=== PATIENT | female | born 1950 | race Caucasian/White ===

== ENCOUNTER → 2021-03-14 11:05 | Outpatient (CLI) | payer MEDICARE, OTHER, SELFPAY ==
--- NOTE | 2021-03-14 11:07 | VDUE_ITS ---
Reason For Study: end stage renal disease Right Arm Left Arm Chronic vein wall thickening with normal Left cephalic vein is compressible. venous flow noted in the Cephalic Vein. Cephalic Vein above the antecubital space it Cephalic Vein above the antecubital space it too small to image. too small to image. Left Cephalic Vein below antecub measures .18 Right Cephalic Vein below antecub x .17 cm. measures .21 x .26 cm. Left Cephalic Vein in the forearm Right Cephalic Vein in the forearm measures .18 x .19 cm. measures .19 x .22 cm. Left Cephalic Vein at the wrist measures .2 Right Cephalic Vein at the wrist measures .13 x .18 cm. x .14 cm. Left basilic vein is compressible. Right basilic vein is compressible. Basilic vein at bicep measures .35 x .39 cm. Right Basilic Vein mid bicep measures .27 Basilic vein above antecub measures .32 x .38 x .3 cm. cm. Right Basilic Vein above antecub measures .27 Basilic vein below antecub measures .16 x .18 x .3 cm. cm. Right Basilic Vein below antecub measures .18 Basilic vein in the forearm measures .12 x .2 cm. x .14 cm. Right Basilic Vein in the forearm Basilic vein at the wrist measures .08 x .1 measures .09 x .13 cm. cm. Right Basilic Vein at the wrist measures .17 Brachial art .31 x .34cm. x .17 cm. Brachial art 105.1cm/s Brachial art .39 x .4 cm. Radial art .19 x .2 cm. Brachial art 77.7 cm/s Radial art 77.7 cm/s. Radial art .24 x .26 cm. Radial art 85.5 cm/s. VL/Saphenous Vein Mapping, Bilat Interpretation Summary Bilateral upper extremity patent and compressible cephalic and basilic veins wi th dimensions as noted. Special note is made of chronic right forearm cephalic vein wall thickening. Bilaterally proximal to the antecubital crease the cephalic veins are too small to image Bilateral forearm cephalic veins are small Bilateral upper arm basilic veins appear to be of adequate diameter. Bilateral brachial arteries of normal diameter and flow Left radial artery is small although bilateral radial arteries appear to have p reserved flow Ordering Physician: Mihir Burnett Performed By: Oseas Lee RVT ?
== END ==
PROVIDERS: Referring Provider Internal Medicine Nephrology; Visit Provider Internal Medicine Nephrology
DX: Z01.818 Encounter for other preprocedural examination (principal); N18.6 End stage renal disease; Z99.2 Dependence on renal dialysis
CPT/HCPCS: 93970

== ENCOUNTER 2021-03-24 07:56 | Emergency (ER) | payer MEDICARE, OTHER, SELFPAY ==
[2021-03-24] VITALS (11 sets, daily range): BP systolic 81–152; BP diastolic 46–92; PULSE 80–88; RESP 17–22; TEMP 36.7–36.9; O2SAT 92–100; BMI 25.7
--- NOTE | 2021-03-24 08:14 | EKG12_ITS ---
Test Reason : Blood Pressure : / mmHG Vent. Rate : 082 BPM Atrial Rate : 082 BPM P-R Int : 170 ms QRS Dur : 076 ms QT Int : 404 ms P-R-T Axes : 035 -02 086 degrees QTc Int : 472 ms Normal sinus rhythm Nonspecific T wave abnormality Prolonged QT Abnormal ECG Confirmed by SALLIE ASTORGA, MAGED ([id number]), greeting card editor GENE ESPOSITO ([id number]) on 03/27/2021 9:38:41 AM Referred By: Confirmed By:KEYANA RIZO MD
--- NOTE | 2021-03-24 08:14 | RAD_ITS ---
STUDY: X-RAY CHEST REASON FOR EXAM: Female, 70 years old. Sob . Edema. TECHNIQUE: Single AP portable view of the chest. COMPARISON: None. FINDINGS: A right-sided dialysis catheter is in situ with the tip in the right atrium. EKG electrodes are seen. Moderate size left pleural effusion with left basilar compressive atelectasis and/or infiltrate. There is blunting of the right causing angle with mild increased markings at the right lung base. Mild degree of CHF. There is moderate cardiac enlargement. Normal mediastinum and nitin. Normal visualized pulmonary arteries. Normal visualized aortic arch and descending thoracic aorta. There are diffuse degenerative changes of the visualized thoracic spine. Normal visualized ribs, clavicles, and shoulders. There is no demonstrated abnormality of the visualized soft tissue structures of the upper abdomen. RAD/Chest 1 View (Portable) IMPRESSION: Moderate left pleural effusion with left compressive atelectasis and/or infiltrate. Blunting of the right costophrenic angle with mild increased markings at the right lung base. Mild degree of CHF. Electronically Signed: Vito Ng MD at 9:33 EDT , Service support ,
[2021-03-24 08:32] LABS: Absolute Lymphocyte Count 1.83 X10^3/uL (0.83-4.51); Absolute Neutrophil Count 5.6 X10^3/uL (2.0-7.7); Basophil# 0.07 X10^3/uL; Basophil% 0.8 % (0-1); Eosinophil# 0.34 X10^3/uL; Eosinophils% 3.9 % (0-5); Hematocrit 30.7 % (37-47); Hemoglobin 9.4 g/dL (12.0-15.0); Lymphocyte # 1.83 X10^3/ul (0.83-4.51); Lymphocyte % 21.2 % (19-41); Mean Corp Hgb Conc 30.6 g/dL (32-36); Mean Corpuscular Hgb 28.1 pg (27.0-32.0); Mean Corpuscular Volume 91.9 fL (81-99); Mean Platelet Vol. 10.3 fl (6.2-12.0); Monocyte% 9.3 % (0-10); NRBC Flagged by Analyzer 0 % (0-5); Neutrophil # 5.55 X10^3/uL (2.7-7.7); Neutrophil % 64.5 % (47-70); Platelet Count 335 K/mm3 (150-450); RBC Distribution Width CV 14.6 % (11.6-14.6); RBC Distribution Width SD 49.1 fl (35.1-43.9); Red Blood Count 3.34 M/mm3 (4.2-5.4); White Blood Count 8.6 K/mm3 (4.4-11.0)
[2021-03-24 08:45] LABS: ALB/GLOB Ratio 0.6 RATIO (0.9-2.4); AST(SGOT) 8 U/L (15-37); Alanine Aminotransfer ALT/SGPT 9 U/L (13-56); Albumin, Serum 2.3 g/dL (3.2-5.0); Alkaline Phosphatase 111 U/L (45-117); Anion Gap 3 (5-15); BUN 41 mg/dL (7-18); BUN/Creat Ratio 11.4 RATIO (10-20); Calcium,Total 8.4 mg/dL (8.5-10.1); Chloride 101 mmol/L (98-107); Creatinine, Serum 3.61 mg/dL (0.55-1.02); EST Glomerular Filtration Rate 13 mL/min (>60); Est Glom Filt Rate - Afr Amer 16 mL/min (>60); Estimated Creatinine Clearance 13.23 ml/min; Globulin 3.7 g/dL (2.2-4.2); Glucose 102 mg/dL (74-106); Sodium Level 138 mmol/L (136-145)
[2021-03-24 08:50] LABS: International Normalized Ratio 1.1; Prothrombin Time (Protime)PT. 13.2 SECONDS (11.7-14.9)
[2021-03-24 08:51] LABS: Partial Thromboplast Time 32.7 Seconds (24.1-36.2)
--- NOTE | 2021-03-24 09:22 | ED.DCSUM_ITS ---
- ER Visit Summary Date of Service: 03/24/21 Chief Complaint: GI bleed History of Present Illness: The patient is a 70 F presenting with bright red blood per rectum. This started this morning. Patient was at dialysis and started having bright red blood per rectum. She was able to complete her dialysis course today. She denies abdominal pain. She states she has loose stool. She denies nausea or vomiting. She denies fever. She is on aspirin and Plavix. She also receives heparin on her dialysis days. Denies lightheadedness or syncope. Denies chest pain or shortness of breath. Physical Examination: Vitals are stable. Patient is afebrile. Alert no acute distress. HEENT exam is unremarkable. Neck is supple. Lungs are clear and equal bilaterally. Heart is regular rate and rhythm. Abdomen is soft nontender nondistended. No guarding or rebound Rectal: Bright red blood per rectum Extremities are unremarkable. Skin is warm and dry. Pallor No focal neurologic deficit. Remainder of exam is unremarkable. Emergency Department Course and Treatment: EKG is sinus rhythm rate of 82 with no acute ischemic changes. CBC shows hemoglobin 9.4. Chemistries show BUN 41, creatinine 3.61. INR 1.1. She was typed and screened and given IV fluids. Discussed with Dr. Hull and the hospitalist and patient will be admitted. Patient started having chest pain while in the emergency department. Repeat EKG is unchanged. She states this lasted approximately 30 seconds. It has now resolved. Discussed with hospitalist. Disposition: Admission Impression: GI bleed This note was generated with [employer] dictation software. It may contain incorrect words, spelling, and punctuation that were not noted in review of the chart prior to signing ED Disposition - Plan for ED Patient:
--- NOTE | 2021-03-24 09:51 | PCM.HP.STD ---
History of Present Illness The patient is a 70 year old F [] Past Medical History Allergies iodine Allergy (Verified 03/24/21 08:00) patient states mother had allergy and is afraid she is. levofloxacin [From Levaquin] Allergy (Verified 03/24/21 08:00) patient states mother had allergy and is afraid she is. shellfish derived Allergy (Verified 03/24/21 08:00) patient states mother had allergy and is afraid she is. Home Medications: Ambulatory Orders Medication Instructions Recorded Acetaminophen 650 mg PO Q4H PRN PRN 03/24/21 Acetaminophen [Tylenol] 650 mg RECTAL Q4H PRN PRN 03/24/21 Ascorbic Acid [Vitamin C] 500 mg PO DAILY 03/24/21 Aspirin [Aspirin, Baby] 81 mg PO DAILY@0800 03/24/21 Atorvastatin Calcium [Lipitor] 20 mg PO QHS 03/24/21 Bisacodyl 10 mg RC PRN PRN 03/24/21 Clopidogrel Bisulfate [Plavix] 75 mg PO DAILY 03/24/21 Furosemide [Lasix] 40 mg PO DAILY 03/24/21 Guaifenesin [Robitussin] 10 ml PO Q4H PRN PRN 03/24/21 Insulin Lispro [Insulin Lispro 0 unit SQ TIDCM 03/24/21 Kwikpen U-100] Lactobacillus Rhamnosus GG 1 each PO QHS 03/24/21 [Culturelle] Mag Hydrox/Aluminum Hyd/Simeth 30 ml PO Q4H PRN PRN 03/24/21 [Mag-Alum Hydroxide-Simeth Susp] Polyethylene Glycol 3350 [Miralax] 17 gm PO DAILY 03/24/21 Psyllium [Metamucil] 1 packet PO DAILY 03/24/21 Theragran-M 1 tablet PO DAILY 03/24/21 Smoking Status: Never smoker - Physical Exam Vitals/I&O's: Vital Signs Temp Pulse Resp BP Pulse Ox 98.1 F 88 20 H 152/77 H 100 03/24/21 08:00 03/24/21 09:21 03/24/21 09:21 03/24/21 09:21 03/24/21 09:21 Oxygen Delivery Method Room Air Weight: 154 lb 8.705 oz Body Mass Index (BMI) 25.7 Microbiology Past 72 Hours 03/24/21 08:20 Nasal Secretion SARS-CoV-2 Antigen (Rapid) - Final Laboratory Results 03/24/21 08:18: WBC 8.6, RBC 3.34 L, Hgb 9.4 L, Hct 30.7 L, MCV 91.9, MCH 28.1, MCHC 30.6 L, RDW Std Deviation 49.1 H, RDW Coeff of Maddison 14.6, Plt Count 335, MPV 10.3, Immature Gran % (Auto) 0.300, Neut % (Auto) 64.5, Lymph % (Auto) 21.2, [place] % (Auto) 9.3, Eos % (Auto) 3.9, Baso % (Auto) 0.8, Absolute Neuts (auto) 5.6, Absolute Lymphs (auto) 1.83, Nucleated RBC % 0 03/24/21 08:18: PT 13.2, INR 1.1, APTT 32.7 03/24/21 08:18: Sodium 138, Potassium 4.0, Chloride 101, Carbon Dioxide 34.0 H, Anion Gap 3 L, BUN 41 H, Creatinine 3.61 H, Estim Creat Clear Calc 13.23, Est GFR (MDRD) Af Amer 16 L, Est GFR (MDRD) Non-Af 13 L, BUN/Creatinine Ratio 11.4, Glucose 102, Calcium 8.4 L, Total Bilirubin 0.30, AST 8 L, ALT 9 L, Alkaline Phosphatase 111, Total Protein 6.0 L, Albumin 2.3 L, Globulin 3.7, Albumin/Globulin Ratio 0.6 L 03/24/21 08:18: Blood Type Pending, Antibody Screen Pending
--- NOTE | 2021-03-24 10:00 | EKG12_ITS ---
Test Reason : CP Blood Pressure : / mmHG Vent. Rate : 084 BPM Atrial Rate : 084 BPM P-R Int : 162 ms QRS Dur : 076 ms QT Int : 408 ms P-R-T Axes : 043 -02 069 degrees QTc Int : 482 ms Normal sinus rhythm Normal ECG Confirmed by SALLIE ASTORGA, MAGED ([id number]), newspaper copy editor GENE ESPOSITO ([id number]) on 03/27/2021 9:42:05 AM Referred By: Confirmed By:KEYANA RIZO MD
--- NOTE | 2021-03-24 10:28 | PCM.HOSP.N ---
Hospitalist Note I went to see the patient. Seen and examined In brief, 70-year-old female on hemodialysis, ESRD generalized weakness, chronic bowel incontinence for ER having soft liquid bowel movement for 1 to 2 weeks and then started bleeding continuously since 5:30 AM today. In the ER, she has been passing continuously red blood with clots in her diaper is getting filled up every 30 minutes to 1 hour. Discussed with the nursing staff and she just changed her diaper. It is even leaking out of her diaper. Patient also had left-sided chest pain localized lasted for 30 seconds. 2 serial EKGs did not show any acute ST-T changes suggestive of ischemia. Last heart rate 88. Blood pressure 152/77 Heart: S1-S2 regular. No murmur gallop or rub Lungs: Air entry diminished on both side. Bilateral pleural effusion, right more than left Abdomen is soft. Nontender nondistended. Bowel distention. : Dialysis dependent. Patient is bladder continent Neuro: Nervous and anxious. No focal neurological deficit. Extremities: Had Achilles tendon rupture on left foot in the assisted. Patient also has a right foot ulcer and neuropathic diabetic foot wrapped up under bandage I discussed with [facility] and ER physician. Agreed for transfer out of the hospital. Dr. Hull is busy in the surgery.
--- NOTE | 2021-03-24 11:26 | ED.RN ---
[facility]
--- NOTE | 2021-03-24 11:43 | ED.RN ---
FAXED DEMOGRAPHIC TO [facility]. PAGED DR PRESSLEY HYDRAULIC MECHANIC AT [facility]
--- NOTE | 2021-03-24 12:10 | ED.RN ---
Bp 81/49. md notified and verbal order to open blood wide open given to this nurse.
== END 2021-03-24 12:31 | disposition short-term general hospital (02) ==
PROVIDERS: Emergency Provider Emergency Medicine; PCP Family Medicine; Visit Provider Internal Medicine
DX: K92.2 Gastrointestinal hemorrhage, unspecified (principal); N18.6 End stage renal disease; E11.9 Type 2 diabetes mellitus without complications; Z86.73 Personal history of transient ischemic attack (TIA), and cerebral infarction without residual deficits; Z99.2 Dependence on renal dialysis; Z79.02 Long term (current) use of antithrombotics/antiplatelets; Z79.4 Long term (current) use of insulin; Z79.899 Other long term (current) drug therapy
CPT/HCPCS: 36430; 71045; 80053; 85025; 85610; 85730; 86644; 86850; 86900; 86901; 86920; 87426; 93005; 96360; 99285; J7040; P9016; A4216

== ENCOUNTER 2021-03-31 03:28 | Inpatient (IN) | payer MEDICARE, OTHER, SELFPAY ==
[2021-03-24 08:00] VITALS: BMI 25.7
[2021-03-31] VITALS (9 sets, daily range): BP systolic 126–167; BP diastolic 61–72; PULSE 85–90; RESP 16–18; TEMP 36.7–37.4; O2SAT 94–98; BMI 26.6; BMI 25.2
--- NOTE | 2021-03-31 03:40 | EX.ED.DYSGE1 ---
HPI History of Present Illness Chief Complaint: Cellulitis Informant: patient and spouse/S.O. Onset/Context/Timing Onset: Yesterday Context: Gradual Onset Timing: Continuous Quality: Right forearm swelling after recent IV Current Severity: Mild Maximum Severity: Mild Associated Symptoms Associated Symptoms ED: Negative for abdominal pain or loss of consciousness Narrative Narrative: 70-year-old female history of diabetes and end-stage renal disease for which she is dialysis. Recently she had lower GI bleed was transferred from [facility] to [facility] [place] [facility] via [employer] helicopter. Patient needed a interventional radiology procedure to help control the GI bleeding. She was then discharged from [facility] this past Saturday 2 days ago. She is back at [facility]. They have noticed in the last 24 to 48 hours right forearm swelling, mild discomfort of redness. She states she has been on oral antibiotic Bactrim but this is getting worse. She denies any prior history of any clots. She does not believe that she is ever had a blood clot before. Prior similar symptoms: No Recent Illness/Hospitalization: Yes [facility] Medical History Diabetes GI bleed Kidney dialysis as the cause of abnormal reaction of the patient, or of later complication, without mention of misadventure at the time of the procedure Kidney disease Home Medications acetaminophen 650 mg PO Q4H PRN PRN 03/24/21 [History Last Taken Unknown] acetaminophen 650 mg RECTAL Q4H PRN PRN 03/24/21 [History Last Taken Unknown] alum-mag hydroxide-simeth 30 ml PO Q4H PRN PRN 03/24/21 [History Last Taken Unknown] aspirin 81 mg PO DAILY@0800 03/24/21 [History Last Taken Unknown] atorvastatin 20 mg PO QHS 03/24/21 [History Last Taken Unknown] bisacodyl 10 mg RC PRN PRN 03/24/21 [History Last Taken Unknown] furosemide 40 mg PO DAILY 03/24/21 [History Last Taken Unknown] guaifenesin 10 ml PO Q4H PRN PRN 03/24/21 [History Last Taken Unknown] erythromycin ea TOPICAL 4X/DAY 03/31/21 [History Last Taken Unknown] nystatin 1 applic TOPICAL TID 03/31/21 [History Last Taken Unknown] sulfamethoxazole-trimethoprim [Bactrim DS] 1 tab PO BID 03/31/21 [History Last Taken Unknown] Allergy/AdvReac Type Severity Reaction Status Date / Time doxycycline Allergy Rash Verified 03/31/21 04:08 iodine Allergy patient Verified 03/24/21 08:00 states mother had allergy and is afraid she is. levofloxacin [From Levaquin] Allergy patient Verified 03/24/21 08:00 states mother had allergy and is afraid she is. shellfish derived Allergy patient Verified 03/24/21 08:00 states mother had allergy and is afraid she is. Social History Smoking Status: Never smoker ROS ROS ED ROS Narrative Patient denies any recent illness except for hospitalization for the lower GI bleed for which she was transfused and had an interventional radiology procedure. Currently she denies any vomiting. She denies any fever. No shortness of breath. No abdominal pain. Denies any fever or chills. Constitutional Constitutional ED: Reports systems reviewed and no addt'l complaints, except as documented; Denies fever(s) ENT ENT ED: Denies bleeding gums or dizziness Cardiovascular Cardiovascular: Denies abdominal bloating or abdominal pain Respiratory/Chest Respiratory/Chest: Denies change in mental status Gastrointestinal Gastrointestinal: Denies coffee ground emesis or diarrhea Genitourinary Genitourinary ED: Reports systems reviewed and no addt'l complaints, except as documented Musculoskeletal Musculoskeletal: Reports muscle weakness Integumentary Reports erythema Neurologic Neurologic: Denies abnormal hearing, confusion or seizures Psychiatric Psychiatric: Reports systems reviewed and no addt'l complaints, except as documented; Denies hallucinations or homicidal ideation Endocrine Endocrinology: Denies change in body appearance or excessive sweating Hematologic/Lymphatic Hematologic/Lymphatic: Reports none Allergic/Immunologic Allergic/Immunologic ED: Denies tongue swelling or hives EXAM Physical Exam Narrative Exam Narrative: Older female no acute distress. at bedside. Patient presents due to swelling and redness of her right forearm after an IV V due to recent admission due to GI bleed. She denies any fever or chills. She does not look septic or toxic. She is in no distress. Her vital signs are stable and afebrile. Const Vital Signs: 03/31/21 03:30 Temperature 98.7 F Temperature Source Oral Pulse Rate 90 Respiratory Rate 18 Blood Pressure 167/72 H Blood Pressure Mean 103 Pulse Ox 97 Oxygen Delivery Method Room Air Positive well nourished and well developed; Negative for cachectic General Appearance ED: active, cooperative, comfortable and well developed; Negative for cachectic Orientation / Consciousness: awake, oriented to person, oriented to place and oriented to time Exam Limitations: no limitations Nutritional Appearance: Negative for cachectic HEENT Reports normocephalic and head/scalp atraumatic normocephalic Nose: external nose normal External Ear: external ears normal Mouth ED: Yes lips normal, Yes tongue normal and Yes moist mucous membranes abnormal Mouth: lips normal, tongue normal and moist mucous membranes abnormal Eyes EOMs intact bilaterally Chest Wall inspection of chest normal Chest Narrative: Right chest wall dialysis Vas-Cath. Clean and dry. Resp normal respiratory effort, normal air movement, no retractions, no use of accessory muscles and clear to auscultation bilaterally Cardio regular rate, regular rhythm and no murmurs Jugular Venous Distention: Negative for JVD Rate: regular rate GI normal to inspection, nondistended, normoactive bowel sounds, soft to palpation, non-tender and non-distended Palpation: soft Extremity normal to inspection Extremity Narrative: Patient is moving all 4 extremities. She has weakness in both lower extremities which is chronic. Her right forearm is red tender consistent with either cellulitis or a deep venous thrombosis of the upper extremity. There is no axillary lymphadenopathy. She has swelling basically from the elbow to the wrist. The right hand is neurovascular intact with a strong radial pulse. Psych mental status grossly normal, thought process normal, cooperative, affect normal and speech normal Appearance: grossly normal, appropriate and well kempt Attitude: calm and engaged Activity / Motor Behavior: appropriate eye contact Thought Process: normal thought process Skin Skin Narrative: Right forearm is swollen, tender slightly warm and red again consistent with either cellulitis, deep venous thrombosis or possibly both. MDM MDM MDM Narrative Medical decision making narrative: 70-year-old female past medical history of diabetes and end-stage renal disease dialysis. She is on dialysis for the last 2 to 3 months. She had a recent GI bleed that needed interventional radiology and treatment at [facility] in [place]. She has been since discharge is back to [facility]. She had a IV in her right forearm while in the hospital and now at that site it is red, warm and swollen. The concern is for either an infectious etiology versus a blood clot versus both or neither. She will be started on IV antibiotics. Labs to be obtained. At this time of night we are unable to obtain a ultrasound the upper extremity that will to be done during admission to be evaluated for possible DVT. I have discussed the plan with the patient and her are comfortable with this. Lab Data Labs: Laboratory Results - last 24 hr 03/31/21 03/31/21 04:03 04:03 WBC 13.4 H RBC 2.92 L Hgb 9.0 L Hct 27.9 L MCV 95.5 MCH 30.8 MCHC 32.3 RDW Std Deviation 54.8 H RDW Coeff of Maddison 15.5 H Plt Count 326 MPV 10.0 Immature Gran % (Auto) 0.300 Neut % (Auto) 72.4 H Lymph % (Auto) 12.3 L [place] % (Auto) 9.9 Eos % (Auto) 4.7 Baso % (Auto) 0.4 Absolute Neuts (auto) 9.7 H Absolute Lymphs (auto) 1.65 Nucleated RBC % 0 Sodium 138 Potassium 4.6 Chloride 103 Carbon Dioxide 28.0 Anion Gap 7 BUN 48 H Creatinine 5.40 H Estim Creat Clear Calc 8.85 Est GFR (MDRD) Af Amer 10 L Est GFR (MDRD) Non-Af 8 L BUN/Creatinine Ratio 8.9 L Glucose 107 H Calcium 8.0 L CBC shows a mildly elevated white count of 13 and a hemoglobin of 9 which is around her baseline after her recent GI bleed. Discharge Plan Triage Chief Complaint: Cellulitis ED Provider: Paramjit Rincon Dx/Rx/DC Orders Clinical Impression: Cellulitis, End stage chronic kidney disease, Diabetes Prescriptions: No Action furosemide 40 MG tablet 40 mg PO DAILY RF: 0 acetaminophen 325 MG tablet 650 mg PO Q4H PRN PRN (Reason: Pain 1-10 Or Fever) RF: 0 acetaminophen 650 MG suppository 650 mg RECTAL Q4H PRN PRN (Reason: Constipation) RF: 0 atorvastatin 20 MG tablet 20 mg PO QHS RF: 0 guaifenesin 10 ML liquid 10 ml PO Q4H PRN PRN (Reason: Constipation) RF: 0 bisacodyl 10 MG suppository 10 mg RC PRN PRN (Reason: Constipation) RF: 0 aspirin 81 MG tablet,chewable 81 mg PO DAILY@0800 RF: 0 alum-mag hydroxide-simeth 30 ML suspension 30 ml PO Q4H PRN PRN (Reason: Pain 1-10 Or Fever) RF: 0 erythromycin 2 % Ointment TOPICAL 4X/DAY RF: 0 sulfamethoxazole-trimethoprim [Bactrim DS] 800-160 mg Tablet 1 tab PO BID RF: 0 nystatin 100,000 unit/gram Powder 1 applic TOPICAL TID RF: 0 Primary Care Provider: Jeremiah Holly Referrals: Jeremiah Holly MD [Primary Care Provider] -
[2021-03-31 04:17] LABS: Absolute Lymphocyte Count 1.65 X10^3/uL (0.83-4.51); Absolute Neutrophil Count 9.7 X10^3/uL (2.0-7.7); Basophil# 0.05 X10^3/uL; Basophil% 0.4 % (0-1); Eosinophil# 0.63 X10^3/uL; Eosinophils% 4.7 % (0-5); Hematocrit 27.9 % (37-47); Lymphocyte # 1.65 X10^3/ul (0.83-4.51); Lymphocyte % 12.3 % (19-41); Mean Corp Hgb Conc 32.3 g/dL (32-36); Mean Corpuscular Hgb 30.8 pg (27.0-32.0); Mean Corpuscular Volume 95.5 fL (81-99); Monocyte# 1.33 X10^3/uL; Monocyte% 9.9 % (0-10); NRBC Flagged by Analyzer 0 % (0-5); Neutrophil # 9.68 X10^3/uL (2.7-7.7); Neutrophil % 72.4 % (47-70); Platelet Count 326 K/mm3 (150-450); RBC Distribution Width CV 15.5 % (11.6-14.6); RBC Distribution Width SD 54.8 fl (35.1-43.9); Red Blood Count 2.92 M/mm3 (4.2-5.4); White Blood Count 13.4 K/mm3 (4.4-11.0)
[2021-03-31 04:31] LABS: Anion Gap 7 (5-15); BUN 48 mg/dL (7-18); BUN/Creat Ratio 8.9 RATIO (10-20); Chloride 103 mmol/L (98-107); EST Glomerular Filtration Rate 8 mL/min (>60); Est Glom Filt Rate - Afr Amer 10 mL/min (>60); Estimated Creatinine Clearance 8.85 ml/min; Glucose 107 mg/dL (74-106); Potassium 4.6 mmol/L (3.5-5.1); Sodium Level 138 mmol/L (136-145)
--- NOTE | 2021-03-31 05:03 | VDUE_ITS ---
Reason For Study: Swelling Right Proximal Right jugular vein is spontaneous, widely patent, phasic, with no intraluminal echogenicity noted. Right subclavian vein is spontaneous, widely patent, phasic, with no intraluminal echogenicity noted. Right Lower Arm Right radial vein is compressible. Right ulnar vein is compressible. Right Arm Right axillary vein is spontaneous, patent, phasic, competent, compressible and demonstrates augmentation. Right brachial vein is compressible. Acute superficial vein thrombosis is noted in the right cephalic vein from below antecube to wrist. Right basilic vein is compressible. Patient Safety Prelim to Kathrine. VL/Venous Duplex US, Unilateral Interpretation Summary No evidence for acute deep venous thrombosis right upper extremity Superficial thrombophlebitis right cephalic vein from the wrist to the antecubi ramesh space Ordering Physician: Matt Santos Referring Physician: Jeremiah Holly Performed By: Anel Vences RVT ?
--- NOTE | 2021-03-31 06:01 | PCM.HP.STD ---
HPI - General General Date of Admission: 03/31/21 Chief Complaint: Swelling and pain of right forearm HPI Narrative TRISH PERKINS, is a 70 F with a significant history of diabetes mellitus with retinopathy; and neuropathy; GI bleed and end-stage renal disease on dialysis who presents emergency department with pain and swelling of her right forearm. Her symptoms started about 3 days before presentation. Her symptoms have been progressively worsening. Associated with her symptoms is erythema of the right forearm. Of note patient presented to our ER ([facility]) on 03/24/2021 with GI bleed. She received blood transfusion and was transferred to [facility] [place] where she received multiple packed red blood cells and had a vascular embolization/coiling. She was subsequently discharged to [facility] on Sunday, March 28, 2021. At about the point of discharge intravenous catheter in the right forearm was removed. Reportedly there was excessive bleeding from the removal site requiring pressure from nurse's thumb. The site of IV removal became inflamed and the whole right forearm became tender; swollen and erythematous as described above She was placed on Bactrim without any relief. In regards to her GI bleed she has noticed considerable improvement in her stools although she still have some residual bleeding that is clearing up. [facility] Medical History (Updated 03/31/21 @ 06:[address] Matt Santos MD) Diabetes GI bleed Kidney dialysis as the cause of abnormal reaction of the patient, or of later complication, without mention of misadventure at the time of the procedure Kidney disease Home Medications acetaminophen 650 mg PO Q4H PRN PRN 03/24/21 [History Last Taken Unknown] acetaminophen 650 mg RECTAL Q4H PRN PRN 03/24/21 [History Last Taken Unknown] alum-mag hydroxide-simeth 30 ml PO Q4H PRN PRN 03/24/21 [History Last Taken Unknown] aspirin 81 mg PO DAILY@0800 03/24/21 [History Last Taken Unknown] atorvastatin 20 mg PO QHS 03/24/21 [History Last Taken Unknown] bisacodyl 10 mg RC PRN PRN 03/24/21 [History Last Taken Unknown] furosemide 40 mg PO DAILY 03/24/21 [History Last Taken Unknown] guaifenesin 10 ml PO Q4H PRN PRN 03/24/21 [History Last Taken Unknown] erythromycin ea TOPICAL 4X/DAY 03/31/21 [History Last Taken Unknown] nystatin 1 applic TOPICAL TID 03/31/21 [History Last Taken Unknown] sulfamethoxazole-trimethoprim [Bactrim DS] 1 tab PO BID 03/31/21 [History Last Taken Unknown] Allergy/AdvReac Type Severity Reaction Status Date / Time doxycycline Allergy Rash Verified 03/31/21 04:08 iodine Allergy patient Verified 03/24/21 08:00 states mother had allergy and is afraid she is. levofloxacin [From Levaquin] Allergy patient Verified 03/24/21 08:00 states mother had allergy and is afraid she is. shellfish derived Allergy patient Verified 03/24/21 08:00 states mother had allergy and is afraid she is. Family History (Updated 03/31/21 @ 06:[address] Matt Santos MD) Other CVA (cerebral vascular accident) Diabetes Surgical History (Updated 03/31/21 @ 06:[address] Matt Santos MD) S/P dialysis catheter insertion S/P tonsillectomy Social History Smoking Status: Never smoker ROS Constitutional Constitutional: Denies anorexia or change in weight Eyes Eyes: Reports blurry vision ENT HEENT: Denies abnormal hearing or dysphagia Cardiovascular Cardiovascular: Reports claudication and edema; Denies chest pain Respiratory/Chest Respiratory/Chest: Denies cough or dyspnea Gastrointestinal Gastrointestinal: Denies abdominal pain or coffee ground emesis Genitourinary Genitourinary: Denies burning urination or difficulty urinating Musculoskeletal Musculoskeletal: Denies arthralgias or back pain Neurologic Neurologic: Reports other Details: She reports inability to walk for some time now. Psychiatric Psychiatric: Denies anxiety or depression Endocrine Endocrinology: Denies change in body appearance or cold intolerance Vital Signs Vital Signs Vital Signs: 03/31/21 03:30 03/31/21 05:14 Temperature 98.7 F 98.6 F Temperature Source Oral Temporal Pulse Rate 90 89 Respiratory Rate 18 16 Blood Pressure 167/72 H 150/72 H Blood Pressure Mean 103 98 Pulse Ox 97 96 Oxygen Delivery Method Room Air Room Air Physical Exam Const alert and oriented x3 HEENT normocephalic and head/scalp atraumatic Eyes PERRL and EOMs intact bilaterally Neck no lymphadenopathy and supple Resp normal respiratory effort and no retractions Cardio regular rate and regular rhythm GI normal to inspection, nondistended, normoactive bowel sounds Extremity Extremity Narrative: Bilateral feet and legs edema. Erythema; tenderness and swelling of right forearm. Skin Skin Narrative: scales and induration of left heel Neuro CN's II-XII intact bilaterally Neuro Narrative: Blurry vision Sensorium / Orientation: alert and oriented to person Lab / Micro Data Result Diagrams: 03/31/21 04:03 03/31/21 04:03 Labs: Laboratory Results - last 24 hr 03/31/21 03/31/21 04:03 04:03 WBC 13.4 H RBC 2.92 L Hgb 9.0 L Hct 27.9 L MCV 95.5 MCH 30.8 MCHC 32.3 RDW Std Deviation 54.8 H RDW Coeff of Maddison 15.5 H Plt Count 326 MPV 10.0 Immature Gran % (Auto) 0.300 Neut % (Auto) 72.4 H Lymph % (Auto) 12.3 L Jessamine % (Auto) 9.9 Eos % (Auto) 4.7 Baso % (Auto) 0.4 Absolute Neuts (auto) 9.7 H Absolute Lymphs (auto) 1.65 Nucleated RBC % 0 Sodium 138 Potassium 4.6 Chloride 103 Carbon Dioxide 28.0 Anion Gap 7 BUN 48 H Creatinine 5.40 H Estim Creat Clear Calc 8.85 Est GFR (MDRD) Af Amer 10 L Est GFR (MDRD) Non-Af 8 L BUN/Creatinine Ratio 8.9 L Glucose 107 H Calcium 8.0 L Assessment & Plan Assessment/Plan (1) Thrombophlebitis arm: Status: Acute Code(s): I80.8 - Phlebitis and thrombophlebitis of other sites (2) Diabetes: Status: Acute Code(s): E11.9 - Type 2 diabetes mellitus without complications (3) End stage chronic kidney disease: Status: Chronic Code(s): N18.6 - End stage renal disease Plan: Emergency department labs were reviewed. White count of 13.4. Started on Zosyn in the emergency department and continued. Doppler of right upper extremity ordered. Fluid overload: radiologist impression of chest x-ray: Chest x-ray with left pleural effusion; left compressive atelectasis/infiltrate. Mild increased markings at the right lung base. Mild degree of CHF. Actual chest x-ray image was independently interpreted. I agree with the radiologist interpretation. Heating And Ventilating Tender consult for management of end-stage renal disease. Patient's skilled nursing professional is Dr. Burnett. Renal diabetic diet. Diabetes mellitus with retinopathy and nephropathy: Trend BMP. Renal and diabetic diet as above. DVT prophylaxis: SCD ordered. Of note patient had a recent major GI bleed. On aspirin which will be continued. Inpatient E&M: 75505 Init Hosp L3
--- NOTE | 2021-03-31 08:07 | NURSING ---
wound photo: left heel
[2021-03-31] MEDS: Aspirin 81 MG TAB.CHEW PO (09:40)
[2021-03-31] MEDS: Furosemide 40 MG Tablet PO (09:40)
[2021-03-31] MEDS: Nystatin Powder 15gm Bottle 1 APPLIC TOPICAL ×3 (09:40→21:12)
--- NOTE | 2021-03-31 10:13 | CASEMGMT ---
Addendum entered by Anel Mckeon 03/31/21 17:23: DIGNA faxed clinicals to [facility]. Plan: Return to [facility] skilled when medically cleared. Pt will need COVID test on day of discharge. Original Note: Social Work Note SW reviewed chart. Pt is listed as being from [facility]. DIGNA placed a call to Anel at [facility], pt is skilled at [facility]. Pt is able to return when medically cleared. Pt will need COVID test to return. SW to fax clinicals. SW in to speak with pt. DIGNA introduced self and role at [facility]. Pt is alert and orientated x3. Pt confirms she is from [facility], states she has been there for about 3 months, and will be returning at discharge. Patient was provided a list of SNF providers including quality and resource use data and consistent with the patient?s preferred geographic region, medical needs, and insurance network. Pt's preferred provider is to return to [facility]. Green sheet, transport form, COVID screening tool placed on pt's chart. DIGNA wrote on Green sheet that pt will need COVID test on day of discharge. Plan: Return to [facility] skilled when medically cleared Anel Mckeon [employer] COMPLIANCE ENGINEER, TODDLER NANNY
[2021-03-31 10:50] LABS: Bedside Glucose 169 mg/dL (70-110)
[2021-03-31] MEDS: 0.9% Saline Lock 10 ML Syringe IV ×2 (11:53→21:12)
[2021-03-31 12:43] LABS: Absolute Lymphocyte Count 1.15 X10^3/uL (0.83-4.51); Absolute Neutrophil Count 9.7 X10^3/uL (2.0-7.7); Basophil# 0.05 X10^3/uL; Basophil% 0.4 % (0-1); Eosinophil# 0.43 X10^3/uL; Eosinophils% 3.5 % (0-5); Hematocrit 26.4 % (37-47); Hemoglobin 8.5 g/dL (12.0-15.0); Lymphocyte # 1.15 X10^3/ul (0.83-4.51); Lymphocyte % 9.3 % (19-41); Mean Corp Hgb Conc 32.2 g/dL (32-36); Mean Corpuscular Hgb 30.9 pg (27.0-32.0); Mean Platelet Vol. 10.2 fl (6.2-12.0); Monocyte# 0.99 X10^3/uL; NRBC Flagged by Analyzer 0 % (0-5); Neutrophil # 9.69 X10^3/uL (2.7-7.7); Neutrophil % 78.3 % (47-70); Platelet Count 313 K/mm3 (150-450); RBC Distribution Width CV 15.5 % (11.6-14.6); RBC Distribution Width SD 54.1 fl (35.1-43.9); Red Blood Count 2.75 M/mm3 (4.2-5.4); White Blood Count 12.4 K/mm3 (4.4-11.0)
--- NOTE | 2021-03-31 13:37 | PCM.CONS.R ---
Assessment & Plan Assessment/Plan (1) End stage chronic kidney disease: Status: Chronic Code(s): N18.6 - End stage renal disease Plan: The patient dialyzes at [facility] using NxStage Dialysis machine. She was being dialyzed 4 times a week. There is no need for dialysis today. I will arrange for dialysis tomorrow using her conventional machine. The patient and her was made aware of the nephrology plan. (2) Anemia: Status: Acute Code(s): D64.9 - Anemia, unspecified Plan: Hemoglobin is below 10 g/dL. I will continue NAHUN with dialysis. Continue to monitor hemoglobin. (3) Diabetes: Status: Acute Code(s): E11.9 - Type 2 diabetes mellitus without complications Plan: Glycemic control as per hospital medicine service. (4) Cellulitis: Status: Acute Code(s): L03.90 - Cellulitis, unspecified Plan: The patient has right arm cellulitis due to thrombophlebitis of the old IV site. There was no DVT on ultrasound seen. She is being treated with antibiotics as directed by the hospital medicine service. HPI Consult Data Date of Consult: 03/31/21 HPI Narrative HPI Narrative: Consult for ESRD. The patient is a 70-year-old woman with ESRD secondary to diabetic kidney disease and type 2 diabetes mellitus who presents with a 3-day history of increasing swelling of the right arm with pain at old IV site. The patient was seen at this hospital on 03/24/2021 with GI bleed. The patient was life flighted up to [facility] in [place] were she was treated with embolization coiling of the bleeding artery. The patient was then released to [facility] for rehabilitation. She is receiving 4 days a week dialysis they are using Nxstage machine. The patient denies current chest pain, shortness of breath, nausea, or vomiting. Pain at the IV site the right hand is better. Arm is still swollen. She also has swelling of the lower extremities bilaterally which has not increased in severity. [facility] Medical History (Updated 03/31/21 @ 13:[address] Viki Dia MD) Anemia Congestive heart failure (CHF) Diabetes Dialysis patient GI bleed Kidney dialysis as the cause of abnormal reaction of the patient, or of later complication, without mention of misadventure at the time of the procedure Kidney disease TIA (transient ischemic attack) Vision loss of left eye Vision loss of right eye Home Medications acetaminophen 650 mg PO Q4H PRN PRN 03/24/21 [History Last Taken Unknown] acetaminophen 650 mg RECTAL Q4H PRN PRN 03/24/21 [History Last Taken Unknown] alum-mag hydroxide-simeth 30 ml PO Q4H PRN PRN 03/24/21 [History Last Taken Unknown] aspirin 81 mg PO DAILY@0800 03/24/21 [History Last Taken 03/30/21] bisacodyl 10 mg RC PRN PRN 03/24/21 [History Last Taken Unknown] furosemide 20 mg PO DAILY 03/24/21 [History Last Taken 03/30/21] guaifenesin 10 ml PO Q4H PRN PRN 03/24/21 [History Last Taken Unknown] erythromycin 1 applic OPHTHALMIC (EYE) 4X/DAY 03/31/21 [History Last Taken 03/30/21] nystatin 1 applic TOPICAL TID 03/31/21 [History Last Taken 03/30/21] sulfamethoxazole-trimethoprim [Bactrim DS] 1 tab PO BID 03/31/21 [History Last Taken 03/30/21] Allergy/AdvReac Type Severity Reaction Status Date / Time doxycycline Allergy Rash Verified 03/31/21 04:08 iodine Allergy patient Verified 03/24/21 08:00 states mother had allergy and is afraid she is. levofloxacin [From Levaquin] Allergy patient Verified 03/24/21 08:00 states mother had allergy and is afraid she is. shellfish derived Allergy patient Verified 03/24/21 08:00 states mother had allergy and is afraid she is. Family History (Updated 03/31/21 @ 06:[address] Matt Santos MD) Other CVA (cerebral vascular accident) Diabetes Surgical History S/P dialysis catheter insertion S/P tonsillectomy Social History Smoking Status: Never smoker ROS Constitutional Constitutional: Reports systems reviewed and no addt'l complaints, except as documented Eyes Eyes: Denies diplopia, dry eyes or erythema ENT HEENT: Denies abnormal hearing, change in voice, ear pain, epistaxis or hoarseness Cardiovascular Cardiovascular: Reports leg edema; Denies chest pain, clubbing, cyanosis, dyspnea at rest or dyspnea on exertion Respiratory/Chest Respiratory/Chest: Denies cough, dyspnea, hemoptysis, hoarseness or mouth breathing Gastrointestinal Gastrointestinal: Denies abdominal pain, anorexia, bloating, coffee ground emesis, constipation or dysphagia Genitourinary Genitourinary: Denies abdominal discomfort, difficulty urinating or polyuria Musculoskeletal Musculoskeletal: Reports as per HPI Integumentary Integumentary: Reports as per HPI Neurologic Neurologic: Denies abnormal gait, confusion or dizziness Psychiatric Psychiatric: Reports systems reviewed and no addt'l complaints, except as documented Hematologic/Lymphatic Hematologic/Lymphatic: Denies easy bleeding or easy bruising Allergic/Immunologic Allergic/Immunologic: Reports systems reviewed and no addt'l complaints, except as documented Physical Exam Const Constitutional Narrative: No apparent distress. The patient is alert and oriented x3. HEENT HEENT Narrative: Normocephalic, atraumatic. Mucous membrane moist without erythema. Eyes Eyes Narrative: Pupil is equal round and reactive to light and accommodation. Extraocular motion intact. Neck Neck Narrative: Supple, no JVD. Chest Chest Narrative: Symmetric chest wall rise. Resp Resp Narrative: Clear to auscultation bilaterally. Cardio Cardio Narrative: Normal S1, S2. No gallops or murmurs. GI GI Narrative: Normal active bowel sounds. Abdomen is soft, nontender to palpation. There is no guarding or rebound. Extremity Extremity Narrative: 3+ edema in the lower extremities bilaterally. No clubbing or cyanosis of the lower extremity. Right arm is swollen up to the shoulder. Neuro Neuro Narrative: No focal neurologic deficit. Lab / Micro Data Result Diagrams: 03/31/21 12:30 03/31/21 04:03 Labs: Laboratory Results - last 24 hr 03/31/21 03/31/21 03/31/21 04:03 04:03 10:46 WBC 13.4 H RBC 2.92 L Hgb 9.0 L Hct 27.9 L MCV 95.5 MCH 30.8 MCHC 32.3 RDW Std Deviation 54.8 H RDW Coeff of Maddison 15.5 H Plt Count 326 MPV 10.0 Immature Gran % (Auto) 0.300 Neut % (Auto) 72.4 H Lymph % (Auto) 12.3 L Coles % (Auto) 9.9 Eos % (Auto) 4.7 Baso % (Auto) 0.4 Absolute Neuts (auto) 9.7 H Absolute Lymphs (auto) 1.65 Nucleated RBC % 0 Sodium 138 Potassium 4.6 Chloride 103 Carbon Dioxide 28.0 Anion Gap 7 BUN 48 H Creatinine 5.40 H Estim Creat Clear Calc 8.85 Est GFR (MDRD) Af Amer 10 L Est GFR (MDRD) Non-Af 8 L BUN/Creatinine Ratio 8.9 L Glucose 107 H Calcium 8.0 L POC Glucose 169 H 03/31/21 12:30 WBC 12.4 H RBC 2.75 L Hgb 8.5 L Hct 26.4 L MCV 96.0 MCH 30.9 MCHC 32.2 RDW Std Deviation 54.1 H RDW Coeff of Maddison 15.5 H Plt Count 313 MPV 10.2 Immature Gran % (Auto) 0.500 Neut % (Auto) 78.3 H Lymph % (Auto) 9.3 L Coles % (Auto) 8.0 Eos % (Auto) 3.5 Baso % (Auto) 0.4 Absolute Neuts (auto) 9.7 H Absolute Lymphs (auto) 1.15 Nucleated RBC % 0 Sodium Potassium Chloride Carbon Dioxide Anion Gap BUN Creatinine Estim Creat Clear Calc Est GFR (MDRD) Af Amer Est GFR (MDRD) Non-Af BUN/Creatinine Ratio Glucose Calcium POC Glucose Radiology Impression Venous Doppler Study 03/31/21 05:03 Interpretation Summary No evidence for acute deep venous thrombosis right upper extremity Superficial thrombophlebitis right cephalic vein from the wrist to the antecubital space Ordering Physician: Matt Santos Referring Physician: Jeremiah Holly Performed By: Anel Vences RVT ?
--- NOTE | 2021-03-31 14:29 | PCM.PN.HOSP ---
Subjective Subjective: developed swelling in RUE 24 hours after an IV was removed. Swelling and tenderness. Objective Data Objective Data Vital Signs: Vital Signs Temp Pulse Resp BP Pulse Ox 37.1 C 90 16 126/61 H 94 03/31/21 12:17 03/31/21 12:17 03/31/21 12:17 03/31/21 12:17 03/31/21 12:17 Oxygen Delivery Method Room Air Weight: 68.492 kg Body Mass Index (BMI) 25.2 Intake & Output: Intake and Output for Last 24 Hours 03/29/21 03/30/21 03/31/21 23:59 23:59 23:59 Intake Total 450 / 450 Balance 450 / 450 Lab / Micro Data Result Diagrams: 03/31/21 12:30 03/31/21 04:03 Labs: Laboratory Results - last 24 hr 03/31/21 03/31/21 03/31/21 04:03 04:03 10:46 WBC 13.4 H RBC 2.92 L Hgb 9.0 L Hct 27.9 L MCV 95.5 MCH 30.8 MCHC 32.3 RDW Std Deviation 54.8 H RDW Coeff of Maddison 15.5 H Plt Count 326 MPV 10.0 Immature Gran % (Auto) 0.300 Neut % (Auto) 72.4 H Lymph % (Auto) 12.3 L Wagoner % (Auto) 9.9 Eos % (Auto) 4.7 Baso % (Auto) 0.4 Absolute Neuts (auto) 9.7 H Absolute Lymphs (auto) 1.65 Nucleated RBC % 0 Sodium 138 Potassium 4.6 Chloride 103 Carbon Dioxide 28.0 Anion Gap 7 BUN 48 H Creatinine 5.40 H Estim Creat Clear Calc 8.85 Est GFR (MDRD) Af Amer 10 L Est GFR (MDRD) Non-Af 8 L BUN/Creatinine Ratio 8.9 L Glucose 107 H Calcium 8.0 L POC Glucose 169 H 03/31/21 12:30 WBC 12.4 H RBC 2.75 L Hgb 8.5 L Hct 26.4 L MCV 96.0 MCH 30.9 MCHC 32.2 RDW Std Deviation 54.1 H RDW Coeff of Maddison 15.5 H Plt Count 313 MPV 10.2 Immature Gran % (Auto) 0.500 Neut % (Auto) 78.3 H Lymph % (Auto) 9.3 L [place]er % (Auto) 8.0 Eos % (Auto) 3.5 Baso % (Auto) 0.4 Absolute Neuts (auto) 9.7 H Absolute Lymphs (auto) 1.15 Nucleated RBC % 0 Sodium Potassium Chloride Carbon Dioxide Anion Gap BUN Creatinine Estim Creat Clear Calc Est GFR (MDRD) Af Amer Est GFR (MDRD) Non-Af BUN/Creatinine Ratio Glucose Calcium POC Glucose Radiography Diagnostic Testing: Radiology Impression Venous Doppler Study 03/31/21 05:03 Interpretation Summary No evidence for acute deep venous thrombosis right upper extremity Superficial thrombophlebitis right cephalic vein from the wrist to the antecubital space Ordering Physician: Matt Santos Referring Physician: Jeremiah Holly Performed By: Anel Vences RVT ? Physical Exam Const alert Resp normal respiratory effort and clear to auscultation bilaterally Cardio regular rate, regular rhythm, S1 normal heart sound and S2 normal heart sound GI normal to inspection, nondistended, normoactive bowel sounds Extremity Extremity Narrative: swelling in RUE with TTP on right arm. Assessment & Plan Assessment/Plan (1) Superficial venous thrombosis of right arm: Status: Acute Code(s): I82.611 - Acute embolism and thrombosis of superficial veins of right upper extremity Plan: Confirmed on US 2/2 IV Doubt cellulitis and will DC abx elevate arm and warm compresses (2) Anemia: Status: Acute Code(s): D64.9 - Anemia, unspecified Qualifiers: Anemia type: unspecified type Qualified Code(s): D64.9 - Anemia, unspecified Plan: trending down monitor no transfusions at this time. Recently had Gi bleed requiring coiling (3) End stage chronic kidney disease: Status: Chronic Code(s): N18.6 - End stage renal disease Plan: nephrology on consult for HD (4) Mechanical venous thromboembolism (VTE) prophylaxis in place: Status: Acute Code(s): Z78.9 - Other specified health status Visit Charges Inpatient E&M: 52815 Subs Hosp L2
--- NOTE | 2021-03-31 14:57 | NURSING ---
pt refused scd'd pt stated they hurt her legs and can not tolerate them
[2021-03-31 16:26] LABS: Bedside Glucose 155 mg/dL (70-110)
[2021-03-31 22:20] LABS: Bedside Glucose 135 mg/dL (70-110)
[2021-04-01] VITALS (8 sets, daily range): BP systolic 143–148; BP diastolic 57–70; PULSE 81–92; RESP 16–20; TEMP 36.4–37.5; O2SAT 95–97; BMI 25.1
[2021-04-01] MEDS: Nystatin Powder 15gm Bottle 1 APPLIC TOPICAL ×2 (06:32→21:17)
[2021-04-01 06:35] LABS: Bedside Glucose 96 mg/dL (70-110)
[2021-04-01 07:00] LABS: Absolute Lymphocyte Count 1.35 X10^3/uL (0.83-4.51); Basophil# 0.04 X10^3/uL; Basophil% 0.4 % (0-1); Eosinophils% 4.6 % (0-5); Hematocrit 25.1 % (37-47); Hemoglobin 7.9 g/dL (12.0-15.0); Lymphocyte # 1.35 X10^3/ul (0.83-4.51); Lymphocyte % 12.4 % (19-41); Mean Corp Hgb Conc 31.5 g/dL (32-36); Mean Corpuscular Hgb 30.5 pg (27.0-32.0); Mean Corpuscular Volume 96.9 fL (81-99); Monocyte# 0.98 X10^3/uL; NRBC Flagged by Analyzer 0 % (0-5); Neutrophil # 7.99 X10^3/uL (2.7-7.7); Platelet Count 323 K/mm3 (150-450); RBC Distribution Width CV 15.3 % (11.6-14.6); RBC Distribution Width SD 54.4 fl (35.1-43.9); Red Blood Count 2.59 M/mm3 (4.2-5.4); White Blood Count 10.9 K/mm3 (4.4-11.0)
[2021-04-01 07:27] LABS: Anion Gap 7 (5-15); BUN 55 mg/dL (7-18); Chloride 105 mmol/L (98-107); Creatinine, Serum 6.08 mg/dL (0.55-1.02); EST Glomerular Filtration Rate 7 mL/min (>60); Est Glom Filt Rate - Afr Amer 9 mL/min (>60); Estimated Creatinine Clearance 7.86 ml/min; Glucose 95 mg/dL (74-106); Sodium Level 136 mmol/L (136-145)
--- NOTE | 2021-04-01 09:16 | PCM.PN.HOSP ---
Subjective Subjective: Still with maroon stools. Had embolization at [facility] for massive GI hemorrhage last week. Has had maroon stools since then. Right arm is feeling better. Objective Data Objective Data Vital Signs: Vital Signs Temp Pulse Resp BP Pulse Ox 36.7 C 81 16 144/57 H 97 04/01/21 03:45 04/01/21 03:45 04/01/21 03:45 04/01/21 03:45 04/01/21 03:45 Oxygen Delivery Method Room Air Weight: 151 lb Body Mass Index (BMI) 25.2 Intake & Output: Intake and Output for Last 24 Hours 03/30/21 03/31/21 04/01/21 23:59 23:59 23:59 Intake Total 1150 / 1300 250 / 250 Balance 1150 / 1300 250 / 250 Lab / Micro Data Result Diagrams: 04/01/21 06:49 04/01/21 06:49 Labs: Laboratory Results - last 24 hr 03/31/21 03/31/21 03/31/21 10:46 12:30 16:19 WBC 12.4 H RBC 2.75 L Hgb 8.5 L Hct 26.4 L MCV 96.0 MCH 30.9 MCHC 32.2 RDW Std Deviation 54.1 H RDW Coeff of Maddison 15.5 H Plt Count 313 MPV 10.2 Immature Gran % (Auto) 0.500 Neut % (Auto) 78.3 H Lymph % (Auto) 9.3 L [place] % (Auto) 8.0 Eos % (Auto) 3.5 Baso % (Auto) 0.4 Absolute Neuts (auto) 9.7 H Absolute Lymphs (auto) 1.15 Nucleated RBC % 0 Sodium Potassium Chloride Carbon Dioxide Anion Gap BUN Creatinine Estim Creat Clear Calc Est GFR (MDRD) Af Amer Est GFR (MDRD) Non-Af BUN/Creatinine Ratio Glucose Calcium POC Glucose 169 H 155 H 03/31/21 04/01/21 04/01/21 22:14 06:32 06:49 WBC 10.9 RBC 2.59 L Hgb 7.9 L Hct 25.1 L MCV 96.9 MCH 30.5 MCHC 31.5 L RDW Std Deviation 54.4 H RDW Coeff of Maddison 15.3 H Plt Count 323 MPV 10.0 Immature Gran % (Auto) 0.600 Neut % (Auto) 73.0 H Lymph % (Auto) 12.4 L [place] % (Auto) 9.0 Eos % (Auto) 4.6 Baso % (Auto) 0.4 Absolute Neuts (auto) 8.0 H Absolute Lymphs (auto) 1.35 Nucleated RBC % 0 Sodium Potassium Chloride Carbon Dioxide Anion Gap BUN Creatinine Estim Creat Clear Calc Est GFR (MDRD) Af Amer Est GFR (MDRD) Non-Af BUN/Creatinine Ratio Glucose Calcium POC Glucose 135 H 96 04/01/21 06:49 WBC RBC Hgb Hct MCV MCH MCHC RDW Std Deviation RDW Coeff of Maddison Plt Count MPV Immature Gran % (Auto) Neut % (Auto) Lymph % (Auto) [place] % (Auto) Eos % (Auto) Baso % (Auto) Absolute Neuts (auto) Absolute Lymphs (auto) Nucleated RBC % Sodium 136 Potassium 5.0 Chloride 105 Carbon Dioxide 24.0 Anion Gap 7 BUN 55 H Creatinine 6.08 H Estim Creat Clear Calc 7.86 Est GFR (MDRD) Af Amer 9 L Est GFR (MDRD) Non-Af 7 L BUN/Creatinine Ratio 9.0 L Glucose 95 Calcium 8.0 L POC Glucose Radiography Diagnostic Testing: Radiology Impression Venous Doppler Study 03/31/21 05:03 Interpretation Summary No evidence for acute deep venous thrombosis right upper extremity Superficial thrombophlebitis right cephalic vein from the wrist to the antecubital space Ordering Physician: Matt Santos Referring Physician: Jeremiah Holly Performed By: Anel Vences RVT ? Physical Exam Const alert Exam Limitations: no limitations Resp normal respiratory effort and clear to auscultation bilaterally Cardio regular rate, regular rhythm, S1 normal heart sound and S2 normal heart sound GI normal to inspection, nondistended, normoactive bowel sounds, soft to palpation, non-tender and non-distended Extremity Extremity Narrative: decreased edema of RUE with palpable veing in forearm and antecubital fossa. Assessment & Plan Assessment/Plan (1) Superficial venous thrombosis of right arm: Status: Acute Code(s): I82.611 - Acute embolism and thrombosis of superficial veins of right upper extremity Plan: Improving Confirmed on US 2/2 peripheral IV Doubt cellulitis and will DC abx elevate arm and warm compresses (2) Anemia: Status: Acute Code(s): D64.9 - Anemia, unspecified Qualifiers: Anemia type: unspecified type Qualified Code(s): D64.9 - Anemia, unspecified Plan: trending down monitor no transfusions at this time. Recently had Gi bleed requiring coiling (3) GI bleed: Status: Acute Code(s): K92.2 - Gastrointestinal hemorrhage, unspecified Qualifiers: GI bleed type/associated pathology: unspecified gastrointestinal hemorrhage type Qualified Code(s): K92.2 - Gastrointestinal hemorrhage, unspecified Plan: had coiling at on the 23 unclear if marroon stool is residual or active SOHAN Hull. Plan for colonoscopy today. SOHAN pt about the risks. She knows an individual who apparently had a perforation from a c-scope. I informed her that the likelihood of that is extremely low. She has never had a colonoscopy before. If worse, may need bleeding scan. Greater than 35 minutes of which greater than 50% of the time was coordinating care for the GI bleed and discussing the GI bleed, procedures. (4) End stage chronic kidney disease: Status: Chronic Code(s): N18.6 - End stage renal disease Plan: nephrology on consult for HD (5) Mechanical venous thromboembolism (VTE) prophylaxis in place: Status: Acute Code(s): Z78.9 - Other specified health status Visit Charges Inpatient E&M: 74517 Subs Hosp L3
[2021-04-01] MEDS: Electrolyte Solution/Peg's 4000 ML 2000 ML PO (09:46)
--- NOTE | 2021-04-01 10:43 | EKG12_ITS ---
Test Reason : PRE OP Blood Pressure : / mmHG Vent. Rate : 085 BPM Atrial Rate : 085 BPM P-R Int : 196 ms QRS Dur : 086 ms QT Int : 390 ms P-R-T Axes : 041 -05 091 degrees QTc Int : 464 ms Normal sinus rhythm Nonspecific T wave abnormality Abnormal ECG Confirmed by JAYESH ASTORGA, TRINY ([id number]), film editor supervisor GENE ESPOSITO ([id number]) on 04/04/2021 11:26:10 AM Referred By: RODRIGO Confirmed By:TRINY MCCONNELL MD
[2021-04-01 11:55] LABS: Absolute Lymphocyte Count 1.69 X10^3/uL (0.83-4.51); Basophil# 0.05 X10^3/uL; Basophil% 0.4 % (0-1); Eosinophil# 0.57 X10^3/uL; Hematocrit 25.7 % (37-47); Hemoglobin 8.1 g/dL (12.0-15.0); Lymphocyte # 1.69 X10^3/ul (0.83-4.51); Lymphocyte % 14.9 % (19-41); Mean Corp Hgb Conc 31.5 g/dL (32-36); Mean Corpuscular Hgb 29.9 pg (27.0-32.0); Mean Corpuscular Volume 94.8 fL (81-99); Mean Platelet Vol. 9.6 fl (6.2-12.0); Monocyte# 1.01 X10^3/uL; Monocyte% 8.9 % (0-10); NRBC Flagged by Analyzer 0 % (0-5); Neutrophil # 8.02 X10^3/uL (2.7-7.7); Neutrophil % 70.4 % (47-70); Platelet Count 349 K/mm3 (150-450); RBC Distribution Width CV 15.5 % (11.6-14.6); RBC Distribution Width SD 53.5 fl (35.1-43.9); Red Blood Count 2.71 M/mm3 (4.2-5.4); White Blood Count 11.4 K/mm3 (4.4-11.0)
[2021-04-01 12:00] LABS: Hemoglobin A1c 4.7 % (3.8-5.6)
[2021-04-01] MEDS: Electrolyte Solution/Peg's 4000 ML 1000 ML PO (12:32)
[2021-04-01 12:56] LABS: Bedside Glucose 90 mg/dL (70-110)
[2021-04-01] MEDS: Menthol/Lanolin/Calamine/Znox 113 GM Tube 1 APPLIC TOPICAL ×2 (13:37→21:17)
--- NOTE | 2021-04-01 14:00 | COLBX_PTH ---
PATIENT: TRISH PERKINS LOC: MS3 U#:[id number] AGE/SX: 70/F ROOM: [facility] RE03/31/[address]: Dr. Jakob Chisholm DO : 1950 BED: 1 DIS: 04/02/2021 SPEC #: [id number] RECD: 04/01/21 15:28 STATUS: MAGGY RECabrera #: [id number] JARED: 04/01/21 14:[address]: Nichole Hull DEPT: SURGICAL PATHOLOGY RECD BY: Adrienne Ulloa ENTERED: 04/03/21 07:53 SP TYPE: COLON BX OTHR DR: DO Dr. Matt David MD Dr. Linda Wang, MD Dr. Natthavat Tanphaichitr, MD Dr. Paul Nielsen, MD Tissues: Transverse colon Procedures: Surgery Specimen Level IV Comments: @ Ordering doctor for SUIV edited from to @ jose PAINTING at 04/03/21927 @ Submitting doctor edited from to DR.LWANG Greenberg by GARIMA at 04/03/21927 HEADER OPERATION: Colonoscopy, EGD ([facility]) PRE-OP DIAGNOSIS: GI bleed, anemia TISSUE SUBMITTED: Transverse polyp MICROSCOPIC DIAGNOSIS Transverse colon polyp, biopsy: Consistent with inflammatory polyp. Fragments of fecal material. See comment. SRINATH:milad 04/04/2021 COMMENT Correlation with clinical, endoscopic findings and appropriate follow up are necessary. MICROSCOPIC DESCRIPTION Slides are reviewed. GROSS DESCRIPTION Received in fixative is one container labeled with the patient's name and designated transverse polyp. The specimen consists of multiple irregular fragments of light heath soft tissue that in aggregate measure 1.5 x 1 x 0.2 cm. The specimen is totally submitted in one cassette. / AM:milad 04/03/21 TC:5 CPT: 39798
--- NOTE | 2021-04-01 14:32 | OP.EGD_ITS ---
Patient Name: Staci Motta Procedure Date: 04/01/2021 1:33 PM Date of : 1950 Age: 70 Procedure: Upper GI endoscopy Indications: Iron deficiency anemia Providers: Nichole Hull MD Medicines: See the Anesthesia note for documentation of the administered medications Patient Profile: Refer to note in patient chart for documentation of history and physical. Complications: No immediate complications. Procedure: Pre-Anesthesia Assessment: - see anesthesia note After obtaining informed consent, the endoscope was passed under direct vision. Throughout the procedure, the patient's blood pressure, pulse, and oxygen saturations were monitored continuously. The gastroscope was introduced through the mouth, and advanced to the second part of duodenum. The upper GI endoscopy was accomplished without difficulty. The patient tolerated the procedure well. Scope In: 1:59:58 PM Scope Out: 2:02:53 PM Total Procedure Duration Time 0 hours 2 minutes 55 seconds Findings: The first portion of the duodenum and second portion of the duodenum were normal. Estimated blood loss: none. The entire examined stomach was normal. A small hiatal hernia was present. Impression: - Normal first portion of the duodenum and second portion of the duodenum. - Normal stomach. - Small hiatal hernia. - No specimens collected. Recommendation: - Return patient to [facility] for [facility] care. - Continue present medications. Procedure Code(s): --- Professional --- 05398, Esophagogastroduodenoscopy, flexible, transoral; diagnostic, including collection of specimen(s) by brushing or washing, when performed (separate procedure) Diagnosis Code(s): --- Professional --- K44.9, Diaphragmatic hernia without obstruction or gangrene D50.9, Iron deficiency anemia, unspecified CPT copyright 2017 [employer]. All rights reserved. The codes documented in this report are preliminary and upon cork insulator review may be revised to meet current compliance requirements. MD Nichole Becker MD 04/01/2021 2:32:07 PM This report has been signed electronically. Number of Addenda: 0 Note Initiated On: 04/01/2021 1:33 PM
--- NOTE | 2021-04-01 14:33 | OP.CCLET_ITS ---
04/01/2021 Jeremiah Holly MD [address] [id number] Re : Upper GI endoscopy procedure for [facility] Dear Dr. Holly This procedure was performed on Thursday, April 01, 2021. My impressions and recommendations are as follows: Impressions : - Normal first portion of the duodenum and second portion of the duodenum. - Normal stomach. - Small hiatal hernia. - No specimens collected. Recommendations : - Return patient to [facility] for [facility] care. - Continue present medications. My findings are described in the full procedure note, which is enclosed. If I can be of further assistance, please feel free to contact me at Doctor phone number(s): , Work: . Sincerely, MD Nichole Becker MD 04/01/2021 2:32:07 PM This report has been signed electronically.
--- NOTE | 2021-04-01 14:36 | OP.COLON_ITS ---
Patient Name: Staci Motta Procedure Date: 04/01/2021 2:04 PM Date of : 1950 Age: 70 Procedure: Colonoscopy Indications: Rectal bleeding, Iron deficiency anemia Providers: Nichole Hull MD Medicines: See the Anesthesia note for documentation of the administered medications Patient Profile: Refer to note in patient chart for documentation of history and physical. Last Colonoscopy: none. The patient's first colonoscopy is today. Complications: No immediate complications. Procedure: Pre-Anesthesia Assessment: - see anesthesia note - see anesthesia note After I obtained informed consent, the scope was passed under direct vision. Throughout the procedure, the patient's blood pressure, pulse, and oxygen saturations were monitored continuously. The colonoscope was introduced through the anus and advanced to the cecum, identified by the appendiceal orifice, IC valve and transillumination. The colonoscopy was performed without difficulty. The patient tolerated the procedure well. The quality of the bowel preparation was adequate. Scope In: 2:06:51 PM Scope Withdrawal Time 0 hours 6 minutes 46 seconds Scope Out: 2:21:56 PM Total Procedure Duration Time 0 hours 15 minutes 5 seconds Findings: The perianal and digital rectal examinations were normal. A 7 to 13 mm polyp was found in the transverse colon. The polyp was pedunculated. The polyp was removed with a hot snare. Resection and retrieval were complete. Verification of patient identification for the specimen was done by the nurse. Estimated blood loss was minimal. Multiple diverticula were found in the entire colon - one or two in right and transverse colon, mostly in the sigmoid colon. Anal dermatitis from constant fecal incontinence noted with contact skin bleeding. external and internal hemorrhoids were found - not actively bleeding. Impression: - One 7 to 13 mm polyp in the transverse colon, removed with a hot snare. Resected and retrieved. - Diverticulosis in the entire examined colon. - contact bleeding of perianal skin, external and internal hemorrhoids. Recommendation: - Patient has a contact number available for emergencies. The signs and symptoms of potential delayed complications were discussed with the patient. Return to normal activities tomorrow. Written discharge instructions were provided to the patient. - Repeat colonoscopy is recommended. The colonoscopy date will be determined after pathology results from today's exam become available for review. - Continue present medications. Procedure Code(s): --- Professional --- 65491, Colonoscopy, flexible; with removal of tumor(s), polyp(s), or other lesion(s) by snare technique Diagnosis Code(s): --- Professional --- D12.3, Benign neoplasm of transverse colon (hepatic flexure or splenic flexure) K64.8, Other hemorrhoids K62.5, Hemorrhage of anus and rectum D50.9, Iron deficiency anemia, unspecified K57.30, Diverticulosis of large intestine without perforation or abscess without bleeding CPT copyright 2017 [employer]. All rights reserved. The codes documented in this report are preliminary and upon wood club neck whipper review may be revised to meet current compliance requirements. MD Nichole Becker MD 04/01/2021 2:36:03 PM This report has been signed electronically. Number of Addenda: 0 Note Initiated On: 04/01/2021 2:04 PM
--- NOTE | 2021-04-01 14:36 | OP.CCLET_ITS ---
04/01/2021 Jeremiah Holly MD [address] [phone] Re : Colonoscopy procedure for [facility] Dear Dr. Holly This procedure was performed on Thursday, April 01, 2021. My impressions and recommendations are as follows: Impressions : - One 7 to 13 mm polyp in the transverse colon, removed with a hot snare. Resected and retrieved. - Diverticulosis in the entire examined colon. - contact bleeding of perianal skin, external and internal hemorrhoids. Recommendations : - Patient has a contact number available for emergencies. The signs and symptoms of potential delayed complications were discussed with the patient. Return to normal activities tomorrow. Written discharge instructions were provided to the patient. - Repeat colonoscopy is recommended. The colonoscopy date will be determined after pathology results from today's exam become available for review. - Continue present medications. My findings are described in the full procedure note, which is enclosed. If I can be of further assistance, please feel free to contact me at Doctor phone number(s): , Work: . Sincerely, MD Nichole Becker MD 04/01/2021 2:36:03 PM This report has been signed electronically.
[2021-04-01 17:35] LABS: Bedside Glucose 73 mg/dL (70-110)
[2021-04-01 18:15] LABS: Bedside Glucose 102 mg/dL (70-110)
--- NOTE | 2021-04-01 19:45 | PCM.PN.REN ---
Subjective Subjective: Following for ESRD. The patient was seen during hemodialysis. The patient denies cramping, chest pain or shortness of breath during dialysis. Objective Data Objective Data Vital Signs: Vital Signs Temp Pulse Resp BP Pulse Ox 99.5 F H 88 16 145/65 H 96 04/01/21 14:38 04/01/21 14:38 04/01/21 14:38 04/01/21 14:38 04/01/21 14:38 Oxygen Delivery Method Room Air Weight: 151 lb Body Mass Index (BMI) 25.1 Intake & Output: Intake and Output for Last 24 Hours 03/30/21 03/31/21 04/01/21 23:59 23:59 23:59 Intake Total 1150 / 1300 250 / 250 Output Total 1000 / 1000 Balance 1150 / 1300 -750 / -750 Lab / Micro Data Result Diagrams: 04/01/21 11:50 04/01/21 06:49 Labs: Laboratory Results - last 24 hr 03/31/21 04/01/21 04/01/21 22:14 06:32 06:49 WBC 10.9 RBC 2.59 L Hgb 7.9 L Hct 25.1 L MCV 96.9 MCH 30.5 MCHC 31.5 L RDW Std Deviation 54.4 H RDW Coeff of Maddison 15.3 H Plt Count 323 MPV 10.0 Immature Gran % (Auto) 0.600 Neut % (Auto) 73.0 H Lymph % (Auto) 12.4 L [place] % (Auto) 9.0 Eos % (Auto) 4.6 Baso % (Auto) 0.4 Absolute Neuts (auto) 8.0 H Absolute Lymphs (auto) 1.35 Nucleated RBC % 0 Sodium Potassium Chloride Carbon Dioxide Anion Gap BUN Creatinine Estim Creat Clear Calc Est GFR (MDRD) Af Amer Est GFR (MDRD) Non-Af BUN/Creatinine Ratio Glucose Hemoglobin A1c Calcium POC Glucose 135 H 96 04/01/21 04/01/21 04/01/21 06:49 06:49 11:50 WBC 11.4 H RBC 2.71 L Hgb 8.1 L Hct 25.7 L MCV 94.8 MCH 29.9 MCHC 31.5 L RDW Std Deviation 53.5 H RDW Coeff of Maddison 15.5 H Plt Count 349 MPV 9.6 Immature Gran % (Auto) 0.400 Neut % (Auto) 70.4 H Lymph % (Auto) 14.9 L [place] % (Auto) 8.9 Eos % (Auto) 5.0 Baso % (Auto) 0.4 Absolute Neuts (auto) 8.0 H Absolute Lymphs (auto) 1.69 Nucleated RBC % 0 Sodium 136 Potassium 5.0 Chloride 105 Carbon Dioxide 24.0 Anion Gap 7 BUN 55 H Creatinine 6.08 H Estim Creat Clear Calc 7.86 Est GFR (MDRD) Af Amer 9 L Est GFR (MDRD) Non-Af 7 L BUN/Creatinine Ratio 9.0 L Glucose 95 Hemoglobin A1c 4.7 Calcium 8.0 L POC Glucose 04/01/21 04/01/21 04/01/21 12:41 17:26 18:10 WBC RBC Hgb Hct MCV MCH MCHC RDW Std Deviation RDW Coeff of Maddison Plt Count MPV Immature Gran % (Auto) Neut % (Auto) Lymph % (Auto) [place] % (Auto) Eos % (Auto) Baso % (Auto) Absolute Neuts (auto) Absolute Lymphs (auto) Nucleated RBC % Sodium Potassium Chloride Carbon Dioxide Anion Gap BUN Creatinine Estim Creat Clear Calc Est GFR (MDRD) Af Amer Est GFR (MDRD) Non-Af BUN/Creatinine Ratio Glucose Hemoglobin A1c Calcium POC Glucose 90 73 102 Micro: Microbiology 04/01/21 11:30 Mucosa - Nasopharyngeal SARS-CoV-2 Antigen (Rapid) - Final Physical Exam Const Constitutional Narrative: No apparent distress. The patient is alert and oriented x3. Eyes Eyes Narrative: Pupil is equal round and reactive to light and accommodation. Extraocular motion intact. Neck Neck Narrative: Supple, no JVD. Chest Chest Narrative: Symmetric chest wall rise. Resp Resp Narrative: Clear to auscultation bilaterally. Cardio Cardio Narrative: Normal S1, S2. No gallops or murmurs. GI GI Narrative: Normal active bowel sounds. Abdomen is soft, nontender to palpation. There is no guarding or rebound. Extremity Extremity Narrative: 3+ edema in the lower extremities bilaterally. No clubbing or cyanosis of the lower extremity. Right arm is swollen up to the shoulder. Neuro Neuro Narrative: No focal neurologic deficit. Assessment & Plan Assessment/Plan (1) End stage chronic kidney disease: Status: Chronic Code(s): N18.6 - End stage renal disease Plan: The patient dialyzes at [facility] using [facility] Dialysis machine. She was being dialyzed 4 times a week. There is no need for dialysis today. I supervised the dialysis treatment today. We use a conventional dialysis machine. She was dialyzed for 3 hours with 400 mL/min blood flow. (2) Anemia: Status: Acute Code(s): D64.9 - Anemia, unspecified Qualifiers: Anemia type: unspecified type Qualified Code(s): D64.9 - Anemia, unspecified Plan: The patient was scoped earlier today and there is no active bleeding. Continue to monitor hemoglobin. (3) Diabetes: Status: Acute Code(s): E11.9 - Type 2 diabetes mellitus without complications Plan: Glycemic control as per hospital medicine service. (4) Cellulitis: Status: Acute Code(s): L03.90 - Cellulitis, unspecified Plan: The patient has right arm cellulitis due to thrombophlebitis of the old IV site. There was no DVT on ultrasound seen. She is being treated with antibiotics as directed by the hospital medicine service.
[2021-04-01 21:30] LABS: Bedside Glucose 103 mg/dL (70-110)
[2021-04-02 03:32] VITALS: BP 138/58; PULSE 82; RESP 16; TEMP 37.1; O2SAT 94
[2021-04-02 05:39] LABS: Absolute Lymphocyte Count 1.23 X10^3/uL (0.83-4.51); Absolute Neutrophil Count 7.2 X10^3/uL (2.0-7.7); Basophil# 0.05 X10^3/uL; Basophil% 0.5 % (0-1); Eosinophil# 0.43 X10^3/uL; Eosinophils% 4.3 % (0-5); Hematocrit 25.4 % (37-47); Lymphocyte # 1.23 X10^3/ul (0.83-4.51); Lymphocyte % 12.4 % (19-41); Mean Corp Hgb Conc 31.5 g/dL (32-36); Mean Corpuscular Hgb 30.1 pg (27.0-32.0); Mean Corpuscular Volume 95.5 fL (81-99); Mean Platelet Vol. 10.1 fl (6.2-12.0); Monocyte# 0.97 X10^3/uL; Monocyte% 9.8 % (0-10); NRBC Flagged by Analyzer 0 % (0-5); Neutrophil # 7.19 X10^3/uL (2.7-7.7); Neutrophil % 72.5 % (47-70); Platelet Count 360 K/mm3 (150-450); RBC Distribution Width CV 15.1 % (11.6-14.6); RBC Distribution Width SD 52.7 fl (35.1-43.9); Red Blood Count 2.66 M/mm3 (4.2-5.4); White Blood Count 9.9 K/mm3 (4.4-11.0)
[2021-04-02 06:07] LABS: Anion Gap 6 (5-15); BUN 19 mg/dL (7-18); BUN/Creat Ratio 6.3 RATIO (10-20); Calcium,Total 7.3 mg/dL (8.5-10.1); Chloride 99 mmol/L (98-107); Creatinine, Serum 3.03 mg/dL (0.55-1.02); EST Glomerular Filtration Rate 16 mL/min (>60); Est Glom Filt Rate - Afr Amer 20 mL/min (>60); Estimated Creatinine Clearance 15.77 ml/min; Glucose 83 mg/dL (74-106); Potassium 3.7 mmol/L (3.5-5.1); Sodium Level 134 mmol/L (136-145)
[2021-04-02 06:25] LABS: Bedside Glucose 82 mg/dL (70-110)
[2021-04-02] MEDS: Nystatin Powder 15gm Bottle 1 APPLIC TOPICAL (06:33)
--- NOTE | 2021-04-02 08:12 | PCM.DC ---
Discharge Instructions Outpatient Procedure Reason For Visit: R VYAS CELLULITIS, R/O DVT, ESRD, RECENT GI Diet Discharge Diet: No restrictions Activity Discharge Activity: Return to Normal Activity Dressing / Incision Call your doctor if you observe: - (blood in stool) Follow Up Care Test Results: Test results from this visit will be discussed in further detail at your follow-up appointment, if applicable. Discharge Plan Admission Admit Date/Time: 03/31/21 04:45 Primary Reason for Your Visit: superficial venous thrombosis right arm Attending Provider: Jakob Chisholm Primary Care Provider: Jeremiah Holly Consulting Providers: Viki Dia ; Nichole Hull Discharge Orders/Prescriptions Prescriptions: New ferrous sulfate 325 mg (65 mg iron) tablet 325 mg PO QODAY Qty: 30 RF: 0 Continued acetaminophen 325 MG tablet 650 mg PO Q4H PRN PRN (Reason: Pain 1-10 Or Fever) RF: 0 bisacodyl 10 MG suppository 10 mg RC PRN PRN (Reason: Constipation) RF: 0 alum-mag hydroxide-simeth 30 ML suspension 30 ml PO Q4H PRN PRN (Reason: Pain 1-10 Or Fever) RF: 0 nystatin 100,000 unit/gram Powder 1 applic TOPICAL TID RF: 0 erythromycin 5 mg/gram (0.5 %) Ointment 1 applic OPHTHALMIC (EYE) 4X/DAY RF: 0 Held aspirin 81 MG tablet,chewable 81 mg PO DAILY@0800 RF: 0 Hold Instructions: Resume on 04/09/21. Discontinued furosemide 40 MG tablet 20 mg PO DAILY RF: 0 acetaminophen 650 MG suppository 650 mg RECTAL Q4H PRN PRN (Reason: Constipation) RF: 0 guaifenesin 10 ML liquid 10 ml PO Q4H PRN PRN (Reason: Constipation) RF: 0 sulfamethoxazole-trimethoprim [Bactrim DS] 800-160 mg Tablet 1 tab PO BID RF: 0 Referrals: Nichole Hull MD [STAFF PHYSICIAN] - Within 1 Month Jeremiah Holly MD [Primary Care Provider] - Within 1 Week Disposition Patient Disposition: Home, self care
--- NOTE | 2021-04-02 08:24 | DS.PCM_ITS ---
Providers Date of Admission: 03/31/21 Primary Care Physician: Dr. Jeremiah Holly MD Consultations 03/31/21 06:24 Consult: Nephrology Routine Consulting Provider: Viki Dia Reason for Consult: ESRD ON DIALYSIS EMERGENT Consult: No Notified: Yes Date Notified:: 03/31/21 Time Notified: 08:15 Method of Notification: Answering Service 04/01/21 08:28 Consult: General Surgery Routine Consulting Provider: Nichole Hull Reason for Consult: GI bleed EMERGENT Consult: No Notified: Yes Date Notified:: 04/01/21 Time Notified: 08:30 Method of Notification: Verbal Reason For Visit: R VYAS CELLULITIS, R/O DVT, ESRD, RECENT GI Diagnosis Discharge Diagnosis (1) End stage chronic kidney disease: Status: Chronic Code(s): N18.6 - End stage renal disease (2) Anemia: Status: Acute Code(s): D64.9 - Anemia, unspecified Qualifiers: Anemia type: unspecified type Qualified Code(s): D64.9 - Anemia, unspecified (3) Diabetes: Status: Acute Code(s): E11.9 - Type 2 diabetes mellitus without complications (4) Cellulitis: Status: Ruled-out Code(s): L03.90 - Cellulitis, unspecified (5) Superficial venous thrombosis of right arm: Status: Acute Code(s): I82.611 - Acute embolism and thrombosis of superficial veins of right upper extremity Medications at Discharge Home Medications acetaminophen 650 mg PO Q4H PRN PRN 03/24/21 alum-mag hydroxide-simeth 30 ml PO Q4H PRN PRN 03/24/21 aspirin 81 mg PO DAILY@0800 03/24/21 bisacodyl 10 mg RC PRN PRN 03/24/21 erythromycin 1 applic OPHTHALMIC (EYE) 4X/DAY 03/31/21 nystatin 1 applic TOPICAL TID 03/31/21 ferrous sulfate 325 mg PO QODAY #30 tab 04/02/21 Hospital Course Procedures Colonoscopy, Dialysis and EGD Summary of Care Provided Minutes Spent on Discharge: 32 Hospital Course: 70-year-old female presents with pain and swelling her right upper extremity. Patient was recently discharged from [facility] with GI bleed due to an arterial bleed. Did require coiling. Patient did have peripheral IV in her right upper extremity. Duplex showed superficial thrombophlebitis of the right cephalic vein from the wrist to the antecubital space. Antibiotics were discontinued and patient was monitored and overall arm is improved but still swollen and tender but no additional antibiotics are necessary. Patient recommended to continue to elevate her right upper extremity is also use warm compresses. No indication for anticoagulation but also no anticoagulation. Given her traumatic GI bleed. Patient did have some blood in her stool and her hemoglobin did drift down slightly. Patient was seen by Dr. Hull from surgery performed an EGD that was unremarkable and colonoscopy that showed some diverticulosis, one 7 to 13 mm polyp in the transverse colon and contact bleeding of the perianal skin external and internal hemorrhoids. Afterwards, patient is on any further blood. It is presumed that this blood was likely residual from the traumatic GI bleed the patient had previously. Patient's hemoglobin is stable. Patient will receive ferrous sulfate to help supplement her hemoglobin production. Patient has end-stage renal disease and did receive hemodialysis during this hospitalization. I sternal encourage this patient to get the COVID-19 vaccination. She said that she will speak with her in regards to getting that. Given the patient's comorbidities she is high risk for protracted severe case of COVID-19. Physical Exam Const alert and oriented x3 General Appearance: cooperative HEENT normocephalic Skin Skin Narrative: Swelling of the right upper extremity with palpable cord in the medial arm as well as antecubital fossa. No induration of the skin. ABG / Lab / Microbiology Data Result Diagrams: 04/02/21 05:10 04/02/21 05:10 Laboratory: Laboratory Results - last 24 hr 04/01/21 04/01/21 04/01/21 06:49 11:50 12:41 WBC 11.4 H RBC 2.71 L Hgb 8.1 L Hct 25.7 L MCV 94.8 MCH 29.9 MCHC 31.5 L RDW Std Deviation 53.5 H RDW Coeff of Maddison 15.5 H Plt Count 349 MPV 9.6 Immature Gran % (Auto) 0.400 Neut % (Auto) 70.4 H Lymph % (Auto) 14.9 L [place] % (Auto) 8.9 Eos % (Auto) 5.0 Baso % (Auto) 0.4 Absolute Neuts (auto) 8.0 H Absolute Lymphs (auto) 1.69 Nucleated RBC % 0 Sodium Potassium Chloride Carbon Dioxide Anion Gap BUN Creatinine Estim Creat Clear Calc Est GFR (MDRD) Af Amer Est GFR (MDRD) Non-Af BUN/Creatinine Ratio Glucose Hemoglobin A1c 4.7 Calcium POC Glucose 90 04/01/21 04/01/21 04/01/21 17:26 18:10 21:22 WBC RBC Hgb Hct MCV MCH MCHC RDW Std Deviation RDW Coeff of Maddison Plt Count MPV Immature Gran % (Auto) Neut % (Auto) Lymph % (Auto) [place] % (Auto) Eos % (Auto) Baso % (Auto) Absolute Neuts (auto) Absolute Lymphs (auto) Nucleated RBC % Sodium Potassium Chloride Carbon Dioxide Anion Gap BUN Creatinine Estim Creat Clear Calc Est GFR (MDRD) Af Amer Est GFR (MDRD) Non-Af BUN/Creatinine Ratio Glucose Hemoglobin A1c Calcium POC Glucose 73 102 103 04/02/21 04/02/21 04/02/21 05:10 05:10 06:22 WBC 9.9 RBC 2.66 L Hgb 8.0 L Hct 25.4 L MCV 95.5 MCH 30.1 MCHC 31.5 L RDW Std Deviation 52.7 H RDW Coeff of Maddison 15.1 H Plt Count 360 MPV 10.1 Immature Gran % (Auto) 0.500 Neut % (Auto) 72.5 H Lymph % (Auto) 12.4 L [place] % (Auto) 9.8 Eos % (Auto) 4.3 Baso % (Auto) 0.5 Absolute Neuts (auto) 7.2 Absolute Lymphs (auto) 1.23 Nucleated RBC % 0 Sodium 134 L Potassium 3.7 Chloride 99 Carbon Dioxide 29.0 Anion Gap 6 BUN 19 H Creatinine 3.03 H Estim Creat Clear Calc 15.77 Est GFR (MDRD) Af Amer 20 L Est GFR (MDRD) Non-Af 16 L BUN/Creatinine Ratio 6.3 L Glucose 83 Hemoglobin A1c Calcium 7.3 L POC Glucose 82 Microbiology: Microbiology 04/01/21 11:30 SARS-CoV-2 Antigen (Rapid) - Final Mucosa - Nasopharyngeal Microbiology 04/01/21 11:30 Mucosa - Nasopharyngeal SARS-CoV-2 Antigen (Rapid) - Final D/C Instructions Discharge Diet: No restrictions Discharge Activity: Return to Normal Activity Call your doctor if you observe: - (blood in stool) Meaningful Use Info Meaningful Use Diagnoses (Choose all that apply): None applicable Discharge Plan Admission Admit Date/Time: 03/31/21 04:45 Primary Reason for Your Visit: superficial venous thrombosis right arm Attending Provider: Jakob Chisholm Primary Care Provider: Jeremiah Holly Consulting Providers: Viki Dia ; Nichole Hull Discharge Orders/Prescriptions Prescriptions: New ferrous sulfate 325 mg (65 mg iron) tablet 325 mg PO QODAY Qty: 30 RF: 0 Continued acetaminophen 325 MG tablet 650 mg PO Q4H PRN PRN (Reason: Pain 1-10 Or Fever) RF: 0 bisacodyl 10 MG suppository 10 mg RC PRN PRN (Reason: Constipation) RF: 0 alum-mag hydroxide-simeth 30 ML suspension 30 ml PO Q4H PRN PRN (Reason: Pain 1-10 Or Fever) RF: 0 nystatin 100,000 unit/gram Powder 1 applic TOPICAL TID RF: 0 erythromycin 5 mg/gram (0.5 %) Ointment 1 applic OPHTHALMIC (EYE) 4X/DAY RF: 0 Held aspirin 81 MG tablet,chewable 81 mg PO DAILY@0800 RF: 0 Hold Instructions: Resume on 04/09/21. Discontinued furosemide 40 MG tablet 20 mg PO DAILY RF: 0 acetaminophen 650 MG suppository 650 mg RECTAL Q4H PRN PRN (Reason: Constipation) RF: 0 guaifenesin 10 ML liquid 10 ml PO Q4H PRN PRN (Reason: Constipation) RF: 0 sulfamethoxazole-trimethoprim [Bactrim DS] 800-160 mg Tablet 1 tab PO BID RF: 0 Referrals: Nichole Hull MD [STAFF PHYSICIAN] - Within 1 Month Jeremiah Holly MD [Primary Care Provider] - Within 1 Week Disposition Patient Disposition: Home, self care Visit Charges Inpatient E&M: 13932 Disch Hosp
--- NOTE | 2021-04-02 08:39 | TREXTCAR_ITS ---
Diet 04/01/21 15:00 Diet: Renal - ConsCHO - Dhaval Cont Dietary Modifications:: Consistent Carbohydrate Type of Dietary Supplement:: Nepro Is pt able to select menu?: No Diet Comments: 120 ml chocolate nepro cho steady w/ meals How many daily calories?: 1800 calorie Routine Orders/Code Status Routine Lab Work: CBC (Saturday) and BMP (Saturday) Code Status: DNRCC-A (no intubation) Wound(s) R ARM: Wound Type: Puncture LEFT HEEL: Wound Type: Pressure Injury Dressing Change: Mepilex 3RD TOE RIGHT FOOT: Wound Type: NAIL PULLED OFF 3RD TOE LEFT FOOT: Wound Type: TOE NAIL PULLED OFF Therapies Weight Bearing: Full weight bearing Physical Therapy: Eval and Treat Occupational Therapy: Eval and Treat Problem/Diagnosis (1) Superficial venous thrombosis of right arm: Status: Acute (2) Anemia: Status: Acute (3) End stage chronic kidney disease: Status: Chronic (4) Diabetes: Status: Acute Allergies/Procedures Done in Hospital Allergies doxycycline Allergy (Verified 03/31/21 04:08) Rash iodine Allergy (Verified 03/24/21 08:00) patient states mother had allergy and is afraid she is. levofloxacin [From Levaquin] Allergy (Verified 03/24/21 08:00) patient states mother had allergy and is afraid she is. shellfish derived Allergy (Verified 03/24/21 08:00) patient states mother had allergy and is afraid she is. Procedures: Colonoscopy, Dialysis and EGD Type of Care/Length of Stay Estimated LOS: Convalescent Care Less Than 30 days Type of Care Needed: Skilled Rehab Potential: Good Prognosis: Good Additional Orders/Day of Discharge Day of Discharge: 04/02/21 Dietary and Speech Recommendations Dietitian Recommendations/Changes: Will change to Consistent CHO / Renal general diet Provide 120 ml chocolate nepro cho steady w/ meals Follow Up Care Please follow up with your Primary Care Physician in: 2 weeks Please Follow Up With: nakia almendarez When: 2 weeks Discharge Plan Admission Admit Date/Time: 03/31/21 04:45 Primary Reason for Your Visit: superficial venous thrombosis right arm Attending Provider: Jakob Chisholm Primary Care Provider: Jeremiah Holly Consulting Providers: Viki Dia ; Nakia Almendarez Discharge Orders/Prescriptions Prescriptions: New ferrous sulfate 325 mg (65 mg iron) tablet 325 mg PO QODAY Qty: 30 RF: 0 Continued acetaminophen 325 MG tablet 650 mg PO Q4H PRN PRN (Reason: Pain 1-10 Or Fever) RF: 0 bisacodyl 10 MG suppository 10 mg RC PRN PRN (Reason: Constipation) RF: 0 alum-mag hydroxide-simeth 30 ML suspension 30 ml PO Q4H PRN PRN (Reason: Pain 1-10 Or Fever) RF: 0 nystatin 100,000 unit/gram Powder 1 applic TOPICAL TID RF: 0 erythromycin 5 mg/gram (0.5 %) Ointment 1 applic OPHTHALMIC (EYE) 4X/DAY RF: 0 Held aspirin 81 MG tablet,chewable 81 mg PO DAILY@0800 RF: 0 Hold Instructions: Resume on 04/09/21. Discontinued furosemide 40 MG tablet 20 mg PO DAILY RF: 0 acetaminophen 650 MG suppository 650 mg RECTAL Q4H PRN PRN (Reason: Constipation) RF: 0 guaifenesin 10 ML liquid 10 ml PO Q4H PRN PRN (Reason: Constipation) RF: 0 sulfamethoxazole-trimethoprim [Bactrim DS] 800-160 mg Tablet 1 tab PO BID RF: 0 Referrals: Nakia Almendarez MD [STAFF PHYSICIAN] - Within 1 Month Jeremiah Holly MD [Primary Care Provider] - Within 1 Week Disposition Patient Disposition: [facility] Facility
[2021-04-02 08:43] VITALS: BP 163/77; PULSE 86; RESP 18; TEMP 37.2; O2SAT 94
[2021-04-02] MEDS: Menthol/Lanolin/Calamine/Znox 113 GM Tube 1 APPLIC TOPICAL (10:56)
--- NOTE | 2021-04-03 10:22 | PCM.CONS.B ---
Consult Date of Consult: 04/01/21 Asked by hospitalist service to evaluate patient for complaint of rectal bleeding See operative noted 04/01/2021
== END 2021-04-02 11:48 | disposition home or self-care (01) | DRG 377 ==
LOC: ED 03:58 → MS3 06:35
PROVIDERS: Anesthesiology; Surgery; Admitting Provider Hospitalist; Emergency Provider Emergency Medicine; PCP Family Medicine
PROC: 0DJD8ZZ Inspection of Lower Intestinal Tract, Via Natural or Artificial Opening Endoscopic (ICD-10-PCS; CPT 45378; principal; 2021-04-01 13:55)
DX: K92.1 Melena (principal); N18.6 End stage renal disease; T82.868A Thrombosis due to vascular prosthetic devices, implants and grafts, initial encounter; D50.9 Iron deficiency anemia, unspecified; E11.22 Type 2 diabetes mellitus with diabetic chronic kidney disease; Z99.2 Dependence on renal dialysis; D63.1 Anemia in chronic kidney disease; E11.319 Type 2 diabetes mellitus with unspecified diabetic retinopathy without macular edema; K44.9 Diaphragmatic hernia without obstruction or gangrene; K57.30 Diverticulosis of large intestine without perforation or abscess without bleeding; K64.4 Residual hemorrhoidal skin tags; K64.8 Other hemorrhoids
CPT/HCPCS: 36415; 80048; 82962; 83036; 85025; 87426; 88305; 90937; 93005; 93971; 97162; 97167; 99285; J7030; A4216; G0257

== ENCOUNTER → 2021-05-30 05:00 | Outpatient (REF) | payer MEDICARE, OTHER, SELFPAY ==
[2021-04-01 12:42] VITALS: BMI 25.1
[2021-05-30 07:12] LABS: Hematocrit 32.1 % (37-47); Hemoglobin 10.3 g/dL (12.0-15.0); Mean Corp Hgb Conc 32.1 g/dL (32-36); Mean Corpuscular Hgb 28.9 pg (27.0-32.0); Mean Corpuscular Volume 89.9 fL (81-99); Mean Platelet Vol. 11.1 fl (6.2-12.0); Platelet Count 239 K/mm3 (150-450); RBC Distribution Width SD 43.2 fl (35.1-43.9); Red Blood Count 3.57 M/mm3 (4.2-5.4); White Blood Count 7.5 K/mm3 (4.4-11.0)
[2021-05-30 07:30] LABS: Anion Gap 6 (5-15); BUN 30 mg/dL (7-18); BUN/Creat Ratio 8.6 RATIO (10-20); Calcium,Total 7.9 mg/dL (8.5-10.1); Chloride 98 mmol/L (98-107); EST Glomerular Filtration Rate 14 mL/min (>60); Est Glom Filt Rate - Afr Amer 17 mL/min (>60); Glucose 98 mg/dL (74-106); Magnesium 1.9 mg/dL (1.6-2.6); Potassium 4.3 mmol/L (3.5-5.1); Sodium Level 135 mmol/L (136-145)
== END ==
LOC: OLS.SW300 05:00
PROVIDERS: PCP Family Medicine; Referring Provider Family Medicine; Visit Provider Family Medicine
DX: D64.9 Anemia, unspecified (principal)
CPT/HCPCS: 36415; 80048; 83735; 85027

== ENCOUNTER → 2021-06-02 05:00 | Outpatient (REF) | payer MEDICARE, OTHER, SELFPAY ==
[2021-04-01 12:42] VITALS: BMI 25.1
[2021-06-02 08:32] LABS: Hematocrit 31.9 % (37-47); Mean Corp Hgb Conc 31.3 g/dL (32-36); Mean Corpuscular Hgb 28.1 pg (27.0-32.0); Mean Corpuscular Volume 89.6 fL (81-99); Mean Platelet Vol. 10.9 fl (6.2-12.0); Platelet Count 265 K/mm3 (150-450); RBC Distribution Width CV 13.1 % (11.6-14.6); RBC Distribution Width SD 43.2 fl (35.1-43.9); Red Blood Count 3.56 M/mm3 (4.2-5.4); White Blood Count 6.5 K/mm3 (4.4-11.0)
[2021-06-02 08:41] LABS: International Normalized Ratio 1.1; Prothrombin Time (Protime)PT. 13.1 SECONDS (11.7-14.9)
[2021-06-02 08:54] LABS: Anion Gap 5 (5-15); BUN 39 mg/dL (7-18); BUN/Creat Ratio 9.2 RATIO (10-20); Chloride 101 mmol/L (98-107); Creatinine, Serum 4.23 mg/dL (0.55-1.02); EST Glomerular Filtration Rate 11 mL/min (>60); Est Glom Filt Rate - Afr Amer 13 mL/min (>60); Glucose 86 mg/dL (74-106); Potassium 4.1 mmol/L (3.5-5.1); Sodium Level 136 mmol/L (136-145)
== END ==
LOC: OLS.SW300 05:00
PROVIDERS: PCP Family Medicine
DX: Z01.818 Encounter for other preprocedural examination (principal); E11.9 Type 2 diabetes mellitus without complications; N18.4 Chronic kidney disease, stage 4 (severe); K92.2 Gastrointestinal hemorrhage, unspecified
CPT/HCPCS: 36415; 80048; 85027; 85610

== ENCOUNTER → 2021-06-27 05:00 | Outpatient (REF) | payer MEDICARE, OTHER, SELFPAY ==
[2021-04-01 12:42] VITALS: BMI 25.1
[2021-06-27 07:18] LABS: Hematocrit 35.1 % (37-47); Hemoglobin 11.1 g/dL (12.0-15.0); Mean Corp Hgb Conc 31.6 g/dL (32-36); Mean Corpuscular Hgb 28.5 pg (27.0-32.0); Mean Corpuscular Volume 90.2 fL (81-99); Platelet Count 212 K/mm3 (150-450); RBC Distribution Width CV 13.6 % (11.6-14.6); Red Blood Count 3.89 M/mm3 (4.2-5.4); White Blood Count 6.6 K/mm3 (4.4-11.0)
[2021-06-27 07:29] LABS: Anion Gap 5 (5-15); BUN 38 mg/dL (7-18); BUN/Creat Ratio 9.7 RATIO (10-20); Calcium,Total 8.2 mg/dL (8.5-10.1); Chloride 100 mmol/L (98-107); Creatinine, Serum 3.91 mg/dL (0.55-1.02); EST Glomerular Filtration Rate 12 mL/min (>60); Est Glom Filt Rate - Afr Amer 15 mL/min (>60); Glucose 103 mg/dL (74-106); Potassium 3.9 mmol/L (3.5-5.1); Sodium Level 135 mmol/L (136-145)
== END ==
LOC: OLS.SW300 05:00
PROVIDERS: PCP Family Medicine; Referring Provider Family Medicine; Visit Provider Family Medicine
DX: E87.2 Acidosis (principal); N18.9 Chronic kidney disease, unspecified; I50.9 Heart failure, unspecified
CPT/HCPCS: 36415; 80048; 83735; 85027

== ENCOUNTER → 2021-07-25 05:00 | Outpatient (REF) | payer MEDICARE, OTHER, SELFPAY ==
[2021-07-25 07:44] LABS: Hematocrit 35.3 % (37-47); Hemoglobin 11.6 g/dL (12.0-15.0); Mean Corp Hgb Conc 32.9 g/dL (32-36); Mean Corpuscular Hgb 29.7 pg (27.0-32.0); Mean Corpuscular Volume 90.3 fL (81-99); Mean Platelet Vol. 11.5 fl (6.2-12.0); Platelet Count 227 K/mm3 (150-450); RBC Distribution Width CV 13.2 % (11.6-14.6); RBC Distribution Width SD 43.6 fl (35.1-43.9); Red Blood Count 3.91 M/mm3 (4.2-5.4); White Blood Count 7.3 K/mm3 (4.4-11.0)
[2021-07-25 08:05] LABS: Anion Gap 5 (5-15); BUN 34 mg/dL (7-18); BUN/Creat Ratio 8.6 RATIO (10-20); Calcium,Total 8.2 mg/dL (8.5-10.1); Chloride 99 mmol/L (98-107); Creatinine, Serum 3.96 mg/dL (0.55-1.02); EST Glomerular Filtration Rate 12 mL/min (>60); Est Glom Filt Rate - Afr Amer 14 mL/min (>60); Glucose 83 mg/dL (74-106); Magnesium 1.9 mg/dL (1.6-2.6); Potassium 3.9 mmol/L (3.5-5.1); Sodium Level 133 mmol/L (136-145)
== END ==
LOC: OLS.SW300 05:00
PROVIDERS: PCP Family Medicine; Visit Provider Family Medicine
DX: N18.9 Chronic kidney disease, unspecified (principal)
CPT/HCPCS: 36415; 80048; 83735; 85027

== ENCOUNTER → 2021-08-22 07:50 | Outpatient (REF) | payer MEDICARE, OTHER, SELFPAY ==
[2021-08-22 09:07] LABS: Hematocrit 35.1 % (37-47); Hemoglobin 11.4 g/dL (12.0-15.0); Mean Corp Hgb Conc 32.5 g/dL (32-36); Mean Corpuscular Hgb 29.6 pg (27.0-32.0); Mean Corpuscular Volume 91.2 fL (81-99); Platelet Count 279 K/mm3 (150-450); RBC Distribution Width CV 13.4 % (11.6-14.6); RBC Distribution Width SD 45.1 fl (35.1-43.9); Red Blood Count 3.85 M/mm3 (4.2-5.4); White Blood Count 7.8 K/mm3 (4.4-11.0)
[2021-08-22 09:35] LABS: Anion Gap 6 (5-15); BUN 44 mg/dL (7-18); BUN/Creat Ratio 10.7 RATIO (10-20); Calcium,Total 8.7 mg/dL (8.5-10.1); Chloride 98 mmol/L (98-107); Creatinine, Serum 4.12 mg/dL (0.55-1.02); EST Glomerular Filtration Rate 11 mL/min (>60); Est Glom Filt Rate - Afr Amer 14 mL/min (>60); Glucose 100 mg/dL (74-106); Magnesium 2.1 mg/dL (1.6-2.6); Potassium 4.2 mmol/L (3.5-5.1); Sodium Level 134 mmol/L (136-145)
== END ==
LOC: OLS.SW300 07:50
PROVIDERS: PCP Family Medicine; Visit Provider Family Medicine
DX: D64.9 Anemia, unspecified (principal)
CPT/HCPCS: 36415; 80048; 83735; 85027

== ENCOUNTER → 2021-09-14 05:00 | Outpatient (REF) | payer MEDICARE, OTHER, SELFPAY ==
[2021-09-14 07:49] LABS: Hematocrit 33.2 % (37-47); Mean Corp Hgb Conc 33.1 g/dL (32-36); Mean Corpuscular Hgb 30.1 pg (27.0-32.0); Mean Corpuscular Volume 90.7 fL (81-99); Mean Platelet Vol. 10.8 fl (6.2-12.0); Platelet Count 242 K/mm3 (150-450); RBC Distribution Width CV 13.6 % (11.6-14.6); RBC Distribution Width SD 45.2 fl (35.1-43.9); Red Blood Count 3.66 M/mm3 (4.2-5.4); White Blood Count 7.4 K/mm3 (4.4-11.0)
[2021-09-14 07:55] LABS: Anion Gap 9 (5-15); BUN 35 mg/dL (7-18); BUN/Creat Ratio 9.3 RATIO (10-20); Calcium,Total 8.4 mg/dL (8.5-10.1); Chloride 97 mmol/L (98-107); Creatinine, Serum 3.76 mg/dL (0.55-1.02); EST Glomerular Filtration Rate 13 mL/min (>60); Est Glom Filt Rate - Afr Amer 15 mL/min (>60); Glucose 90 mg/dL (74-106); Potassium 3.9 mmol/L (3.5-5.1); Sodium Level 135 mmol/L (136-145)
[2021-09-14 08:12] LABS: Prothrombin Time (Protime)PT. 12.7 SECONDS (11.7-14.9)
== END ==
LOC: OLS.SW300 05:00
PROVIDERS: PCP Family Medicine; Visit Provider Family Medicine
DX: Z01.812 Encounter for preprocedural laboratory examination (principal); I50.9 Heart failure, unspecified; E78.5 Hyperlipidemia, unspecified; E11.22 Type 2 diabetes mellitus with diabetic chronic kidney disease; N18.4 Chronic kidney disease, stage 4 (severe)
CPT/HCPCS: 36415; 80048; 85027; 85610

== ENCOUNTER → 2021-09-19 05:00 | Outpatient (REF) | payer MEDICARE, OTHER, SELFPAY ==
[2021-09-19 08:41] LABS: Hematocrit 32.5 % (37-47); Hemoglobin 10.6 g/dL (12.0-15.0); Mean Corp Hgb Conc 32.6 g/dL (32-36); Mean Corpuscular Hgb 29.9 pg (27.0-32.0); Mean Corpuscular Volume 91.5 fL (81-99); Mean Platelet Vol. 10.8 fl (6.2-12.0); Platelet Count 254 K/mm3 (150-450); RBC Distribution Width CV 13.5 % (11.6-14.6); RBC Distribution Width SD 46.1 fl (35.1-43.9); Red Blood Count 3.55 M/mm3 (4.2-5.4); White Blood Count 7.4 K/mm3 (4.4-11.0)
[2021-09-19 09:14] LABS: Anion Gap 9 (5-15); BUN 47 mg/dL (7-18); BUN/Creat Ratio 10.2 RATIO (10-20); Calcium,Total 8.4 mg/dL (8.5-10.1); Chloride 95 mmol/L (98-107); Creatinine, Serum 4.61 mg/dL (0.55-1.02); EST Glomerular Filtration Rate 10 mL/min (>60); Est Glom Filt Rate - Afr Amer 12 mL/min (>60); Glucose 93 mg/dL (74-106); Magnesium 2.1 mg/dL (1.6-2.6); Potassium 4.2 mmol/L (3.5-5.1); Sodium Level 134 mmol/L (136-145)
== END ==
LOC: OLS.SW300 05:00
PROVIDERS: PCP Family Medicine; Visit Provider Family Medicine
DX: E11.9 Type 2 diabetes mellitus without complications (principal); E78.5 Hyperlipidemia, unspecified
CPT/HCPCS: 36415; 80048; 83735; 85027

== ENCOUNTER → 2021-09-27 05:00 | Outpatient (REF) | payer MEDICARE, OTHER, SELFPAY ==
[2021-09-27 08:42] LABS: Hemoglobin A1c 5.2 % (3.8-5.6)
[2021-09-27 08:51] LABS: ALB/GLOB Ratio 0.8 RATIO (0.9-2.4); AST(SGOT) 10 U/L (15-37); Alanine Aminotransfer ALT/SGPT < 6 U/L (13-56); Albumin, Serum 2.5 g/dL (3.2-5.0); Alkaline Phosphatase 73 U/L (45-117); Anion Gap 13 (5-15); BUN 92 mg/dL (7-18); BUN/Creat Ratio 12.5 RATIO (10-20); Calcium,Total 8.2 mg/dL (8.5-10.1); Chloride 98 mmol/L (98-107); Cholesterol 147 mg/dL (200); Creatinine, Serum 7.37 mg/dL (0.55-1.02); EST Glomerular Filtration Rate 6 mL/min (>60); Est Glom Filt Rate - Afr Amer 7 mL/min (>60); Globulin 3.3 g/dL (2.2-4.2); Glucose 88 mg/dL (74-106); High Density Lipoprotein 57 mg/dL; Potassium 4.9 mmol/L (3.5-5.1); Protein, Total 5.8 g/dL (6.4-8.2); Sodium Level 135 mmol/L (136-145); Triglycerides 96 mg/dL; Very Low Density Lipoprotein 19 mg/dL (5-40)
== END ==
LOC: OLS.SW300 05:00
PROVIDERS: PCP Family Medicine; Visit Provider Family Medicine
DX: E11.9 Type 2 diabetes mellitus without complications (principal)
CPT/HCPCS: 36415; 80053; 80061; 83036

== ENCOUNTER → 2021-10-06 05:00 | Outpatient (REF) | payer MEDICARE, OTHER, SELFPAY ==
[2021-10-06 07:49] LABS: Cholesterol 127 mg/dL (200); High Density Lipoprotein 48 mg/dL; Triglycerides 89 mg/dL; Very Low Density Lipoprotein 18 mg/dL (5-40)
== END ==
LOC: OLS.SW300 05:00
PROVIDERS: PCP Family Medicine; Visit Provider Family Medicine
DX: E78.5 Hyperlipidemia, unspecified (principal)
CPT/HCPCS: 36415; 80061

== ENCOUNTER → 2021-10-17 05:00 | Outpatient (REF) | payer MEDICARE, OTHER, SELFPAY ==
[2021-10-17 07:49] LABS: Hematocrit 36.1 % (37-47); Hemoglobin 11.6 g/dL (12.0-15.0); Mean Corp Hgb Conc 32.1 g/dL (32-36); Mean Corpuscular Hgb 30.2 pg (27.0-32.0); Mean Platelet Vol. 10.8 fl (6.2-12.0); Platelet Count 203 K/mm3 (150-450); RBC Distribution Width CV 13.4 % (11.6-14.6); RBC Distribution Width SD 45.6 fl (35.1-43.9); Red Blood Count 3.84 M/mm3 (4.2-5.4); White Blood Count 7.1 K/mm3 (4.4-11.0)
[2021-10-17 08:11] LABS: Anion Gap 8 (5-15); BUN 37 mg/dL (7-18); BUN/Creat Ratio 9.2 RATIO (10-20); Calcium,Total 8.5 mg/dL (8.5-10.1); Chloride 96 mmol/L (98-107); Creatinine, Serum 4.04 mg/dL (0.55-1.02); EST Glomerular Filtration Rate 12 mL/min (>60); Est Glom Filt Rate - Afr Amer 14 mL/min (>60); Glucose 85 mg/dL (74-106); Potassium 3.9 mmol/L (3.5-5.1); Sodium Level 133 mmol/L (136-145)
== END ==
LOC: OLS.SW300 05:00
PROVIDERS: PCP Family Medicine; Visit Provider Family Medicine
DX: D64.9 Anemia, unspecified (principal)
CPT/HCPCS: 36415; 80048; 83735; 85027

== ENCOUNTER → 2021-11-14 04:00 | Outpatient (REF) | payer MEDICARE, OTHER, SELFPAY ==
[2021-11-14 07:31] LABS: Hematocrit 34.1 % (37-47); Hemoglobin 11.2 g/dL (12.0-15.0); Mean Corp Hgb Conc 32.8 g/dL (32-36); Mean Corpuscular Hgb 29.8 pg (27.0-32.0); Mean Corpuscular Volume 90.7 fL (81-99); Mean Platelet Vol. 10.8 fl (6.2-12.0); Platelet Count 233 K/mm3 (150-450); RBC Distribution Width CV 12.6 % (11.6-14.6); RBC Distribution Width SD 41.4 fl (35.1-43.9); Red Blood Count 3.76 M/mm3 (4.2-5.4); White Blood Count 6.8 K/mm3 (4.4-11.0)
[2021-11-14 08:03] LABS: Anion Gap 10 (5-15); BUN 53 mg/dL (7-18); BUN/Creat Ratio 11.9 RATIO (10-20); Calcium,Total 8.4 mg/dL (8.5-10.1); Chloride 98 mmol/L (98-107); Creatinine, Serum 4.44 mg/dL (0.55-1.02); EST Glomerular Filtration Rate 10 mL/min (>60); Est Glom Filt Rate - Afr Amer 13 mL/min (>60); Glucose 85 mg/dL (74-106); Magnesium 2.1 mg/dL (1.6-2.6); Sodium Level 135 mmol/L (136-145)
== END ==
LOC: OLS.SW300 04:00
PROVIDERS: PCP Family Medicine; Visit Provider Family Medicine
DX: N19 Unspecified kidney failure (principal); Z99.2 Dependence on renal dialysis
CPT/HCPCS: 36415; 80048; 83735; 85027

== ENCOUNTER 2023-06-14 10:50 | Inpatient (IN) | payer MEDICARE, OTHER, SELFPAY ==
[2023-06-14 10:51] VITALS: BP 142/78; PULSE 64; RESP 14; TEMP 36.6; O2SAT 98
--- NOTE | 2023-06-14 11:13 | EKG12_ITS ---
Test Reason : DYSRHYTHMIA Blood Pressure : / mmHG Vent. Rate : 108 BPM Atrial Rate : 108 BPM P-R Int : 166 ms QRS Dur : 076 ms QT Int : 328 ms P-R-T Axes : 061 -46 092 degrees QTc Int : 439 ms Sinus tachycardia with occasional Premature ventricular complexes Possible Left atrial enlargement Left anterior fascicular block Minimal voltage criteria for LVH, may be normal variant ( Canelo product ) ST elevation consider lateral injury or acute infarct Confirmed by KASSI ASTORGA, YULIET ([id number]), production editor GENE ESPOSITO ([id number]) on 06/24/2023 12:15:24 PM Referred By: TA Confirmed By:YULIET SOLITARIO MD
--- NOTE | 2023-06-14 11:15 | EX.ED.DYSGE1 ---
HPI <ELTON Gracia - Last Filed: 06/14/23 15:15> History of Present Illness Chief Complaint: Nausea/Vomiting/Diarrhea Narrative Narrative: 72-year-old female with PMH of DM2, GIB, ESRD on HD presents with nausea and vomiting that occurred this morning preventing her from receiving dialysis. She is on MWF schedule and has done all other sessions this week. She states she has had nausea and vomiting almost daily for months but has not been evaluated for it. She tells me she is on dialysis due to diabetes but then states she takes no medications. She is not very forthcoming with history. She was administered an antiemetic by EMS but still feels nauseated. Denies chest pain, shortness of breath, or abdominal pain. Reports normal bowel movements. PFSH <ELTON Gracia - Last Filed: 06/14/23 15:15> [facility] Medical History (Updated 06/14/23 @ 15:43 by Rachael Londono) Anemia Congestive heart failure (CHF) Diabetes Dialysis patient GI bleed Kidney dialysis as the cause of abnormal reaction of the patient, or of later complication, without mention of misadventure at the time of the procedure Kidney disease TIA (transient ischemic attack) Vision loss of left eye Vision loss of right eye Home Medications ascorbic acid (vitamin C) 500 mg tablet (C-500) 500 mg PO DAILY 06/14/23 [History Last Taken 06/13/23] calcium carbonate 200 mg calcium (500 mg) chewable tablet (Antacid (calcium carbonate)) 200 - 400 mg PO DAILY ANTACID 06/14/23 [History Last Taken 06/13/23] cholecalciferol (vitamin D3) 25 mcg (1,000 unit) tablet (Vitamin D3) 25 mcg PO DAILY 06/14/23 [History Last Taken 06/13/23] lidocaine-prilocaine 2.5 %-2.5 % topical cream 1 applic topical .MonWedFri for dialysis when use AVF 06/14/23 [History Last Taken 06/14/23] Allergy/AdvReac Type Severity Reaction Status Date / Time doxycycline Allergy Rash Verified 06/14/23 10:53 iodine Allergy patient Verified 06/14/23 10:53 states mother had allergy and is afraid she is. levofloxacin [From Levaquin] Allergy patient Verified 06/14/23 10:53 states mother had allergy and is afraid she is. shellfish derived Allergy patient Verified 06/14/23 10:53 states mother had allergy and is afraid she is. Family History Other CVA (cerebral vascular accident) Diabetes Surgical History S/P dialysis catheter insertion S/P tonsillectomy Social History Smoking Status: Never smoker ROS <ELTON Gracia - Last Filed: 06/14/23 15:15> ROS ED ROS Narrative Constitutional: Negative for fever, chills, malaise. CVS: Negative for palpitations, chest pain, syncope. Respiratory: Negative for shortness of breath, cough. GI: Positive for nausea, vomiting. Negative for abdominal pain, diarrhea, constipation, melena, hematochezia. : Negative for dysuria. Neuro: Negative for headache EXAM <ELTON Gracia - Last Filed: 06/14/23 15:15> Physical Exam Narrative Exam Narrative: CONST: Patient sitting in no acute distress. EYES: Normal inspection. ENT: Normal inspection, moist mucous membranes. NECK: Normal inspection. RESP: No respiratory distress, CTAB. CVS: Regular rate and rhythm, no murmur, no gallop. ABD: Soft with generalized tenderness, no guarding or rebound, nondistended. SKIN: 3 x 3 cm ulcer on left heel with foul smell and slight surrounding erythema. No drainage or fluctuance. EXTREMITIES: Normal appearance, no pedal edema. NEURO: Oriented x4. PSYCH: Normal affect. Const Vital Signs: 06/14/23 10:51 06/14/23 14:11 Temperature 97.8 F 99.2 F H Temperature Source Temporal Oral Pulse Rate 64 99 Respiratory Rate 14 18 Blood Pressure 142/78 H 174/71 H Blood Pressure Mean 99 105 Pulse Ox 98 97 Oxygen Delivery Method Room Air Room Air <Dr. Omari Pham DO - Last Filed: 06/14/23 17:04> Physical Exam Const Vital Signs: 06/14/23 10:51 06/14/23 14:11 Temperature 97.8 F 99.2 F H Temperature Source Temporal Oral Pulse Rate 64 99 Respiratory Rate 14 18 Blood Pressure 142/78 H 174/71 H Blood Pressure Mean 99 105 Pulse Ox 98 97 Oxygen Delivery Method Room Air Room Air [facility] <ELTON Gracia - Last Filed: 06/14/23 15:15> [facility] Narrative Medical decision making narrative: History gathered from: Patient and manager corporate strategy Patient presents with chronic nausea and vomiting. She appears well and nontoxic. Vital signs are within normal limits. She has moist mucous membranes. Heart is regular with no murmurs. Lungs clear. Abdomen soft with generalized tenderness and no peritoneal signs. Labs show white count of 17.3, stable hemoglobin 11.8. She did not get dialysis today and potassium is 5.0 and creatinine 4.77 at baseline so she does not require emergent dialysis. Glucose is 157. LFTs and lipase are unremarkable. CT shows bilateral pleural effusions but no acute abdominal process. She is not short of breath or hypoxic. Her vomiting resolved after Reglan. arrived and provided more history that this vomiting issue is chronic but he is most concerned about her left heel ulcer. She sees Dr. Ivan Hidalgo, a utilization review rn in [place] but is not currently on antibiotics. It had a bad smell lately and she supposed to go to a new wound center. Inflammatory markers were added and ESR 65, CRP 75. Left foot x-ray shows findings suggestive of osteomyelitis in the distal second through fifth metatarsals and phalanges. This is not over the area of her heel wound however I am concerned as it is having an increasing smell and she has a leukocytosis. I ordered IV vancomycin and Zosyn and discussed the case with the hospitalist. He advised I talked to podiatry and Dr. Maloney states he will see the patient and recommended an MRI. Patient was agreeable with this plan and admitted in stable condition. Differential for chronic vomiting: Esophageal issue, obstruction, gastroparesis, ulcer among others Consults: Hospitalist and podiatry Lab Data Attestation: I reviewed the patient's lab results. Labs: Laboratory Results - last 24 hr 06/14/23 06/14/23 11:25 13:15 WBC 17.3 H RBC 3.80 L Hgb 11.8 L Hct 37.8 MCV 99.5 H MCH 31.1 MCHC 31.2 L RDW Std Deviation 46.5 H RDW Coeff of Maddison 12.6 Plt Count 264 MPV 10.6 Immature Gran % (Auto) 0.500 Neut % (Auto) 91.7 H Lymph % (Auto) 2.1 L [place] % (Auto) 4.9 Eos % (Auto) 0.5 Baso % (Auto) 0.3 Absolute Neuts (auto) 15.8 H Absolute Lymphs (auto) 0.36 L Nucleated RBC % 0 Differential Comment COMMENT ESR 65 H Sodium 135 L Potassium 5.0 Chloride 97 L Carbon Dioxide 33.0 H Anion Gap 5 BUN 43 H Creatinine 4.77 H Est GFR (MDRD) Af Amer 12 L Est GFR (MDRD) Non-Af 10 L BUN/Creatinine Ratio 9.0 L Glucose 157 H Lactic Acid 1.7 Calcium 9.1 Total Bilirubin 0.70 Direct Bilirubin 0.33 H AST 12 L ALT 11 L Alkaline Phosphatase 162 H C-React Prot Ext Range 75.40 H Total Protein 7.1 Albumin 2.9 L Globulin 4.2 Lipase 20 Radiography Diagnostic Testing: Clinical Impression(s) from Imaging Studies Abdomen/Pelvis CT 06/14/23 11:36 IMPRESSION: Bilateral pleural effusions with bibasilar infiltration and/or atelectasis worse on the left side. Multiple calcified hepatic and splenic granulomas. Extensive atherosclerotic calcification of the aorta and major visceral branches. Electronically Signed: Vito Ng MD at 13:13 EDT , Foot X-Ray 06/14/23 12:29 IMPRESSION: Findings suggestive of a osteomyelitis involving the distal portions of the metatarsals and proximal phalanges of the second third fourth and fifth toes. Diffuse osteopenia. Soft tissue ulceration along the inferior posterior aspect of the calcaneus. Diffuse soft tissue swelling. Electronically Signed: Vito Ng MD at 13:17 EDT , ED attending interpretation of the left foot x-ray shows no acute fracture. Cortical changes over the metatarsals possibly osteomyelitis EKG Initial EKG: Attestation: I personally reviewed and interpreted this EKG as follows: Interpretation: Sinus Rhythm and No Acute Injury Pattern Comments: Sinus tachycardia with occasional PVCs at 108 bpm No STEMI, poor EKG quality in the lateral leads KS interval 166 ms, QRS duration 76 ms, QTc 439 ms <Dr. Omari Pham, DO - Last Filed: 06/14/23 17:04> [facility] Lab Data Labs: Laboratory Results - last 24 hr 06/14/23 06/14/23 11:25 13:15 WBC 17.3 H RBC 3.80 L Hgb 11.8 L Hct 37.8 MCV 99.5 H MCH 31.1 MCHC 31.2 L RDW Std Deviation 46.5 H RDW Coeff of Maddison 12.6 Plt Count 264 MPV 10.6 Immature Gran % (Auto) 0.500 Neut % (Auto) 91.7 H Lymph % (Auto) 2.1 L [place] % (Auto) 4.9 Eos % (Auto) 0.5 Baso % (Auto) 0.3 Absolute Neuts (auto) 15.8 H Absolute Lymphs (auto) 0.36 L Nucleated RBC % 0 Differential Comment COMMENT ESR 65 H Sodium 135 L Potassium 5.0 Chloride 97 L Carbon Dioxide 33.0 H Anion Gap 5 BUN 43 H Creatinine 4.77 H Est GFR (MDRD) Af Amer 12 L Est GFR (MDRD) Non-Af 10 L BUN/Creatinine Ratio 9.0 L Glucose 157 H Lactic Acid 1.7 Calcium 9.1 Total Bilirubin 0.70 Direct Bilirubin 0.33 H AST 12 L ALT 11 L Alkaline Phosphatase 162 H C-React Prot Ext Range 75.40 H Total Protein 7.1 Albumin 2.9 L Globulin 4.2 Lipase 20 Radiography Diagnostic Testing: Clinical Impression(s) from Imaging Studies Abdomen/Pelvis CT 06/14/23 11:36 IMPRESSION: Bilateral pleural effusions with bibasilar infiltration and/or atelectasis worse on the left side. Multiple calcified hepatic and splenic granulomas. Extensive atherosclerotic calcification of the aorta and major visceral branches. Electronically Signed: Vito Ng MD at 13:13 EDT , Foot X-Ray 06/14/23 12:29 IMPRESSION: Findings suggestive of a osteomyelitis involving the distal portions of the metatarsals and proximal phalanges of the second third fourth and fifth toes. Diffuse osteopenia. Soft tissue ulceration along the inferior posterior aspect of the calcaneus. Diffuse soft tissue swelling. Electronically Signed: Vito Ng MD at 13:17 EDT , Treatment and Re-Evaluation :: ED attending note: I evaluated the patient in conjunction with the ELICEO. I agree with his/her statements and above findings. I have personally performed a face to face assessment of the patient and have reviewed the ELICEO Note. I performed a substantive portion of the visit including all aspects of the following. I personally saw the patient performed chart review, physical exam, reviewed labs, imaging (if obtained), and formulated a treatment and management plan. Brief history: Patient presents with being sick to stomach, fevers and chills chronic abdominal pain. She also endorses pain in her left heel. Exam: Nursing triage notes reviewed, Vital signs reviewed Constitutional: please see mdm HENT: MMM Eyes: Pupils equal round and reactive to light, Extraocular muscles intact Neck: No stridor, no JVD, full neck ROM Lungs: Clear to auscultation, No wheezing or rales. No increased work of breathing, no conversational dyspnea, no accessory muscle use, no nasal flaring. No respiratory distress noted Heart: Regular rate and rhythm, No murmurs, No rubs and No gallops, 2+ distal pulses (radial, femoral, posterior tibial) in all extremities Abdomen: Soft, left lower quadrant TTP Extremities: 1+ edema bilateral in the lower extremity Neuro: Intact sensation L1-S1 dermatomal distributions. Intact 5/5 strength in hip flexion (T12-L3). Knee extension (L2-L4). Ankle dorsiflexion (L4-L5). Ankle plantar flexion (S1). Great toe extension (L5). 2+ patellar and Achilles DTRs. Skin: There is an ulcer noted in the left heel, there is redness surrounding the ulcer it is tender to palpation is warm and there is purulent drainage noted MDM/plan: Chief Complaint: Nausea vomiting diarrhea, left heel pain Concern for infected diabetic foot ulcer as well as acute intra-abdominal pathology such as diverticulitis, pyelonephritis, kidney stone. We obtained a broad lab and imaging work-up to further elucidate the etiology of the patient's complaints. We will dispo based on results of labs, images, reassessment, shared decision making. CBC with marked leukocytosis consistent with systemic inflammation. Given this and signs of infection on exam we will likely give antibiotics given immunocompromise state and admit the patient. Discharge Plan Dx/Rx/DC Orders Clinical Impression: Chronic ulcer of left foot, Nausea and vomiting, Foot osteomyelitis, left Disposition Disposition: Acute Care [facility]
--- NOTE | 2023-06-14 11:36 | CT_ITS ---
STUDY: CT ABDOMEN AND PELVIS WITHOUT CONTRAST REASON FOR EXAM: Female, 72 years old. Abdominal pain RADIATION DOSAGE (If Supplied By Facility): CTDIvol = ( 6.83 ) mGy, DLP = ( 327.43 ) mGycm TECHNIQUE: Transaxial images were obtained from the dome of the diaphragm to the symphysis pubis without oral contrast, and without intravenous contrast. Sagittal and coronal images were reconstructed. Individualized dose optimization techniques were used for this CT. COMPARISON: None. FINDINGS: Patchy infiltrate in the left lower lobe. Small bilateral pleural effusions with bibasilar atelectasis worse on the left side. Coronary artery calcification. Multiple calcified hepatic granulomas. Contracted gallbladder with small gallstones. There are multiple benign calcified granulomata of the spleen. Normal pancreas. Normal bilateral adrenal glands. Normal right kidney. Normal left kidney. Normal visualized stomach. Normal small intestine. Moderate amount of fecal material is seen in the colon. The appendix is visualized and appears normal. There is diffuse atherosclerotic calcification of the abdominal aorta and its major visceral branches, without a demonstrated aneurysm. Normal inferior vena cava. Normal retroperitoneum. Normal urinary bladder. Calcified fibroid uterus. Normal abdominal wall. There are diffuse degenerative changes of the visualized lumbar spine. CT/Abdomen/Pelvis without Cont IMPRESSION: Bilateral pleural effusions with bibasilar infiltration and/or atelectasis worse on the left side. Multiple calcified hepatic and splenic granulomas. Extensive atherosclerotic calcification of the aorta and major visceral branches. Electronically Signed: Vito Ng MD at 13:13 EDT ,
[2023-06-14 11:37] LABS: Absolute Lymphocyte Count 0.36 X10^3/uL (0.83-4.51); Absolute Neutrophil Count 15.8 X10^3/uL (2.0-7.7); Basophil# 0.06 X10^3/uL; Basophil% 0.3 % (0-1); Eosinophil# 0.08 X10^3/uL; Eosinophils% 0.5 % (0-5); Hematocrit 37.8 % (37-47); Hemoglobin 11.8 g/dL (12.0-15.0); Lymphocyte # 0.36 X10^3/ul (0.83-4.51); Lymphocyte % 2.1 % (19-41); Mean Corp Hgb Conc 31.2 g/dL (32-36); Mean Corpuscular Hgb 31.1 pg (27.0-32.0); Mean Corpuscular Volume 99.5 fL (81-99); Mean Platelet Vol. 10.6 fl (6.2-12.0); Monocyte# 0.84 X10^3/uL; Monocyte% 4.9 % (0-10); NRBC Flagged by Analyzer 0 % (0-5); Neutrophil # 15.84 X10^3/uL (2.7-7.7); Neutrophil % 91.7 % (47-70); POSITIVE DIFFERENTIAL YES; Platelet Count 264 K/mm3 (150-450); RBC Distribution Width CV 12.6 % (11.6-14.6); RBC Distribution Width SD 46.5 fl (35.1-43.9); White Blood Count 17.3 K/mm3 (4.4-11.0)
[2023-06-14 11:38] LABS: Differential Indicated SCAN CRITERIA MET
[2023-06-14 11:46] LABS: Anion Gap 5 (5-15); BUN 43 mg/dL (7-18); Calcium,Total 9.1 mg/dL (8.5-10.1); Chloride 97 mmol/L (98-107); Creatinine, Serum 4.77 mg/dL (0.55-1.02); EST Glomerular Filtration Rate 10 mL/min (>60); Est Glom Filt Rate - Afr Amer 12 mL/min (>60); Glucose 157 mg/dL (74-106); Sodium Level 135 mmol/L (136-145)
[2023-06-14] MEDS: Metoclopramide 10 MG/2 ML Vial 5 MG IV (12:15)
--- NOTE | 2023-06-14 12:29 | RAD_ITS ---
STUDY: X-RAY - LEFT FOOT CLINICAL: Female, 72 years old. Foot pain. Soft tissue ulceration. TECHNIQUE: 2 view(s) of the foot. COMPARISON: None. FINDINGS: There is an enthesophyte involving the posterior superior calcaneus at the site of insertion of the Achilles tendon. Plantar spur. Degenerative changes of the tarsal bones. There is demineralization of the metatarsi. There is degenerative arthrosis of the metatarsophalangeal joint of the hallux . Normal tibial and fibular sesamoid bones. Normal interphalangeal joint of the great toe. Normal phalanges of the great toe. Decreased bone densities of the second third fourth and fifth metacarpophalangeal joints with findings suggestive of erosive changes of the metatarsal heads and bases of the proximal phalanges of the second third fourth and fifth toes. Osteomyelitis should be ruled out. Normal interphalangeal joints and phalanges of the lesser toes. Diffuse soft tissue swelling. RAD/Foot 2 Views IMPRESSION: Findings suggestive of a osteomyelitis involving the distal portions of the metatarsals and proximal phalanges of the second third fourth and fifth toes. Diffuse osteopenia. Soft tissue ulceration along the inferior posterior aspect of the calcaneus. Diffuse soft tissue swelling. Electronically Signed: Vito Ng MD at 13:17 EDT ,
[2023-06-14 13:09] LABS: AST(SGOT) 12 U/L (15-37); Alanine Aminotransfer ALT/SGPT 11 U/L (13-56); Albumin, Serum 2.9 g/dL (3.2-5.0); Alkaline Phosphatase 162 U/L (45-117); Bilirubin, Direct 0.33 mg/dL (0.00-0.30); Globulin 4.2 g/dL (2.2-4.2); Lipase 20 U/L (13-75); Protein, Total 7.1 g/dL (6.4-8.2)
[2023-06-14 13:27] LABS: Erythrocyte Sedimentation Rate 65 mm/hr (0-30)
[2023-06-14 14:03] LABS: Lactic Acid 1.7 mmol/L (0.4-1.9)
[2023-06-14 14:11] VITALS: BP 174/71; PULSE 99; RESP 18; TEMP 37.3; O2SAT 97
--- NOTE | 2023-06-14 14:13 | NURSING ---
MED SURG RODRIGO LEFT FOOT R/O OSTEOMYELITIS
--- NOTE | 2023-06-14 15:01 | ART_ITS ---
Reason For Study: Osteomyelitis Procedure A bilateral lower extremity continuous wave Doppler with analog waveform analysis and ankle brachial indexes. Left Segmental Pressures Left posterior tibial artery = 75mmHg. Left dorsalis pedis artery = 71mmHg. Left digit = 22 mmHg. The left dorsalis pedis waveforms are monophasic. The left posterior tibial artery waveforms are monophasic. Right Segmental Pressures Right brachial= 146mmHg. Right posterior tibial artery = 80mmHg. Right dorsalis pedis artery = 74mmHg. Right digit = 45 mmHg. The right dorsalis pedis waveforms are biphasic. The right posterior tibial artery waveforms are biphasic. Indices The right ankle brachial index by the dorsalis pedis is 0.51. The right ankle brachial index by the posterior tibial artery is 0.55. The right digital-brachial index is 0.31. The left ankle brachial index by the dorsalis pedis is 0.49. The left ankle brachial index by the posterior tibial artery is 0.51. The left digital-brachial index is 0.15. 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 with the ank le-brachial index of the dorsalis pedis and of the posterior tibialis 0.51 and 0.55 respectively wit h biphasic Doppler waveforms The right digital brachial index is abnormal at 0.31 Moderately severe left lower extremity arterial occlusive disease based upon le ft dorsalis pedis and posterior tibialis ankle-brachial indices of 0.49 and 0.51 respectively althoug h the Doppler waveforms are monophasic at each site suggesting a more severe level of disease The left digital brachial index is significantly abnormal at 0.15 Ordering Physician: Jakob Chisholm Performed By: Anel Vences RVT
--- NOTE | 2023-06-14 15:09 | PCM.HP.STD ---
HPI - General General Date of Admission: 06/14/23 Date of Service: 06/14/23 Chief Complaint: N/V HPI Narrative TRISH PERKINS, is a 72 F who presents with nausea and vomiting. Patient was at the dialysis center and was about to be started on dialysis but patient was having nausea and vomiting and rigors. Patient was sent to the emergency room and she had an abdominal x-ray that showed no acute process but she does have a wound that she has had for some time on her left heel. Patient did have an x-ray that showed findings suggestive of osteomyelitis involving the distal portions of the metatarsals and proximal flanges in the second, third, fourth and fifth toes. Patient received Zosyn and vancomycin in the emergency room. Dr. Maloney of podiatry was contacted and is agreeable to seeing the patient but recommend an MRI. 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 [facility] Medical History Anemia Congestive heart failure (CHF) Diabetes Dialysis patient GI bleed Kidney dialysis as the cause of abnormal reaction of the patient, or of later complication, without mention of misadventure at the time of the procedure Kidney disease TIA (transient ischemic attack) Vision loss of left eye Vision loss of right eye Home Medications ascorbic acid (vitamin C) 500 mg tablet (C-500) 500 mg PO DAILY 06/14/23 [History Last Taken 06/13/23] calcium carbonate 200 mg calcium (500 mg) chewable tablet (Antacid (calcium carbonate)) 200 - 400 mg PO DAILY ANTACID 06/14/23 [History Last Taken 06/13/23] cholecalciferol (vitamin D3) 25 mcg (1,000 unit) tablet (Vitamin D3) 25 mcg PO DAILY 06/14/23 [History Last Taken 06/13/23] Allergy/AdvReac Type Severity Reaction Status Date / Time doxycycline Allergy Rash Verified 06/14/23 10:53 iodine Allergy patient Verified 06/14/23 10:53 states mother had allergy and is afraid she is. levofloxacin [From Levaquin] Allergy patient Verified 06/14/23 10:53 states mother had allergy and is afraid she is. shellfish derived Allergy patient Verified 06/14/23 10:53 states mother had allergy and is afraid she is. Family History Other CVA (cerebral vascular accident) Diabetes Surgical History S/P dialysis catheter insertion S/P tonsillectomy Social History Smoking Status: Never smoker ROS ROS Narrative No shortness of breath. No chest pain. Does have a graft in her left upper extremity without any issues. All review of systems were negative except as mentioned above in the history of present illness and the other review of systems. Vital Signs Vital Signs Vital Signs: 06/14/23 10:51 06/14/23 14:11 Temperature 36.6 C 37.3 C H Temperature Source Temporal Oral Pulse Rate 64 99 Respiratory Rate 14 18 Blood Pressure 142/78 H 174/71 H Blood Pressure Mean 99 105 Pulse Ox 98 97 Oxygen Delivery Method Room Air Room Air Weight Weight: 54.431 kg Body Mass Index (BMI) 20.0 Physical Exam Const alert and no apparent distress HEENT normocephalic and head/scalp atraumatic Eyes Eyes Narrative: No icterus. Glasses. Neck no lymphadenopathy Neck Narrative: No thyromegaly Resp normal respiratory effort, no retractions, no use of accessory muscles and clear to auscultation bilaterally Cardio regular rate, regular rhythm, S1 normal heart sound and S2 normal heart sound GI normal to inspection, nondistended, normoactive bowel sounds, soft to palpation, non-tender and non-distended Extremity Extremity Narrative: Palpable graft in left upper extremity without erythema. Patient does have a large ulcer on the plantar aspect but also medially over her left heel. Nonpitting swelling throughout her lower extremities. Skin Skin Narrative: Ulcer over left heel as above. Neuro moves all extremities Sensorium / Orientation: awake and alert Psych affect normal Results Lab / Micro Data Attestation: I reviewed the patient's lab results. 06/14/23 11:25 06/14/23 11:25 Labs: Laboratory Results - last 24 hr 06/14/23 11:25: WBC 17.3 H, RBC 3.80 L, Hgb 11.8 L, Hct 37.8, MCV 99.5 H, MCH 31.1, MCHC 31.2 L, RDW Std Deviation 46.5 H, RDW Coeff of Maddison 12.6, Plt Count 264, MPV 10.6, Immature Gran % (Auto) 0.500, Neut % (Auto) 91.7 H, Lymph % (Auto) 2.1 L, [place] % (Auto) 4.9, Eos % (Auto) 0.5, Baso % (Auto) 0.3, Absolute Neuts (auto) 15.8 H, Absolute Lymphs (auto) 0.36 L, Nucleated RBC % 0, Differential Comment COMMENT, ESR 65 H, Sodium 135 L, Potassium 5.0, Chloride 97 L, Carbon Dioxide 33.0 H, Anion Gap 5, BUN 43 H, Creatinine 4.77 H, Est GFR (MDRD) Af Amer 12 L, Est GFR (MDRD) Non-Af 10 L, BUN/Creatinine Ratio 9.0 L, Glucose 157 H, Calcium 9.1, Total Bilirubin 0.70, Direct Bilirubin 0.33 H, AST 12 L, ALT 11 L, Alkaline Phosphatase 162 H, C-React Prot Ext Range 75.40 H, Total Protein 7.1, Albumin 2.9 L, Globulin 4.2, Lipase 20 06/14/23 13:15: Lactic Acid 1.7 Radiology Impression Abdomen/Pelvis CT 06/14/23 11:36 IMPRESSION: Bilateral pleural effusions with bibasilar infiltration and/or atelectasis worse on the left side. Multiple calcified hepatic and splenic granulomas. Extensive atherosclerotic calcification of the aorta and major visceral branches. Electronically Signed: Vito Ng MD at 13:13 EDT , Foot X-Ray 06/14/23 12:29 IMPRESSION: Findings suggestive of a osteomyelitis involving the distal portions of the metatarsals and proximal phalanges of the second third fourth and fifth toes. Diffuse osteopenia. Soft tissue ulceration along the inferior posterior aspect of the calcaneus. Diffuse soft tissue swelling. Electronically Signed: Vito Ng MD at 13:17 EDT , Assessment & Plan Assessment/Plan (1) Foot osteomyelitis, left: QUALIFIERS: Osteomyelitis type: other chronic Qualified Code(s): M86.672 - Other chronic osteomyelitis, left ankle and foot PLAN: Ulcer has been present for some time. But seems to be having osteomyelitis in the metatarsals and phalanges. MRI ordered. Patient also with weak pulses so we will check ABIs. Continue with antibiotics with Pipracil/tazobactam and vancomycin. Check wound culture Podiatry consult Depending on further studies and intervention, likely will need infectious disease consultation. (2) End stage renal disease: PLAN: On dialysis. Missed dialysis given her symptoms of nausea vomiting and rigors. Discussed with [facility] and they will look to try to get the patient dialysis either today or tomorrow. Not urgent as patient's potassium is only 5 at this time. PLAN: Plan Chronic conditions Neuropathy: Complicates care and recovery. Diabetes mellitus type 2: Patient states that she has not been checking her blood sugar lately. When asked her what lately means, she says she has not checked it in several weeks and then said several months. We will check an A1c and start her on sliding scale insulin. VTE prophylaxis with enoxaparin. CODE STATUS: Just with the patient. Patient wishes to be DNR Comfort Care arrest. I told her that if she does require surgery that she would be intubated temporarily. She said that she would not want. Though she has been intubated when she had an aortic issue in the past. Unclear if that was a dissection or not but she was intubated at some point for that for the surgery what ever that was. Reassurance provided to the patient that if she does require surgery and being on a ventilator with anesthesia, that would be short-term. I did tell the patient that we are here to make recommendations for her health and benefit. And she has the right to determine what she would and would not do. Case was discussed with her who is at bedside. When I did discuss some these concerns with nephrology when he spoke with them, informed me that patient determines that she does not want any significant fluid off when she gets dialysis. Charges/Coding Visit Charges Inpatient E&M: 55434 Init Hosp L3
[2023-06-14 15:19] LABS: Bedside Glucose 156 mg/dL (74-106)
[2023-06-14 15:26] VITALS: BMI 20.7
[2023-06-14 15:29] VITALS: BP 158/64; PULSE 100; RESP 18; TEMP 36.9; O2SAT 92
--- NOTE | 2023-06-14 16:06 | PCM.RX.CS ---
Consult Antibiotic Management Pharmacy has been consulted to manage selected antiobiotic: Vancomycin Suspected Infection Suspected Infection: Osteomyelitis Labs Labs: Sodium 135 mmol/L (136-145) L 06/14/23 11:25 Potassium 5.0 mmol/L (3.5-5.1) 06/14/23 11:25 Chloride 97 mmol/L (98-107) L 06/14/23 11:25 Carbon Dioxide 33.0 mmol/L (21.0-32.0) H 06/14/23 11:25 Anion Gap 5 (5-15) 06/14/23 11:25 BUN 43 mg/dL (7-18) H 06/14/23 11:25 Creatinine 4.77 mg/dL (0.55-1.02) H 06/14/23 11:25 Est GFR (MDRD) Af Amer 12 mL/min (>60) L 06/14/23 11:25 Est GFR (MDRD) Non-Af 10 mL/min (>60) L 06/14/23 11:25 BUN/Creatinine Ratio 9.0 RATIO (10-20) L 06/14/23 11:25 Glucose 157 mg/dL (74-106) H 06/14/23 11:25 Dosing Weight Weight used for dosin.5 kg Estimated Creatinine Clearance Estimated Creatinine Clearance: 9.6 Pharmacy Plan for Drug Dosing Pharmacy Plan for Drug Dosing: Will give loading dose of 25mg/kg (1500mg) iv x 1. Random level ordered for Sun. 7.16.23. Pharmacy Service will continue to monitor and adjust dosing as required.
--- NOTE | 2023-06-14 17:05 | CT_ITS ---
CT LEFT LOWER EXTREMITY WITH 3-D IMAGING CLINICAL INDICATION: osteomyelitis TECHNIQUE: Axial CT images of the LEFT lower extremity was performed IV contrast material. Coronal and sagittal reformats were provided. RADIATION DOSAGE (If Supplied By Facility): CTDIvol = ( 15.35 ) mGy, DLP = ( 476.57 ) mGycm COMPARISON: X-ray 06/14/2023 FINDINGS: Bones: Mottled radiolucency of the bones of the foot consistent with osteopenia. Soft Tissues: Thickening of the distal Achilles tendon with a calcification consistent with insertional Achilles tendinitis and possible tear. Diffuse skin thickening and edema in the subcutaneous fat suggestive of a cellulitis. 1 cm gas-filled ulcer of the heel extending to the posterior plantar aspect of the calcaneus with bony destruction consistent with osteomyelitis. No loculated fluid collection to suggest abscess. CT/Extremity Lower without Contra IMPRESSION: Cellulitis with a heel ulcer and osteomyelitis of the posterior calcaneus. Electronically Signed: Travis Kemp MD at 22:55 EDT ,
--- NOTE | 2023-06-14 17:19 | PCM.HOSP.N ---
Hospitalist Note Pt was waiting down in MRI (did not have an MRI). Was checked on and was unresponsive and pulse ox was in the 60s. She was placed on oxygen and she became more alert. She has known h/o SHREYA (though, she has never been evaluated for it). I went and saw the patient and she was alert and in no distress. DW floor nursing and pt did not receive any pain medications before being sent to MRI. She will have CT (see earlier note).
[2023-06-14 17:28] LABS: Bedside Glucose 181 mg/dL (74-106)
--- NOTE | 2023-06-14 17:30 | ED.RN ---
AT APPROX 1710, MRI HIT A STAFF ASSIST FOR A PATIENT THAT WAS UNRESPONSIVE DROOLING, UPON THIS RN ARRIVAL TO BEDSIDE PT IS DROOLING AND AROUSABLE TO VOICE. PULSE OX READING 64% ON ROOM AIR. PT PLACED ON SPOUTING INSTALLER AND VS OBTAINED. PT BP 138/52 HR 93 RR 16 AND PT NOW 100% ON 6L NC. BG 181. PT NOW ALERT AND ORIENTED. HUMAN RESOURCES OPERATIONS DIRECTOR, MEDSUR NURSES AND DR. WALLACE AT BEDSIDE.
--- NOTE | 2023-06-14 17:33 | CON.PCM_ITS ---
Assessment & Plan Assessment/Plan (1) Foot osteomyelitis, left: QUALIFIERS: Osteomyelitis type: other chronic Qualified Code(s): M86.672 - Other chronic osteomyelitis, left ankle and foot (2) Non-pressure chronic ulcer of other part of left foot with necrosis of bone: (3) Diabetes mellitus with diabetic polyneuropathy: (4) Type 2 diabetes mellitus with foot ulcer: (5) Other specified peripheral vascular diseases: PLAN: Plan Evaluation performed. Reviewed diagnostic data. There is necrotic ulceration to the left heel, there is oder. Reviewed left foot xrays and CT scan - appears to have osteomyelitis - final radiology read on CT scan pending. Reviewed noninvasive LE arterial studies and noted significant LE vascular disease. This is chronic. If patient wants to optimize healing potential I recommend vascular surgeon consultation. There is no evidence of acute ischemia at this time. A culture was obtained of the left heel ulceration and sent to microbiology for further evaluation. Patient has been started on IV antibiotics - Vanc and Zosyn. I discussed with patient and also her who was at bedside for this visit - due to necrotic, malodorous ulceration with signs/symptoms of infection I rec ommended OR debridement to remove the necrotic, nonviable and infected tissue for infection control. Discussed with them in detail, reviewed rationale of this, also reviewed possible benefits vs risks. At this time both patient and her were against debridement of the ulcer, and patient elected to proceed with local wound care and antibiotic therapy at this time. She understands the risks of worsening which can increase chance of loss of limb and life. She also understands she is at risk of limb loss. Wound Care: Dakin's wet to dry gauze dressing, change daily. Keep offloaded at all times. Podiatry will continue to follow. Thank you for consultation. I discussed findings and plan with Dr. Chisholm. HPI Consult Data Date of Consult: 06/14/23 HPI Narrative Reason for Consultation: Left foot ulcer with infection HPI Narrative: TRISH PERKINS, is a 72 F who presents with necrotic malodorous left heel ulceration. She relates she has had a wound there for 3 years. She has seen Dr. Hidalgo in the past. She relates she has a wound center appt coming up next week in [place]. She has developed fevers and also has had chills today. Her WBC is elevated. ESR and CRP is elevated, she is also on dialysis. She has neuropathy in feet. She had xrays and CT scan. There is concern for bone infection to the left heel. She has many medical problems, diabetes, blindness, and also dialysis as well. Her is present at bedside. She has been admitted for further management. She has been started on antibiotics. [facility] Medical History (Updated 06/14/23 @ 18:[address] Carlos Manuel Maloney, BETHANIE) Anemia Congestive heart failure (CHF) Diabetes Dialysis patient GI bleed Kidney dialysis as the cause of abnormal reaction of the patient, or of later complication, without mention of misadventure at the time of the procedure Kidney disease TIA (transient ischemic attack) Vision loss of left eye Vision loss of right eye Home Medications ascorbic acid (vitamin C) 500 mg tablet (C-500) 500 mg PO DAILY 06/14/23 [History Last Taken 06/13/23] calcium carbonate 200 mg calcium (500 mg) chewable tablet (Antacid (calcium ca rbonate)) 200 - 400 mg PO DAILY ANTACID 06/14/23 [History Last Taken 06/13/23] cholecalciferol (vitamin D3) 25 mcg (1,000 unit) tablet (Vitamin D3) 25 mcg PO DAILY 06/14/23 [History Last Taken 06/13/23] lidocaine-prilocaine 2.5 %-2.5 % topical cream 1 applic topical .MonWedFri for dialysis when use AVF 06/14/23 [History Last Taken 06/14/23] Allergy/AdvReac Type Severity Reaction Status Date / Time doxycycline Allergy Rash Verified 06/14/23 10:53 iodine Allergy patient Verified 06/14/23 10:53 states mother had allergy and is afraid she is. levofloxacin [From Levaquin] Allergy patient Verified 06/14/23 10:53 states mother had allergy and is afraid she is. shellfish derived Allergy patient Verified 06/14/23 10:53 states mother had allergy and is afraid she is. Family History Other CVA (cerebral vascular accident) Diabetes Surgical History S/P dialysis catheter insertion S/P tonsillectomy Social History Smoking Status: Never smoker Physical Exam Narrative Left heel with dry necrotic ulceration eschar to the posterior medial aspect of the heel, there is maloder present from the site, there is some localized cellulitis, no crepitus, no fluctuance, no blistering, no visible abscess is present, there are no other ulcerations bilateral foot or ankle. Skin is thin and atrophic bilateral. There is no evidence of acute ischemia to the foot or ankle bilateral. DP and PT nonpalpable bilateral. Chronic decreased sensation to the foot bilateral. There is no POP or pain on ROM to the foot or ankle bilateral. Const alert, oriented x3 and no apparent distress Lab / Micro Data 06/14/23 11:25 06/14/23 11:25 Labs: Laboratory Results - last 24 hr 06/14/23 11:25: WBC 17.3 H, RBC 3.80 L, Hgb 11.8 L, Hct 37.8, MCV 99.5 H, MCH 31.1, MCHC 31.2 L, RDW Std Deviation 46.5 H, RDW Coeff of Maddison 12.6, Plt Count 264, MPV 10.6, Immature Gran % (Auto) 0.500, Neut % (Auto) 91.7 H, Lymph % (Auto) 2.1 L, [place] % (Auto) 4.9, Eos % (Auto) 0.5, Baso % (Auto) 0.3, Absolute Neuts (auto) 15.8 H, Absolute Lymphs (auto) 0.36 L, Nucleated RBC % 0, Differential Comment COMMENT, ESR 65 H, Sodium 135 L, Potassium 5.0, Chloride 97 L, Carbon Dioxide 33.0 H, Anion Gap 5, BUN 43 H, Creatinine 4.77 H, Est GFR (MDR D) Af Amer 12 L, Est GFR (MDRD) Non-Af 10 L, BUN/Creatinine Ratio 9.0 L, Glucose 157 H, Calcium 9.1, Total Bilirubin 0.70, Direct Bilirubin 0.33 H, AST 12 L, ALT 11 L, Alkaline Phosphatase 162 H, C-React Prot Ext Range 75.40 H, Total Protein 7.1, Albumin 2.9 L, Globulin 4.2, Lipase 20 06/14/23 13:15: Lactic Acid 1.7 06/14/23 15:01: POC Glucose 156 H 06/14/23 17:08: POC Glucose 181 H Radiology Impression Abdomen/Pelvis CT 06/14/23 11:36 IMPRESSION: Bilateral pleural effusions with bibasilar infiltration and/or atelectasis worse on the left side. Multiple calcified hepatic and splenic granulomas. Extensive atherosclerotic calcification of the aorta and major visceral branches. Electronically Signed: Vito Ng MD at 13:13 EDT , Foot X-Ray 06/14/23 12:29 IMPRESSION: Findings suggestive of a osteomyelitis involving the distal portions of the metatarsals and proximal phalanges of the second third fourth and fifth toes. Diffuse osteopenia. Soft tissue ulceration along the inferior posterior aspect of the calcaneus. Diffuse soft tissue swelling. Electronically Signed: Vito Ng MD at 13:17 EDT , Ankle Brachial Index 06/14/23 15:01 Interpretation Summary Moderately severe right lower extremity arterial occlusive disease with the ankle-brachial index of the dorsalis pedis and of the posterior tibialis 0.51 and 0.55 respectively with biphasic Doppler waveforms The right digital brachial index is abnormal at 0.31 Moderately severe left lower extremity arterial occlusive disease based upon left dorsalis pedis and posterior tibialis ankle-brachial indices of 0.49 and 0.51 respectively although the Doppler waveforms are monophasic at each site suggesting a more severe level of disease The left digital brachial index is significantly abnormal at 0.15 Ordering Physician: Jakob Chisholm Performed By: Anel Vences RVLandry
[2023-06-14] MEDS: Juven (unflavored) Packet 1 PACKET PO (17:43)
[2023-06-14] MEDS: Glucerna Shake 120 ML LIQUID PO (17:46)
[2023-06-14] MEDS: Insulin Lispro 100 UNIT/ML INSULN.PEN SC (17:54)
[2023-06-14] MEDS: DAKIN'S SOL HALF STRENGTH (=0.25%) 1 APPLIC TOPICAL (18:41)
[2023-06-14 18:45] VITALS: O2SAT 100
[2023-06-14 20:26] LABS: M R Staph aureus DNA By PCR Negative (Negative); Probe Check PASS; Specimen Processing Control PASS; Staph aureus DNA By PCR POSITIVE (Negative)
[2023-06-14 21:27] VITALS: BP 156/68; PULSE 95; RESP 18; TEMP 36.5; O2SAT 99
[2023-06-14] MEDS: Nystatin Powder 15gm Bottle 1 APPLIC TOPICAL (21:39)
[2023-06-14] MEDS: Menthol/Lanolin/Calamine/Znox 113 GM Tube 1 APPLIC TOPICAL (21:39)
[2023-06-14 22:03] LABS: Bedside Glucose 179 mg/dL (74-106)
[2023-06-15] VITALS (13 sets, daily range): BP systolic 123–279; BP diastolic 57–93; PULSE 88–106; RESP 12–20; TEMP 36.7–37.5; O2SAT 93–98; BMI 21.0; BMI 35.9; BMI 20.9
[2023-06-15 06:59] LABS: Absolute Lymphocyte Count 0.26 X10^3/uL (0.83-4.51); Absolute Neutrophil Count 6.8 X10^3/uL (2.0-7.7); Basophil# 0.02 X10^3/uL; Basophil% 0.3 % (0-1); Eosinophil# 0.07 X10^3/uL; Eosinophils% 0.9 % (0-5); Hematocrit 52.8 % (37-47); Hemoglobin 16.8 g/dL (12.0-15.0); Lymphocyte # 0.26 X10^3/ul (0.83-4.51); Lymphocyte % 3.5 % (19-41); Mean Corp Hgb Conc 31.8 g/dL (32-36); Mean Corpuscular Hgb 31.2 pg (27.0-32.0); Mean Corpuscular Volume 98.1 fL (81-99); Mean Platelet Vol. 11.7 fl (6.2-12.0); Monocyte# 0.34 X10^3/uL; Monocyte% 4.6 % (0-10); NRBC Flagged by Analyzer 0 % (0-5); Neutrophil # 6.75 X10^3/uL (2.7-7.7); Neutrophil % 90.4 % (47-70); POSITIVE COUNT YES; POSITIVE DIFFERENTIAL YES; Platelet Count 109 K/mm3 (150-450); RBC Distribution Width CV 12.7 % (11.6-14.6); RBC Distribution Width SD 46.1 fl (35.1-43.9); Red Blood Count 5.38 M/mm3 (4.2-5.4); White Blood Count 7.5 K/mm3 (4.4-11.0)
[2023-06-15 07:09] LABS: Differential Indicated SCAN CRITERIA MET
[2023-06-15 07:13] LABS: Anion Gap 7 (5-15); BUN 64 mg/dL (7-18); BUN/Creat Ratio 11.8 RATIO (10-20); Calcium,Total 8.5 mg/dL (8.5-10.1); Chloride 99 mmol/L (98-107); Creatinine, Serum 5.42 mg/dL (0.55-1.02); EST Glomerular Filtration Rate 8 mL/min (>60); Est Glom Filt Rate - Afr Amer 10 mL/min (>60); Estimated Creatinine Clearance 8.49 ml/min; Glucose 85 mg/dL (74-106); Potassium 5.8 mmol/L (3.5-5.1); Sodium Level 136 mmol/L (136-145); Thyroid Stim Hormone (TSH) 1.45 uIU/mL (0.358-3.74)
[2023-06-15 07:18] LABS: Bedside Glucose 89 mg/dL (74-106)
--- NOTE | 2023-06-15 07:37 | PN.HOSP_ITS ---
Reason for Visit Reason for Visit: Diagnoses Type 2 diabetes mellitus with diabetic polyneuropathy (06/14/23) Type 2 diabetes mellitus with foot ulcer (06/14/23) Other specified peripheral vascular diseases (06/14/23) Non-pressure chronic ulcer of other part of unspecified foot with unspecified severity (06/14/23) Non-pressure chronic ulcer of other part of left foot with necrosis of bone (06/14/23) Other chronic osteomyelitis, left ankle and foot (06/14/23) End stage renal disease (06/14/23) Subjective Subjective No issues overnight. Objective Data Objective Data Vital Signs: Vital Signs Temp Pulse Resp BP Pulse Ox O2 Del Method O2 Flow Rate 36.9 C 88 18 166/68 H 96 Nasal Cannula 2 06/15/23 03:10 06/15/23 03:10 06/15/23 03:10 06/15/23 03:10 06/15/23 03:10 06/15/23 03:23 06/15/23 03:23 Oxygen Flow Rate (L/min) 2 Oxygen Delivery Method Nasal Cannula Weight: 56.472 kg Body Mass Index (BMI) 20.7 Intake & Output: Intake and Output for Last 24 Hours 06/13/23 06/14/23 06/15/23 23:59 23:59 23:59 Intake Total 820 / 820 250 / 250 Output Total 0 / 0 Balance 820 / 820 250 / 250 Lab / Micro Data 06/15/23 05:30 06/15/23 05:30 Labs: Laboratory Results - last 24 hr 06/14/23 11:25: WBC 17.3 H, RBC 3.80 L, Hgb 11.8 L, Hct 37.8, MCV 99.5 H, MCH 31.1, MCHC 31.2 L, RDW Std Deviation 46.5 H, RDW Coeff of Maddison 12.6, Plt Count 264, MPV 10.6, Immature Gran % (Auto) 0.500, Neut % (Auto) 91.7 H, Lymph % (Auto) 2.1 L, [place] % (Auto) 4.9, Eos % (Auto) 0.5, Baso % (Auto) 0.3, Absolute Neuts (auto) 15.8 H, Absolute Lymphs (auto) 0.36 L, Nucleated RBC % 0, Differential Comment COMMENT, ESR 65 H, Sodium 135 L, Potassium 5.0, Chloride 97 L, Carbon Dioxide 33.0 H, Anion Gap 5, BUN 43 H, Creatinine 4.77 H, Est GFR (MDRD) Af Amer 12 L, Est GFR (MDRD) Non-Af 10 L, BUN/Creatinine Ratio 9.0 L, Gl ucose 157 H, Calcium 9.1, Total Bilirubin 0.70, Direct Bilirubin 0.33 H, AST 12 L, ALT 11 L, Alkaline Phosphatase 162 H, C-React Prot Ext Range 75.40 H, Total Protein 7.1, Albumin 2.9 L, Globulin 4.2, Lipase 20 06/14/23 13:15: Lactic Acid 1.7 06/14/23 15:01: POC Glucose 156 H 06/14/23 17:08: POC Glucose 181 H 06/14/23 18:48: S.aureus Protein A PCR POSITIVE H, MRSA (PCR) Negative 06/14/23 21:38: POC Glucose 179 H 06/15/23 05:30: WBC 7.5, RBC 5.38, Hgb 16.8 H, Hct 52.8 H, MCV 98.1, MCH 31.2, MCHC 31.8 L, RDW Std Deviation 46.1 H, RDW Coeff of Maddison 12.7, Plt Count 109 L, MPV 11.7, Immature Gran % (Auto) 0.300, Neut % (Auto) 90.4 H, Lymph % (Auto) 3.5 L, [place] % (Auto) 4.6, Eos % (Auto) 0.9, Baso % (Auto) 0.3, Absolute Neuts (auto) 6.8, Absolute Lymphs (auto) 0.26 L, Nucleated RBC % 0, Sodium 136, Potassium 5.8 H, Chloride 99, Carbon Dioxide 30.0, Anion Gap 7, BUN 64 H, Creatinine 5.42 H, Estim Creat Clear Calc 8.49, Est GFR (MDRD) Af Amer 10 L, Est GFR (MDRD) Non-Af 8 L, BUN/Creatinine Ratio 11.8, Glucose 85, Calcium 8.5, TSH 1.45 06/15/23 06:56: POC Glucose 89 Radiography Diagnostic Testing: Radiology Impression Abdomen/Pelvis CT 06/14/23 11:36 IMPRESSION: Bilateral pleural effusions with bibasilar infiltration and/or atelectasis worse on the left side. Multiple calcified hepatic and splenic granulomas. Extensive atherosclerotic calcification of the aorta and major visceral branches. Electronically Signed: Vito Ng MD at 13:13 EDT , Foot X-Ray 06/14/23 12:29 IMPRESSION: Findings suggestive of a osteomyelitis involving the distal portions of the metatarsals and proximal phalanges of the second third fourth and fifth toes. Diffuse osteopenia. Soft tissue ulceration along the inferior posterior aspect of the calcaneus. Diffuse soft tissue swelling. Electronically Signed: Vito Ng MD at 13:17 EDT , Ankle Brachial Index 06/14/23 15:01 Interpretation Summary Moderately severe right lower extremity arterial occlusive disease with the ankle-brachial index of the dorsalis pedis and of the posterior tibialis 0.51 and 0.55 respectively with biphasic Doppler waveforms The right digital brachial index is abnormal at 0.31 Moderately severe left lower extremity arterial occlusive disease based upon left dorsalis pedis and posterior tibialis ankle-brachial indices of 0.49 and 0.51 respectively although the Doppler waveforms are monophasic at each site suggesting a more severe level of disease The left digital brachial index is significantly abnormal at 0.15 Ordering Physician: Jakob Chisholm Performed By: Anel Vences RVT Lower Extremity CT 06/14/23 17:05 IMPRESSION: Cellulitis with a heel ulcer and osteomyelitis of the posterior calcaneus. Electronically Signed: Travis Kemp MD at 22:55 EDT , Physical Exam Const alert and no apparent distress HEENT head/scalp atraumatic and moist oral mucous membranes Resp normal respiratory effort, no retractions, no use of accessory muscles and clear to auscultation bilaterally Cardio regular rate, regular rhythm, S1 normal heart sound and S2 normal heart sound GI normal to inspection, nondistended, normoactive bowel sounds, soft to palpation, non-tender and non-distended Extremity Extremity Narrative: left foot and ankle wrapped, did not remove. Assessment & Plan Assessment/Plan (1) Foot osteomyelitis, left: QUALIFIERS: Osteomyelitis type: other chronic Qualified Code(s): M86.672 - Other chronic osteomyelitis, left ankle and foot PLAN: Continue with antibiotics with Pipracil/tazobactam and vancomycin. Data: * MRI could not be done at this time as pt has a coil, that could not be determined to be MRI-compatible. * CT showed cellulitis w heel ulcer and OM of the posterior calcaneus. * FRANCHESCA 0.5 on left, TBI 0.15 on left. * Would culture pending Seen by Dr. Maloney of podiatry who recommended debridement. Tentative for debridement 06/16. (2) End stage renal disease: PLAN: On dialysis. Missed dialysis given her symptoms of nausea vomiting and rigors. Discussed with [facility] and they will look to try to get the patient dialysis either today or tomorrow. Not urgent as patient's potassium is only 5 at this time. (3) Other specified peripheral vascular diseases: PLAN: Noted on ABIs Would benefit from vascular surgery input if pt amenable. PLAN: Plan Chronic conditions * Neuropathy: Complicates care and recovery. * Diabetes mellitus type 2: Patient states that she has not been checking her blood sugar lately. When asked her what lately means, she says she has not checked it in several weeks and then said several months. We will check an A1c and start her on sliding scale insulin. VTE prophylaxis with enoxaparin. CODE STATUS: Just with the patient. Patient wishes to be DNR Comfort Care arrest. I told her that if she does require surgery that she would be intubated temporarily. She said that she would not want. Though she has been intubated when she had an aortic issue in the past. Unclear if that was a dissection or not but she was intubated at some point for that for the surgery what ever that was. Reassurance provided to the patient that if she does require surgery and being on a ventilator with anesthesia, that would be short-term. 06/14: I did tell the patient that we are here to make recommendations for her health and benefit. And she has the right to determine what she would and would not do. Case was discussed with her who is at bedside. When I did d iscuss some these concerns with nephrology when he spoke with them, informed me that patient determines that she does not want any significant fluid off when she gets dialysis. Charges/Coding Visit Charges Inpatient E&M: 06889 Subs Hosp L2
[2023-06-15 08:30] LABS: Hemoglobin A1c 5.4 % (3.8-5.6)
[2023-06-15] MEDS: PureFlow B 2K Dialysis Soln 1 BAG 6 BAG PF (08:32)
[2023-06-15] MEDS: 0.9% Normal Saline 1,000 ML IV.SOLN. 1000 ML OPERA.SITE (08:33)
[2023-06-15] MEDS: Juven (unflavored) Packet 1 PACKET PO ×2 (09:31→15:53)
[2023-06-15] MEDS: Menthol/Lanolin/Calamine/Znox 113 GM Tube 1 APPLIC TOPICAL ×2 (09:31→22:38)
[2023-06-15] MEDS: Glucerna Shake 120 ML LIQUID PO (09:32)
[2023-06-15] MEDS: Nystatin Powder 15gm Bottle 1 APPLIC TOPICAL ×2 (09:32→22:37)
[2023-06-15] MEDS: Enoxaparin 30 MG/0.3 ML Syringe SC (09:34)
[2023-06-15] MEDS: Ascorbic Acid 500 MG Tablet PO (09:34)
[2023-06-15] MEDS: Cholecalciferol (VIT D3) 25 MCG TABLET (1,000 UNITS) PO (09:34)
--- NOTE | 2023-06-15 10:02 | PCM.PROGNOTE ---
Subjective Subjective Patient was seen this morning for follow up on left heel ulceration. Patient is sitting up in bed getting dialysis. Patient afebrile. Objective Data Objective Data Vital Signs: Vital Signs Temp Pulse Resp BP Pulse Ox O2 Del Method O2 Flow Rate 98.3 F 96 20 H 182/84 H 95 Nasal Cannula 2 06/15/23 09:46 06/15/23 09:46 06/15/23 09:46 06/15/23 09:46 06/15/23 09:46 06/15/23 09:46 06/15/23 09:46 Oxygen Flow Rate (L/min) 2 Oxygen Delivery Method Nasal Cannula Weight: 57.3 kg Body Mass Index (BMI) 21.0 Intake & Output: Intake and Output for Last 24 Hours 06/13/23 06/14/23 06/15/23 23:59 23:59 23:59 Intake Total 820 / 820 283.54 / 283.54 Output Total 0 / 0 Balance 820 / 820 283.54 / 283.54 Lab / Micro Data 06/15/23 05:30 06/15/23 05:30 Labs: Laboratory Results - last 24 hr 06/14/23 11:25: WBC 17.3 H, RBC 3.80 L, Hgb 11.8 L, Hct 37.8, MCV 99.5 H, MCH 31.1, MCHC 31.2 L, RDW Std Deviation 46.5 H, RDW Coeff of Maddison 12.6, Plt Count 264, MPV 10.6, Immature Gran % (Auto) 0.500, Neut % (Auto) 91.7 H, Lymph % (Auto) 2.1 L, [place] % (Auto) 4.9, Eos % (Auto) 0.5, Baso % (Auto) 0.3, Absolute Neuts (auto) 15.8 H, Absolute Lymphs (auto) 0.36 L, Nucleated RBC % 0, Differential Comment COMMENT, ESR 65 H, Sodium 135 L, Potassium 5.0, Chloride 97 L, Carbon Dioxide 33.0 H, Anion Gap 5, BUN 43 H, Creatinine 4.77 H, Est GFR (MDRD) Af Amer 12 L, Est GFR (MDRD) Non-Af 10 L, BUN/Creatinine Ratio 9.0 L, Glucose 157 H, Calcium 9.1, Total Bilirubin 0.70, Direct Bilirubin 0.33 H, AST 12 L, ALT 11 L, Alkaline Phosphatase 162 H, C-React Prot Ext Range 75.40 H, Total Protein 7.1, Albumin 2.9 L, Globulin 4.2, Lipase 20 06/14/23 13:15: Lactic Acid 1.7 06/14/23 15:01: POC Glucose 156 H 06/14/23 17:08: POC Glucose 181 H 06/14/23 18:48: S.aureus Protein A PCR POSITIVE H, MRSA (PCR) Negative 06/14/23 21:38: POC Glucose 179 H 06/15/23 05:30: WBC 7.5, RBC 5.38, Hgb 16.8 H, Hct 52.8 H, MCV 98.1, MCH 31.2, MCHC 31.8 L, RDW Std Deviation 46.1 H, RDW Coeff of Maddison 12.7, Plt Count 109 L, MPV 11.7, Immature Gran % (Auto) 0.300, Neut % (Auto) 90.4 H, Lymph % (Auto) 3.5 L, [place] % (Auto) 4.6, Eos % (Auto) 0.9, Baso % (Auto) 0.3, Absolute Neuts (auto) 6.8, Absolute Lymphs (auto) 0.26 L, Nucleated RBC % 0, Sodium 136, Potassium 5.8 H, Chloride 99, Carbon Dioxide 30.0, Anion Gap 7, BUN 64 H, Creatinine 5.42 H, Estim Creat Clear Calc 8.49, Est GFR (MDRD) Af Amer 10 L, Est GFR (MDRD) Non-Af 8 L, BUN/Creatinine Ratio 11.8, Glucose 85, Hemoglobin A1c 5.4, Calcium 8.5, TSH 1.45 06/15/23 06:56: POC Glucose 89 Radiography Diagnostic Testing: Radiology Impression Abdomen/Pelvis CT 06/14/23 11:36 IMPRESSION: Bilateral pleural effusions with bibasilar infiltration and/or atelectasis worse on the left side. Multiple calcified hepatic and splenic granulomas. Extensive atherosclerotic calcification of the aorta and major visceral branches. Electronically Signed: Vito Ng MD at 13:13 EDT , Foot X-Ray 06/14/23 12:29 IMPRESSION: Findings suggestive of a osteomyelitis involving the distal portions of the metatarsals and proximal phalanges of the second third fourth and fifth toes. Diffuse osteopenia. Soft tissue ulceration along the inferior posterior aspect of the calcaneus. Diffuse soft tissue swelling. Electronically Signed: Vito Ng MD at 13:17 EDT , Ankle Brachial Index 06/14/23 15:01 Interpretation Summary Moderately severe right lower extremity arterial occlusive disease with the ankle-brachial index of the dorsalis pedis and of the posterior tibialis 0.51 and 0.55 respectively with biphasic Doppler waveforms The right digital brachial index is abnormal at 0.31 Moderately severe left lower extremity arterial occlusive disease based upon left dorsalis pedis and posterior tibialis ankle-brachial indices of 0.49 and 0.51 respectively although the Doppler waveforms are monophasic at each site suggesting a more severe level of disease The left digital brachial index is significantly abnormal at 0.15 Ordering Physician: Jakob Chisholm Performed By: Anel Vences Landry Lower Extremity CT 06/14/23 17:05 IMPRESSION: Cellulitis with a heel ulcer and osteomyelitis of the posterior calcaneus. Electronically Signed: Travis Kemp MD at 22:55 EDT , Physical Exam Narrative Left heel with dry necrotic ulceration eschar to the posterior medial aspect of the heel, there is maloder present from the site, there is some localized cellulitis, no crepitus, no fluctuance, no blistering, no visible abscess is present, there are no other ulcerations bilateral foot or ankle. Skin is thin and atrophic bilateral. There is no evidence of acute ischemia to the foot or ankle bilateral. DP and PT nonpalpable bilateral. Chronic decreased sensation to the foot bilateral. There is no POP or pain on ROM to the foot or ankle bilateral. Const alert, oriented x3 and no apparent distress Assessment & Plan Assessment/Plan (1) Foot osteomyelitis, left: QUALIFIERS: Osteomyelitis type: other chronic Qualified Code(s): M86.672 - Other chronic osteomyelitis, left ankle and foot (2) Non-pressure chronic ulcer of other part of left foot with necrosis of bone: (3) Diabetes mellitus with diabetic polyneuropathy: (4) Type 2 diabetes mellitus with foot ulcer: (5) Other specified peripheral vascular diseases: PLAN: Plan Re-evaluation performed. Reviewed diagnostic data. There is necrotic ulceration to the left heel, there is maloder. Reviewed left foot xrays and CT scan - there is calcaneal osteomyelitis, there is also gas noted in the posterior heel. Reviewed noninvasive LE arterial studies and noted significant LE vascular disease. This is chronic. If patient wants to optimize healing potential I recommend vascular surgeon consultation. There is no evidence of acute ischemia at this time. A culture was obtained of the left heel ulceration and sent to microbiology for further evaluation. Patient on IV antibiotics - Vanc and Zosyn. I again discussed with patient and also her who was at bedside for this visit - due to necrotic, malodorous ulceration with signs/symptoms of infection and gas I again recommended OR debridement to remove the necrotic, nonviable and infected tissue for infection control. Discussed with them in detail, reviewed rationale of this, also reviewed possible benefits vs risks. At this time the patient appeared to be on board with the debridement but her was against debridement of the ulcer and recommended trying vancomycin. The patient requested time today to think about it further. She understands the risks of worsening gas infection which can increase chance of loss of limb and life. She also understands she is at risk of limb loss either way. Wound Care: Dakin's wet to dry gauze dressing, change daily. Keep offloaded at all times. Podiatry will continue to follow. Discussed with Dr. Chisholm.
[2023-06-15] MEDS: DAKIN'S SOL HALF STRENGTH (=0.25%) 1 APPLIC TOPICAL (10:10)
[2023-06-15 10:36] LABS: Ovalocyte RARE; Platelet Estimate SLT DEC (ADEQ); Poikilocytosis 1+
[2023-06-15 11:39] LABS: Bedside Glucose 131 mg/dL (74-106)
--- NOTE | 2023-06-15 12:45 | CASEMGMT ---
RN CM Face to Face with patient for initial transition planning/care coordination assessment. RN CM introduced self and role at [facility]. Patient lying in bed, alert and oriented, at bedside. willing to participate in assessment and is able to answer all questions appropriately, patient is drifting to sleep. Care providers, pharmacy, and demographics verified. anticipates SNF at discharge. states he has no further needs or concerns at this time. SW notified of possible SNF referral. CM to follow for discharge planning needs that may arise. PCP: Yvette Specialists: Rocky product development scientist Preferred Pharmacy: [facility] Insurance: [facility], [facility] Prescription Benefit: yes Living Will/HPOA: yes, Yamil Kalia LNOK: Living Arrangements: Patient lives with in a first floor apartment with ramp to enter. assists with ADLs. Transportation: [place], DME/HHC: Patient has BSC, hospital bed, walker, wheelchair, pulse ox at home. Patient has HD at [facility] MWF 1020. Patient has been to [facility] previously. Disposition Plan: SNF pending acceptance. SW to follow-up Anel MCKEON, RN, CM
--- NOTE | 2023-06-15 15:35 | NURSING ---
This Nurse wanted to reposition pt onto her side and pt refused as she was still eating her lunch. Pt is a slow eater.
[2023-06-15] MEDS: Insulin Lispro 100 UNIT/ML INSULN.PEN SC (15:55)
[2023-06-15 16:23] LABS: Bedside Glucose 192 mg/dL (74-106)
--- NOTE | 2023-06-15 18:29 | PCM.CONS.R ---
Assessment & Plan Assessment/Plan (1) End stage renal disease: (2) Foot osteomyelitis, left: QUALIFIERS: Osteomyelitis type: other chronic Qualified Code(s): M86.672 - Other chronic osteomyelitis, left ankle and foot PLAN: Plan Impression/plan: The patient is a 72-year-old woman with past history of ESRD, type 2 diabetes mellitus, and prior TIA. The patient is admitted to the hospital on 06/14/2023 with left foot osteomyelitis. Nephrology is following for ESRD and dialysis management. ESRD. The patient normally dialyzes on MWF schedule. She missed dialysis on 06/14/2023. Therefore, we dialyze her today and we will get her back on usual MWF schedule on 06/16/2023. I supervised the dialysis treatment earlier today. Left foot osteomyelitis. The patient is tentatively scheduled for debridement of left foot wound on 06/16/2023. She is being covered with Zosyn and vancomycin. HPI Consult Data Date of Consult: 06/15/23 HPI Narrative Reason for Consultation: ESRD HPI Narrative: The patient is a 72-year-old woman with past history of ESRD, type 2 diabetes mellitus, TIA. The patient presents to the hospital on 06/14/2023 with nausea/vomiting and rigors. The patient also has chronic foot wound and has been diagnosed with left foot osteomyelitis. She has been evaluated by podiatry and is scheduled for debridement of the wound on 06/16/2023. Nephrology is asked to see the patient because of ESRD and need for dialysis. The patient usually dialyzes on MWF schedule, but she missed her dialysis treatment yesterday because of presentation to the hospital. The patient denies current nausea and was able to have dinner without vomiting. She denies chest pain or edema to lower extremities. She has baseline dyspnea which is not any worse than usual. She was able to tolerate dialysis today without cramping. [facility] Medical History (Updated 06/15/23 @ 07:[address] Jakob Chisholm DO) Anemia Congestive heart failure (CHF) Diabetes Dialysis patient GI bleed Kidney dialysis as the cause of abnormal reaction of the patient, or of later complication, without mention of misadventure at the time of the procedure Kidney disease Peripheral arterial disease TIA (transient ischemic attack) Vision loss of left eye Vision loss of right eye Home Medications ascorbic acid (vitamin C) 500 mg tablet (C-500) 500 mg PO DAILY 06/14/23 [History Last Taken 06/13/23] calcium carbonate 200 mg calcium (500 mg) chewable tablet (Antacid (calcium carbonate)) 200 - 400 mg PO DAILY ANTACID 06/14/23 [History Last Taken 06/13/23] cholecalciferol (vitamin D3) 25 mcg (1,000 unit) tablet (Vitamin D3) 25 mcg PO DAILY 06/14/23 [History Last Taken 06/13/23] lidocaine-prilocaine 2.5 %-2.5 % topical cream 1 applic topical .MonWedFri for dialysis when use AVF 06/14/23 [History Last Taken 06/14/23] Allergy/AdvReac Type Severity Reaction Status Date / Time doxycycline Allergy Rash Verified 06/14/23 10:53 iodine Allergy patient Verified 06/14/23 10:53 states mother had allergy and is afraid she is. levofloxacin [From Levaquin] Allergy patient Verified 06/14/23 10:53 states mother had allergy and is afraid she is. shellfish derived Allergy patient Verified 06/14/23 10:53 states mother had allergy and is afraid she is. Family History Other CVA (cerebral vascular accident) Diabetes Surgical History S/P dialysis catheter insertion S/P tonsillectomy Social History Smoking Status: Never smoker ROS ROS Narrative 09/10 ROS was done and are otherwise noncontributory to what is already documented in HPI. Physical Exam Narrative General: Alert and oriented x3, NAD. HEENT: Normocephalic, atraumatic. Mucous membrane moist without erythema. PERRLA, EOMI. Hearing is intact. Neck: Supple, no JVD. Trachea is midline. No thyromegaly or lymphadenopathy. Cardiovascular: Normal S1, S2. No rubs, murmurs, or gallops. Respiratory: Lungs are clear to auscultation bilaterally. No wheezing, rhonchi, or rales. Abdomen: Normal bowel sounds, soft, nontender, no guarding or rebound, no organomegaly. Extremities: No clubbing, cyanosis, or edema. Musculoskeletal: Full passive range of motion, no joint swelling. Psychiatric: Normal mood and affect. Skin: Warm and dry, no rash. Neurologic: Cranial nerve II to XII are grossly intact. No focal neurologic deficits. Lab / Micro Data 06/15/23 05:30 06/15/23 05:30 Labs: Laboratory Results - last 24 hr 06/14/23 18:48: S.aureus Protein A PCR POSITIVE H, MRSA (PCR) Negative 06/14/23 21:38: POC Glucose 179 H 06/15/23 05:30: WBC 7.5, RBC 5.38, Hgb 16.8 H, Hct 52.8 H, MCV 98.1, MCH 31.2, MCHC 31.8 L, RDW Std Deviation 46.1 H, RDW Coeff of Maddison 12.7, Plt Count 109 L, MPV 11.7, Immature Gran % (Auto) 0.300, Neut % (Auto) 90.4 H, Lymph % (Auto) 3.5 L, [place] % (Auto) 4.6, Eos % (Auto) 0.9, Baso % (Auto) 0.3, Absolute Neuts (auto) 6.8, Absolute Lymphs (auto) 0.26 L, Nucleated RBC % 0, Platelet Estimate SLT DEC, Poikilocytosis 1+, Ovalocytes RARE, Sodium 136, Potassium 5.8 H, Chloride 99, Carbon Dioxide 30.0, Anion Gap 7, BUN 64 H, Creatinine 5.42 H, Estim Creat Clear Calc 8.49, Est GFR (MDRD) Af Amer 10 L, Est GFR (MDRD) Non-Af 8 L, BUN/Creatinine Ratio 11.8, Glucose 85, Hemoglobin A1c 5.4, Calcium 8.5, TSH 1.45 06/15/23 06:56: POC Glucose 89 06/15/23 11:20: POC Glucose 131 H 06/15/23 15:54: POC Glucose 192 H Radiology Impression Lower Extremity CT 06/14/23 17:05 IMPRESSION: Cellulitis with a heel ulcer and osteomyelitis of the posterior calcaneus. Electronically Signed: Travis Kemp MD at 22:55 EDT ,
--- NOTE | 2023-06-15 19:33 | NURSING ---
Pt did not want to sign consent as she is anxious and still does not know if she wants to go through with the debridement with Dr. Maloney. This RN called dR. Maloney and left message on machine to inform as pt scheduled for surgery at 0730 tomorrow 06/16. YVON Damon shiftman aware.
--- NOTE | 2023-06-15 21:52 | CASEMGMT ---
Social Work A list SNF of providers including quality and resource use data and consistent with patient?s preferred geographic region, medical needs, and insurance network were provided from the [employer] Guide. Pt would like to review with spouse. Plan: Follow for pt needs and SNF selection if needed. Rose Saha FREELANCE COPYWRITER, COMPRESSOR ASSEMBLER
[2023-06-16] VITALS (7 sets, daily range): BP systolic 141–172; BP diastolic 55–72; PULSE 84–98; RESP 16–20; TEMP 36.6–37.1; O2SAT 92–100
[2023-06-16 00:36] LABS: Bedside Glucose 76 mg/dL (74-106)
[2023-06-16 06:40] LABS: Vancomycin, Random Level 16.3 ug/mL (0.0-15.0)
[2023-06-16 06:42] LABS: Bedside Glucose 77 mg/dL (74-106)
[2023-06-16 06:46] LABS: Anion Gap 8 (5-15); BUN 58 mg/dL (7-18); BUN/Creat Ratio 12.6 RATIO (10-20); Calcium,Total 8.2 mg/dL (8.5-10.1); Chloride 104 mmol/L (98-107); EST Glomerular Filtration Rate 10 mL/min (>60); Est Glom Filt Rate - Afr Amer 12 mL/min (>60); Estimated Creatinine Clearance 10.09 ml/min; Glucose 90 mg/dL (74-106); Potassium 4.5 mmol/L (3.5-5.1); Sodium Level 135 mmol/L (136-145)
--- NOTE | 2023-06-16 07:37 | PN.HOSP_ITS ---
Reason for Visit Reason for Visit: Diagnoses Type 2 diabetes mellitus with diabetic polyneuropathy (06/14/23) Type 2 diabetes mellitus with foot ulcer (06/14/23) Other specified peripheral vascular diseases (06/14/23) Non-pressure chronic ulcer of other part of unspecified foot with unspecified severity (06/14/23) Non-pressure chronic ulcer of other part of left foot with necrosis of bone (06/14/23) Other chronic osteomyelitis, left ankle and foot (06/14/23) End stage renal disease (06/14/23) Subjective Subjective No events overnight. Declined debridement today. Objective Data Objective Data Vital Signs: Vital Signs Temp Pulse Resp BP Pulse Ox O2 Del Method O2 Flow Rate 37.1 C 85 20 H 141/55 H 100 Nasal Cannula 2 06/16/23 04:44 06/16/23 05:51 06/16/23 04:44 06/16/23 05:51 06/16/23 04:44 06/16/23 04:44 06/16/23 04:44 Oxygen Flow Rate (L/min) 2 Oxygen Delivery Method Nasal Cannula Weight: 57.1 kg Body Mass Index (BMI) 20.9 Intake & Output: Intake and Output for Last 24 Hours 06/14/23 06/15/23 06/16/23 23:59 23:59 23:59 Intake Total 820 / 820 1113.54 / 1313.54 250 / 250 Output Total 1800 / 1800 Balance 820 / 820 -686.46 / -486.46 250 / 250 Lab / Micro Data 06/15/23 05:30 06/16/23 06:01 Labs: Laboratory Results - last 24 hr 06/15/23 05:30: Platelet Estimate SLT DEC, Poikilocytosis 1+, Ovalocytes RARE, Hemoglobin A1c 5.4 06/15/23 11:20: POC Glucose 131 H 06/15/23 15:54: POC Glucose 192 H 06/16/23 00:17: POC Glucose 76 06/16/23 06:01: Sodium 135 L, Potassium 4.5, Chloride 104, Carbon Dioxide 23.0, Anion Gap 8, BUN 58 H, Creatinine 4.60 H, Estim Creat Clear Calc 10.09, Est GFR (MDRD) Af Amer 12 L, Est GFR (MDRD) Non-Af 10 L, BUN/Creatinine Ratio 12.6, Glucose 90, Calcium 8.2 L, Random Vancomycin 16.3 H 06/16/23 06:24: POC Glucose 77 Physical Exam Const alert and no apparent distress HEENT head/scalp atraumatic and moist oral mucous membranes Extremity Extremity Narrative: left foot and ankle wrapped--did not remove. Neuro moves all extremities Sensorium / Orientation: awake and alert Psych affect normal Assessment & Plan Assessment/Plan (1) Foot osteomyelitis, left: QUALIFIERS: Osteomyelitis type: other chronic Qualified Code(s): M86.672 - Other chronic osteomyelitis, left ankle and foot PLAN: Continue with antibiotics with Pipracil/tazobactam and vancomycin. Data: * MRI could not be done at this time as pt has a coil, that could not be determined to be MRI-compatible. * CT showed cellulitis w heel ulcer and OM of the posterior calcaneus. * FRANCHESCA 0.5 on left, TBI 0.15 on left. * Would culture pending Seen by Dr. Maloney of podiatry who recommended debridement. Tentative for debridement 06/16. Consult ID for long-term recommendations. Pt aware that she would require long-term IV antibiotics. (2) End stage renal disease: PLAN: On dialysis. Missed dialysis given her symptoms of nausea vomiting and rigors. Nephrology following. (3) Other specified peripheral vascular diseases: PLAN: Noted on ABIs Consult vascular surgery for recommendations. Unclear if pt would be amenable, however. PLAN: Plan Chronic conditions * Neuropathy: Complicates care and recovery. * Diabetes mellitus type 2: a1c 5.4. Blood sugars fairly well controlled. On SSI. Continue in anticipation of surgery as it is expected her glucose will go up then. VTE prophylaxis with enoxaparin. CODE STATUS: Just with the patient. Patient wishes to be DNR Comfort Care arrest. I told her that if she does require surgery that she would be intubated temporarily. She said that she would not want. Though she has been intubated when she had an aortic issue in the past. Unclear if that was a dissection or not but she was intubated at some point for that for the surgery what ever that was. Reassurance provided to the patient that if she does require surgery and being on a ventilator with anesthesia, that would be short-term. 06/14: I did tell the patient that we are here to make recommendations for her health and benefit. And she has the right to determine what she would and would not do. Case was discussed with her who is at bedside. When I did discuss some these concerns with nephrology when he spoke with them, informed me that patient determines that she does not want any significant fluid off when she gets dialysis. 06/16: I had a long discussion with the patient and her . Advised them of the recommendations of surgery and antibiotics. Emphasized that without it, the infection could spread with abx and could lead to an amputation. references himself, where he has what sounds like venous-stasis ulcer. I also spoke with them about her concerns for anesthesia. I told them that I feel she is low risk for complications with anesthesia, and also she has undergone anesthesia for her LUE graft and tolerated that. I told them that those are different than what the patient is experiencing. They will discuss my and Dr. Maloney's recommendations amongst themselves Greater than 50 minutes of which greater than 50% of the time was discussing surgery v no surgery and risks as above. Charges/Coding Visit Charges Inpatient E&M: 13522 Subs Hosp L3
[2023-06-16] MEDS: Juven (unflavored) Packet 1 PACKET PO ×2 (08:15→16:38)
[2023-06-16] MEDS: Glucerna Shake 120 ML LIQUID PO (08:15)
[2023-06-16] MEDS: Menthol/Lanolin/Calamine/Znox 113 GM Tube 1 APPLIC TOPICAL ×2 (08:15→22:27)
[2023-06-16] MEDS: Ascorbic Acid 500 MG Tablet PO (08:16)
[2023-06-16] MEDS: Cholecalciferol (VIT D3) 25 MCG TABLET (1,000 UNITS) PO (08:16)
[2023-06-16] MEDS: Enoxaparin 30 MG/0.3 ML Syringe SC (08:16)
[2023-06-16] MEDS: Nystatin Powder 15gm Bottle 1 APPLIC TOPICAL ×2 (08:16→22:26)
--- NOTE | 2023-06-16 08:22 | PCM.RX.CS ---
Consult Antibiotic Management Pharmacy has been consulted to manage selected antiobiotic: Vancomycin Type of Intervention Type of Consult: Follow-up Suspected Infection Suspected Infection: Osteomyelitis Prior Doses of Antibiotics Prior Doses of Antibiotics Received/Current Regimen: Received vanc 1500mg IV x1 on 06/14/23 at 18:41 Labs Labs: Sodium 135 mmol/L (136-145) L 06/16/23 06:01 Potassium 4.5 mmol/L (3.5-5.1) 06/16/23 06:01 Chloride 104 mmol/L (98-107) 06/16/23 06:01 Carbon Dioxide 23.0 mmol/L (21.0-32.0) 06/16/23 06:01 Anion Gap 8 (5-15) 06/16/23 06:01 BUN 58 mg/dL (7-18) H 06/16/23 06:01 Creatinine 4.60 mg/dL (0.55-1.02) H 06/16/23 06:01 Est GFR (MDRD) Af Amer 12 mL/min (>60) L 06/16/23 06:01 Est GFR (MDRD) Non-Af 10 mL/min (>60) L 06/16/23 06:01 BUN/Creatinine Ratio 12.6 RATIO (10-20) 06/16/23 06:01 Glucose 90 mg/dL (74-106) 06/16/23 06:01 Random Vancomycin 16.3 ug/mL (0.0-15.0) H 06/16/23 06:01 Dosing Weight Weight used for dosin.1 kg Estimated Creatinine Clearance Estimated Creatinine Clearance: on HD Goal Trough Goal Trough: 15-20 mcg/mL Pharmacy Plan for Drug Dosing Pharmacy Plan for Drug Dosing: The vanc random level drawn at 06:01 today (approx 35.5 hrs after the 1500mg dose) was 16.3. Since the level is <20, will give a small 500mg IV x1 dose today. The patient did not get HD on Saturday, 06/14, on the usual Mo// schedule so ended up getting dialyzed yesterday on Sat 06/15. The plan is to get her back on the usual Mo/We/Fr HD schedule tomorrow. Will schedule a vanc random level tomorrow morning to determine if a dose will need to be given after HD tomorrow. Pharmacy Service will continue to monitor and adjust dosing as required. Follow-Up Labs Follow-Up Labs: Trough: Vancomycin (random) Date/Time Labs Ordered Labs to be done on [date and time ordered]: 06/17/23 06:00
[2023-06-16] MEDS: Insulin Lispro 100 UNIT/ML INSULN.PEN SC ×2 (11:29→16:38)
[2023-06-16] MEDS: DAKIN'S SOL HALF STRENGTH (=0.25%) 1 APPLIC TOPICAL (11:30)
[2023-06-16] MEDS: Vancomycin IV 500 MG/100 ML BAG 100 MG IV (11:34)
--- NOTE | 2023-06-16 11:37 | PCM.PROGNOTE ---
Subjective Subjective Patient was seen this morning for follow up on left heel infection. She continues to decline having the debridement procedure. She is resting in bed. No new complaints. No fevers at this time. Objective Data Objective Data Vital Signs: Vital Signs Temp Pulse Resp BP Pulse Ox O2 Del Method O2 Flow Rate 98.4 F 84 18 153/68 H 92 Nasal Cannula 2 06/16/23 08:11 06/16/23 08:11 06/16/23 08:11 06/16/23 08:11 06/16/23 08:11 06/16/23 08:15 06/16/23 10:13 Oxygen Flow Rate (L/min) 2 Oxygen Delivery Method Nasal Cannula Weight: 57.1 kg Body Mass Index (BMI) 20.9 Intake & Output: Intake and Output for Last 24 Hours 06/14/23 06/15/23 06/16/23 23:59 23:59 23:59 Intake Total 820 / 820 1113.54 / 1313.54 300 / 300 Output Total 1800 / 1800 Balance 820 / 820 -686.46 / -486.46 300 / 300 Lab / Micro Data 06/15/23 05:30 06/16/23 06:01 Labs: Laboratory Results - last 24 hr 06/15/23 11:20: POC Glucose 131 H 06/15/23 15:54: POC Glucose 192 H 06/16/23 00:17: POC Glucose 76 06/16/23 06:01: Sodium 135 L, Potassium 4.5, Chloride 104, Carbon Dioxide 23.0, Anion Gap 8, BUN 58 H, Creatinine 4.60 H, Estim Creat Clear Calc 10.09, Est GFR (MDRD) Af Amer 12 L, Est GFR (MDRD) Non-Af 10 L, BUN/Creatinine Ratio 12.6, Glucose 90, Calcium 8.2 L, Random Vancomycin 16.3 H 06/16/23 06:24: POC Glucose 77 Micro: Microbiology 06/14/23 18:48 Wound - Heel, Left Wound Culture - Preliminary Gram positive mauricio Physical Exam Narrative Left heel with necrotic ulceration to the posterior medial aspect of the heel, there is good amount of maloder present from the site, there is some localized cellulitis and edema, there is some bogginess present, there are no other ulcerations bilateral foot or ankle. Skin is thin and atrophic bilateral. There is no evidence of acute ischemia to the foot or ankle bilateral. DP and PT nonpalpable bilateral. Chronic decreased sensation to the foot bilateral. She does relate to some pain to the left heel, otherwise there is no other POP or pain on ROM to the foot or ankle bilateral. Const alert, oriented x3 and no apparent distress Assessment & Plan Assessment/Plan (1) Foot osteomyelitis, left: QUALIFIERS: Osteomyelitis type: other chronic Qualified Code(s): M86.672 - Other chronic osteomyelitis, left ankle and foot (2) Non-pressure chronic ulcer of other part of left foot with necrosis of bone: (3) Diabetes mellitus with diabetic polyneuropathy: (4) Type 2 diabetes mellitus with foot ulcer: (5) Other specified peripheral vascular diseases: PLAN: Plan Re-evaluation performed. Reviewed diagnostic data. There is necrotic ulceration to the left heel, there is maloder. Reviewed left foot xrays and CT scan - there is calcaneal osteomyelitis, there is also gas noted in the posterior heel. Reviewed noninvasive LE arterial studies and noted significant LE vascular disease. This is chronic. If patient wants to optimize healing potential I recommend vascular surgeon consultation. There is no evidence of acute ischemia at this time. A culture has obtained of the left heel ulceration and sent to microbiology for further evaluation. Of note this is a superficial ulcer. Patient on IV antibiotics - Vanc and Zosyn. I again discussed with patient and also her who was at bedside for this visit - due to necrotic, malodorous ulceration with signs/symptoms of infection and gas present to the site I again recommended OR debridement to remove the necrotic, nonviable and infected tissue for infection control. I have been recommending this be done as soon as possible because of this. Discussed with them in detail, reviewed rationale of this, also reviewed possible benefits vs risks. The patient is not consenting to the procedure and declines having it done at this time. She understands the risks of worsening gas infection which can increase chance of loss of limb and life. She understands either way she is at risk of limb loss. Wound Care: Dakin's wet to dry gauze dressing, change daily. Keep offloaded at all times. Podiatry will continue to follow.
[2023-06-16 11:54] LABS: Bedside Glucose 193 mg/dL (74-106)
[2023-06-16 17:08] LABS: Bedside Glucose 190 mg/dL (74-106)
--- NOTE | 2023-06-16 18:58 | PCM.PN.REN ---
Subjective Subjective Following for ESRD. The patient denies chest pain, shortness of breath, or nausea. Objective Data Objective Data Vital Signs: Vital Signs Temp Pulse Resp BP Pulse Ox O2 Del Method O2 Flow Rate 97.9 F 84 16 172/68 H 100 Nasal Cannula 2 06/16/23 14:07 06/16/23 14:07 06/16/23 14:07 06/16/23 14:07 06/16/23 14:09 06/16/23 14:09 06/16/23 14:09 Oxygen Flow Rate (L/min) 2 Oxygen Delivery Method Nasal Cannula Weight: 57.1 kg Body Mass Index (BMI) 20.9 Intake & Output: Intake and Output for Last 24 Hours 06/14/23 06/15/23 06/16/23 23:59 23:59 23:59 Intake Total 820 / 820 1113.54 / 1313.54 1120.5 / 1120.5 Output Total 1800 / 1800 Balance 820 / 820 -686.46 / -486.46 1120.5 / 1120.5 Lab / Micro Data 06/15/23 05:30 06/16/23 06:01 Labs: Laboratory Results - last 24 hr 06/16/23 00:17: POC Glucose 76 06/16/23 06:01: Sodium 135 L, Potassium 4.5, Chloride 104, Carbon Dioxide 23.0, Anion Gap 8, BUN 58 H, Creatinine 4.60 H, Estim Creat Clear Calc 10.09, Est GFR (MDRD) Af Amer 12 L, Est GFR (MDRD) Non-Af 10 L, BUN/Creatinine Ratio 12.6, Glucose 90, Calcium 8.2 L, Random Vancomycin 16.3 H 06/16/23 06:24: POC Glucose 77 06/16/23 11:23: POC Glucose 193 H 06/16/23 16:36: POC Glucose 190 H Micro: Microbiology 06/14/23 18:48 Wound - Heel, Left Gram Stain - Final 06/14/23 18:48 Wound - Heel, Left Wound Culture - Preliminary Gram positive mauricio Physical Exam Narrative General: Alert and oriented x3, NAD. HEENT: Normocephalic, atraumatic. Mucous membrane moist without erythema. PERRLA, EOMI. Hearing is intact. Neck: Supple, no JVD. Cardiovascular: Normal S1, S2. No rubs, murmurs, or gallops. Respiratory: Lungs are clear to auscultation bilaterally. No wheezing, rhonchi, or rales. Abdomen: Normal bowel sounds, soft, nontender, no guarding or rebound, no organomegaly. Extremities: No clubbing, cyanosis, or edema. Assessment & Plan Assessment/Plan (1) End stage renal disease: (2) Hyperkalemia: (3) Foot osteomyelitis, left: QUALIFIERS: Osteomyelitis type: other chronic Qualified Code(s): M86.672 - Other chronic osteomyelitis, left ankle and foot PLAN: Plan Impression/plan: The patient is a 72-year-old woman with past history of ESRD, type 2 diabetes mellitus, and prior TIA. The patient is admitted to the hospital on 06/14/2023 with left foot osteomyelitis. Nephrology is following for ESRD and dialysis management. ESRD. The patient normally dialyzes on MWF schedule. She missed dialysis on 06/14/2023. The patient was dialyzed yesterday and tolerated well. There is no need for dialysis today. I will dialyze the patient again tomorrow and get her back on MWF schedule. Hyperkalemia. Potassium level was 5.8 mmol/L on 06/15/2023. Potassium level is better today after dialysis on 06/15/2023. Potassium level is down to 4.5 mmol/L today. Recheck potassium tomorrow to determine potassium concentration for dialysate. Left foot osteomyelitis. Podiatry recommended admission of left foot wound. However, the patient has not yet consented to the procedure. She wants to discuss with infectious disease and vascular surgery first. She is being covered with Zosyn and vancomycin.
[2023-06-16 22:51] LABS: Bedside Glucose 185 mg/dL (74-106)
[2023-06-17] VITALS (14 sets, daily range): BP systolic 100–259; BP diastolic 64–87; PULSE 75–94; RESP 12–16; TEMP 36.3–36.9; O2SAT 92–98; BMI 21.0; BMI 20.3
[2023-06-17 06:19] LABS: Absolute Lymphocyte Count 0.67 X10^3/uL (0.83-4.51); Absolute Neutrophil Count 8.3 X10^3/uL (2.0-7.7); Basophil# 0.06 X10^3/uL; Basophil% 0.6 % (0-1); Eosinophil# 0.36 X10^3/uL; Eosinophils% 3.4 % (0-5); Hematocrit 30.2 % (37-47); Hemoglobin 9.5 g/dL (12.0-15.0); Lymphocyte # 0.67 X10^3/ul (0.83-4.51); Lymphocyte % 6.4 % (19-41); Mean Corp Hgb Conc 31.5 g/dL (32-36); Mean Corpuscular Hgb 31.1 pg (27.0-32.0); Mean Platelet Vol. 10.6 fl (6.2-12.0); Monocyte# 1.01 X10^3/uL; Monocyte% 9.6 % (0-10); NRBC Flagged by Analyzer 0 % (0-5); Neutrophil # 8.34 X10^3/uL (2.7-7.7); Neutrophil % 79.6 % (47-70); Platelet Count 210 K/mm3 (150-450); RBC Distribution Width CV 12.5 % (11.6-14.6); RBC Distribution Width SD 45.2 fl (35.1-43.9); Red Blood Count 3.05 M/mm3 (4.2-5.4); White Blood Count 10.5 K/mm3 (4.4-11.0)
[2023-06-17 06:48] LABS: Anion Gap 8 (5-15); BUN 78 mg/dL (7-18); BUN/Creat Ratio 13.7 RATIO (10-20); Calcium,Total 8.5 mg/dL (8.5-10.1); Chloride 102 mmol/L (98-107); Creatinine, Serum 5.68 mg/dL (0.55-1.02); EST Glomerular Filtration Rate 8 mL/min (>60); Est Glom Filt Rate - Afr Amer 10 mL/min (>60); Estimated Creatinine Clearance 8.17 ml/min; Glucose 90 mg/dL (74-106); Potassium 4.7 mmol/L (3.5-5.1); Sodium Level 137 mmol/L (136-145); Vancomycin, Random Level 22.4 ug/mL (0.0-15.0)
--- NOTE | 2023-06-17 07:10 | PCM.RX.CS ---
Consult Antibiotic Management Pharmacy has been consulted to manage selected antiobiotic: Vancomycin Type of Intervention Type of Consult: Follow-up Prior Doses of Antibiotics Prior Doses of Antibiotics Received/Current Regimen: 1500MG X1 500MG X1 Labs Labs: Sodium 137 mmol/L (136-145) 06/17/23 06:00 Potassium 4.7 mmol/L (3.5-5.1) 06/17/23 06:00 Chloride 102 mmol/L (98-107) 06/17/23 06:00 Carbon Dioxide 27.0 mmol/L (21.0-32.0) 06/17/23 06:00 Anion Gap 8 (5-15) 06/17/23 06:00 BUN 78 mg/dL (7-18) H 06/17/23 06:00 Creatinine 5.68 mg/dL (0.55-1.02) H 06/17/23 06:00 Est GFR (MDRD) Af Amer 10 mL/min (>60) L 06/17/23 06:00 Est GFR (MDRD) Non-Af 8 mL/min (>60) L 06/17/23 06:00 BUN/Creatinine Ratio 13.7 RATIO (10-20) 06/17/23 06:00 Glucose 90 mg/dL (74-106) 06/17/23 06:00 Random Vancomycin 22.4 ug/mL (0.0-15.0) H 06/17/23 06:00 Microbiology Microbiology: Microbiology 06/14/23 18:48 Wound - Heel, Left Gram Stain - Final 06/14/23 18:48 Wound - Heel, Left Wound Culture - Preliminary Gram positive mauricio Pharmacy Plan for Drug Dosing Pharmacy Plan for Drug Dosing: Pre-dialysis level above goal range. No dose today, re-check random level before next session. Pharmacy Service will continue to monitor and adjust dosing as required. Follow-Up Labs Follow-Up Labs: Trough: Vancomycin (Random 06/19 @ 0600)
--- NOTE | 2023-06-17 07:17 | PN.HOSP_ITS ---
Reason for Visit Reason for Visit: Diagnoses Type 2 diabetes mellitus with diabetic polyneuropathy (06/14/23) Type 2 diabetes mellitus with foot ulcer (06/14/23) Hyperkalemia (06/14/23) Other specified peripheral vascular diseases (06/14/23) Non-pressure chronic ulcer of other part of unspecified foot with unspecified severity (06/14/23) Non-pressure chronic ulcer of other part of left foot with necrosis of bone (06/14/23) Other chronic osteomyelitis, left ankle and foot (06/14/23) End stage renal disease (06/14/23) Subjective Subjective No new events. Objective Data Objective Data Vital Signs: Vital Signs Temp Pulse Resp BP Pulse Ox O2 Del Method O2 Flow Rate 36.6 C 77 16 152/66 H 92 Nasal Cannula 2 06/17/23 02:00 06/17/23 02:00 06/17/23 02:00 06/17/23 02:00 06/17/23 07:04 06/17/23 07:04 06/17/23 07:04 Oxygen Flow Rate (L/min) 2 Oxygen Delivery Method Nasal Cannula Weight: 57.4 kg Body Mass Index (BMI) 21.0 Intake & Output: Intake and Output for Last 24 Hours 06/15/23 06/16/23 06/17/23 23:59 23:59 23:59 Intake Total 1113.54 / 1313.54 1120.5 / 1240.5 370 / 370 Output Total 1800 / 1800 Balance -686.46 / -486.46 1120.5 / 1240.5 370 / 370 Lab / Micro Data 06/17/23 06:00 06/17/23 06:00 Labs: Laboratory Results - last 24 hr 06/16/23 11:23: POC Glucose 193 H 06/16/23 16:36: POC Glucose 190 H 06/16/23 22:23: POC Glucose 185 H 06/17/23 06:00: WBC 10.5, RBC 3.05 L, Hgb 9.5 L, Hct 30.2 L, MCV 99.0, MCH 31.1, MCHC 31.5 L, RDW Std Deviation 45.2 H, RDW Coeff of Maddison 12.5, Plt Count 210, MPV 10.6, Immature Gran % (Auto) 0.400, Neut % (Auto) 79.6 H, Lymph % (Auto) 6.4 L, [place] % (Auto) 9.6, Eos % (Auto) 3.4, Baso % (Auto) 0.6, Absolute Neuts (auto) 8.3 H, Absolute Lymphs (auto) 0.67 L, Nucleated RBC % 0, Sodium 137, Potassium 4.7, Chloride 102, Carbon Dioxide 27.0, Anion Gap 8, BUN 78 H, Creatinine 5.68 H , Estim Creat Clear Calc 8.17, Est GFR (MDRD) Af Amer 10 L, Est GFR (MDRD) Non- Af 8 L, BUN/Creatinine Ratio 13.7, Glucose 90, Calcium 8.5, Random Vancomycin 22.4 H Micro: Microbiology 06/14/23 18:48 Wound - Heel, Left Gram Stain - Final 06/14/23 18:48 Wound - Heel, Left Wound Culture - Preliminary Gram positive mauricio Physical Exam Const alert and no apparent distress HEENT head/scalp atraumatic and moist oral mucous membranes Eyes PERRL Resp normal respiratory effort, no retractions, no use of accessory muscles and clear to auscultation bilaterally Cardio regular rate, regular rhythm, S1 normal heart sound and S2 normal heart sound GI normal to inspection, nondistended, normoactive bowel sounds, soft to palpation, non-tender and non-distended Extremity normal to inspection and full ROM Assessment & Plan Assessment/Plan (1) Foot osteomyelitis, left: QUALIFIERS: Osteomyelitis type: other chronic Qualified Code(s): M86.672 - Other chronic osteomyelitis, left ankle and foot PLAN: Continue with antibiotics with Pipracil/tazobactam and vancomycin. Data: * MRI could not be done at this time as pt has a coil, that could not be determined to be MRI-compatible. * CT showed cellulitis w heel ulcer and OM of the posterior calcaneus. * FRANCHESCA 0.5 on left, TBI 0.15 on left. * Would culture pending Seen by Dr. Maloney of podiatry who recommended debridement. Pt and have declined debridement. Awaiting on further specialist input. Consult ID for long-term recommendations. Pt aware that she would require long-term IV antibiotics. (2) End stage renal disease: PLAN: On dialysis. Missed dialysis given her symptoms of nausea vomiting and rigors. Nephrology following. (3) Other specified peripheral vascular diseases: PLAN: Noted on ABIs Consult vascular surgery for recommendations. Unclear if pt would be amenable, however. PLAN: Plan Chronic conditions * Neuropathy: Complicates care and recovery. * Diabetes mellitus type 2: a1c 5.4. Blood sugars fairly well controlled. On SSI. Continue in anticipation of surgery as it is expected her glucose will go up then. VTE prophylaxis with enoxaparin. CODE STATUS: Just with the patient. Patient wishes to be DNR Comfort Care arrest. I told her that if she does require surgery that she would be intubated temporarily. She said that she would not want. Though she has been intubated when she had an aortic issue in the past. Unclear if that was a dissection or not but she was intubated at some point for that for the surgery what ever that was. Reassurance provided to the patient that if she does require surgery and being on a ventilator with anesthesia, that would be short-term. 06/14: I did tell the patient that we are here to make recommendations for her health and benefit. And she has the right to determine what she would and would not do. Case was discussed with her who is at bedside. When I did discuss some these concerns with nephrology when he spoke with them, informed me that patient determines that she does not want any significant fluid off when she gets dialysis. 06/16: I had a long discussion with the patient and her . Advised them of the recommendations of surgery and antibiotics. Emphasized that without it, the infection could spread with abx and could lead to an amputation. references himself, where he has what sounds like venous-stasis ulcer. I also spoke with them about her concerns for anesthesia. I told them that I feel she is low risk for complications with anesthesia, and also she has undergone anesthesia for her LUE graft and tolerated that. I told them that those are different than what the patient is experiencing. They will discuss my and Dr. Maloney's recommendations amongst themselves 06/17: Still deciding. Awaiting on specialist input. Charges/Coding Visit Charges Inpatient E&M: 13191 Subs Hosp L2
[2023-06-17] MEDS: DAKIN'S SOL HALF STRENGTH (=0.25%) 1 APPLIC TOPICAL (07:43)
[2023-06-17] MEDS: PureFlow B 2K Dialysis Soln 1 BAG 6 BAG PF (08:24)
[2023-06-17] MEDS: 0.9% Normal Saline 1,000 ML IV.SOLN. 1000 ML OPERA.SITE (08:24)
--- NOTE | 2023-06-17 08:42 | WOUNDNOTE ---
wound photo: left heel
--- NOTE | 2023-06-17 11:16 | CASEMGMT ---
Addendum entered by Maira Burns 06/17/23 15:17: Social Work Pt and spouse are hopeful pt can return home with IV ATB to be given at dialysis center. Spouse concerned about cost of this. SW updated that once IV ATBs are determined, RNCM will notify pt and spouse of cost. Spouse agreeable. Spouse reports he has been providing for all care needs of pt at home and believes he can continue with this. RNCM updated. Plan: Home with home health and IV ATB. ROCK Johnson Addendum entered by Maira Burns 06/17/23 13:15: SW spoke with [facility] and they do not have beds available. SW updated pt and spouse and they have not yet made a decision on additional SNF choices. SW to check back after pt has seen physicians per her request. Frances WILKERSON Original Note: Social Work SW met with pt and her spouse and introduced self and role of SW. Pt and spouse are uncertain about discharge plan at this time. DIGNA discussed SNF and explained Medicare coverage. A list of SNF providers including quality and resource use data and consistent with the patient?s preferred geographic region, medical needs, and insurance network were provided from the [employer] on Saturday. Pt and spouse have reviewed list. DIGNA also spoke with pt regarding home health and explained medicare coverage of home yg and the amount of care pt's would be responsible for. First choice for SNF is [facility]. Spouse is hopeful he can take pt home. DIGNA encouraged pt and spouse to review list and make other SNF choices if [facility] cannot accept and if pt cannot return home. GUERDA left with Hodan at [facility] to check on bed availability. SW will await return call. Plan: Home Yg Vs SNF ROCK Johnson
--- NOTE | 2023-06-17 11:22 | PN.RENAL_ITS ---
Subjective Subjective Patient resting quietly in bed. No overnight events. at bedside. Seen and examined while on hemodialysis, tolerating treatment well. Objective Data Objective Data Vital Signs: Vital Signs Temp Pulse Resp BP Pulse Ox O2 Del Method O2 Flow Rate 98.3 F 75 12 182/87 H 93 Nasal Cannula 1.5 06/17/23 08:05 06/17/23 10:32 06/17/23 10:32 06/17/23 10:32 06/17/23 08:05 06/17/23 10:32 06/17/23 10:32 Oxygen Flow Rate (L/min) 1.5 Oxygen Delivery Method Nasal Cannula Weight: 57.4 kg Body Mass Index (BMI) 21.0 Intake & Output: Intake and Output for Last 24 Hours 06/15/23 06/16/23 06/17/23 23:59 23:59 23:59 Intake Total 1113.54 / 1313.54 1120.5 / 1240.5 370 / 370 Output Total 1800 / 1800 Balance -686.46 / -486.46 1120.5 / 1240.5 370 / 370 Lab / Micro Data 06/17/23 06:00 06/17/23 06:00 Labs: Laboratory Results - last 24 hr 06/16/23 11:23: POC Glucose 193 H 06/16/23 16:36: POC Glucose 190 H 06/16/23 22:23: POC Glucose 185 H 06/17/23 06:00: WBC 10.5, RBC 3.05 L, Hgb 9.5 L, Hct 30.2 L, MCV 99.0, MCH 31.1, MCHC 31.5 L, RDW Std Deviation 45.2 H, RDW Coeff of Maddison 12.5, Plt Count 210, MPV 10.6, Immature Gran % (Auto) 0.400, Neut % (Auto) 79.6 H, Lymph % (Auto) 6.4 L, [place] % (Auto) 9.6, Eos % (Auto) 3.4, Baso % (Auto) 0.6, Absolute Neuts (auto) 8.3 H, Absolute Lymphs (auto) 0.67 L, Nucleated RBC % 0, Sodium 137, Potassium 4.7, Chloride 102, Carbon Dioxide 27.0, Anion Gap 8, BUN 78 H, Creatinine 5.68 H , Estim Creat Clear Calc 8.17, Est GFR (MDRD) Af Amer 10 L, Est GFR (MDRD) Non- Af 8 L, BUN/Creatinine Ratio 13.7, Glucose 90, Calcium 8.5, Random Vancomycin 22.4 H Micro: Microbiology 06/14/23 18:48 Wound - Heel, Left Gram Stain - Final 06/14/23 18:48 Wound - Heel, Left Wound Culture - Final Propionibacterium species Corynebacterium striatum Physical Exam Narrative General: Alert and oriented x3, NAD. Neck: Supple, no JVD. Cardiovascular: Normal S1, S2. No rubs, murmurs, or gallops. Respiratory: Lungs are clear to auscultation bilaterally. Abdomen: Normal bowel sounds, soft, nontender Extremities: Trace edema bilateral legs. Matthew wrap intact to left lower leg and foot Left arm AV fistula accessed for hemodialysis Assessment & Plan Assessment/Plan (1) End stage renal disease: (2) Hyperkalemia: (3) Foot osteomyelitis, left: QUALIFIERS: Osteomyelitis type: other chronic Qualified Code(s): M86.672 - Other chronic osteomyelitis, left ankle and foot PLAN: Plan Impression/plan: The patient is a 72-year-old woman with past history of ESRD, type 2 diabetes mellitus, and prior TIA. The patient is admitted to the hospital on 06/14/2023 with left foot osteomyelitis. - The patient normally dialyzes on MWF schedule. Outpatient EDW was 55.2 kg. Patient is dialyzing today on 2kbath over 3.5 hours and attempting around 2 L fluid removal as patient/blood pressure tolerates. Likely EDW will be lowered by time of hospital discharge. -Anemia of chronic disease; will we will monitor hemoglobin trends. Last hemog lobin 9.5 -Hypertension; blood pressures have been high and usually improve with volume removed during HD. Patient had been ordered amlodipine in the past. Will order while in hospital. Patient does have history of noncompliance with medications and therefore has elected in past to not take amlodipine. -Left foot osteomyelitis. Vascular surgery has been consulted. Patient initially declined debridement. Podiatry and ID following. She is being covered with Zosyn and vancomycin.
[2023-06-17 12:01] LABS: Bedside Glucose 138 mg/dL (74-106)
--- NOTE | 2023-06-17 12:35 | PN_ITS ---
Subjective Subjective no changes overnight Objective Data Objective Data Vital Signs: Vital Signs Temp Pulse Resp BP Pulse Ox O2 Del Method O2 Flow Rate 98.4 F 76 12 142/64 H 96 Nasal Cannula 1.5 06/17/23 11:31 06/17/23 11:31 06/17/23 11:31 06/17/23 11:31 06/17/23 11:31 06/17/23 11:31 06/17/23 11:31 Oxygen Flow Rate (L/min) 1.5 Oxygen Delivery Method Nasal Cannula Weight: 55.4 kg Body Mass Index (BMI) 20.3 Intake & Output: Intake and Output for Last 24 Hours 06/15/23 06/16/23 06/17/23 23:59 23:59 23:59 Intake Total 1113.54 / 1313.54 1120.5 / 1240.5 370 / 370 Output Total 1800 / 1800 1999 / 1999 Balance -686.46 / -486.46 1120.5 / 1240.5 -1630 / -1630 Lab / Micro Data 06/17/23 06:00 06/17/23 06:00 Labs: Laboratory Results - last 24 hr 06/16/23 16:36: POC Glucose 190 H 06/16/23 22:23: POC Glucose 185 H 06/17/23 06:00: WBC 10.5, RBC 3.05 L, Hgb 9.5 L, Hct 30.2 L, MCV 99.0, MCH 31.1, MCHC 31.5 L, RDW Std Deviation 45.2 H, RDW Coeff of Maddison 12.5, Plt Count 210, MPV 10.6, Immature Gran % (Auto) 0.400, Neut % (Auto) 79.6 H, Lymph % (Auto) 6.4 L, [place] % (Auto) 9.6, Eos % (Auto) 3.4, Baso % (Auto) 0.6, Absolute Neuts (auto) 8.3 H, Absolute Lymphs (auto) 0.67 L, Nucleated RBC % 0, Sodium 137, Potassium 4.7, Chloride 102, Carbon Dioxide 27.0, Anion Gap 8, BUN 78 H, Creatinine 5.68 H , Estim Creat Clear Calc 8.17, Est GFR (MDRD) Af Amer 10 L, Est GFR (MDRD) Non- Af 8 L, BUN/Creatinine Ratio 13.7, Glucose 90, Calcium 8.5, Random Vancomycin 22.4 H 06/17/23 11:42: POC Glucose 138 H Micro: Microbiology 06/14/23 18:48 Wound - Heel, Left Gram Stain - Final 06/14/23 18:48 Wound - Heel, Left Wound Culture - Final Propionibacterium species Corynebacterium striatum Physical Exam Narrative Left heel with necrotic ulceration to the posterior medial aspect of the heel, there is good amount of maloder present from the site, there is some localized cellulitis and edema, there is some bogginess present, there are no other ulcerations bilateral foot or ankle. Skin is thin and atrophic bilateral. There is no evidence of acute ischemia to the foot or ankle bilateral. DP and PT nonpalpable bilateral. Chronic decreased sensation to the foot bilateral. She does relate to some pain to the left heel, otherwise there is no other POP or pain on ROM to the foot or ankle bilateral. Const alert, oriented x3 and no apparent distress Assessment & Plan Assessment/Plan (1) Foot osteomyelitis, left: QUALIFIERS: Osteomyelitis type: other chronic Qualified Code(s): M86.672 - Other chronic osteomyelitis, left ankle and foot (2) Non-pressure chronic ulcer of other part of left foot with necrosis of bone: (3) Diabetes mellitus with diabetic polyneuropathy: (4) Type 2 diabetes mellitus with foot ulcer: (5) Other specified peripheral vascular diseases: PLAN: Plan Re-evaluation performed. Reviewed diagnostic data. There is necrotic ulceration to the left heel, there is malodor. Reviewed left foot xrays and CT scan - there is calcaneal osteomyelitis, there is also gas noted in the posterior heel. Reviewed noninvasive LE arterial studies and noted significant LE vascular disease. This is chronic. If patient wants to optimize healing potential I recommend vascular surgeon consultation. There is no evidence of acute ischemia at this time. A culture has obtained of the left heel ulceration and sent to microbiology for further evaluation. Of note this is a superficial ulcer. Patient on IV antibiotics - Vanc and Zosyn. I discussed performing urgent debridement of the heel wound on the left side with bone biopsy and resection. Patient and wish to speak with vascular surgery infectious disease prior to making a decision. At this point we will plan for Saturday for debridement. If not patient will likely need a PICC line discharge to long term facility. Wound Care: Dakin's wet to dry gauze dressing, change daily. Keep offloaded at all times. Podiatry will continue to follow. Patient medically stable. Vital signs stable. No leukocytosis.
--- NOTE | 2023-06-17 13:06 | CASEMGMT ---
Social Work PT's spouse confirms pt has a living will and health care POA naming spouse Philip Motta. Per spouse, documents on file at [facility]. Phone call to Tyler Joshi and requested documents [facility]. ROCK Johnson
--- NOTE | 2023-06-17 13:51 | CT_ITS ---
STUDY: CTA OF THE ABDOMINAL AORTA AND BILATERAL LOWER EXTREMITIES REASON FOR EXAM: Female, 72 years old. atherosclerosis gangrene TECHNIQUE: Axial CT angiography multi-detector data acquisition was obtained following intravenous administration of 100 ml of Isovue 370 contrast. Axial images and MIP images were reconstructed from the axial data set. Post-processing of the angiographic images was performed, with multiplanar reformation and 3D reconstruction. MIPS images were obtained. Individualized dose optimization techniques were used for this CT. COMPARISON: 06.14.23. FINDINGS: There is bilateral infiltrate/ atelectasis. There are bilateral pleural effusions. There is decreased attenuation of the liver consistent with steatosis. Normal gallbladder and extrahepatic biliary system. There are multiple benign calcified granulomata of the spleen. Normal pancreas. Normal bilateral adrenal glands. There is moderate cortical atrophy of the right kidney, consistent with chronic medical renal disease. There is moderate cortical atrophy of the left kidney, consistent with chronic medical renal disease. Normal visualized stomach. Normal small intestine. Normal colon. There is non-visualization of the appendix. Normal inferior vena cava. Normal retroperitoneum. Normal urinary bladder. Partially calcified fibroid uterus. Normal abdominal wall. There are diffuse degenerative changes of the visualized lumbar spine. There is an unremarkable-appearing IVC. Degenerative findings of the hips and both knees. Abdominal aorta: There are calcifications of the abdominal aorta. This is consistent for atherosclerotic disease. There is no abdominal aortic aneurysm. Celiac and superior mesenteric arteries: There is mild diffuse narrowing. Inferior mesenteric artery: There is mild diffuse narrowing. Right renal artery(arteries): There is mild diffuse narrowing. Left renal artery(arteries): There is mild diffuse narrowing. Right common iliac artery: There is mild diffuse narrowing. Right external iliac artery: There is mild diffuse narrowing. Right internal iliac artery: There is mild diffuse narrowing. Left common iliac artery: There is mild diffuse narrowing. Left external iliac artery: There is mild diffuse narrowing. Left internal iliac artery: There is mild diffuse narrowing. RIGHT LOWER EXTREMITY Right common femoral artery: No demonstrated narrowing. Right profundus femoris: No demonstrated narrowing. Right superficial femoral: There is severe diffuse narrowing. Right popliteal artery: Critical stenosis. Right tibioperoneal trunk: No demonstrated narrowing. Right anterior tibial artery: No demonstrated narrowing. Right posterior tibial artery: No demonstrated narrowing. Right peroneal artery: No demonstrated narrowing. LEFT LOWER EXTREMITY Left calcaneal soft tissue swelling and mild erosions. Osteomyelitis is of concern. Left common femoral artery: There is mild diffuse narrowing. Left profundus femoris: No demonstrated narrowing. Left superficial femoral: There is severe diffuse narrowing. Left popliteal artery: There is severe diffuse narrowing. Left tibioperoneal trunk: No demonstrated narrowing. Left anterior tibial artery: No demonstrated narrowing. Left posterior tibial artery: No demonstrated narrowing. Left peroneal artery: No demonstrated narrowing. CT/CTA Abd w/Runoff W/WO Contrast IMPRESSION: Fatty liver. There are bilateral pleural effusions. There is bilateral pneumonia. This is worse. Left calcaneal soft tissue swelling and mild erosions. Osteomyelitis is of concern. Right superficial femoral: There is severe diffuse narrowing. Right popliteal artery: Critical stenosis. Left superficial femoral: There is severe diffuse narrowing. Left popliteal artery: There is severe diffuse narrowing. Electronically Signed: Charan Phan MD at 15:41 EDT ,
--- NOTE | 2023-06-17 13:51 | VDLE_ITS ---
Reason For Study: Pre-Op RIGHT LEFT GSV prox thigh, 0.25 x 0.30 cm. GSV prox thigh, 0.38 x 0.36 cm. GSV mid thigh, 0.29 x 0.28 cm. GSV mid thigh, 0.38 x 0.37 cm. GSV distal thigh, 0.28 x 0.30 cm. GSV distal thigh, 0.32 x 0.33 cm. GSV knee, 0.22 x 0.24 cm. GSV knee, 0.36 x 0.38 cm. GSV prox calf, 0.11 x 0.11 cm. GSV prox calf, 0.29 x 0.26 cm. GSV mid calf, 0.14 x 0.15 cm. GSV mid calf, 0.26 x 0.27 cm. GSV distal calf, unable to visualize. GSV distal calf, unable to visualize SSV prox, chronic SVT noted SSV prox, 0.24 x 0.26 cm. SSV mid, 0.39 x 0.39 cm. SSV mid, 0.21 x 0.24 cm. SSV distal, 0.26 x 0.24 cm. SSV distal, 0.19 x 0.22 cm. Multiple branches noted throughout GSV below Multiple branches noted throughout GSV below the knee the knee Chronic SVT noted throughout SSV Chronic SVT and vein wall thickening noted throughout SSV GSV and SSV are compressible. Procedure GSV is compressible This is a venous duplex using B-mode, color SSV is partially compressible. flow and spectral Doppler. Exam performed portable in patient room. The exam was diagnostic. VL/Saphenous Vein Mapping, Bilat Interpretation Summary Right great saphenous vein patent with measurements above. Right small saphenous vein patent with measurements above. Chronic thrombus/wal l thickening visualized Left great saphenous vein patent with measurements above. Left small saphenous vein patent with measurements above. Chronic thrombus/wall thickening visualized Ordering Physician: Jakob Theodore Referring Physician: N/A Performed By: Jakub Watson RVT
--- NOTE | 2023-06-17 14:19 | CON.PCM.ID_ITS ---
Assessment & Plan Assessment/Plan (1) Diabetes mellitus with diabetic polyneuropathy: (2) Foot osteomyelitis, left: QUALIFIERS: Osteomyelitis type: other chronic Qualified Code(s): M86.672 - Other chronic osteomyelitis, left ankle and foot PLAN: Wound cx pending, so far with propionibacterium and diphtheroids. Vascular and podiatry following. On vanc/zosyn. Will need debridement. Tentative plan for discharge would be 6 weeks of iv abx dosed with HD (MWF via LUE graft). Will follow, thank you (3) End stage renal disease: HPI Consult Data Date of Consult: 06/17/23 HPI Narrative Reason for Consultation: osteo HPI Narrative: TRISH PERKINS, is a 72 F with DM neuropathy, chronic L foot ulcer. Presented with 1-2 weeks worsened L heel pain, redness, drainage. Had some associated chills and nausea. Came to ED, admitted on vanc/zosyn. Feeling a little better today. CT done, seen by podiatry and vascular. Full ROS performed and neg except as noted above. [facility] Medical History Anemia Congestive heart failure (CHF) Diabetes Dialysis patient GI bleed Kidney dialysis as the cause of abnormal reaction of the patient, or of later complication, without mention of misadventure at the time of the procedure Kidney disease Peripheral arterial disease TIA (transient ischemic attack) Vision loss of left eye Vision loss of right eye Home Medications ascorbic acid (vitamin C) 500 mg tablet (C-500) 500 mg PO DAILY 06/14/23 [History Last Taken 06/13/23] calcium carbonate 200 mg calcium (500 mg) chewable tablet (Antacid (calcium carbonate)) 200 - 400 mg PO DAILY ANTACID 06/14/23 [History Last Taken 06/13/23] cholecalciferol (vitamin D3) 25 mcg (1,000 unit) tablet (Vitamin D3) 25 mcg PO DAILY 06/14/23 [History Last Taken 06/13/23] lidocaine-prilocaine 2.5 %-2.5 % topical cream 1 applic topical .MonWedFri for dialysis when use AVF 06/14/23 [History Last Taken 06/14/23] Allergy/AdvReac Type Severity Reaction Status Date / Time doxycycline Allergy Rash Verified 06/14/23 10:53 iodine Allergy patient Verified 06/14/23 10:53 states mother had allergy and is afraid she is. levofloxacin [From Levaquin] Allergy patient Verified 06/14/23 10:53 states mother had allergy and is afraid she is. shellfish derived Allergy patient Verified 06/14/23 10:53 states mother had allergy and is afraid she is. Family History Other CVA (cerebral vascular accident) Diabetes Surgical History S/P dialysis catheter insertion S/P tonsillectomy Social History Smoking Status: Never smoker Physical Exam Const alert, oriented x3 and no apparent distress General Appearance: cooperative HEENT normocephalic and head/scalp atraumatic Eyes PERRL and EOMs intact bilaterally Neck supple and No nodes Resp normal air movement and clear to auscultation bilaterally Cardio regular rate and regular rhythm GI soft to palpation, non-tender and non-distended Extremity General Extremity: Negative for edema Skin Skin Narrative: reviewed wound photo Lab / Micro Data Attestation: I reviewed the patient's lab results. 06/17/23 06:00 06/17/23 06:00 Labs: Laboratory Results - last 24 hr 06/16/23 16:36: POC Glucose 190 H 06/16/23 22:23: POC Glucose 185 H 06/17/23 06:00: WBC 10.5, RBC 3.05 L, Hgb 9.5 L, Hct 30.2 L, MCV 99.0, MCH 31.1, MCHC 31.5 L, RDW Std Deviation 45.2 H, RDW Coeff of Maddison 12.5, Plt Count 210, MPV 10.6, Immature Gran % (Auto) 0.400, Neut % (Auto) 79.6 H, Lymph % (Auto) 6.4 L, [place] % (Auto) 9.6, Eos % (Auto) 3.4, Baso % (Auto) 0.6, Absolute Neuts (auto) 8.3 H, Absolute Lymphs (auto) 0.67 L, Nucleated RBC % 0, Sodium 137, Potassium 4.7, Chloride 102, Carbon Dioxide 27.0, Anion Gap 8, BUN 78 H, Creatinine 5.68 H , Estim Creat Clear Calc 8.17, Est GFR (MDRD) Af Amer 10 L, Est GFR (MDRD) Non- Af 8 L, BUN/Creatinine Ratio 13.7, Glucose 90, Calcium 8.5, Random Vancomycin 22.4 H 06/17/23 11:42: POC Glucose 138 H Micro: Microbiology 06/14/23 18:48 Wound - Heel, Left Gram Stain - Final 06/14/23 18:48 Wound - Heel, Left Wound Culture - Final Propionibacterium species Corynebacterium striatum
--- NOTE | 2023-06-17 14:41 | EX.PCM.CON.S ---
Assessment & Plan Assessment/Plan (1) Type 2 diabetes mellitus with foot ulcer: PLAN: -diabetic but well controlled -unable to palpate femoral pulse; may be due to calcification or body habitus -will obtain CTA runoff to determine pattern of occlusive disease; likely angio pending results HPI Consult Data Date of Consult: 06/17/23 HPI Narrative HPI Narrative: TRISH PERKINS, is a 72 F who presents with fevers/chills, ill feeling. Has had wound of some form for years and evaluation revealed left heel ulceration with signs of infection deep to level of bone. Has history of DM (diet controlled), ESRD on HD. No prior similar wounds. Currently is feeling much better. No further F/C/N/V. [facility] Medical History Anemia Congestive heart failure (CHF) Diabetes Dialysis patient GI bleed Kidney dialysis as the cause of abnormal reaction of the patient, or of later complication, without mention of misadventure at the time of the procedure Kidney disease Peripheral arterial disease TIA (transient ischemic attack) Vision loss of left eye Vision loss of right eye Home Medications ascorbic acid (vitamin C) 500 mg tablet (C-500) 500 mg PO DAILY 06/14/23 [History Last Taken 06/13/23] calcium carbonate 200 mg calcium (500 mg) chewable tablet (Antacid (calcium carbonate)) 200 - 400 mg PO DAILY ANTACID 06/14/23 [History Last Taken 06/13/23] cholecalciferol (vitamin D3) 25 mcg (1,000 unit) tablet (Vitamin D3) 25 mcg PO DAILY 06/14/23 [History Last Taken 06/13/23] lidocaine-prilocaine 2.5 %-2.5 % topical cream 1 applic topical .MonWedFri for dialysis when use AVF 06/14/23 [History Last Taken 06/14/23] Allergy/AdvReac Type Severity Reaction Status Date / Time doxycycline Allergy Rash Verified 06/14/23 10:53 iodine Allergy patient Verified 06/14/23 10:53 states mother had allergy and is afraid she is. levofloxacin [From Levaquin] Allergy patient Verified 06/14/23 10:53 states mother had allergy and is afraid she is. shellfish derived Allergy patient Verified 06/14/23 10:53 states mother had allergy and is afraid she is. Family History Other CVA (cerebral vascular accident) Diabetes Surgical History S/P dialysis catheter insertion S/P tonsillectomy Social History Smoking Status: Never smoker ROS Constitutional Constitutional: Denies chills, fever(s), frequent falls, lethargy or weakness Eyes Eyes: Denies blind spots, change in vision or loss of vision ENT HEENT: Denies bleeding gums, hoarseness or sore throat Cardiovascular Cardiovascular: Denies abdominal pain, bluish discoloration of hand/feet, chest pain with activity, claudication, cold extremities, cyanosis, dyspnea on exertion, erythema on extremities, irregular heart rhythm, leg edema, leg ulcers, numbness in extremities or weakness in extremities Respiratory/Chest Respiratory/Chest: Denies cough, excessive phlegm production, shortness of breath at rest, shortness of breath with exertion or wheezing Gastrointestinal Gastrointestinal: Denies anorexia, change in stool character, constipation, diarrhea, melena or rectal bleeding Genitourinary Genitourinary: Denies dysuria or hematuria Musculoskeletal Musculoskeletal: Denies abnormal gait Integumentary Integumentary: Reports other Details: ; Denies erythema, non-healing lesions or wounds Neurologic Neurologic: Denies abnormal speech, focal weakness, headache(s), loss of vision, numbness, paresthesias or sensory deficit Hematologic/Lymphatic Hematologic/Lymphatic: Denies easy bleeding, easy bruising or lymphadenopathy Physical Exam Const alert, oriented x3, no apparent distress and healthy appearing General Appearance: cooperative; Negative for combative or lethargic Orientation / Consciousness: awake Exam Limitations: no limitations HEENT Head and Scalp: normocephalic and atraumatic Eyes EOMs intact bilaterally General Eye: normal appearance of both eyes Neck full ROM, no lymphadenopathy and thyroid normal General: trachea midline; Negative for lymphadenopathy or tenderness Thyroid: thyroid normal Resp normal respiratory effort and no use of accessory muscles Effort and Inspection: Negative for labored, stridor or audible wheezes Cardio regular rate and regular rhythm Peripheral Pulses: brachial pulses present and radial pulses present; Negative for femoral pulses present, popliteal pulses present, posterior tibial pulses present or dorsalis pedis pulses present Back/Spine Cervical Spine: cervical ROM normal Extremity full ROM, normal capillary refill and no clubbing, cyanosis or edema Skin no rashes or lesions noted Neuro oriented x3, CN's II-XII intact bilaterally, no focal motor deficits and no sensory deficits noted Psych thought process normal, cooperative, affect normal, speech normal and activity/motor behavior normal Lab / Micro Data 06/17/23 06:00 06/17/23 06:00 Labs: Laboratory Results - last 24 hr 06/16/23 16:36: POC Glucose 190 H 06/16/23 22:23: POC Glucose 185 H 06/17/23 06:00: WBC 10.5, RBC 3.05 L, Hgb 9.5 L, Hct 30.2 L, MCV 99.0, MCH 31.1, MCHC 31.5 L, RDW Std Deviation 45.2 H, RDW Coeff of Maddison 12.5, Plt Count 210, MPV 10.6, Immature Gran % (Auto) 0.400, Neut % (Auto) 79.6 H, Lymph % (Auto) 6.4 L, [place] % (Auto) 9.6, Eos % (Auto) 3.4, Baso % (Auto) 0.6, Absolute Neuts (auto) 8.3 H, Absolute Lymphs (auto) 0.67 L, Nucleated RBC % 0, Sodium 137, Potassium 4.7, Chloride 102, Carbon Dioxide 27.0, Anion Gap 8, BUN 78 H, Creatinine 5.68 H, Estim Creat Clear Calc 8.17, Est GFR (MDRD) Af Amer 10 L, Est GFR (MDRD) Non-Af 8 L, BUN/Creatinine Ratio 13.7, Glucose 90, Calcium 8.5, Random Vancomycin 22.4 H 06/17/23 11:42: POC Glucose 138 H Micro: Microbiology 06/14/23 18:48 Wound - Heel, Left Gram Stain - Final 06/14/23 18:48 Wound - Heel, Left Wound Culture - Final Propionibacterium species Corynebacterium striatum Charges/Coding Visit Charges Inpatient E&M: 00165 Init Hosp L3
[2023-06-17] MEDS: Menthol/Lanolin/Calamine/Znox 113 GM Tube 1 APPLIC TOPICAL ×2 (15:12→21:49)
[2023-06-17] MEDS: Nystatin Powder 15gm Bottle 1 APPLIC TOPICAL ×2 (15:13→21:49)
[2023-06-17] MEDS: Cholecalciferol (VIT D3) 25 MCG TABLET (1,000 UNITS) PO (15:14)
[2023-06-17] MEDS: Ascorbic Acid 500 MG Tablet PO (15:14)
[2023-06-17] MEDS: Enoxaparin 30 MG/0.3 ML Syringe SC (15:14)
[2023-06-17] MEDS: Glucerna Shake 120 ML LIQUID PO (15:23)
--- NOTE | 2023-06-17 16:37 | CHAPLAIN ---
Type of Pastoral Visit _x__ Initial Visit ___ Follow-up Visit ___ On-call Visit ___ General Patient Visit ___ Spiritual Assessment ___ Family Conference ___ Bereavement ___ Rapid Response ___ Code Blue ___ Other (describe below) Pastoral Care Referral From _x__ Patient ___ Family ___ Nurse ___ Physician ___ Mill Order Scheduler ___ National Business Director ___ Other (describe below) Sacrament/Intervention _x__ Active listening ___ Anointing ___ Lutheran ___ Bereavement ___ Communion _x__ Lelo exploration ___ ___ Life review _x__ Prayer ___ Reconciliation ___ Sacrament of Sick _x__ Supportive presence ___ Wedding ___ Other (describe below) Pastoral Comments patient and spouse are together in the room; both are expressive and descriptive of situation and hopes; pt would like a miracle and I keep asking for one; both admit need for clear answers so they can make a decision about potential surgery; pt and spouse feel some urgency; time to listen, reflect with them, and affirm their hopes; both welcome prayer for intervention
[2023-06-17] MEDS: Juven (unflavored) Packet 1 PACKET PO (16:50)
[2023-06-17] MEDS: Insulin Lispro 100 UNIT/ML INSULN.PEN SC (16:50)
[2023-06-17 17:12] LABS: Bedside Glucose 243 mg/dL (74-106)
[2023-06-17 22:18] LABS: Bedside Glucose 202 mg/dL (74-106)
[2023-06-18 03:04] VITALS: BMI 20.2
[2023-06-18 06:40] LABS: Prothrombin Time (Protime)PT. 13.3 SECONDS (11.7-14.9)
[2023-06-18 06:41] LABS: Partial Thromboplast Time 39.6 Seconds (24.1-36.2)
[2023-06-18 07:01] LABS: Bedside Glucose 117 mg/dL (74-106)
--- NOTE | 2023-06-18 07:06 | PCM.PN.HOSP ---
Reason for Visit Reason for Visit: Diagnoses Type 2 diabetes mellitus with diabetic polyneuropathy (06/14/23) Type 2 diabetes mellitus with foot ulcer (06/14/23) Hyperkalemia (06/14/23) Other specified peripheral vascular diseases (06/14/23) Non-pressure chronic ulcer of other part of unspecified foot with unspecified severity (06/14/23) Non-pressure chronic ulcer of other part of left foot with necrosis of bone (06/14/23) Other chronic osteomyelitis, left ankle and foot (06/14/23) End stage renal disease (06/14/23) Subjective Subjective Now agreeable to surgery. Objective Data Objective Data Vital Signs: Vital Signs Temp Pulse Resp BP Pulse Ox O2 Del Method O2 Flow Rate 36.3 C L 90 16 167/79 H 98 Nasal Cannula 2 06/17/23 23:55 06/17/23 23:55 06/17/23 23:55 06/17/23 23:55 06/17/23 23:55 06/17/23 23:55 06/17/23 23:55 Oxygen Flow Rate (L/min) 2 Oxygen Delivery Method Nasal Cannula Weight: 55.2 kg Body Mass Index (BMI) 20.2 Intake & Output: Intake and Output for Last 24 Hours 06/16/23 06/17/23 06/18/23 23:59 23:59 23:59 Intake Total 1120.5 / 1240.5 470 / 710 290 / 290 Output Total 1999 Balance 1120.5 / 1240.5 -1530 / -1290 290 / 290 Lab / Micro Data 06/17/23 06:00 06/17/23 06:00 Labs: Laboratory Results - last 24 hr 06/17/23 11:42: POC Glucose 138 H 06/17/23 16:46: POC Glucose 243 H 06/17/23 21:48: POC Glucose 202 H 06/18/23 05:45: PT 13.3, INR 1.0, APTT 39.6 H 06/18/23 06:25: POC Glucose 117 H Micro: Microbiology 06/14/23 18:48 Wound - Heel, Left Gram Stain - Final 06/14/23 18:48 Wound - Heel, Left Wound Culture - Final Propionibacterium species Corynebacterium striatum Radiography Diagnostic Testing: Radiology Impression Abdomen/Pelvis CTA 06/17/23 13:51 IMPRESSION: Fatty liver. There are bilateral pleural effusions. There is bilateral pneumonia. This is worse. Left calcaneal soft tissue swelling and mild erosions. Osteomyelitis is of concern. Right superficial femoral: There is severe diffuse narrowing. Right popliteal artery: Critical stenosis. Left superficial femoral: There is severe diffuse narrowing. Left popliteal artery: There is severe diffuse narrowing. Electronically Signed: Charan Phan MD at 15:41 EDT , Physical Exam Const alert and no apparent distress HEENT head/scalp atraumatic and moist oral mucous membranes Resp normal respiratory effort, no retractions, no use of accessory muscles and clear to auscultation bilaterally Cardio regular rate, regular rhythm, S1 normal heart sound and S2 normal heart sound GI normal to inspection, nondistended, normoactive bowel sounds, soft to palpation, non-tender and non-distended Extremity Extremity Narrative: left foot and leg wrapped--did not remove. Assessment & Plan Assessment/Plan (1) Foot osteomyelitis, left: QUALIFIERS: Osteomyelitis type: other chronic Qualified Code(s): M86.672 - Other chronic osteomyelitis, left ankle and foot PLAN: Continue with antibiotics with Pipracil/tazobactam and vancomycin. Data: MRI could not be done at this time as pt has a coil, that could not be determined to be MRI-compatible. CT showed cellulitis w heel ulcer and OM of the posterior calcaneus. FRANCHESCA 0.5 on left, TBI 0.15 on left. Would culture culture showing propionibacterium and corynebacterium Seen by Dr. Maloney of podiatry who recommended debridement. Pt and have declined debridement. Awaiting on further specialist input. Consult ID for long-term recommendations. Pt aware that she would require long-term IV antibiotics. (2) End stage renal disease: PLAN: On dialysis. Missed dialysis given her symptoms of nausea vomiting and rigors. Nephrology following. (3) Other specified peripheral vascular diseases: PLAN: Noted on ABIs Consult vascular surgery for recommendations. Unclear if pt would be amenable, however. CTA showed sever narrowing R superficial femoral, critical stenosis R popliteal, severe diffuse narrowing left superficial femoral and left popliteal. Dr. Thoedore to take for angiogram on 06/19. PLAN: Plan Chronic conditions Neuropathy: Complicates care and recovery. Diabetes mellitus type 2: a1c 5.4. Blood sugars fairly well controlled. On SSI. Continue in anticipation of surgery as it is expected her glucose will go up then. VTE prophylaxis with enoxaparin. CODE STATUS: Just with the patient. Patient wishes to be DNR Comfort Care arrest. I told her that if she does require surgery that she would be intubated temporarily. She said that she would not want. Though she has been intubated when she had an aortic issue in the past. Unclear if that was a dissection or not but she was intubated at some point for that for the surgery what ever that was. Reassurance provided to the patient that if she does require surgery and being on a ventilator with anesthesia, that would be short-term. 06/14: I did tell the patient that we are here to make recommendations for her health and benefit. And she has the right to determine what she would and would not do. Case was discussed with her who is at bedside. When I did discuss some these concerns with nephrology when he spoke with them, informed me that patient determines that she does not want any significant fluid off when she gets dialysis. 06/16: I had a long discussion with the patient and her . Advised them of the recommendations of surgery and antibiotics. Emphasized that without it, the infection could spread with abx and could lead to an amputation. references himself, where he has what sounds like venous-stasis ulcer. I also spoke with them about her concerns for anesthesia. I told them that I feel she is low risk for complications with anesthesia, and also she has undergone anesthesia for her LUE graft and tolerated that. I told them that those are different than what the patient is experiencing. They will discuss my and Dr. Maloney's recommendations amongst themselves 06/17: Still deciding. Awaiting on specialist input. 06/18: Pt now decided to proceed with intervention. Her was asking how soon she would be discharge, anticipating that it would be tomorrow. I informed them both that I would not anticipate that she would be ready for discharge for several days. Additionally, she would likely benefit more from SNF upon discharge. Charges/Coding Visit Charges Inpatient E&M: 30874 Subs Hosp L2
[2023-06-18 08:51] VITALS: BP 162/67; PULSE 83; RESP 16; TEMP 36.7; O2SAT 96
[2023-06-18] MEDS: Nystatin Powder 15gm Bottle 1 APPLIC TOPICAL ×2 (09:03→21:17)
[2023-06-18] MEDS: Menthol/Lanolin/Calamine/Znox 113 GM Tube 1 APPLIC TOPICAL ×2 (09:03→21:16)
[2023-06-18] MEDS: amLODIPine 5 MG Tablet PO (09:03)
[2023-06-18] MEDS: Juven (unflavored) Packet 1 PACKET PO (09:09)
[2023-06-18] MEDS: Ascorbic Acid 500 MG Tablet PO (09:09)
[2023-06-18] MEDS: Cholecalciferol (VIT D3) 25 MCG TABLET (1,000 UNITS) PO (09:09)
[2023-06-18] MEDS: Enoxaparin 30 MG/0.3 ML Syringe SC (09:09)
[2023-06-18] MEDS: DAKIN'S SOL HALF STRENGTH (=0.25%) 1 APPLIC TOPICAL (10:21)
--- NOTE | 2023-06-18 10:34 | PCM.PN.REN ---
Subjective Subjective Sitting on side of bed eating breakfast. No overnight events. Reports feeling better. Objective Data Objective Data Vital Signs: Vital Signs Temp Pulse Resp BP Pulse Ox O2 Del Method O2 Flow Rate 98.0 F 83 16 162/67 H 96 Nasal Cannula 1 06/18/23 08:51 06/18/23 08:51 06/18/23 08:51 06/18/23 08:51 06/18/23 08:51 06/18/23 08:51 06/18/23 08:51 Oxygen Flow Rate (L/min) 1 Oxygen Delivery Method Nasal Cannula Weight: 55.2 kg Body Mass Index (BMI) 20.2 Intake & Output: Intake and Output for Last 24 Hours 06/16/23 06/17/23 06/18/23 23:59 23:59 23:59 Intake Total 1120.5 / 1240.5 470 / 710 290 / 290 Output Total 1999 Balance 1120.5 / 1240.5 -1530 / -1290 290 / 290 Lab / Micro Data 06/17/23 06:00 06/17/23 06:00 Labs: Laboratory Results - last 24 hr 06/17/23 11:42: POC Glucose 138 H 06/17/23 16:46: POC Glucose 243 H 06/17/23 21:48: POC Glucose 202 H 06/18/23 05:45: PT 13.3, INR 1.0, APTT 39.6 H 06/18/23 06:25: POC Glucose 117 H Micro: Microbiology 06/14/23 18:48 Wound - Heel, Left Gram Stain - Final 06/14/23 18:48 Wound - Heel, Left Wound Culture - Final Propionibacterium species Corynebacterium striatum Radiography Diagnostic Testing: Radiology Impression Abdomen/Pelvis CTA 06/17/23 13:51 IMPRESSION: Fatty liver. There are bilateral pleural effusions. There is bilateral pneumonia. This is worse. Left calcaneal soft tissue swelling and mild erosions. Osteomyelitis is of concern. Right superficial femoral: There is severe diffuse narrowing. Right popliteal artery: Critical stenosis. Left superficial femoral: There is severe diffuse narrowing. Left popliteal artery: There is severe diffuse narrowing. Electronically Signed: Charan Phan MD at 15:41 EDT , Physical Exam Narrative General: Alert and oriented x3, NAD. Neck: Supple, no JVD. Cardiovascular: Normal S1, S2. No rubs, murmurs, or gallops. Respiratory: Lungs are clear to auscultation bilaterally. Abdomen: Normal bowel sounds, soft, nontender Extremities: Trace edema bilateral legs, improved. Matthew wrap intact to left lower leg and foot Left arm AV fistula accessed for hemodialysis Assessment & Plan Assessment/Plan (1) End stage renal disease: (2) Hyperkalemia: (3) Foot osteomyelitis, left: QUALIFIERS: Osteomyelitis type: other chronic Qualified Code(s): M86.672 - Other chronic osteomyelitis, left ankle and foot PLAN: Plan Impression/plan: The patient is a 72-year-old woman with past history of ESRD, type 2 diabetes mellitus, and prior TIA. The patient is admitted to the hospital on 06/14/2023 with left foot osteomyelitis. - The patient dialyzes on MWF schedule at [facility]. Outpatient EDW was 55.2 kg. 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 EDW will be lowered by time of hospital discharge. -Anemia of chronic disease; will we will monitor hemoglobin trends. Last hemoglobin 9.5 -Hypertension; blood pressures have been high and usually improve with volume removed during HD. Amlodipine started yesterday and blood pressures have improved. We will monitor blood pressure trends and can adjust amlodipine as needed. -Left foot osteomyelitis. Vascular surgery planning angio tomorrow, will plan dialysis afterwards. Podiatry and ID following. On Zosyn and vancomycin.
[2023-06-18 11:50] LABS: Bedside Glucose 161 mg/dL (74-106)
[2023-06-18] MEDS: Insulin Lispro 100 UNIT/ML INSULN.PEN SC (11:58)
[2023-06-18 12:31] LABS: Pathologist Review Reviewed
[2023-06-18 14:12] VITALS: BP 167/85; PULSE 83; RESP 16; TEMP 36.6; O2SAT 92
--- NOTE | 2023-06-18 14:31 | CASEMGMT ---
Addendum entered by Ramya Webster 06/18/23 14:42: RN CM into pt room to make aware of findings and that RN CM would attempt to obtain more information tomorrow. Pt and deny further questions. Original Note: Spoke with ALIX who states pt will likely be rx vancomycin IV to be given at dialysis. RN CM into pt room, pt present at bedside. Discussed dc options. Pt and are currently unsure of the dc plan as far as a SNF or home. Pt and would like to collect more information before making a decision. Pt asks how much it will cost if pt receives medication at dialysis from home. They are aware this RN CM will check this cost and get back to them. Also discussed HHC should the patient go home. Provided was provided a list of HHC providers including quality and resource use data and consistent with the patient?s preferred geographic region, medical needs, and insurance network were provided from the [employer] Guide. TC to [facility], spoke with Heather the nurse who states that if the med is on the formulary they can dispense there. Vancomycin is on formulary. She states there would be a cost as this is not for a fistula infection, etc. She states RN CM would need to speak to SW to find out cost. The SW is gone for the day, Diana. RN CM to follow up tomorrow.
[2023-06-18 16:16] LABS: Bedside Glucose 137 mg/dL (74-106)
--- NOTE | 2023-06-18 17:03 | PN_ITS ---
Subjective Subjective No changes overnight. Patient denies constitutional's. Patient denies pain. Objective Data Objective Data Vital Signs: Vital Signs Temp Pulse Resp BP Pulse Ox O2 Del Method O2 Flow Rate 97.8 F 83 16 167/85 H 92 Room Air 1 06/18/23 14:12 06/18/23 14:12 06/18/23 14:12 06/18/23 14:12 06/18/23 14:12 06/18/23 14:12 06/18/23 08:51 Oxygen Flow Rate (L/min) 1 Oxygen Delivery Method Room Air Weight: 55.2 kg Body Mass Index (BMI) 20.2 Intake & Output: Intake and Output for Last 24 Hours 06/16/23 06/17/23 06/18/23 23:59 23:59 23:59 Intake Total 1120.5 / 1240.5 470 / 710 340 / 340 Output Total 1999 Balance 1120.5 / 1240.5 -1530 / -1290 340 / 340 Lab / Micro Data 06/17/23 06:00 06/17/23 06:00 Labs: Laboratory Results - last 24 hr 06/15/23 05:30: Diff Path Review Reviewed 06/17/23 16:46: POC Glucose 243 H 06/17/23 21:48: POC Glucose 202 H 06/18/23 05:45: PT 13.3, INR 1.0, APTT 39.6 H 06/18/23 06:25: POC Glucose 117 H 06/18/23 11:32: POC Glucose 161 H 06/18/23 15:56: POC Glucose 137 H Micro: Microbiology 06/14/23 18:48 Wound - Heel, Left Gram Stain - Final 06/14/23 18:48 Wound - Heel, Left Wound Culture - Final Propionibacterium species Corynebacterium striatum Radiography Diagnostic Testing: Radiology Impression Saphenous Venous Mapping 06/17/23 13:51 Interpretation Summary Right great saphenous vein patent with measurements above. Right small saphenous vein patent with measurements above. Chronic thrombus/wall thickening visualized Left great saphenous vein patent with measurements above. Left small saphenous vein patent with measurements above. Chronic thrombus/wall thickening visualized Ordering Physician: Jakob Theodore Referring Physician: N/A Performed By: Jakub Watson, T Physical Exam Narrative Left heel with necrotic ulceration to the posterior medial aspect of the heel, there is good amount of maloder present from the site, there is some localized cellulitis and edema, there is some bogginess present, there are no other ulcerations bilateral foot or ankle. Skin is thin and atrophic bilateral. There is no evidence of acute ischemia to the foot or ankle bilateral. DP and PT nonpalpable bilateral. Chronic decreased sensation to the foot bilateral. She does relate to some pain to the left heel, otherwise there is no other POP or pain on ROM to the foot or ankle bilateral. Const alert, oriented x3 and no apparent distress Assessment & Plan Assessment/Plan (1) Foot osteomyelitis, left: QUALIFIERS: Osteomyelitis type: other chronic Qualified Code(s): M86.672 - Other chronic osteomyelitis, left ankle and foot (2) Non-pressure chronic ulcer of other part of left foot with necrosis of bone: (3) Diabetes mellitus with diabetic polyneuropathy: (4) Type 2 diabetes mellitus with foot ulcer: (5) Other specified peripheral vascular diseases: PLAN: Plan Re-evaluation performed. Reviewed diagnostic data. There is necrotic ulceration to the left heel, there is malodor. Reviewed left foot xrays and CT scan - there is calcaneal osteomyelitis, there is also gas noted in the posterior heel. Reviewed noninvasive LE arterial studies and noted significant LE vascular disease. This is chronic. If patient wants to optimize healing potential I recommend vascular surgeon consultation. There is no evidence of acute ischemia at this time. A culture has obtained of the left heel ulceration and sent to microbiology for further evaluation. Of note this is a superficial ulcer. Patient on IV antibiotics - Vanc and Zosyn. Planning for surgical debridement after vascular intervention on at 12: 30 PM Wound Care: Dakin's wet to dry gauze dressing, change daily. Keep offloaded at all times. Podiatry will continue to follow. Patient medically stable. Vital signs stable. No leukocytosis.
[2023-06-18 21:15] VITALS: BP 160/68; PULSE 92; RESP 16; TEMP 36.6; O2SAT 93
[2023-06-18 21:47] LABS: Bedside Glucose 195 mg/dL (74-106)
[2023-06-19] VITALS (14 sets, daily range): BP systolic 111–257; BP diastolic 55–97; PULSE 65–90; RESP 16–18; TEMP 36.4–36.6; O2SAT 91–99; BMI 20.2; BMI 21.9
[2023-06-19 06:39] LABS: Bedside Glucose 190 mg/dL (74-106)
--- NOTE | 2023-06-19 06:48 | NURSING ---
Patient pulled out her iv, went in to start a new one and she was shaking a great deal, when asked about it she c/o pain in her abd where she had a lovenox shot yesterday, on palpation it was discovered a large hard mass like area spanning from right side along pelvis across the midline, could Findings were sent via text to Dr. Monae. He will stop by to see the patient.
[2023-06-19 07:09] LABS: Absolute Lymphocyte Count 0.68 X10^3/uL (0.83-4.51); Absolute Neutrophil Count 11.2 X10^3/uL (2.0-7.7); Basophil# 0.06 X10^3/uL; Basophil% 0.5 % (0-1); Eosinophil# 0.14 X10^3/uL; Eosinophils% 1.1 % (0-5); Hematocrit 27.9 % (37-47); Hemoglobin 8.4 g/dL (12.0-15.0); Lymphocyte # 0.68 X10^3/ul (0.83-4.51); Lymphocyte % 5.2 % (19-41); Mean Corp Hgb Conc 30.1 g/dL (32-36); Mean Platelet Vol. 11.1 fl (6.2-12.0); Monocyte# 1.09 X10^3/uL; Monocyte% 8.3 % (0-10); NRBC Flagged by Analyzer 0 % (0-5); Neutrophil # 11.15 X10^3/uL (2.7-7.7); Neutrophil % 84.3 % (47-70); Platelet Count 290 K/mm3 (150-450); RBC Distribution Width CV 12.9 % (11.6-14.6); RBC Distribution Width SD 47.7 fl (35.1-43.9); Red Blood Count 2.71 M/mm3 (4.2-5.4); White Blood Count 13.2 K/mm3 (4.4-11.0)
[2023-06-19 07:12] LABS: Albumin, Serum 2.1 g/dL (3.2-5.0); BUN 87 mg/dL (7-18); BUN/Creat Ratio 14.8 RATIO (10-20); Calcium,Total 8.3 mg/dL (8.5-10.1); Chloride 101 mmol/L (98-107); Creatinine, Serum 5.88 mg/dL (0.55-1.02); EST Glomerular Filtration Rate 8 mL/min (>60); Est Glom Filt Rate - Afr Amer 9 mL/min (>60); Estimated Creatinine Clearance 7.62 ml/min; Glucose 203 mg/dL (74-106); Potassium 5.5 mmol/L (3.5-5.1); Sodium Level 134 mmol/L (136-145)
--- NOTE | 2023-06-19 07:18 | PCM.PN.BLA ---
Progress Note Patient with abdominal hematoma. Notified that abdominal hematoma developed after Lovenox shot has been given. Notified that patient was shivering. Patient seen at bedside. Per nurse patient was not answering questions appropriately. Patient report that it was because she was asleep at that time. Physical examination patient with tender and indurated abdomen. Patient on Zosyn for leg infection.. Ordered to stop Lovenox. SCD ordered. Notified general surgery to see in consult. Discussed with incoming attending MD.
--- NOTE | 2023-06-19 07:51 | CT_ITS ---
STUDY: CT PELVIS WITH CONTRAST REASON FOR EXAM: Female, 72 years old. Right lower quadrant hematoma -- Hematoma following Lovenox injection RADIATION DOSAGE (If Supplied By Facility): CTDIvol = ( 27.91 ) mGy, DLP = ( 1050.74 ) mGycm TECHNIQUE: Transaxial imaging of the pelvis was performed without oral contrast. IV 100mL Isovue-300 was administered intravenously. Individualized dose optimization techniques were used for this CT. COMPARISON: None. FINDINGS: Normal urinary bladder. Normal visualized small intestine. Normal visualized colon. There is no pelvic fluid. There is no pelvic lymphadenopathy or mass lesion. 2 cm calcified degenerated fibroid in the fundus the uterus. Normal visualized pelvic arteries. 4.5 x 8.0 cm oval mass of soft tissue attenuation within the subcutaneous fat of the anterior abdominal wall in the right lower quadrant consistent with an acute hematoma. Normal osseous structures. CT/Pelvis WITH IV Contrast IMPRESSION: Large hematoma of the anterior abdominal wall the right lower quadrant. Electronically Signed: Travis Kemp MD at 9:39 EDT ,
[2023-06-19 08:13] LABS: Lactic Acid 1.5 mmol/L (0.4-1.9)
--- NOTE | 2023-06-19 08:21 | CON.PCM.SX_ITS ---
Assessment & Plan Assessment/Plan (1) Hematoma: PLAN: I have been consulted in conjunction with Dr. Warren. Plan for a STAT CT scan of the pelvis to further assess the right lower quadrant hematoma involvement. Patient is scheduled for dialysis today as well at some time. Recommend CT scan be completed prior to dialysis. Patient has had the opportunity to ask and have questions answered. Patient verbally understands agrees with the plan. HPI Consult Data Date of Consult: 06/19/23 HPI Narrative Reason for Consultation: Right lower quadrant hematoma HPI Narrative: TRISH PERKINS, is a 72 F who I am consulted on in conjunction with Dr. Warren. Patient is currently hospitalized for chronic worsening left heel ulceration, nausea, vomiting. Patient is dependent on dialysis via left upper extremity fistula M,W, and F. Patient has been receiving Lovenox injections during her hospitalizations. Patient states she was given a Lovenox injection in the right lower quadrant yesterday evening. Over night she developed significant pain at the injection site. Nursing had noted an increase in swelling extending past the midline and towards the hip region. Patient has never had any history of hematomas or concerns of a mass in the right lower quadrant previously. Patient notes the Lovenox injections she has been receiving have been in the abdomen in different locations. She notes she has not had any reactions previously with the Lovenox injections. Patient is not on a blood thinner as an outpatient. Lovenox has since been discontinued. [facility] Medical History Anemia Congestive heart failure (CHF) Diabetes Dialysis patient GI bleed Kidney dialysis as the cause of abnormal reaction of the patient, or of later complication, without mention of misadventure at the time of the procedure Kidney disease Peripheral arterial disease TIA (transient ischemic attack) Vision loss of left eye Vision loss of right eye Home Medications ascorbic acid (vitamin C) 500 mg tablet (C-500) 500 mg PO DAILY 06/14/23 [History Last Taken 06/13/23] calcium carbonate 200 mg calcium (500 mg) chewable tablet (Antacid (calcium carbonate)) 200 - 400 mg PO DAILY ANTACID 06/14/23 [History Last Taken 06/13/23] cholecalciferol (vitamin D3) 25 mcg (1,000 unit) tablet (Vitamin D3) 25 mcg PO DAILY 06/14/23 [History Last Taken 06/13/23] lidocaine-prilocaine 2.5 %-2.5 % topical cream 1 applic topical .MonWedFri for dialysis when use AVF 06/14/23 [History Last Taken 06/14/23] Allergy/AdvReac Type Severity Reaction Status Date / Time doxycycline Allergy Rash Verified 06/14/23 10:53 levofloxacin [From Levaquin] Allergy patient Verified 06/14/23 10:53 states mother had allergy and is afraid she is. Family History Other CVA (cerebral vascular accident) Diabetes Surgical History S/P dialysis catheter insertion S/P tonsillectomy Social History Smoking Status: Never smoker ROS Constitutional Constitutional: Reports as per HPI Eyes Eyes: Reports as per HPI ENT HEENT: Reports as per HPI Cardiovascular Cardiovascular: Reports as per HPI Respiratory/Chest Respiratory/Chest: Reports as per HPI Gastrointestinal Gastrointestinal: Reports as per HPI Genitourinary Genitourinary: Reports as per HPI Musculoskeletal Musculoskeletal: Reports as per HPI Integumentary Integumentary: Reports as per HPI Neurologic Neurologic: Reports as per HPI Psychiatric Psychiatric: Reports as per HPI Endocrine Endocrinology: Reports as per HPI Hematologic/Lymphatic Hematologic/Lymphatic: Reports as per HPI Allergic/Immunologic Allergic/Immunologic: Reports as per HPI Physical Exam Const alert, oriented x3 and no apparent distress Constitutional Narrative: Patient is [place] HEENT normocephalic and head/scalp atraumatic Eyes PERRL Neck full ROM Lymph Lymphatic: no lymphadenopathy noted Resp normal respiratory effort and clear to auscultation bilaterally Cardio regular rate and regular rhythm GI GI Narrative: Abdomen- soft. Right lower quadrant with notable small ecchymosis noted consistent with injection site. There is an approximately 25 cm oblong area of firm swelling consistent with a hematoma. Patient is extremely tender to light palpation in this region. POsitive bowel sounds no CVA tenderness Back/Spine no CVA tenderness Extremity Extremity Narrative: Left heel ulceration Skin Skin Narrative: Left heel ulceration Neuro no focal motor deficits and no sensory deficits noted Psych thought process normal Appearance: grossly normal Lab / Micro Data 06/19/23 06:05 06/19/23 06:05 Labs: Laboratory Results - last 24 hr 06/15/23 05:30: Diff Path Review Reviewed 06/18/23 11:32: POC Glucose 161 H 06/18/23 15:56: POC Glucose 137 H 06/18/23 21:23: POC Glucose 195 H 06/19/23 06:05: WBC 13.2 H, RBC 2.71 L, Hgb 8.4 L, Hct 27.9 L, MCV 103.0 H, MCH 31.0, MCHC 30.1 L, RDW Std Deviation 47.7 H, RDW Coeff of Maddison 12.9, Plt Count 290, MPV 11.1, Immature Gran % (Auto) 0.600, Neut % (Auto) 84.3 H, Lymph % (Auto) 5.2 L, [place] % (Auto) 8.3, Eos % (Auto) 1.1, Baso % (Auto) 0.5, Absolute Neuts (auto) 11.2 H, Absolute Lymphs (auto) 0.68 L, Nucleated RBC % 0, Sodium 134 L, Potassium 5.5 H, Chloride 101, Carbon Dioxide 23.0, BUN 87 H, Creatinine 5.88 H, Estim Creat Clear Calc 7.62, Est GFR (MDRD) Af Amer 9 L, Est GFR (MDRD) Non-Af 8 L, BUN/Creatinine Ratio 14.8, Glucose 203 H, Calcium 8.3 L, Phosphorus 5.0 H, Albumin 2.1 L, Random Vancomycin 17.0 H 06/19/23 06:13: POC Glucose 190 H 06/19/23 07:45: Lactic Acid 1.5 Radiology Impression Saphenous Venous Mapping 06/17/23 13:51 Interpretation Summary Right great saphenous vein patent with measurements above. Right small saphenous vein patent with measurements above. Chronic thrombus/wall thickening visualized Left great saphenous vein patent with measurements above. Left small saphenous vein patent with measurements above. Chronic thrombus/wall thickening visualized Ordering Physician: Jakob Theodore Referring Physician: N/A Performed By: Jakub Watson, RVT Charges/Coding Visit Charges Office Visits / Consults: 08691 IP Consult L2
--- NOTE | 2023-06-19 08:22 | WOUNDNOTE ---
skin photo: abdomen
--- NOTE | 2023-06-19 08:44 | PN.RENAL_ITS ---
Subjective Subjective Resting in bed. Alert and oriented. Denies any complaints. Objective Data Objective Data Vital Signs: Vital Signs Temp Pulse Resp BP Pulse Ox O2 Del Method O2 Flow Rate 97.9 F 83 16 136/57 H 91 Nasal Cannula 2 06/19/23 06:00 06/19/23 06:00 06/19/23 06:00 06/19/23 06:00 06/19/23 07:45 06/19/23 07:45 06/19/23 07:45 Oxygen Flow Rate (L/min) 2 Oxygen Delivery Method Nasal Cannula Weight: 55 kg Body Mass Index (BMI) 20.2 Intake & Output: Intake and Output for Last 24 Hours 06/17/23 06/18/23 06/19/23 23:59 23:59 23:59 Intake Total 719.5 / 959.5 390 / 390 50 / 50 Output Total 1999 0 / 0 Balance -1280.5 / -1040.5 390 / 390 50 / 50 Lab / Micro Data 06/19/23 06:05 06/19/23 06:05 Labs: Laboratory Results - last 24 hr 06/15/23 05:30: Diff Path Review Reviewed 06/18/23 11:32: POC Glucose 161 H 06/18/23 15:56: POC Glucose 137 H 06/18/23 21:23: POC Glucose 195 H 06/19/23 06:05: WBC 13.2 H, RBC 2.71 L, Hgb 8.4 L, Hct 27.9 L, MCV 103.0 H, MCH 31.0, MCHC 30.1 L, RDW Std Deviation 47.7 H, RDW Coeff of [place]ison 12.9, Plt Count 290, MPV 11.1, Immature Gran % (Auto) 0.600, Neut % (Auto) 84.3 H, Lymph % (Auto) 5.2 L, [place] % (Auto) 8.3, Eos % (Auto) 1.1, Baso % (Auto) 0.5, Absolute Neuts (auto) 11.2 H, Absolute Lymphs (auto) 0.68 L, Nucleated RBC % 0, Sodium 134 L, Potassium 5.5 H, Chloride 101, Carbon Dioxide 23.0, BUN 87 H, Creatinine 5.88 H, Estim Creat Clear Calc 7.62, Est GFR (MDRD) Af Amer 9 L, Est GFR (MDRD) Non-Af 8 L, BUN/Creatinine Ratio 14.8, Glucose 203 H, Calcium 8.3 L, Phosphorus 5.0 H, Albumin 2.1 L, Random Vancomycin 17.0 H 06/19/23 06:13: POC Glucose 190 H 06/19/23 07:45: Lactic Acid 1.5 Micro: Microbiology 06/14/23 18:48 Wound - Heel, Left Gram Stain - Final 06/14/23 18:48 Wound - Heel, Left Wound Culture - Final Propionibacterium species Corynebacterium striatum Radiography Diagnostic Testing: Radiology Impression Saphenous Venous Mapping 06/17/23 13:51 Interpretation Summary Right great saphenous vein patent with measurements above. Right small saphenous vein patent with measurements above. Chronic thrombus/wall thickening visualized Left great saphenous vein patent with measurements above. Left small saphenous vein patent with measurements above. Chronic thrombus/wall thickening visualized Ordering Physician: Jakob Theodore Referring Physician: N/A Performed By: Jakub Watson T Physical Exam Narrative General: Alert and oriented x3, NAD. Neck: Supple, no JVD. Cardiovascular: Normal S1, S2. No rubs, murmurs, or gallops. Respiratory: Lungs are clear to auscultation bilaterally. Abdomen: Normal bowel sounds, soft, tender to palpation right lower quadrant. Hematoma noted right lower quadrant. Extremities: Trace edema bilateral legs, improved. Matthew wrap intact to left lower leg and foot Left arm AV fistula accessed for hemodialysis Assessment & Plan Assessment/Plan (1) End stage renal disease: (2) Hyperkalemia: (3) Foot osteomyelitis, left: QUALIFIERS: Osteomyelitis type: other chronic Qualified Code(s): M86.672 - Other chronic osteomyelitis, left ankle and foot PLAN: Plan Impression/plan: The patient is a 72-year-old woman with past history of ESRD, type 2 diabetes mellitus, and prior TIA. The patient is admitted to the hospital on 06/14/2023 with left foot osteomyelitis. - The patient dialyzes on MWF schedule at [facility]. Outpatient EDW was 55.2 kg. To undergo dialysis today after CT scan on 2kbath and attempt around 2 L fluid removal as patient/blood pressure tolerates. EDW will be lowered by time of hospital discharge. -Anemia of chronic disease; will we will monitor hemoglobin trends. -Hypertension; blood pressures have been high and usually improve with volume removed during HD. Amlodipine started and blood pressures have improved. We will monitor blood pressure trends and can adjust amlodipine as needed. -Left foot osteomyelitis. Vascular surgery following and planning angiogram. Podiatry planning for surgical debridement. ID following for antibiotics, on Zosyn and vancomycin.
--- NOTE | 2023-06-19 08:58 | PCM.RX.CS ---
Consult Antibiotic Management Pharmacy has been consulted to manage selected antiobiotic: Vancomycin Type of Intervention Type of Consult: Follow-up Prior Doses of Antibiotics Prior Doses of Antibiotics Received/Current Regimen: Last dose was 500mg iv x 1 on 06.16.23. Labs Labs: Sodium 134 mmol/L (136-145) L 06/19/23 06:05 Potassium 5.5 mmol/L (3.5-5.1) H 06/19/23 06:05 Chloride 101 mmol/L (98-107) 06/19/23 06:05 Carbon Dioxide 23.0 mmol/L (21.0-32.0) 06/19/23 06:05 Anion Gap 8 (5-15) 06/17/23 06:00 BUN 87 mg/dL (7-18) H 06/19/23 06:05 Creatinine 5.88 mg/dL (0.55-1.02) H 06/19/23 06:05 Est GFR (MDRD) Af Amer 9 mL/min (>60) L 06/19/23 06:05 Est GFR (MDRD) Non-Af 8 mL/min (>60) L 06/19/23 06:05 BUN/Creatinine Ratio 14.8 RATIO (10-20) 06/19/23 06:05 Glucose 203 mg/dL (74-106) H 06/19/23 06:05 Random Vancomycin 17.0 ug/mL (0.0-15.0) H 06/19/23 06:05 Microbiology Microbiology: Microbiology 06/14/23 18:48 Wound - Heel, Left Gram Stain - Final 06/14/23 18:48 Wound - Heel, Left Wound Culture - Final Propionibacterium species Corynebacterium striatum Dosing Weight Weight used for dosin.5 kg Goal Trough Goal Trough: 15-20 mcg/mL Pharmacy Plan for Drug Dosing Pharmacy Plan for Drug Dosing: Today's random level was 17.0. Have ordered 500mg iv x 1 post dialysis per protocol. New random level ordered for Fri. AM pre-dialysis. Pharmacy Service will continue to monitor and adjust dosing as required.
[2023-06-19 09:41] LABS: Bedside Glucose 134 mg/dL (74-106)
--- NOTE | 2023-06-19 11:00 | NURSING ---
Abdominal binder placed at this time.
[2023-06-19] MEDS: DAKIN'S SOL HALF STRENGTH (=0.25%) 1 APPLIC TOPICAL (11:15)
[2023-06-19] MEDS: Nystatin Powder 15gm Bottle 1 APPLIC TOPICAL ×2 (11:22→22:47)
[2023-06-19] MEDS: amLODIPine 5 MG Tablet PO (11:22)
[2023-06-19] MEDS: Menthol/Lanolin/Calamine/Znox 113 GM Tube 1 APPLIC TOPICAL ×2 (11:22→22:48)
[2023-06-19] MEDS: Ascorbic Acid 500 MG Tablet PO (11:22)
[2023-06-19] MEDS: Cholecalciferol (VIT D3) 25 MCG TABLET (1,000 UNITS) PO (11:22)
[2023-06-19 11:56] LABS: Bedside Glucose 106 mg/dL (74-106)
[2023-06-19 12:17] LABS: Hematocrit 25.9 % (37-47); Hemoglobin 8.2 g/dL (12.0-15.0)
--- NOTE | 2023-06-19 12:50 | PCM.PN.ID ---
Physical Exam Narrative New pain/swelling in abd, hematoma found on CT. No fever, no n/v/d. Const alert and no apparent distress Resp normal air movement and clear to auscultation bilaterally Cardio regular rate and regular rhythm GI soft to palpation, non-tender and non-distended Skin Skin Narrative: foot wrapped ID ID: Route of nutrition/ use of supplements: [] Nutritional Intake: [] IV Site: [] Romero Catheter: [] Assessment & Plan Assessment/Plan (1) Diabetes mellitus with diabetic polyneuropathy: (2) Foot osteomyelitis, left: QUALIFIERS: Osteomyelitis type: other chronic Qualified Code(s): M86.672 - Other chronic osteomyelitis, left ankle and foot PLAN: Wound cx so far with propionibacterium and diphtheroids. Vascular and podiatry following. On vanc/zosyn. Will need debridement. Tentative plan for discharge would be 6 weeks of iv abx dosed with HD (MWF via LUE graft). Will follow (3) End stage renal disease:
[2023-06-19] MEDS: Epoetin Alfa epbx 10,000 UNITS/ML 20000 UNIT IV (14:20)
--- NOTE | 2023-06-19 14:20 | CASEMGMT ---
Social Work SW spoke with physician. Pt will likely be discharged tomorrow with followup next week for surgery. SW met with pt and her spouse to discuss discharge plans. SW represented options of SNF vs home which have been discussed previously. Pt spouse vocal throughout conversation and making recommendations to what pt should do. Spouse back and forth between taking pt home and pt going to [facility]. Pt stating she has been to [facility] previously and did not have a good experience. SW reviewed list of SNF providers with pt and pt inquiring about [facility]. Pt spouse continuing to push for [facility]. Spouse then stating he can take pt home. SW discussed NWB status and inquiring if pt can maintain with assistance of spouse. Pt stating she does not think she can maintain NWB and would prefer to go to SNF. Spouse continues to interrupt pt and voice his opinion. With pt permission, referrals to be made to [facility] and [facility]. SW will ask RNCM to find jeffries of [facility] if pt is to return home as spouse is concerned about cost. SW updated pt and spouse that they will need to make a collective decision on discharge plan and SW will update when SNF's make decision on acceptance. ROCK Johnson
[2023-06-19] MEDS: Vancomycin IV 500 MG/100 ML BAG 100 MG IV (15:07)
--- NOTE | 2023-06-19 15:08 | PCM.PROGNOTE ---
Subjective Subjective Resting in bed. Alert and oriented. Denies any complaints. Constitutional's. Receiving dialysis. Objective Data Objective Data Vital Signs: Vital Signs Temp Pulse Resp BP Pulse Ox O2 Del Method O2 Flow Rate 98 F 87 18 140/70 H 96 Room Air 2 06/19/23 10:13 06/19/23 14:50 06/19/23 14:50 06/19/23 14:50 06/19/23 10:13 06/19/23 13:49 06/19/23 09:00 Oxygen Flow Rate (L/min) 2 Oxygen Delivery Method Room Air Weight: 55 kg Body Mass Index (BMI) 20.2 Intake & Output: Intake and Output for Last 24 Hours 06/17/23 06/18/23 06/19/23 23:59 23:59 23:59 Intake Total 719.5 / 959.5 390 / 390 400.00 / 400.00 Output Total 1999 0 / 0 Balance -1280.5 / -1040.5 390 / 390 400.00 / 400.00 Lab / Micro Data 06/19/23 11:57 06/19/23 06:05 Labs: Laboratory Results - last 24 hr 06/18/23 15:56: POC Glucose 137 H 06/18/23 21:23: POC Glucose 195 H 06/19/23 06:05: WBC 13.2 H, RBC 2.71 L, Hgb 8.4 L, Hct 27.9 L, MCV 103.0 H, MCH 31.0, MCHC 30.1 L, RDW Std Deviation 47.7 H, RDW Coeff of Maddison 12.9, Plt Count 290, MPV 11.1, Immature Gran % (Auto) 0.600, Neut % (Auto) 84.3 H, Lymph % (Auto) 5.2 L, [place] % (Auto) 8.3, Eos % (Auto) 1.1, Baso % (Auto) 0.5, Absolute Neuts (auto) 11.2 H, Absolute Lymphs (auto) 0.68 L, Nucleated RBC % 0, Sodium 134 L, Potassium 5.5 H, Chloride 101, Carbon Dioxide 23.0, BUN 87 H, Creatinine 5.88 H, Estim Creat Clear Calc 7.62, Est GFR (MDRD) Af Amer 9 L, Est GFR (MDRD) Non-Af 8 L, BUN/Creatinine Ratio 14.8, Glucose 203 H, Calcium 8.3 L, Phosphorus 5.0 H, Albumin 2.1 L, Random Vancomycin 17.0 H 06/19/23 06:13: POC Glucose 190 H 06/19/23 07:45: Lactic Acid 1.5 06/19/23 09:21: POC Glucose 134 H 06/19/23 11:38: POC Glucose 106 06/19/23 11:57: Hgb 8.2 L, Hct 25.9 L Micro: Microbiology 06/14/23 18:48 Wound - Heel, Left Gram Stain - Final 06/14/23 18:48 Wound - Heel, Left Wound Culture - Final Propionibacterium species Corynebacterium striatum Radiography Diagnostic Testing: Radiology Impression Pelvis CT 06/19/23 07:51 IMPRESSION: Large hematoma of the anterior abdominal wall the right lower quadrant. Electronically Signed: Travis Kemp MD at 9:39 EDT Reading Location ID and State: [facility], [facility] / [place] Tel , Service support , Physical Exam Narrative Left heel with necrotic ulceration to the posterior medial aspect of the heel, there is good amount of maloder present from the site, there is some localized cellulitis and edema, there is some bogginess present, there are no other ulcerations bilateral foot or ankle. Skin is thin and atrophic bilateral. There is no evidence of acute ischemia to the foot or ankle bilateral. DP and PT nonpalpable bilateral. Chronic decreased sensation to the foot bilateral. She does relate to some pain to the left heel, otherwise there is no other POP or pain on ROM to the foot or ankle bilateral. Const alert and oriented x3 Assessment & Plan Assessment/Plan (1) Type 2 diabetes mellitus with foot ulcer: (2) Foot osteomyelitis, left: QUALIFIERS: Osteomyelitis type: other chronic Qualified Code(s): M86.672 - Other chronic osteomyelitis, left ankle and foot (3) Non-pressure chronic ulcer of other part of left foot with necrosis of bone: PLAN: Plan Exam performed. Today decision was made to perform bedside I&D with oral consent of the and the . Site was prepped with Betadine paint. No anesthesia due to neuropathy. Hemostasis with light compression Stable eschar was removed down to over the level of calcaneal bone using combination of pickups and a #15 blade. Site was flushed with normal sterile saline. Tissue was sent to the lab for culture. Predebridement wound was 3.0 x 3.0 cm in a stable eschar. Postdebridement wound was 3.2 x 3.2 probes down to level of bone at approximately 2 cm.. Wound base demonstrates calcaneal bone mild mixed granular and necrotic base. No residual purulence. This debridement was excisional. All nonviable tissue was removed. This left heel wound was then dressed with Dakin's wet-to-dry dressing. Vascular surgery has been delayed till next week. Patient may require repeat debridement upon readmission at that time. Patient likely DC to SNF tomorrow. Recommend nonweightbearing to left lower extremity. Recommend daily Dakin's wet-to-dry dressing changes to left heel wound. Recommend antibiotics per infectious disease and culture and sensitivity. Continue to follow closely while in house.
[2023-06-19] MEDS: PureFlow B 2K Dialysis Soln 1 BAG 6 BAG PF (15:10)
[2023-06-19] MEDS: 0.9% Normal Saline 1,000 ML IV.SOLN. 1000 ML OPERA.SITE (15:10)
--- NOTE | 2023-06-19 16:05 | CASEMGMT ---
Social Work [facility] can accept and provide dialysis on site. [facility] can accept and provide transportation to dialysis center. Per physician, IV ATB not determined at this time so cost of home ATB cannot be determined yet. Pt and spouse updated on options. Pt stating she does not know which option to choose. SW informed pt that SW will be back first thing in the morning for decision and pt and spouse are agreeable. ROCK Johnson
[2023-06-19] MEDS: Juven (unflavored) Packet 1 PACKET PO (16:24)
[2023-06-19 16:53] LABS: Bedside Glucose 146 mg/dL (74-106)
--- NOTE | 2023-06-19 17:55 | PCM.PN.HOSP ---
Reason for Visit Reason for Visit: Diagnoses Type 2 diabetes mellitus with diabetic polyneuropathy (06/14/23) Type 2 diabetes mellitus with foot ulcer (06/14/23) Hyperkalemia (06/14/23) Other specified peripheral vascular diseases (06/14/23) Non-pressure chronic ulcer of other part of unspecified foot with unspecified severity (06/14/23) Non-pressure chronic ulcer of other part of left foot with necrosis of bone (06/14/23) Other chronic osteomyelitis, left ankle and foot (06/14/23) End stage renal disease (06/14/23) Other injury of unspecified body region, initial encounter (06/14/23) Subjective Subjective Patient was seen and examined today, I talked extensively with general surgery, podiatry, infectious diseases, vascular surgery, and nephrology about her care. Patient appeared to have an acute abdominal wall hematoma formed this morning with pain, and looking over the patient's labs however, patient had a drop in her hemoglobin 2 days ago, her hemoglobin this morning was 8.4 and I repeated the hemoglobin at around noon today and it was 8.2. It does not appear that the patient has an active blood loss at this time, initially I try to get the patient transferred to a tertiary hospital for interventional radiological evaluation and treatment, however, the 3 hospitals that I called-[facility], [facility], and [facility] in [facility] did not have beds. I elected to place the patient on a transfer list for [facility], at this time however it appears that the patient is not exhibiting active bleeding and I talked with the and the patient about her medical course and the would like her to remain here if possible, I also talked with vascular surgery today and they stated that they would follow the patient closely while she was in the hospital. Patient's pelvic CT showed a large hematoma the anterior abdominal wall over the right lower quadrant. Vascular procedures were postponed at this time, I was told that the earliest this could be undertaken would be next Saturday, patient will need at this time to go to an extended care facility for inpatient rehab services and brought back in the hospital for further treatment. Podiatry debrided her left heel area today and Dr. Mendoza feels comfortable with the patient going to the assisted on IV antibiotics, it is planned according to infectious diseases that the patient have IV antibiotics administered during dialysis times. Objective Data Objective Data Vital Signs: Vital Signs Temp Pulse Resp BP Pulse Ox O2 Del Method O2 Flow Rate 97.6 F L 90 16 161/87 H 96 Nasal Cannula 1 06/19/23 16:00 06/19/23 16:14 06/19/23 16:14 06/19/23 16:14 06/19/23 16:00 06/19/23 16:14 06/19/23 16:14 Oxygen Flow Rate (L/min) 1 Oxygen Delivery Method Nasal Cannula Weight: 59.557 kg Body Mass Index (BMI) 21.9 Intake & Output: Intake and Output for Last 24 Hours 06/17/23 06/18/23 06/19/23 23:59 23:59 23:59 Intake Total 719.5 / 959.5 390 / 390 994.00 / 994.00 Output Total 1999 1023 / 1023 Balance -1280.5 / -1040.5 390 / 390 -29.00 / -29.00 Lab / Micro Data 06/19/23 11:57 06/19/23 06:05 Labs: Laboratory Results - last 24 hr 06/18/23 21:23: POC Glucose 195 H 06/19/23 06:05: WBC 13.2 H, RBC 2.71 L, Hgb 8.4 L, Hct 27.9 L, MCV 103.0 H, MCH 31.0, MCHC 30.1 L, RDW Std Deviation 47.7 H, RDW Coeff of Maddison 12.9, Plt Count 290, MPV 11.1, Immature Gran % (Auto) 0.600, Neut % (Auto) 84.3 H, Lymph % (Auto) 5.2 L, [place] % (Auto) 8.3, Eos % (Auto) 1.1, Baso % (Auto) 0.5, Absolute Neuts (auto) 11.2 H, Absolute Lymphs (auto) 0.68 L, Nucleated RBC % 0, Sodium 134 L, Potassium 5.5 H, Chloride 101, Carbon Dioxide 23.0, BUN 87 H, Creatinine 5.88 H, Estim Creat Clear Calc 7.62, Est GFR (MDRD) Af Amer 9 L, Est GFR (MDRD) Non-Af 8 L, BUN/Creatinine Ratio 14.8, Glucose 203 H, Calcium 8.3 L, Phosphorus 5.0 H, Albumin 2.1 L, Random Vancomycin 17.0 H 06/19/23 06:13: POC Glucose 190 H 06/19/23 07:45: Lactic Acid 1.5 06/19/23 09:21: POC Glucose 134 H 06/19/23 11:38: POC Glucose 106 06/19/23 11:57: Hgb 8.2 L, Hct 25.9 L 06/19/23 16:34: POC Glucose 146 H Micro: Microbiology 06/14/23 18:48 Wound - Heel, Left Gram Stain - Final 06/14/23 18:48 Wound - Heel, Left Wound Culture - Final Propionibacterium species Corynebacterium striatum Radiography Diagnostic Testing: Radiology Impression Pelvis CT 06/19/23 07:51 IMPRESSION: Large hematoma of the anterior abdominal wall the right lower quadrant. Electronically Signed: Travis Kemp MD at 9:39 EDT Reading Location ID and State: [facility] / [place] Tel , Service support , Physical Exam Const alert, oriented x3 and no apparent distress Constitutional Narrative: Patient appears much older than her stated age General Appearance: cooperative, well kempt and well developed Orientation / Consciousness: awake, oriented to person, oriented to place and oriented to time HEENT normocephalic, head/scalp atraumatic and moist oral mucous membranes Eyes PERRL, EOMs intact bilaterally and conjunctivae normal Neck supple, no JVD, thyroid normal and no carotid bruits General: trachea midline Resp normal respiratory effort, no retractions, no use of accessory muscles and clear to auscultation bilaterally Auscultation: Negative for rales, rhonchi or wheezes Cardio regular rate, regular rhythm, S1 normal heart sound, S2 normal heart sound, no murmurs, no rub and no gallops GI GI Narrative: Patient has distention of the abdominal wall in the right mid abdominal area along with tenderness during palpation Extremity Extremity Narrative: Patient's left foot was wrapped with surgical dressing, this was not removed for examination of the Skin no rashes or lesions noted General Skin Exam: no breakdown Neuro oriented x3, CN's II-XII intact bilaterally, no focal motor deficits and no sensory deficits noted Sensorium / Orientation: awake and alert Speech: speech normal Psych affect normal Assessment & Plan Assessment/Plan (1) Foot osteomyelitis, left: QUALIFIERS: Osteomyelitis type: other chronic Qualified Code(s): M86.672 - Other chronic osteomyelitis, left ankle and foot PLAN: Plan 1. Left foot osteomyelitis-patient will remain on her current antibiotic coverage per infectious diseases #2 end-stage renal disease requiring dialysis-patient underwent dialysis today #3 large hematoma of the anterior abdominal wall of the right lower quadrant-this will be treated symptomatically at this time, there are no plans for any surgical intervention or interventional radiology treatment at this time-patient's hemoglobins will be monitored #4 peripheral vascular disease-again vascular surgery states that they will be unable to perform any vascular procedures until next week #5 type 2 diabetes-blood sugars will be monitored, sliding scale insulin will use as needed #6 General debility-PT and OT are seeing patient, she will need short-term placement to half-way facility #7 acute blood loss anemia-from abdominal wall hematoma, patient's hemoglobin will be monitored, she does not require blood transfusion at this time #8 mild hypoxia-etiology unclear, possibly secondary to atelectasis, continue to try to wean oxygen off if possible #9 hyperkalemia-patient underwent dialysis today, labs will be monitored Total clinical time spent by myself addressing patient's medical issues, reviewing all of her data, and collaborating with patient's care team: 50 minutes Charges/Coding Visit Charges Inpatient E&M: 35674 [facility] Hosp L3
[2023-06-19] MEDS: Acetaminophen 325 MG Tablet 650 MG PO (19:40)
[2023-06-19 23:09] LABS: Bedside Glucose 151 mg/dL (74-106)
[2023-06-20 04:00] VITALS: BMI 21.8
[2023-06-20 06:19] LABS: Absolute Lymphocyte Count 1.01 X10^3/uL (0.83-4.51); Absolute Neutrophil Count 10.5 X10^3/uL (2.0-7.7); Basophil# 0.07 X10^3/uL; Basophil% 0.5 % (0-1); Eosinophil# 0.33 X10^3/uL; Eosinophils% 2.4 % (0-5); Hematocrit 26.1 % (37-47); Lymphocyte # 1.01 X10^3/ul (0.83-4.51); Lymphocyte % 7.3 % (19-41); Mean Corp Hgb Conc 30.7 g/dL (32-36); Mean Corpuscular Hgb 30.8 pg (27.0-32.0); Mean Corpuscular Volume 100.4 fL (81-99); Mean Platelet Vol. 10.9 fl (6.2-12.0); Monocyte# 1.52 X10^3/uL; NRBC Flagged by Analyzer 0 % (0-5); Neutrophil # 10.47 X10^3/uL (2.7-7.7); Neutrophil % 75.4 % (47-70); POSITIVE DIFFERENTIAL YES; Platelet Count 275 K/mm3 (150-450); RBC Distribution Width CV 13.1 % (11.6-14.6); RBC Distribution Width SD 47.5 fl (35.1-43.9); White Blood Count 13.9 K/mm3 (4.4-11.0)
[2023-06-20 06:24] VITALS: BP 173/68; PULSE 86; RESP 18; TEMP 36.7; O2SAT 99
[2023-06-20 06:31] LABS: Differential Indicated SCAN CRITERIA MET
[2023-06-20] MEDS: Acetaminophen 325 MG Tablet 650 MG PO (06:32)
[2023-06-20 06:44] LABS: Anisocytosis 2+; Differential Comment SCANNED; Macrocytosis 2+
[2023-06-20 06:55] VITALS: O2SAT 98
[2023-06-20 06:56] LABS: Bedside Glucose 99 mg/dL (74-106)
--- NOTE | 2023-06-20 07:47 | PCM.PN.SRG ---
Subjective Subjective GlobinPatient is cloth finishing range back tender in the right lower quadrant has remained fairly stable currently 8. Objective Data Objective Data Vital Signs: Vital Signs Temp Pulse Resp BP Pulse Ox O2 Del Method O2 Flow Rate 98.1 F 86 18 173/68 H 99 Nasal Cannula 2 06/20/23 06:24 06/20/23 06:24 06/20/23 06:24 06/20/23 06:24 06/20/23 06:24 06/20/23 06:24 06/20/23 06:24 Oxygen Flow Rate (L/min) 2 Oxygen Delivery Method Nasal Cannula Weight: 131 lb Body Mass Index (BMI) 21.8 Intake & Output: Intake and Output for Last 24 Hours 06/18/23 06/19/23 06/20/23 23:59 23:59 23:59 Intake Total 390 / 390 1044.00 / 1044.00 450 / 450 Output Total 1023 / 1023 0 / 0 Balance 390 / 390 21.00 / 21.00 450 / 450 Lab / Micro Data 06/20/23 05:45 06/19/23 06:05 Labs: Laboratory Results - last 24 hr 06/19/23 07:45: Lactic Acid 1.5 06/19/23 09:21: POC Glucose 134 H 06/19/23 11:38: POC Glucose 106 06/19/23 11:57: Hgb 8.2 L, Hct 25.9 L 06/19/23 16:34: POC Glucose 146 H 06/19/23 22:51: POC Glucose 151 H 06/20/23 05:45: WBC 13.9 H, RBC 2.60 L, Hgb 8.0 L, Hct 26.1 L, MCV 100.4 H, MCH 30.8, MCHC 30.7 L, RDW Std Deviation 47.5 H, RDW Coeff of Maddison 13.1, Plt Count 275, MPV 10.9, Immature Gran % (Auto) 3.400 H, Neut % (Auto) 75.4 H, Lymph % (Auto) 7.3 L, Clare % (Auto) 11.0 H, Eos % (Auto) 2.4, Baso % (Auto) 0.5, Absolute Neuts (auto) 10.5 H, Absolute Lymphs (auto) 1.01, Nucleated RBC % 0, Differential Comment SCANNED, Diff Path Review May foll, Anisocytosis 2+, Macrocytosis 2+ 06/20/23 06:30: POC Glucose 99 Micro: Microbiology 06/14/23 18:48 Wound - Heel, Left Gram Stain - Final 06/14/23 18:48 Wound - Heel, Left Wound Culture - Final Propionibacterium species Corynebacterium striatum Radiography Diagnostic Testing: Radiology Impression Pelvis CT 06/19/23 07:51 IMPRESSION: Large hematoma of the anterior abdominal wall the right lower quadrant. Electronically Signed: Travis Kemp MD at 9:39 EDT Reading Location ID and State: [facility] / [place] Tel , Service support , Physical Exam Const oriented x3 Resp normal respiratory effort Cardio regular rate GI GI Narrative: Tender right lower quadrant previous hematoma still appears to be within previous richards areas may be a little softer superiorly as well. Assessment & Plan Assessment/Plan (1) Hematoma: PLAN: We will continue conservative management. Patient does have abdominal binder on difficult spot to apply pressure well. Continue to monitor hemoglobin. Maye Warren M.D. Pager: [phone] [facility] [address] [place] [address], Outpatient Pavilion, [address] [place] [address] Office: [phone] Charges/Coding Visit Charges Inpatient E&M: 03410 [facility] Hosp L2
[2023-06-20] MEDS: Juven (unflavored) Packet 1 PACKET PO ×2 (08:29→16:57)
--- NOTE | 2023-06-20 09:33 | CASEMGMT ---
Social Work SW met with pt and spouse and discussed discharge plan. Pt is choosing [facility]. SW will follow for placement when medically ready. Plan: [facility], when medically ready [facility] Johnson
--- NOTE | 2023-06-20 09:34 | CASEMGMT ---
Discharge Planning FOC is [facility]. Updated both SW and [facility] via [employer]. Eliza Lozano, Discharge Planning Asst.
[2023-06-20] MEDS: Menthol/Lanolin/Calamine/Znox 113 GM Tube 1 APPLIC TOPICAL (09:51)
[2023-06-20] MEDS: DAKIN'S SOL HALF STRENGTH (=0.25%) 1 APPLIC TOPICAL (09:51)
[2023-06-20] MEDS: Nystatin Powder 15gm Bottle 1 APPLIC TOPICAL (09:51)
[2023-06-20] MEDS: Cholecalciferol (VIT D3) 25 MCG TABLET (1,000 UNITS) PO (09:51)
[2023-06-20] MEDS: Ascorbic Acid 500 MG Tablet PO (09:51)
--- NOTE | 2023-06-20 09:58 | PN.ID_ITS ---
Physical Exam Narrative Feeling ok, abd sore, foot is more painful, no fever Const alert and no apparent distress HEENT normocephalic Resp normal air movement and clear to auscultation bilaterally Cardio regular rate and regular rhythm GI soft to palpation, non-tender and non-distended Skin Skin Narrative: foot wrapped ID ID: Route of nutrition/ use of supplements: [] Nutritional Intake: [] IV Site: [] Romero Catheter: [] Assessment & Plan Assessment/Plan (1) Diabetes mellitus with diabetic polyneuropathy: (2) Foot osteomyelitis, left: QUALIFIERS: Osteomyelitis type: other chronic Qualified Code(s): M86.672 - Other chronic osteomyelitis, left ankle and foot PLAN: Wound cx so far with propionibacterium and diphtheroids. Vascular and podiatry following. On vanc/zosyn. Bedside debridement 06/19. Plan for disch arge would be 6 weeks of iv vanc dosed with HD (MWF via LUE graft) and po augmentin, stop date 07/31/23. ID followup in 2 weeks. Will follow (3) End stage renal disease:
[2023-06-20 10:14] VITALS: O2SAT 87; O2SAT 99
--- NOTE | 2023-06-20 10:15 | CT_ITS ---
INDICATION: lower abdominal wall hematoma, assess stability EXAMINATION: CT PELVIS BONE - CT Pelvis W/O Contrast Injection TECHNIQUE: Routine noncontrast bone CT protocol was performed of the pelvis. 2-D reformats were performed by the technologist. A radiation dose optimization technique was used for this scan. IV Contrast dosage and agent: None. RADIATION DOSAGE (If Supplied By Facility): CTDIvol = ( 27.34 ) mGy, DLP = ( 896.20 ) mGycm COMPARISON: June 19, 2023 FINDINGS: SOFT TISSUES: Again noted is a soft tissue collection in the right anterior subcutaneous soft tissues slightly more prominent in size measuring 5.2 x 8.4 cm in AP and transverse dimension and 9.6 cm in craniocaudal dimension. On coronal views the collection demonstrates a thinner component that extends towards the midline. Measurement on the coronal view (right to left) is also slightly increased measuring 16.3 cm. There is diffuse infiltrative change noted in the adjacent anterior abdominal and flank soft tissues. Calcified lesion is noted in the uterus possibly representing a fibroid. Contrast is identified in the urinary bladder. Visualized bowel appears unremarkable. There is no evidence for abnormal lymphadenopathy. There are no intrapelvic masses or fluid collections identified otherwise. BONES/JOINTS: No acute fracture or subluxation. CT/Pelvis without IV Contrast IMPRESSION: Mild increase in size in the right anterior subcutaneous collection. Electronically Signed: Waqas Segal, at 10:45 EDT ,
[2023-06-20 11:00] VITALS: BP 115/54; PULSE 84; RESP 18; TEMP 36.7; O2SAT 99
[2023-06-20 12:23] LABS: Bedside Glucose 142 mg/dL (74-106)
--- NOTE | 2023-06-20 12:49 | CHAPLAIN ---
Type of Pastoral Visit ___ Initial Visit _x__ Follow-up Visit ___ On-call Visit ___ General Patient Visit ___ Spiritual Assessment ___ Family Conference ___ Bereavement ___ Rapid Response ___ Code Blue ___ Other (describe below) Pastoral Care Referral From _x__ Patient _x__ Family ___ Nurse ___ Physician ___ Bulk Sealer Operator ___ Margarine Churn Operator ___ Other (describe below) Sacrament/Intervention _x__ Active listening ___ Anointing ___ Moravian ___ Bereavement ___ Communion ___ Lelo exploration ___ ___ Life review _x__ Prayer ___ Reconciliation ___ Sacrament of Sick _x__ Supportive presence ___ Wedding ___ Other (describe below) Pastoral Comments patient and spouse requested follow up visit for prayer and conversation; pt is expected to transfer out
--- NOTE | 2023-06-20 13:20 | PCM.PN.REN ---
Subjective Subjective Sitting up in bed eating lunch. at bedside. No complaints today. Objective Data Objective Data Vital Signs: Vital Signs Temp Pulse Resp BP Pulse Ox O2 Del Method O2 Flow Rate 98.1 F 86 18 173/68 H 99 Nasal Cannula 2 06/20/23 06:24 06/20/23 06:24 06/20/23 06:24 06/20/23 06:24 06/20/23 11:00 06/20/23 11:00 06/20/23 11:00 Oxygen Flow Rate (L/min) [At 2 REST with Oxygen] Oxygen Flow Rate (L/min) 2 Oxygen Delivery Method Nasal Cannula Weight: 59.421 kg Body Mass Index (BMI) 21.8 Intake & Output: Intake and Output for Last 24 Hours 06/18/23 06/19/23 06/20/23 23:59 23:59 23:59 Intake Total 390 / 390 1044.00 / 1044.00 450 / 450 Output Total 1023 / 1023 0 / 0 Balance 390 / 390 21.00 / 21.00 450 / 450 Lab / Micro Data 06/20/23 05:45 06/19/23 06:05 Labs: Laboratory Results - last 24 hr 06/19/23 16:34: POC Glucose 146 H 06/19/23 22:51: POC Glucose 151 H 06/20/23 05:45: WBC 13.9 H, RBC 2.60 L, Hgb 8.0 L, Hct 26.1 L, MCV 100.4 H, MCH 30.8, MCHC 30.7 L, RDW Std Deviation 47.5 H, RDW Coeff of Maddison 13.1, Plt Count 275, MPV 10.9, Immature Gran % (Auto) 3.400 H, Neut % (Auto) 75.4 H, Lymph % (Auto) 7.3 L, [place] % (Auto) 11.0 H, Eos % (Auto) 2.4, Baso % (Auto) 0.5, Absolute Neuts (auto) 10.5 H, Absolute Lymphs (auto) 1.01, Nucleated RBC % 0, Differential Comment SCANNED, Diff Path Review May foll, Anisocytosis 2+, Macrocytosis 2+ 06/20/23 06:30: POC Glucose 99 06/20/23 12:02: POC Glucose 142 H Micro: Microbiology 06/19/23 15:00 Tissue - Left Foot Gram Stain - Final 06/19/23 15:00 Tissue - Left Foot Tissue Culture - Preliminary Gram positive organism 06/14/23 18:48 Wound - Heel, Left Gram Stain - Final 06/14/23 18:48 Wound - Heel, Left Wound Culture - Final Propionibacterium species Corynebacterium striatum Radiography Diagnostic Testing: Radiology Impression Pelvis CT 06/20/23 10:15 IMPRESSION: Mild increase in size in the right anterior subcutaneous collection. Electronically Signed: Waqas Segal, at 10:45 EDT , Physical Exam Narrative General: Alert and oriented x3, NAD. Neck: Supple, no JVD. Cardiovascular: Normal S1, S2. No rubs, murmurs, or gallops. Respiratory: Lungs are clear to auscultation bilaterally. Abdomen: Normal bowel sounds, soft, tender to palpation right lower quadrant. Hematoma noted right lower quadrant. Extremities: Trace edema bilateral legs, improved. Matthew wrap intact to left lower leg and foot Left arm AV fistula positive thrill and bruit Assessment & Plan Assessment/Plan (1) End stage renal disease: (2) Hyperkalemia: (3) Foot osteomyelitis, left: QUALIFIERS: Osteomyelitis type: other chronic Qualified Code(s): M86.672 - Other chronic osteomyelitis, left ankle and foot PLAN: Plan Impression/plan: The patient is a 72-year-old woman with past history of ESRD, type 2 diabetes mellitus, and prior TIA. The patient is admitted to the hospital on 06/14/2023 with left foot osteomyelitis. - The patient dialyzes on MWF schedule at [facility]. Outpatient EDW was 55.2 kg. Had dialysis yesterday and tolerated around 1.5 L fluid removal. UF goal back down as patient became slightly hypotensive towards end of treatment. No acute indication for [employer] today, next dialysis tomorrow. EDW will be lowered by time of hospital discharge. -Anemia of chronic disease; will we will monitor hemoglobin trends. Received NAHUN with HD yesterday. -Hypertension; blood pressures have been high and usually improves with volume removed during HD. Amlodipine started and blood pressures have improved. We will monitor blood pressure trends and can adjust amlodipine as needed. -Left foot osteomyelitis. Vascular surgery following and planning angiogram next week. ID following for antibiotics, on Zosyn and vancomycin. At time of discharge to be discharged on vancomycin and Augmentin. Will arrange for vancomycin 500 mg post HD x 6 weels. -Right lower abdominal quadrant hematoma, conservative treatment at this time. Seen by surgery team. -Discussed nephrology plan and discharge plan with Dr. Gonzalez and discharge team
--- NOTE | 2023-06-20 14:07 | PCM.PROGNOTE ---
Subjective Subjective 72-year-old female seen bedside 1 day status post bedside incision and drainage of abscess to left heel wound. Patient notes some pain overnight. Patient denies constitutional's. Patient has no other complaints Objective Data Objective Data Vital Signs: Vital Signs Temp Pulse Resp BP Pulse Ox O2 Del Method O2 Flow Rate 98.1 F 86 18 173/68 H 99 Nasal Cannula 2 06/20/23 06:24 06/20/23 06:24 06/20/23 06:24 06/20/23 06:24 06/20/23 11:00 06/20/23 11:00 06/20/23 11:00 Oxygen Flow Rate (L/min) [At 2 REST with Oxygen] Oxygen Flow Rate (L/min) 2 Oxygen Delivery Method Nasal Cannula Weight: 59.421 kg Body Mass Index (BMI) 21.8 Intake & Output: Intake and Output for Last 24 Hours 06/18/23 06/19/23 06/20/23 23:59 23:59 23:59 Intake Total 390 / 390 1044.00 / 1044.00 630 / 630 Output Total 1023 / 1023 0 / 0 Balance 390 / 390 21.00 / 21.00 630 / 630 Lab / Micro Data 06/20/23 05:45 06/19/23 06:05 Labs: Laboratory Results - last 24 hr 06/19/23 16:34: POC Glucose 146 H 06/19/23 22:51: POC Glucose 151 H 06/20/23 05:45: WBC 13.9 H, RBC 2.60 L, Hgb 8.0 L, Hct 26.1 L, MCV 100.4 H, MCH 30.8, MCHC 30.7 L, RDW Std Deviation 47.5 H, RDW Coeff of Maddison 13.1, Plt Count 275, MPV 10.9, Immature Gran % (Auto) 3.400 H, Neut % (Auto) 75.4 H, Lymph % (Auto) 7.3 L, [place] % (Auto) 11.0 H, Eos % (Auto) 2.4, Baso % (Auto) 0.5, Absolute Neuts (auto) 10.5 H, Absolute Lymphs (auto) 1.01, Nucleated RBC % 0, Differential Comment SCANNED, Diff Path Review May foll, Anisocytosis 2+, Macrocytosis 2+ 06/20/23 06:30: POC Glucose 99 07/20/23 12:02: POC Glucose 142 H Micro: Microbiology 06/19/23 15:00 Tissue - Left Foot Gram Stain - Final 06/19/23 15:00 Tissue - Left Foot Tissue Culture - Preliminary Gram positive organism 06/14/23 18:48 Wound - Heel, Left Gram Stain - Final 06/14/23 18:48 Wound - Heel, Left Wound Culture - Final Propionibacterium species Corynebacterium striatum Radiography Diagnostic Testing: Radiology Impression Pelvis CT 06/20/23 10:15 IMPRESSION: Mild increase in size in the right anterior subcutaneous collection. Electronically Signed: Waqas Philipp, at 10:45 EDT Reading Location ID and State: [facility] / [place] Tel , Service support , Physical Exam Narrative Left heel wound debrided down to the level of the calcaneus yesterday. Today the wound base demonstrates a fibronecrotic base with slight malodor. Probes down to level of calcaneus with exposed calcaneal tuberosity. Resolved periwound erythema edema and warmth. Assessment & Plan Assessment/Plan (1) Non-pressure chronic ulcer of other part of left foot with necrosis of bone: PLAN: Exam performed. Wound examined and redressed with Dakin's wet-to-dry Continue nonweightbearing left lower extremity Patient to have vascular surgery next Saturday Consider further operative debridement at that time Follow-up in 1 week (2) Foot osteomyelitis, left: QUALIFIERS: Osteomyelitis type: other chronic Qualified Code(s): M86.672 - Other chronic osteomyelitis, left ankle and foot
--- NOTE | 2023-06-20 16:31 | CASEMGMT ---
Social Work SW spoke with [facility] and they are able to accept pt at any time. Physician updated. Green sheet placed on pt chart to be followed in the event pt discharges tonight. Plan: [facility], when medically ready [facility] Johnson
--- NOTE | 2023-06-20 16:43 | PCM.TXEXTCAR ---
Diet Diet Order/Speech Therapy: 06/19/23 11:20 Diet: Consistent Carb - Calorie Controlled Dietary Modifications:: Consistent Carbohydrate Is pt able to select menu?: Yes How many daily calories?: 1999 calorie Routine Orders/Code Status Routine Lab Work: CBC (on 06/24/23) and - (Fingerstick blood sugars AC nightly, Humalog subcu per sliding scale: 200-250: 5 units, 251-300: 8 units, 301-350: 12 units) Code Status: DNRCC-A (with intubation) Wound(s) Lt heel: Wound Type: Neuropathic/Diabetic Foot Ulcer Dressing Change: Dakins moistened gauze Therapies Weight Bearing: Non weight bearing (left foot) Physical Therapy: Eval and Treat Occupational Therapy: Eval and Treat Problem/Diagnosis (1) Non-pressure chronic ulcer of other part of left foot with necrosis of bone: Status: Chronic Code(s): L97.524 - Non-pressure chronic ulcer of other part of left foot with necrosis of bone (2) Foot osteomyelitis, left: Status: Acute Code(s): M86.9 - Osteomyelitis, unspecified Plan 1. Left foot osteomyelitis-patient will remain on her current antibiotic coverage per infectious diseases-when she goes to the extended care facility she will be on Augmentin and vancomycin 500 mg after each dialysis session-these antibiotics are to run through July 31, 2023 #2 end-stage renal disease requiring dialysis-patient underwent dialysis today #3 large hematoma of the anterior abdominal wall of the right lower quadrant-this will be treated symptomatically at this time, there are no plans for any surgical intervention or interventional radiology treatment at this time-patient's hemoglobins will be monitored #4 peripheral vascular disease-again vascular surgery states that they will be unable to perform any vascular procedures until next week #5 type 2 diabetes-blood sugars will be monitored, sliding scale insulin will use as needed #6 General debility-PT and OT are seeing patient, she will need short-term placement to halfway facility #7 acute blood loss anemia-from abdominal wall hematoma, patient's hemoglobin will be monitored, she does not require blood transfusion at this time #8 mild hypoxia-etiology unclear, possibly secondary to atelectasis, continue to try to wean oxygen off if possible #9 hyperkalemia-patient underwent dialysis today, labs will be monitored Total clinical time spent by myself addressing patient's medical issues, reviewing all of her data, and collaborating with patient's care team: 50 minutes Allergies/Procedures Done in Hospital Allergies doxycycline Allergy (Verified 06/14/23 10:53) Rash levofloxacin [From Levaquin] Allergy (Verified 06/14/23 10:53) patient states mother had allergy and is afraid she is. Procedures: Dialysis Type of Care/Length of Stay Estimated LOS: Convalescent Care Less Than 30 days Type of Care Needed: Skilled Rehab Potential: Good Prognosis: Good Additional Orders/Day of Discharge H&P will serve as current which was dated: 06/14/23 Day of Discharge: 06/20/23 Dietary and Speech Recommendations Dietitian Recommendations/Changes: Will continue Consistent CHO/ Renal general - no protein restriction diet Will continue Roberto bid to help w/ wound healing. Will d/c glucerna shake w/ medpass d/t pt too full to drink after eating meals and taking roberto. Provide diet education prior to d/c if warranted by pt. Discharge Plan Admission Admit Date/Time: 06/14/23 14:38 Primary Reason for Your Visit: Osteomyelitis of the left foot, right-sided abdominal wall hematoma, anemia Attending Provider: Wiley Gonzalez Primary Care Provider: Care Physician,No Primary Consulting Providers: Faith Michelle; Carlos Manuel Maloney; Jakob Theodore; Avery Olsen; Jakob Chisholm; Maye Warren Instructions Additional Instructions / Restrictions: Stop date for antibiotics: July 31, 2023 Discharge Orders/Prescriptions Prescriptions: New amoxicillin-pot clavulanate [Augmentin] 250-62.5 mg/5 mL suspension for reconstitution 10 ml PO TID 40 Days Qty: 1200 0RF amlodipine 5 mg Tablet 5 mg PO DAILY Qty: 0 0RF nystatin [Nyamyc] 100,000 unit/gram Powder 1 applic topical BID Qty: 0 0RF Protocol: *Topical Application Instructions APPLICATION INSTRUCTIONS: darien groin HySept 0.25 % Solution 1 applic topical DAILY Qty: 0 0RF Protocol: *Topical Application Instructions APPLICATION INSTRUCTIONS: Use for wet to dry gauze dressing changes topically to left heel ulcer. menthol-zinc oxide [Calmoseptine] 0.44-20.6 % Ointment 1 applic topical BID Qty: 0 0RF Protocol: *Topical Application Instructions APPLICATION INSTRUCTIONS: to coccyx Roberto (with collagen) 7-7-1.5 gram Powder In Packet 1 packet PO BIDCM Qty: 0 0RF vancomycin in 0.9 % sodium chl 500 mg/100 mL piggyback 200 mg IV UD Rx Instructions: After each dialysis, stop date July 31, 2023 Continued ascorbic acid (vitamin C) [C-500] 500 mg tablet 500 mg PO DAILY cholecalciferol (vitamin D3) [Vitamin D3] 25 mcg (1,000 unit) tablet 25 mcg PO DAILY Patient Comments: PT STATES THAT THEY TAKE AN OTC VITAMIN D THREE DAYS A WEEK. PT STATES THAT THEY DO NOT TAKE THIS ON ANY SPECIFIC DAY. lidocaine-prilocaine 2.5-2.5 % cream 1 applic topical .Richard Patient Comments: APPLY SMALL AMOUNT TO ACCESS SITE (AVF) 1 HOUR BEFORE DIALYSIS. COVER WITH OCCLUSIVE DRESSING (SARAN WRAP) Discontinued calcium carbonate [Antacid (calcium carbonate)] 200 mg calcium (500 mg) tablet,chewable 200 - 400 mg PO DAILY Referrals / Follow Up: Waqas Mendoza DPM [Med Staff - Active Staff] - See Referral Note (Patient will need follow-up with Dr. Mendoza the week of 06/24/2023, call the office to make an appointment, make appointment after 06/25/2023 that week.) Jakob Theodore MD [Med Staff - Active Staff] - See Referral Note (Patient will be having an angiogram on 06/25/2023, call his office to confirm the time, angiogram will be performed at [facility]) Care Physician,No Primary [Primary Care Provider] - Disposition Disposition (needs filled in before D/C Order can be placed): Long Term Facility (2) Foot osteomyelitis, left Qualifiers: Osteomyelitis type: other chronic Qualified Code(s): M86.672 - Other chronic osteomyelitis, left ankle and foot
[2023-06-20 16:54] LABS: Bedside Glucose 136 mg/dL (74-106)
[2023-06-20 17:01] VITALS: BP 139/52; PULSE 91; RESP 16; TEMP 36.9; O2SAT 91
--- NOTE | 2023-06-20 17:02 | PCM.DC.SUM ---
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 EMERGENT Consult: No MD Notified: Yes Date Notified: 06/14/23 Time Notified: 14:56 Method of Notification: ED Physician Initiated 06/16/23 07:39 Consult: Infectious Disease Routine Consulting Provider: Avery Olsen Reason for Consult: left foot osteomyelitis EMERGENT Consult: No MD Notified: Yes Date Notified: 06/16/23 Time Notified: 07:39 Method of Notification: Answering Service Consult: Vascular Surgery Routine Consulting Provider: Jakob Theodore Reason for Consult: peripheral arterial disease EMERGENT Consult: No MD Notified: Yes Date Notified: 06/17/23 Time Notified: 08:25 Method of Notification: Text 06/19/23 07:08 Consult: General Surgery Routine Consulting Provider: Maye Warren Reason for Consult: hematoma on abdomen from lovenox shot EMERGENT Consult: No MD Notified: Yes Date Notified: 06/19/23 Time Notified: 07:08 Method of Notification: Verbal Reason For Visit: LEFT FOOT RULE OUT OSTEOMYELITIS; PROCEDURE Diagnosis Discharge Diagnosis (1) Non-pressure chronic ulcer of other part of left foot with necrosis of bone: Status: Chronic Code(s): L97.524 - Non-pressure chronic ulcer of other part of left foot with necrosis of bone (2) Foot osteomyelitis, left: Status: Acute Code(s): M86.9 - Osteomyelitis, unspecified Qualifiers: Osteomyelitis type: other chronic Qualified Code(s): M86.672 - Other chronic osteomyelitis, left ankle and foot Plan 1. Left foot osteomyelitis-with Propionibacterium and Corynebacterium -patient will remain on her current antibiotic coverage per infectious diseases-when she goes to the [facility] facility she will be on Augmentin and vancomycin 500 mg after each dialysis session-these antibiotics are to run through July 31, 2023 #2 end-stage renal disease requiring dialysis-patient underwent dialysis today #3 large hematoma of the anterior abdominal wall of the right lower quadrant-this will be treated symptomatically at this time, there are no plans for any surgical intervention or interventional radiology treatment at this time-patient's hemoglobins will be monitored #4 peripheral vascular disease-again vascular surgery states that they will be unable to perform any vascular procedures until next week #5 type 2 diabetes-blood sugars will be monitored, sliding scale insulin will use as needed #6 General debility-PT and OT are seeing patient, she will need short-term placement to detention facility #7 acute blood loss anemia-from abdominal wall hematoma, patient's hemoglobin will be monitored, she does not require blood transfusion at this time #8 mild hypoxia-etiology unclear, possibly secondary to atelectasis, continue to try to wean oxygen off if possible #9 hyperkalemia-patient underwent dialysis today, labs will be monitored Total clinical time spent by myself addressing patient's medical issues, reviewing all of her data, and collaborating with patient's care team: 50 minutes Medications at Discharge Home Medications ascorbic acid (vitamin C) 500 mg tablet (C-500) 500 mg PO DAILY 06/14/23 cholecalciferol (vitamin D3) 25 mcg (1,000 unit) tablet (Vitamin D3) 25 mcg PO DAILY 06/14/23 lidocaine-prilocaine 2.5 %-2.5 % topical cream 1 applic topical .MonWedFri for dialysis when use AVF 06/14/23 amlodipine 5 mg tablet 5 mg PO DAILY #0 tabs 06/20/23 amoxicillin 250 mg-potassium clavulanate 62.5 mg/5 mL oral suspension (Augmentin) 10 ml PO TID 40 days #1,200 mL 06/20/23 arginine 7 gram-glutam 7 gram-CaHMB 1.5 ahel-jodjg-vh-min oral pwd pkt (Roberto (with collagen)) 1 packet PO BIDCM #0 ea 06/20/23 menthol 0.44 %-zinc oxide 20.6 % topical ointment (Calmoseptine) 1 applic topical BID #0 grams 06/20/23 nystatin 100,000 unit/gram topical powder (Nyamyc) 1 applic topical BID #0 grams 06/20/23 sodium hypochlorite 0.25 % solution (HySept) 1 applic topical DAILY #0 mL 06/20/23 levetiracetam 500 mg tablet (Keppra) 500 mg PO BID #1 TAB 06/23/23 vancomycin 500 mg/100 mL in 0.9% sodium chloride intravenous piggyback 500 mg (100 mL) IV UD #0 mL 06/23/23 Hospital Course Operations None Procedures Dialysis Summary of Care Provided Minutes Spent on Discharge: 33 Hospital Course: 72-year-old white female was seen in the emergency room at [facility] with complaints of nausea and vomiting that occurred the day she was seen preventing her dialysis. Patient's told the emergency room physician that she had drainage from her left heel and ulceration present, she had been seeing outpatient podiatry for this foot ulcer but was not currently on antibiotics. Inflammatory markers were drawn, her ESR was 65 and her C-reactive protein was 75, left foot x-ray showed findings suggestive of osteomyelitis in the distal second through fifth metatarsal and phalanges. Patient's white blood cell count was elevated at 17.3, BUN was elevated at 43 and creatinine was 4.77. Patient received Zosyn and vancomycin in the emergency room, podiatry was contacted and would see the patient in consultation. The patient was admitted to [place] [address], IV antibiotics were ordered, consultations were put in for nephrology and infectious diseases as well as podiatry to see the patient. While patient was in the waiting area of the MRI, she was noted to be unresponsive and her pulse ox was in the 60s, she was placed on oxygen and became more alert, she then underwent a CT of the left foot which showed cellulitis with a heel ulcer and osteomyelitis of the posterior calcaneus. Due to concern of vascular disease, patient underwent vascular studies and was seen in consultation by vascular surgery, arrangements were made for the patient to undergo an angiogram due to concerns of poor blood flow to the extremities. Patient was noted to have a drop in her hemoglobin however, and then the next day had complaints of right-sided abdominal discomfort, it was noted that she had a hematoma of the right mid abdominal wall and her angiogram had to be canceled. General surgery was consulted and there were concerns of active bleeding however the patient's hemoglobin remained stable. Initially it was decided to transfer the patient to a tertiary facility but after calling 3 different facilities and finding that there were no beds available, I talked with the patient and her and they elected to stay at the hospital here and have her hemoglobin closely monitored. Patient's wound culture grew out Propionibacterium and corynebacterium patient was closely monitored and there was no further drop in her hemoglobin, podiatry performed a debridement of her left foot at the bedside and it was felt that she was stable for discharge, it was recommended that she go to an extended care facility for inpatient rehab services and the patient and patient's consented. On 06/20/2023, patient was seen and examined: alert, oriented x3 and no apparent distress Constitutional Narrative: Patient appears much older than her stated age General Appearance: cooperative, well kempt and well developed Orientation / Consciousness: awake, oriented to person, oriented to place and oriented to time HEENT normocephalic, head/scalp atraumatic and moist oral mucous membranes Eyes PERRL, EOMs intact bilaterally and conjunctivae normal Neck supple, no JVD, thyroid normal and no carotid bruits General: trachea midline Resp normal respiratory effort, no retractions, no use of accessory muscles and clear to auscultation bilaterally Auscultation: Negative for rales, rhonchi or wheezes Cardio regular rate, regular rhythm, S1 normal heart sound, S2 normal heart sound, no murmurs, no rub and no gallops GI GI Narrative: Patient has distention of the abdominal wall in the right mid abdominal area along with tenderness during palpation Extremity Extremity Narrative: Patient's left foot was wrapped with surgical dressing, this was not removed for examination of the Skin no rashes or lesions noted General Skin Exam: no breakdown Neuro oriented x3, CN's II-XII intact bilaterally, no focal motor deficits and no sensory deficits noted Sensorium / Orientation: awake and alert Speech: speech normal Psych affect normal On 06/20/2023, patient was seen and examined and felt to be stable for discharge to an extended care facility for further care. Weight / BMI Weight Weight: 59.421 kg Body Mass Index (BMI) 21.8 ABG / Lab / Microbiology Data 06/20/23 05:45 06/19/23 06:05 Laboratory: Laboratory Results - last 24 hr 06/19/23 22:51: POC Glucose 151 H 06/20/23 05:45: WBC 13.9 H, RBC 2.60 L, Hgb 8.0 L, Hct 26.1 L, MCV 100.4 H, MCH 30.8, MCHC 30.7 L, RDW Std Deviation 47.5 H, RDW Coeff of Maddison 13.1, Plt Count 275, MPV 10.9, Immature Gran % (Auto) 3.400 H, Neut % (Auto) 75.4 H, Lymph % (Auto) 7.3 L, Crawford % (Auto) 11.0 H, Eos % (Auto) 2.4, Baso % (Auto) 0.5, Absolute Neuts (auto) 10.5 H, Absolute Lymphs (auto) 1.01, Nucleated RBC % 0, Differential Comment SCANNED, Diff Path Review May foll, Anisocytosis 2+, Macrocytosis 2+ 06/20/23 06:30: POC Glucose 99 06/20/23 12:02: POC Glucose 142 H 06/20/23 16:35: POC Glucose 136 H Microbiology: Microbiology 06/19/23 15:00 Tissue - Left Foot Gram Stain - Final 06/19/23 15:00 Tissue - Left Foot Tissue Culture - Preliminary Gram positive organism 06/14/23 18:48 Wound - Heel, Left Gram Stain - Final 06/14/23 18:48 Wound - Heel, Left Wound Culture - Final Propionibacterium species Corynebacterium striatum Radiography Diagnostic Testing: Radiology Impression Pelvis CT 06/20/23 10:15 IMPRESSION: Mild increase in size in the right anterior subcutaneous collection. Electronically Signed: Waqas Segal, at 10:45 EDT Reading Location ID and State: [address] [place] [address] Tel , Service support , Meaningful Use Info Meaningful Use Diagnoses (Choose all that apply): None applicable Discharge Plan Admission Admit Date/Time: 06/14/23 14:38 Primary Reason for Your Visit: Osteomyelitis of the left foot, right-sided abdominal wall hematoma, anemia Attending Provider: Wiley Gonzalez Primary Care Provider: Care Physician,No Primary Consulting Providers: Faith Michelle; Carlos Manuel Maloney; Jakob Theodore; Avery Olsen; Jakob Chisholm; Maye Warren Instructions Additional Instructions / Restrictions: Stop date for antibiotics: July 31, 2023 Discharge Orders/Prescriptions Prescriptions: New amoxicillin-pot clavulanate [Augmentin] 250-62.5 mg/5 mL suspension for reconstitution 10 ml PO TID 40 Days Qty: 1200 0RF amlodipine 5 mg Tablet 5 mg PO DAILY Qty: 0 0RF Hold Instructions: Order Completed nystatin [Nyamyc] 100,000 unit/gram Powder 1 applic topical BID Qty: 0 0RF Protocol: *Topical Application Instructions APPLICATION INSTRUCTIONS: darien groin HySept 0.25 % Solution 1 applic topical DAILY Qty: 0 0RF Protocol: *Topical Application Instructions APPLICATION INSTRUCTIONS: Use for wet to dry gauze dressing changes topically to left heel ulcer. menthol-zinc oxide [Calmoseptine] 0.44-20.6 % Ointment 1 applic topical BID Qty: 0 0RF Protocol: *Topical Application Instructions APPLICATION INSTRUCTIONS: to coccyx Roberto (with collagen) 7-7-1.5 gram Powder In Packet 1 packet PO BIDCM Qty: 0 0RF Continued ascorbic acid (vitamin C) [C-500] 500 mg tablet 500 mg PO DAILY cholecalciferol (vitamin D3) [Vitamin D3] 25 mcg (1,000 unit) tablet 25 mcg PO DAILY Patient Comments: PT STATES THAT THEY TAKE AN OTC VITAMIN D THREE DAYS A WEEK. PT STATES THAT THEY DO NOT TAKE THIS ON ANY SPECIFIC DAY. lidocaine-prilocaine 2.5-2.5 % cream 1 applic topical .MonWedFri Patient Comments: APPLY SMALL AMOUNT TO ACCESS SITE (AVF) 1 HOUR BEFORE DIALYSIS. COVER WITH OCCLUSIVE DRESSING (SARAN WRAP) Discontinued calcium carbonate [Antacid (calcium carbonate)] 200 mg calcium (500 mg) tablet,chewable 200 - 400 mg PO DAILY No Action levetiracetam [Keppra] 500 mg tablet 500 mg PO BID Qty: 1 0RF Rx Instructions: Give extra 500 mg p.o. after each dialysis vancomycin in 0.9 % sodium chl 500 mg/100 mL piggyback 500 mg IV UD Rx Instructions: After each dialysis, stop date July 31, 2023 Referrals / Follow Up: Waqas Mendoza DPM [Med Staff - Active Staff] - See Referral Note (Patient will need follow-up with Dr. Mendoza the week of 06/24/2023, call the office to make an appointment, make appointment after 06/25/2023 that week.) Jakob Theodore MD [Med Staff - Active Staff] - See Referral Note (Patient will be having an angiogram on 06/25/2023, call his office to confirm the time, angiogram will be performed at [facility]) Care Physician,No Primary [Primary Care Provider] - Disposition Disposition (needs filled in before D/C Order can be placed): [facility] Charges/Coding Visit Charges Inpatient E&M: 63391 Disch Hosp >30min
--- NOTE | 2023-06-20 18:02 | NURSING ---
report called to [facility] with no questions voiced. and pt aware of transfer pick pulling machine tender time.
[2023-06-20 19:58] VITALS: BP 194/71; PULSE 93; RESP 18; TEMP 36.8; O2SAT 100
[2023-06-21 15:02] LABS: Pathologist Review Reviewed
--- NOTE | 2023-06-25 12:27 | OP.PCM_ITS ---
Report of Operation Date of Procedure: 06/25/23 Pre-Operative Diagnosis: atherosclerosis with ulceration LLE Post-Operative Diagnosis: Same Surgery/Procedure Performed:: Aortogram, left lower extremity runoff IVUS left peroneal artery, TP trunk, SFA/popliteal Atherectomy/DCB/Stent left fem-pop artery Surgeon: Jakob Theodore Type of Anesthesia: Local and Sedation,Conscious Estimated Blood Loss (mL): 20 Description of Procedure: HPI: Patient is a 72 her female with atherosclerosis and a ulceration of the left heel with infection potentially down to and involving the calcaneus. This is been debrided at the bedside minimally and she is taken now for revascularization before any major debridement. Description of procedure: Upon but informed consent and verification correct patient procedure site patient taken to the Dialysis Social Worker where she was positioned prepped and draped in usual fashion. Time was then performed conscious sedation ministered with Versed and fentanyl. Skin overlying the right common femoral artery was anesthetized 1% lidocaine the vessel accessed in retrograde fashion with a micropuncture needle this was exchanged out for micropuncture sheath routine injection femoral angiogram confirmed satisfactory placement no extravasation or dissection. Through the micropuncture sheath Bentson was advanced into the abdominal aorta and the puncture sheath exchanged for short 6 [place] sheath. Through 6 [place] sheath a Omni Flush catheter advanced abdominal aorta and aortogram pelvic lateral iliac system advance her catheter and external leg artery. From this position sequential subtraction angiography left treatment performed which proximal popliteal artery occlusion with reconstitution of the mid to distal popliteal artery and relatively preserved tibial runoff. So this was amenable to endovascular intervention so the patient was heparinized allowed circulatory minutes. Bentson wire then readvanced the Omni Flush catheter advanced into the superficial femoral artery. The Omni Flush catheter and short 6 [place] sheath and exchanged out for a long 6 [place] sheath which was advanced over the aortic bifurcation and positioned in the distal SFA. This position using initially the Bentson wire and a quick cross catheter we engaged the top of the occlusion however traversed approximately 50% of the occluded length. We then exchanged the Bentson wire for a command 18 wire which was able to successfully cross remainder the lesion remaining with a true lumen. We advance her catheter beyond the area of occlusion and that wire was withdrawn with backbleeding through the catheter. Then performed subtraction angiography to confirm position within the true lumen of the vessel beyond the occlusion. An 014 [place] wire was then advanced and positioned in the peroneal artery. The quick cross catheter was then withdrawn and intravascular sound probe advanced over the wire and recorded pullback of the peroneal TP trunk, popliteal arteries were performed. This confirmed both that we are within true lumen across the occlusion but also showed more significant disease of the distal popliteal artery readily apparent on the angiography. Also gave reference vessel size angioplasty. The [place] rotational atherectomy device and brought to field prep for marketing and public relations manager instructions. Advanced over the wire and positioned above occlusion. This was then engaged for 2 passes across the occlusion withdrawn. Angio sculpt scoring balloon 4 x 100 was then brought to field prep for marketing and public relations manager instructions. This advanced over the wire and positioned at the distal extent of the popliteal artery. It was inflated to nominal for 2 minutes and then deflated and repositioned for secondary inflation of the distal popliteal artery. The balloon was then withdrawn and a 5 x 200 angioscope balloon was then advanced into the more proximal popliteal artery. Is inflated nominal for 2 minutes, position then inflated for second time proximal portion of the lesion. Next a 4 x 60 drug- coated angioplasty balloon advanced position of the distal popliteal artery. A second drug-coated angioplasty balloon 100 then advanced in position with satisfactory overlap to cover the remainder of the lesion. This inflated nominal for 1 and 1 minute then deflated withdrawn. Repeat angiography revealed a flow-limiting dissection of the proximal extent of the lesion but otherwise satisfactory luminal gain with no extravasation and brisk contrast transit as well as no residual stenosis. A 6 x 40 self-expanding bare-metal stent was then advanced into position to cover the dissection and then deployed. Completion angiography revealed resolution of the dissection with a very small nonlimiting dissection more distally in the popliteal artery which we felt could be left alone. The 014 wire was exchanged for a Bentson wire and the long 6 [place] sheath exchanged for short 6 [place] sheath. A minx closure device was then deployed followed by 2 minutes of manual pressure with satisfactory stasis noted. At the inclusion the case patient was taken to the PCU for bedrest and recovery. Radiographic interpretation: Abdominal aorta patent with no significant atherosclerosis or stenosis and normal in caliber. Right common iliac artery patent with mild diffuse atherosclerosis but no stenosis. Right internal iliac artery patent with mild atherosclerosis but no stenosis. Right external artery widely patent no significant atherosclerosis or stenosis. Right common femoral artery widely patent no atherosclerosis or stenosis. Next line left common iliac artery widely patent description of stenosis. Left internal artery patent with focal proximal atherosclerosis but no stenosis. Generalized artery widely patent no atherosclerosis or stenosis left common femoral artery widely patent no atherosclerosis or stenosis. Left superficial femoral artery patent with mild diffuse atherosclerosis but no stenosis. Occlusion at the adductor hiatus moderately diseased proximal popliteal artery and reconstitution of mildly diseased mid to distal popliteal artery. Patent at trifurcation with posterior tibial artery dominant runoff to the foot. Anterior tibial and peroneal arteries are both patent to the ankle and then provide minimal filling of the the vessels of the foot. Popliteal lesion resolved postintervention with no residual stenosis normal focal nonflow limiting dissection.
== END 2023-06-20 21:17 | disposition skilled nursing facility (03) | DRG 982 ==
LOC: ED 14:16 → MS3 15:23
PROVIDERS: Anesthesiology; Hospitalist; Internal Medicine Infectious Disease; Nurse Practitioner Adult Health; Physician Assistant; Podiatrist; Emergency Provider Emergency Medicine; Visit Provider Internal Medicine
DX: E11.69 Type 2 diabetes mellitus with other specified complication (principal); I13.2 Hypertensive heart and chronic kidney disease with heart failure and with stage 5 chronic kidney disease, or end stage renal disease; D62 Acute posthemorrhagic anemia; L03.116 Cellulitis of left lower limb; L97.424 Non-pressure chronic ulcer of left heel and midfoot with necrosis of bone; M86.672 Other chronic osteomyelitis, left ankle and foot; D63.8 Anemia in other chronic diseases classified elsewhere; E11.621 Type 2 diabetes mellitus with foot ulcer; N18.6 End stage renal disease; E11.22 Type 2 diabetes mellitus with diabetic chronic kidney disease; E11.51 Type 2 diabetes mellitus with diabetic peripheral angiopathy without gangrene; E11.42 Type 2 diabetes mellitus with diabetic polyneuropathy; Z99.2 Dependence on renal dialysis; I50.9 Heart failure, unspecified; Z79.4 Long term (current) use of insulin; E87.5 Hyperkalemia; R11.2 Nausea with vomiting, unspecified; M79.81 Nontraumatic hematoma of soft tissue; H54.7 Unspecified visual loss; R09.02 Hypoxemia; Z79.899 Other long term (current) drug therapy; Z66 Do not resuscitate
CPT/HCPCS: 36415; 72192; 72193; 73620; 73700; 74176; 75635; 80048; 80069; 80076; 80202; 82962; 83036; 83605; 83690; 84443; 85014; 85018; 85025; 85610; 85652; 85730; 86140; 87070; 87075; 87077; 87176; 87205; 87640; 90937; 93005; 93922; 93970; 94668; 94762; 97110; 97163; 97166; 97530; 97535; 97802; 99252; 99285; J7030; J7040; J7050; Q9967; A4216; G0257; G0463; Q5106

== ENCOUNTER 2023-06-21 06:06 | Inpatient (IN) | payer MEDICARE, OTHER, SELFPAY ==
[2023-06-21] VITALS (22 sets, daily range): BP systolic 72–246; BP diastolic 27–76; PULSE 55–88; RESP 12–38; TEMP 35.9–36.8; O2SAT 94–100; BMI 23.0; BMI 21.5; BMI 20.7; BMI 21.4
--- NOTE | 2023-06-21 06:28 | CT_ITS ---
We are attempting to reach an attending provider to discuss findings. An addendum with communication details will be sent when the communication is complete. INDICATION: altered LOC EXAMINATION: CT BRAIN - CT Head or Brain W/O Contrast Injection TECHNIQUE: Multiple axial images were obtained of the head without intravenous contrast. A radiation dose optimization technique was used for this scan. IV Contrast dosage and agent: None. RADIATION DOSAGE (If Supplied By Facility): CTDIvol = ( 44.99 ) mGy, DLP = ( 762.36 ) mGycm COMPARISON: None. FINDINGS: BRAIN: No acute bleed. No edema. Isbell-white matter differentiation is maintained. VENTRICLES AND SULCI: Not dilated. EXTRA-AXIAL: Focus of increased attenuation left frontal parafalcine fairly rounded contour measures 1.5 x 0.5 cm, most likely meningioma given the contours. Small subdural hematoma felt to be less likely. No other acute extra-axial hematoma. CALVARIUM / SKULL BASE: Unremarkable. FACE/SINUSES: Unremarkable. SOFT TISSUES: Unremarkable. CT/Brain/Head without Contrast IMPRESSION: Small 1.5 cm hyperdense focus left frontal parafalcine likely meningioma. Focal subdural hematoma less likely but not entirely excluded with no priors for comparison. MRI may be helpful for for further evaluation, or follow-up CT head. Electronically Signed: Pam Babb MD at 7:25 EDT ,
--- NOTE | 2023-06-21 06:28 | RAD_ITS ---
INDICATION: altered LOC EXAMINATION/TECHNIQUE: X-RAY - XR Chest 2 Views COMPARISON: 03/24/2021 FINDINGS: LINES/DEVICES: None. LUNGS: Interstitial opacities bilaterally, greater on the left and more pronounced at the lung bases. Small bilateral pleural effusions greater on the left. No consolidation. No pneumothorax. MEDIASTINUM: Unremarkable. CARDIAC SILHOUETTE: The large. BONES AND SOFT TISSUES: No acute abnormalities. RAD/Chest PA and Lateral IMPRESSION: Bilateral infiltrates and pleural effusions greater on the left most likely pulmonary edema. Pneumonia not excluded. Electronically Signed: Pam Babb MD at 7:30 EDT ,
--- NOTE | 2023-06-21 06:29 | EX.ED.DYSGE1 ---
HPI History of Present Illness Chief Complaint: Mental Status Change Informant: patient, spouse/S.O. 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 She has done this in the past when sleeping at home as he notes, she is completely unaware of it then and now, and he states usually he then wakes her up and she wakes up and stops doing it. This morning she did not wake up, and was not responding otherwise, so we called nursing, they checked her vital signs which were apparently normal and she was breathing okay, he states this went on for about 15 minutes by the time EMS got there they were able to wake her up and now she is awake and amnestic to the event and feels fine. Recent hospital admission was complicated by development of a hematoma on her right lower abdominal wall, she is still having soreness there, and has been treated with a binder and was thought to be related to Lovenox injection according to the . [facility] Medical History Anemia Congestive heart failure (CHF) Diabetes Dialysis patient GI bleed Kidney dialysis as the cause of abnormal reaction of the patient, or of later complication, without mention of misadventure at the time of the procedure Kidney disease Peripheral arterial disease TIA (transient ischemic attack) Vision loss of left eye Vision loss of right eye Home Medications ascorbic acid (vitamin C) 500 mg tablet (C-500) 500 mg PO DAILY 06/14/23 [History Last Taken 06/13/23] cholecalciferol (vitamin D3) 25 mcg (1,000 unit) tablet (Vitamin D3) 25 mcg PO DAILY 06/14/23 [History Last Taken 06/13/23] lidocaine-prilocaine 2.5 %-2.5 % topical cream 1 applic topical .MonWedFri for dialysis when use AVF 06/14/23 [History Last Taken 06/14/23] amlodipine 5 mg tablet 5 mg PO DAILY #0 tabs 06/20/23 [Rx Last Taken Unknown] amoxicillin 250 mg-potassium clavulanate 62.5 mg/5 mL oral suspension (Augmentin) 10 ml PO TID 40 days #1,200 mL 06/20/23 [Rx Last Taken Unknown] arginine 7 gram-glutam 7 gram-CaHMB 1.5 plwl-[id number]-mb-min oral pwd pkt (Roberto (with collagen)) 1 packet PO BIDCM #0 ea 06/20/23 [Rx Last Taken Unknown] menthol 0.44 %-zinc oxide 20.6 % topical ointment (Calmoseptine) 1 applic topical BID #0 grams 06/20/23 [Rx Last Taken Unknown] nystatin 100,000 unit/gram topical powder (Nyamyc) 1 applic topical BID #0 grams 06/20/23 [Rx Last Taken Unknown] sodium hypochlorite 0.25 % solution (HySept) 1 applic topical DAILY #0 mL 06/20/23 [Rx Last Taken Unknown] vancomycin 500 mg/100 mL in 0.9% sodium chloride intravenous piggyback 200 mg (40 mL) IV UD 06/20/23 [Rx Last Taken Unknown] Allergy/AdvReac Type Severity Reaction Status Date / Time doxycycline Allergy Rash Verified 06/21/23 06:12 levofloxacin [From Levaquin] Allergy patient Verified 06/21/23 06:12 states mother had allergy and is afraid she is. Family History Other CVA (cerebral vascular accident) Diabetes Surgical History S/P dialysis catheter insertion S/P tonsillectomy Social History Smoking Status: Never smoker ROS ROS ED Constitutional Constitutional ED: Denies chills or fever(s) Eyes Eyes: Denies change in vision or diplopia ENT ENT ED: Denies rhinorrhea or sore throat Cardiovascular Cardiovascular: Denies chest pain or palpitations Respiratory/Chest Respiratory/Chest: Denies cough or dyspnea Gastrointestinal Gastrointestinal: Reports as per HPI and abdominal pain; Denies diarrhea, nausea or vomiting Genitourinary Genitourinary ED: Denies dysuria or hematuria Musculoskeletal Musculoskeletal: Reports other Details: Left foot pain due to recent inpatient debridement for infection ; Denies back pain or neck pain Integumentary Reports wounds; Denies abscess or rash Neurologic Neurologic: Reports as per HPI and memory loss; Denies headache(s), paresthesias or weakness Psychiatric Psychiatric: Denies anxiety or suicidal thoughts EXAM Physical Exam Const Vital Signs: 06/21/23 06:08 06/21/23 07:27 Temperature 96.8 F L Temperature Source Temporal Pulse Rate 84 79 Respiratory Rate 16 Blood Pressure 139/55 H 147/60 H Blood Pressure Mean 83 89 Pulse Ox 100 Oxygen Delivery Method Room Air Positive well nourished and well developed Constitutional Narrative: Well-appearing, normal speech, cooperative, follows commands General Appearance ED: well developed and NAD HEENT Reports moist mucous membranes normocephalic and atraumatic Eyes PERRL and EOMs intact bilaterally Neck full ROM and supple Resp normal respiratory effort and clear to auscultation bilaterally Cardio regular rate, regular rhythm and no murmurs Rate: Negative for tachycardic GI non-distended GI Narrative: Tender abdominal wall hematoma right lower abdomen, no signs of infection or active bleeding externally. Line drawn around the area, hematoma seems to have been improved compared with the line. Auscultation: normoactive bowel sounds Palpation: soft Back/Spine no CVA tenderness General Back: other FROM Extremity normal to inspection Extremity Narrative: Wrapped dressing around the left heel/foot, otherwise unremarkable except for swelling of both lower extremities symmetrically General Extremety ED: Yes edema; Negative for pulses abnormal or tenderness General Extremity: edema bilateral lower extremity Details: mild; Negative for pulses abnormal Neuro oriented x3, CN's II-XII intact bilaterally and no sensory deficits noted Sensorium / Orientation: awake and alert Motor Exam: strength 5/5 throughout Psych mental status grossly normal Skin no rashes or lesions noted MDM MDM MDM Narrative Medical decision making narrative: Patient does not have a known seizure history. That is in the differential here. However, it sounds like from the 's history that the patient has had similar episodes in the past, even if this one was more prolonged. Obtained a CT in addition to a metabolic work-up, and infectious work-up with chest x-ray. Monitored in the meantime. Patient does have a leukocytosis that is a little worse than it was recently, she is a little more anemic but not necessarily in need of an emergent transfusion with a hemoglobin of 7.7, and she has chronic kidney disease without acute hyperkalemia. Her troponin is within normal limits. Due to be dialyzed today at some point. Clinically and hemodynamically, the patient has been doing fine during her period of observation here in the emergency department. I reviewed the CT images and the result, which I agree with, and discussed with the radiologist. She states there is a round lesion in the falx near the top of her brain that is consistent with a meningioma but could also be an acute subdural hematoma. She recommends an MRI with and without contrast ideally, to reevaluate. If this is a subdural hematoma, then the patient will need to be transferred, so the MRI will need to be obtained while the patient is in the emergency department for further delineation of this lesion. Furthermore, looking back at old records that we were able to obtain through [facility], the patient had an MRI of the brain at [facility] on 07/25/2020 that did not show this lesion. When I discussed the need for an MRI with the patient, she and her became concerned that she has a spring in her abdomen that prevented technicians here from performing an MRI on her at 1 point. Again on further exploration of records, she had a diverticular bleed when she was at [facility] in [place], that was coiled. She does not have a cerebral/brain coil. I discussed this case briefly with vascular Dr. Theodore, as the led me to believe the patient needed an MRI of her abdomen. This is not the case, vascular was going to repeat a CT to reevaluate her hematoma in preparation for angio as an outpatient that is scheduled next week to see if she can safely be anticoagulated for that procedure. Furthermore he recommends I discuss with radiology regarding whether the patient can safely have an MRI of her brain seeing as she has vascular coil in her abdomen. At this time radiology is not in or available for consultation, we will confirm with them that the pt can safely have MR prior to the imaging, which I am ordering. I have discussed w/ hospitalist. At this time, will need to check out to oncoming emergency physician, who will check MRI results and disposition appropriately. If negative for SDH, pt will need to be readmitted temporarily for EEG and Neuro consult. History & Record Review Additional record(s) reviewed:: Prior outpatient record (from [facility], [facility]) and Prior labs Lab Data Attestation: I reviewed the patient's lab results. Labs: Laboratory Results - last 24 hr 06/21/23 06/21/23 06/21/23 06:20 06:40 06:50 WBC 19.7 H RBC 2.51 L Hgb 7.7 L Hct 25.8 L MCV 102.8 H MCH 30.7 MCHC 29.8 L RDW Std Deviation 49.8 H RDW Coeff of Maddison 13.2 Plt Count 298 MPV 10.5 Neut % (Auto) Not Reportable Absolute Neuts (auto) 16.1 H Absolute Lymphs (auto) 1.18 Total Counted 100 Neutrophils % (Manual) 79 H Band Neutrophils % 3 Lymphocytes % (Manual) 6 L Monocytes % (Manual) 6 Eosinophils % (Manual) 4 Myelocytes % 2 H Diff Path Review May foll Platelet Estimate ADEQUATE Hypochromasia 1+ Anisocytosis 1+ Microcytosis RARE Macrocytosis RARE Sodium 134 L Potassium 4.7 Chloride 98 Carbon Dioxide 22.0 Anion Gap 14 BUN 81 H Creatinine 5.64 H Estim Creat Clear Calc 8.23 Est GFR (MDRD) Af Amer 10 L Est GFR (MDRD) Non-Af 8 L BUN/Creatinine Ratio 14.4 Glucose 182 H Lactic Acid 1.4 Calcium 8.5 Troponin I High Sens 51 Urine Color Yellow Urine Clarity Clear Urine pH 7.0 Ur Specific Farrell 1.010 Urine Protein 500 H Urine Glucose (UA) 100 H Urine Ketones Negative Urine Occult Blood 25 H Urine Nitrite Negative Urine Bilirubin Negative Urine Urobilinogen Normal Ur Leukocyte Esterase 25 H Urine RBC 0-5 SEEN Urine WBC 5-10 SEEN Ur Squamous Epith Cells 0 SEEN Ur Renal Epithelial Cell 0-5 SEEN Urine Bacteria 0 SEEN Hyaline Casts 0-5 SEEN Urine Mucus 0 SEEN Radiography Diagnostic Testing: Clinical Impression(s) from Imaging Studies Brain CT 06/21/23 06:28 IMPRESSION: Small 1.5 cm hyperdense focus left frontal parafalcine likely meningioma. Focal subdural hematoma less likely but not entirely excluded with no priors for comparison. MRI may be helpful for for further evaluation, or follow-up CT head. Electronically Signed: Pam Babb MD at 7:25 EDT , ADDENDUM: 06/21/23 0741 IMPRESSION: Small 1.5 cm hyperdense focus left frontal parafalcine likely meningioma. Focal subdural hematoma less likely but not entirely excluded with no priors for comparison. MRI may be helpful for for further evaluation, or follow-up CT head. N.B. : The above Results were Read Back by Pam Babb MD to Tavon Varma MD, and understanding confirmed on 06/21/2023 07:34:39 (ET). Electronically Signed: Pam Babb MD at 7:25 EDT , Chest X-Ray 06/21/23 06:28 IMPRESSION: Bilateral infiltrates and pleural effusions greater on the left most likely pulmonary edema. Pneumonia not excluded. Electronically Signed: Pam Babb MD at 7:30 EDT , Rhythm Strip Rhythm Strip: Sinus Rhythm Rate: 80 Ectopy: None Management Discussion w/another healthcare provider: Insurance Special Agent and Radiologist Discharge Plan Triage Chief Complaint: Mental Status Change ED Provider: Tavon Varma Dx/Rx/DC Orders Clinical Impression: Altered awareness, transient, Anemia, Foot osteomyelitis, left, End stage renal disease, Abdominal wall hematoma Prescriptions: No Action ascorbic acid (vitamin C) [C-500] 500 mg tablet 500 mg PO DAILY cholecalciferol (vitamin D3) [Vitamin D3] 25 mcg (1,000 unit) tablet 25 mcg PO DAILY Patient Comments: PT STATES THAT THEY TAKE AN OTC VITAMIN D THREE DAYS A WEEK. PT STATES THAT THEY DO NOT TAKE THIS ON ANY SPECIFIC DAY. lidocaine-prilocaine 2.5-2.5 % cream 1 applic topical .MonWedFri Patient Comments: APPLY SMALL AMOUNT TO ACCESS SITE (AVF) 1 HOUR BEFORE DIALYSIS. COVER WITH OCCLUSIVE DRESSING (SARAN WRAP) amoxicillin-pot clavulanate [Augmentin] 250-62.5 mg/5 mL suspension for reconstitution 10 ml PO TID 40 Days Qty: 1200 0RF amlodipine 5 mg Tablet 5 mg PO DAILY Qty: 0 0RF nystatin [Nyamyc] 100,000 unit/gram Powder 1 applic topical BID Qty: 0 0RF Protocol: *Topical Application Instructions APPLICATION INSTRUCTIONS: darien groin HySept 0.25 % Solution 1 applic topical DAILY Qty: 0 0RF Protocol: *Topical Application Instructions APPLICATION INSTRUCTIONS: Use for wet to dry gauze dressing changes topically to left heel ulcer. menthol-zinc oxide [Calmoseptine] 0.44-20.6 % Ointment 1 applic topical BID Qty: 0 0RF Protocol: *Topical Application Instructions APPLICATION INSTRUCTIONS: to coccyx Roberto (with collagen) 7-7-1.5 gram Powder In Packet 1 packet PO BIDCM Qty: 0 0RF vancomycin in 0.9 % sodium chl 500 mg/100 mL piggyback 200 mg IV UD Rx Instructions: After each dialysis, stop date July 31, 2023 Primary Care Provider: Care Physician,No Primary Referrals: Care Physician,No Primary [Primary Care Provider] -
[2023-06-21 06:40] LABS: Hematocrit 25.8 % (37-47); Hemoglobin 7.7 g/dL (12.0-15.0); Mean Corp Hgb Conc 29.8 g/dL (32-36); Mean Corpuscular Hgb 30.7 pg (27.0-32.0); Mean Corpuscular Volume 102.8 fL (81-99); Mean Platelet Vol. 10.5 fl (6.2-12.0); POSITIVE COUNT YES; POSITIVE MORPHOLOGY YES; Platelet Count 298 K/mm3 (150-450); RBC Distribution Width CV 13.2 % (11.6-14.6); RBC Distribution Width SD 49.8 fl (35.1-43.9); Red Blood Count 2.51 M/mm3 (4.2-5.4); White Blood Count 19.7 K/mm3 (4.4-11.0)
[2023-06-21 06:45] LABS: Differential Indicated MANUAL DIFF
[2023-06-21 06:58] LABS: Bacteria 0 SEEN /hpf (None Seen); Mucous, Urine 0 SEEN /hpf (<or=2+); Squamous Epithelial Cells - UA 0 SEEN /hpf (5-10)
[2023-06-21 06:59] LABS: Anion Gap 14 (5-15); BUN 81 mg/dL (7-18); BUN/Creat Ratio 14.4 RATIO (10-20); Calcium,Total 8.5 mg/dL (8.5-10.1); Chloride 98 mmol/L (98-107); Creatinine, Serum 5.64 mg/dL (0.55-1.02); EST Glomerular Filtration Rate 8 mL/min (>60); Est Glom Filt Rate - Afr Amer 10 mL/min (>60); Estimated Creatinine Clearance 8.23 ml/min; Glucose 182 mg/dL (74-106); Potassium 4.7 mmol/L (3.5-5.1); Sodium Level 134 mmol/L (136-145); Troponin-I HS 51 pg/mL (3.0-54.0)
[2023-06-21 07:00] LABS: Color, Urine Yellow (Yellow); Glucose, Dipstick 100 mg/dl (Normal); Ketone-Dipstick Negative (Negative); Leukocyte Esterase-Dipstick 25 /ul (Negative); Nitrite-Dipstick Negative (Negative); Occult Blood-Urine 25 /ul (Negative); Protein-Dipstick 500 mg/dl (Negative); Urine Bilirubin Dipstick Negative (Negative); Urine Clarity Clear (Clear); Urine Urobilinogen Normal (Normal)
[2023-06-21 07:05] LABS: Eosinophil 4 % (0-5); Lymphocyte 6 % (19-41); Monocyte 6 % (0-10); Myelocyte 2 % (0-0); Neutrophil-Band 3 % (0-5); Neutrophil-Segmented 79 % (47-70); Total Cells Counted 100 (MANUAL DIFF)
[2023-06-21 07:06] LABS: Absolute Lymphocyte Count 1.18 X10^3/uL (0.83-4.51); Absolute Neutrophil Count 16.1 X10^3/uL (2.0-7.7); Anisocytosis 1+; Hypochromasia 1+; Lymphocyte # 1.18 X10^3/ul (0.83-4.51); Macrocytosis RARE; Microcytosis RARE; Neutrophil # 16.11 X10^3/uL (2.7-7.7); Platelet Estimate ADEQUATE (ADEQ)
[2023-06-21 07:08] LABS: White Blood Cells 5-10 SEEN /hpf (0-5)
[2023-06-21 07:09] LABS: Hyaline Cast 0-5 SEEN /lpf (0-5); Red Blood Cells-Urine 0-5 SEEN /hpf (0-5); Renal Epithelial Cells 0-5 SEEN /hpf (0-5)
[2023-06-21 07:26] LABS: Lactic Acid 1.4 mmol/L (0.4-1.9)
--- NOTE | 2023-06-21 09:12 | ED.RN ---
Pt. unable to go to MRI at this time d/t unknown material of coil in abdomen. Attempting to get records from [facility]
--- NOTE | 2023-06-21 09:47 | ED.RN ---
SOC consult at bedside.
[2023-06-21] MEDS: levETIRAcetam IV 1,000 MG/100 ML BAG 400 MG IV (11:16)
[2023-06-21] MEDS: 0.9% Normal Saline 1,000 ML IV.SOLN. 1000 ML OPERA.SITE (13:09)
[2023-06-21] MEDS: PureFlow B 2K Dialysis Soln 1 BAG 6 BAG PF (13:09)
--- NOTE | 2023-06-21 14:00 | CASEMGMT ---
Patient was a rapid response. SW sat with patient and provided emotional support throughout. Physician spoke with patient's . Stephanie JENSEN
--- NOTE | 2023-06-21 14:16 | NURSING ---
See chart for ASSOCIATE SOFTWARE APPLICATION ENGINEER documentation.
[2023-06-21 14:35] LABS: Allen Test Positive; Base Excess -6 mmol/L (-2 to +2); Bicarbonate 22.9 mmol/L (22-26); Blood Gas Specimen Type ART; FI02 100; O2 Delivery Device NRB; PO2 362 mmHG (75-100); SITE L Radial; SO2 100 % (95-99); Total Carbon Dioxide 25 mmol/L; pCO2 63.2 mmHg (35-45); pH 7.17 (7.35-7.45)
[2023-06-21 14:35] LABS: Bedside Glucose 110 mg/dL (74-106)
--- NOTE | 2023-06-21 14:40 | CPS ---
Critical ABG values verified times two. Hand delivered results to DR. Toney. Verified by read back.
[2023-06-21] MEDS: Epoetin Alfa epbx 10,000 UNITS/ML 20000 UNIT IV (14:51)
--- NOTE | 2023-06-21 15:01 | CASEMGMT ---
DIGNA spoke with patient's and he said the plan is to go back to [facility]. Stephanie Khan [employer] DIRECTOR CAMILA
--- NOTE | 2023-06-21 15:30 | NURSING ---
pt dialysis treatment began at 1245 with no complications. vitals stable. pt states just feel really sleepy today. EGD prepping patient for EGD procedure. pt resting with eyes closed. @1400 systolic blood pressure suddenly dropped to 72mmhg- pt responded to verbal. NS bolus of 200ml, ultrafiltration rate turned to 0 ml/hr. This RN called PCU staff physical therapy assistant to discuss telemonitor & request assist. Pt systolic blood pressure 78mmhg. Pt unresponsive to pain- TRAFFIC SIGNAL MECHANIC called. Emergency blood return thru dialysis. Final blood pressure 128/56, HR 80. Dialysis discontinued. Report shared with PCU manager contracting, PCU charge nurse, PCU staff physical therapy assistant, attending physician, and bee producer. 1445- Patient stable, alert, on bipap- fistual needles removed by this RN
--- NOTE | 2023-06-21 16:05 | NURSING ---
Respiratory notified this RN that pt was struggling on bipap and pulling at the mask during EEG, they stated test was now over and she may need something to help her relax if she needs to keep it on this RN went into pts room and saw pt grabbing frantically and yelling out get this off of me. This RN immediately went over to the patient and went to immediately take off the mask when pt grasped at this RN's neck, RN had to dodge the pts hands. Mask was then taken off and pt was still reaching for this RN saying I will rip your heart out of your chest. Pt was repeatedly stating this place was making her sick, This RN tried to explain to the pt the purpose of the bipap, and explain to the pt that she had a similar episode to [facility] to which pt replied you're lying. The pt then started yelling at her so this RN walked out of the room to give pt time to relax.
--- NOTE | 2023-06-21 16:15 | NURSING ---
attempted to put pt on 2L NC on pt refused and told this RN to take tubing and choke herself with it.
--- NOTE | 2023-06-21 18:26 | PCM.HP.STD ---
HPI - General General Date of Admission: 06/21/23 Date of Service: 06/21/23 Chief Complaint: Altered level of consciousness HPI Narrative TRISH PERKINS, is a 72 F who presents to the emergency room at [facility] after being transferred from an [facility] care facility which she was transferred to yesterday for inpatient rehab services, she became unresponsive at approximately 515 this morning while her was in her room, before this happened, she had darting tongue movements, she then appeared very somnolent and did not respond to verbal or tactile stimulation for approximately half an hour according to her . Patient arrived at the emergency room, she appeared alert at that time, she did not remember the events earlier this morning. Patient underwent a work-up in the emergency room which included a CT of the brain which showed a possible subdural hematoma or meningioma, labs revealed elevated white blood cell count at 19.7, hemoglobin was 7.7, BUN was 81 and creatinine was 5.64. Patient's glucose was noted to be 182. Patient could not undergo an MRI of the brain due to the fact she has a coil in her abdomen, this had been placed since her last MRI which had been done and 2019. Due to this fact, MRI could not be performed. I asked that teleneurology see the patient in consultation, teleneurology did not think the patient had a subdural hematoma but felt that her presentation was most likely due to a seizure at the [facility] care facility. Patient was given IV Keppra and she was initially placed in observation status on PCU. Patient remained stable on PCU today until approximately 2:15 PM today, At that time she start having abnormal tongue movements and became unresponsive, there is a brief period of bradycardia with a heart rate of about 50 and her blood pressure dipped down to approximately 80 systolic. An [employer] was called, patient was placed on high flow oxygen and an ABG was obtained which showed the patient to be acidotic with a pH of 7.167, PCO2 of 63, PO2 362. It was felt that the patient had suffered a seizure and was acidotic due to increased lactic acid. Over the next 30 minutes, patient's mental status improved and she was placed on BiPAP briefly, she did not tolerate the BiPAP and ask it to be removed. Patient did not recall any of the events this afternoon ([employer]). Patient's dialysis was not continued after the [employer], I talked with nephrology and administered another dose of Keppra IV due to the fact she did have approximately 2 hours of dialysis. At this time, patient remained stable on PCU, she is alert, she is somewhat argumentative but does follow commands and is appropriate. I made a decision to make her a full admission and continue IV Keppra. Patient had an EEG performed today, his results are pending. [facility] Medical History Anemia Congestive heart failure (CHF) Diabetes Dialysis patient GI bleed Kidney dialysis as the cause of abnormal reaction of the patient, or of later complication, without mention of misadventure at the time of the procedure Kidney disease Peripheral arterial disease TIA (transient ischemic attack) Vision loss of left eye Vision loss of right eye Home Medications ascorbic acid (vitamin C) 500 mg tablet (C-500) 500 mg PO DAILY 06/14/23 [History Last Taken 06/13/23] cholecalciferol (vitamin D3) 25 mcg (1,000 unit) tablet (Vitamin D3) 25 mcg PO DAILY 06/14/23 [History Last Taken 06/13/23] lidocaine-prilocaine 2.5 %-2.5 % topical cream 1 applic topical .MonWedFri for dialysis when use AVF 06/14/23 [History Last Taken 06/14/23] amlodipine 5 mg tablet 5 mg PO DAILY #0 tabs 06/20/23 [Rx Last Taken Unknown] amoxicillin 250 mg-potassium clavulanate 62.5 mg/5 mL oral suspension (Augmentin) 10 ml PO TID 40 days #1,200 mL 06/20/23 [Rx Last Taken Unknown] arginine 7 gram-glutam 7 gram-CaHMB 1.5 [id number] oral pwd pkt (Roberto (with collagen)) 1 packet PO BIDCM #0 ea 06/20/23 [Rx Last Taken Unknown] menthol 0.44 %-zinc oxide 20.6 % topical ointment (Calmoseptine) 1 applic topical BID #0 grams 06/20/23 [Rx Last Taken Unknown] nystatin 100,000 unit/gram topical powder (Nyamyc) 1 applic topical BID #0 grams 06/20/23 [Rx Last Taken Unknown] sodium hypochlorite 0.25 % solution (HySept) 1 applic topical DAILY #0 mL 06/20/23 [Rx Last Taken Unknown] vancomycin 500 mg/100 mL in 0.9% sodium chloride intravenous piggyback 200 mg (40 mL) IV UD 06/20/23 [Rx Last Taken Unknown] Allergy/AdvReac Type Severity Reaction Status Date / Time doxycycline Allergy Rash Verified 06/21/23 06:12 levofloxacin [From Levaquin] Allergy patient Verified 06/21/23 06:12 states mother had allergy and is afraid she is. Family History Other CVA (cerebral vascular accident) Diabetes Surgical History S/P dialysis catheter insertion S/P tonsillectomy Social History Smoking Status: Never smoker ROS Constitutional Constitutional: Denies anorexia, change in weight, chills, fatigue, fever(s), night sweats or weakness Eyes Eyes: Denies blurry vision, change in vision, discharge from eye(s) or eye pain Cardiovascular Cardiovascular: Denies chest pain, claudication, dyspnea on exertion, edema, lightheadedness or palpitations Respiratory/Chest Respiratory/Chest: Denies cough, excessive phlegm production, hemoptysis, productive cough, shortness of breath at rest or shortness of breath with exertion Gastrointestinal Gastrointestinal: Denies abdominal pain, constipation, diarrhea, hematemesis, hematochezia, melena, nausea or vomiting Genitourinary Genitourinary: Denies dysuria, hematuria, urinary frequency, urinary hesitancy, urinary incontinence or urinary urgency Musculoskeletal Musculoskeletal: Denies back pain, joint pain, joint stiffness, joint swelling, myalgias or neck pain Neurologic Neurologic: Denies abnormal gait, abnormal speech, dizziness, focal weakness, headache(s), loss of vision, numbness, other visual disturbances, paresthesias, syncope or tingling Psychiatric Psychiatric: Denies anxiety, cognitive impairment, depression, irritability, mood swings or suicidal ideation Endocrine Endocrinology: Denies change in body appearance, cold intolerance, excessive sweating, heat intolerance, polydipsia or polyuria Hematologic/Lymphatic Hematologic/Lymphatic: Denies none, anemia, easy bleeding, easy bruising or lymphadenopathy Allergic/Immunologic Allergic/Immunologic: Denies rhinitis, urticaria, eczemia or asthma Vital Signs Vital Signs Vital Signs: 06/21/23 06:08 06/21/23 07:27 06/21/23 09:47 Temperature 96.8 F L Temperature Source Temporal Pulse Rate 84 79 79 Respiratory Rate 16 18 Respiratory Effort Respiratory Depth Respiratory Pattern Blood Pressure 139/55 H 147/60 H 173/71 H Blood Pressure Mean 83 89 105 Blood Pressure Source Blood Pressure Position Blood Pressure Location Pulse Ox 100 Oxygen Delivery Method Room Air Oxygen Flow Rate (L/min) Fraction of Inspired Oxygen (FIO2) 06/21/23 11:16 06/21/23 12:13 06/21/23 12:45 Temperature 96.6 F L 98.0 F Temperature Source Temporal Oral Pulse Rate 80 81 69 Respiratory Rate 14 12 14 Respiratory Effort Normal Non-Labored Respiratory Depth Normal Respiratory Pattern Normal Blood Pressure 166/67 H 140/59 H 128/49 H Blood Pressure Mean 100 86 75 Blood Pressure Source Monitor Monitor Blood Pressure Position Semi-Fowlers Semi-Fowlers Blood Pressure Location Right Arm Right Arm Pulse Ox 99 95 Oxygen Delivery Method Nasal Cannula Room Air Room Air Oxygen Flow Rate (L/min) 2 2 Fraction of Inspired Oxygen (FIO2) 06/21/23 13:23 06/21/23 13:53 06/21/23 14:00 Temperature Temperature Source Pulse Rate 74 71 65 Respiratory Rate 12 13 12 Respiratory Effort Normal Non-Labored Respiratory Depth Respiratory Pattern Blood Pressure 128/57 H 121/45 H 72/27 L Blood Pressure Mean 80 70 42 Blood Pressure Source Monitor Monitor Monitor Blood Pressure Position Semi-Fowlers Semi-Fowlers Semi-Fowlers Blood Pressure Location Right Arm Right Arm Right Arm Pulse Ox Oxygen Delivery Method Room Air Room Air Room Air Oxygen Flow Rate (L/min) Fraction of Inspired Oxygen (FIO2) 06/21/23 14:23 06/21/23 14:15 06/21/23 14:15 Temperature Temperature Source Pulse Rate 55 L 85 Respiratory Rate Respiratory Effort Respiratory Depth Respiratory Pattern Blood Pressure 78/29 L 91/35 L 109/40 L Blood Pressure Mean 45 53 63 Blood Pressure Source Monitor Blood Pressure Position Supine Blood Pressure Location Right Arm Pulse Ox Oxygen Delivery Method Oxygen Flow Rate (L/min) Fraction of Inspired Oxygen (FIO2) 06/21/23 15:27 06/21/23 14:45 07/21/23 14:45 Temperature Temperature Source Pulse Rate 80 67 Respiratory Rate 20 H Respiratory Effort Respiratory Depth Respiratory Pattern Irregular Blood Pressure 128/46 H Blood Pressure Mean 73 Blood Pressure Source Monitor Blood Pressure Position Supine Blood Pressure Location Right Arm Pulse Ox 99 99 Oxygen Delivery Method Bi-pap Oxygen Flow Rate (L/min) Fraction of Inspired Oxygen (FIO2) 25 25 Weight Weight: 58.5 kg Body Mass Index (BMI) 21.4 Physical Exam Const alert, oriented x3 and no apparent distress General Appearance: cooperative, well kempt and well developed Orientation / Consciousness: awake, oriented to person, oriented to place and oriented to time HEENT normocephalic, head/scalp atraumatic, hearing grossly normal bilaterally and moist oral mucous membranes Eyes PERRL, EOMs intact bilaterally and conjunctivae normal Neck supple, no JVD, thyroid normal and no carotid bruits General: trachea midline Resp normal respiratory effort, no retractions, no use of accessory muscles and clear to auscultation bilaterally Auscultation: Negative for rales, rhonchi or wheezes Cardio regular rate, regular rhythm, S1 normal heart sound, S2 normal heart sound, no murmurs, no rub and no gallops GI normal to inspection, nondistended, normoactive bowel sounds, soft to palpation, non-tender and non-distended Extremity Extremity Narrative: Patient's left foot is wrapped with surgical dressing, this was not removed for examination Skin no rashes or lesions noted General Skin Exam: no breakdown Neuro oriented x3, CN's II-XII intact bilaterally, moves all extremities, no focal motor deficits and no sensory deficits noted Sensorium / Orientation: awake, alert, oriented to person, oriented to place and oriented to time Speech: speech normal Psych affect normal Results Lab / Micro Data 06/21/23 06:20 06/21/23 06:20 Labs: Laboratory Results - last 24 hr 06/21/23 06:20: WBC 19.7 H, RBC 2.51 L, Hgb 7.7 L, Hct 25.8 L, MCV 102.8 H, MCH 30.7, MCHC 29.8 L, RDW Std Deviation 49.8 H, RDW Coeff of Maddison 13.2, Plt Count 298, MPV 10.5, Neut % (Auto) Not Reportable, Absolute Neuts (auto) 16.1 H, Absolute Lymphs (auto) 1.18, Total Counted 100, Neutrophils % (Manual) 79 H, Band Neutrophils % 3, Lymphocytes % (Manual) 6 L, Monocytes % (Manual) 6, Eosinophils % (Manual) 4, Myelocytes % 2 H, Diff Path Review May foll, Platelet Estimate ADEQUATE, Hypochromasia 1+, Anisocytosis 1+, Microcytosis RARE, Macrocytosis RARE, Sodium 134 L, Potassium 4.7, Chloride 98, Carbon Dioxide 22.0, Anion Gap 14, BUN 81 H, Creatinine 5.64 H, Estim Creat Clear Calc 8.23, Est GFR (MDRD) Af Amer 10 L, Est GFR (MDRD) Non-Af 8 L, BUN/Creatinine Ratio 14.4, Glucose 182 H, Calcium 8.5, Troponin I High Sens 51 06/21/23 06:40: Lactic Acid 1.4 06/21/23 06:50: Urine Color Yellow, Urine Clarity Clear, Urine pH 7.0, Ur Specific Lorraine 1.010, Urine Protein 500 H, Urine Glucose (UA) 100 H, Urine Ketones Negative, Urine Occult Blood 25 H, Urine Nitrite Negative, Urine Bilirubin Negative, Urine Urobilinogen Normal, Ur Leukocyte Esterase 25 H, Urine RBC 0-5 SEEN, Urine WBC 5-10 SEEN, Ur Squamous Epith Cells 0 SEEN, Ur Renal Epithelial Cell 0-5 SEEN, Urine Bacteria 0 SEEN, Hyaline Casts 0-5 SEEN, Urine Mucus 0 SEEN 06/21/23 14:16: POC Glucose 110 H ABG Data ABG results: ABG 06/21/23 14:30 Specimen Type ART Sample Site L Radial pH 7.17 L* Bicarbonate Actual 22.9 Total CO2 25 Base Excess -6 L O2 Saturation 100 H O2 % 100 ABG pCO2 63.2 H ABG pO2 362 H* Hector Test Positive O2 Delivery Device NRB Crit Call To/Read Back Yes Rhythm Strip Rhythm Strip: Sinus Rhythm Rate: 80 Ectopy: None Radiology Impression Brain CT 06/21/23 06:28 IMPRESSION: Small 1.5 cm hyperdense focus left frontal parafalcine likely meningioma. Focal subdural hematoma less likely but not entirely excluded with no priors for comparison. MRI may be helpful for for further evaluation, or follow-up CT head. Electronically Signed: Pam Babb MD at 7:25 EDT , ADDENDUM: 06/21/23 0741 IMPRESSION: Small 1.5 cm hyperdense focus left frontal parafalcine likely meningioma. Focal subdural hematoma less likely but not entirely excluded with no priors for comparison. MRI may be helpful for for further evaluation, or follow-up CT head. N.B. : The above Results were Read Back by Pam Babb MD to Tavon Varma MD, and understanding confirmed on 06/21/2023 07:34:39 (ET). Electronically Signed: Pam Babb MD at 7:25 EDT , Chest X-Ray 06/21/23 06:28 IMPRESSION: Bilateral infiltrates and pleural effusions greater on the left most likely pulmonary edema. Pneumonia not excluded. Electronically Signed: Pam Babb MD at 7:30 EDT , Assessment & Plan Assessment/Plan (1) Seizure: PLAN: Plan 1. New onset seizure disorder-again patient was admitted to PCU, she will continue on IV Keppra at this time, she will be monitored closely. I do not feel there is a need at this time to have teleneurology see the patient again. I discussed her care with the patient's who was in the room at the time my examination. #2 left foot osteomyelitis-patient will remain on vancomycin and Augmentin #3 end-stage renal disease requiring dialysis-nephrology will see the patient in consultation #4 large hematoma in the anterior abdominal wall over the right lower quadrant-supportive care at this time, recheck labs tomorrow #5 blood loss anemia secondary to abdominal wall hematoma-CBC will be rechecked tomorrow #6 type 2 diabetes-blood sugars will be monitored, sliding scale insulin will use as needed #7 hypoxia-exact etiology unclear at this time, pulse ox will be monitored #8 generalized debility-PT and OT will see the patient Total clinical time spent by myself addressing the patient's medical issues, reviewing all of her data, and collaborating with patient's care team: 75 minutes Charges/Coding Visit Charges Inpatient E&M: 33262 Init Hosp L3
[2023-06-21] MEDS: Vancomycin IV 500 MG/100 ML BAG 100 MG IV (20:28)
[2023-06-21] MEDS: Nystatin Powder 15gm Bottle 1 APPLIC TOPICAL (21:47)
[2023-06-21] MEDS: Menthol/Lanolin/Calamine/Znox 113 GM Tube 1 APPLIC TOPICAL (21:48)
[2023-06-21] MEDS: Amox/Clav 250mg/5ml Suspension 500 MG PO (21:49)
[2023-06-21] MEDS: Insulin Lispro 100 UNIT/ML INSULN.PEN SC (21:49)
[2023-06-21 22:17] LABS: Bedside Glucose 158 mg/dL (74-106)
[2023-06-22] VITALS (9 sets, daily range): BP systolic 148–171; BP diastolic 52–65; PULSE 64–87; RESP 16–25; TEMP 35.9–37.2; O2SAT 95–100
[2023-06-22] MEDS: Amox/Clav 250mg/5ml Suspension 500 MG PO ×3 (06:28→21:20)
[2023-06-22] MEDS: Insulin Lispro 100 UNIT/ML INSULN.PEN SC ×2 (06:28→21:18)
[2023-06-22 06:30] LABS: Hematocrit 23.3 % (37-47); Hemoglobin 7.3 g/dL (12.0-15.0); Mean Corp Hgb Conc 31.3 g/dL (32-36); Mean Corpuscular Hgb 30.8 pg (27.0-32.0); Mean Corpuscular Volume 98.3 fL (81-99); Mean Platelet Vol. 10.5 fl (6.2-12.0); POSITIVE COUNT YES; POSITIVE DIFFERENTIAL YES; POSITIVE MORPHOLOGY YES; Platelet Count 306 K/mm3 (150-450); RBC Distribution Width CV 13.4 % (11.6-14.6); RBC Distribution Width SD 47.1 fl (35.1-43.9); Red Blood Count 2.37 M/mm3 (4.2-5.4); White Blood Count 16.6 K/mm3 (4.4-11.0)
[2023-06-22 06:35] LABS: Differential Indicated MANUAL DIFF
[2023-06-22 06:47] LABS: Neutrophil-Band 2 % (0-5); Neutrophil-Segmented 66 % (47-70); Total Cells Counted 100 (MANUAL DIFF)
[2023-06-22 06:48] LABS: Absolute Lymphocyte Count 1.66 X10^3/uL (0.83-4.51); Absolute Neutrophil Count 11.3 X10^3/uL (2.0-7.7); Basophil 1 % (0-1); Eosinophil 5 % (0-5); Lymphocyte 10 % (19-41); Lymphocyte # 1.66 X10^3/ul (0.83-4.51); Metamyelocyte 2 % (0-1); Monocyte 12 % (0-10); Myelocyte 2 % (0-0); Neutrophil # 11.27 X10^3/uL (2.7-7.7); Platelet Estimate ADEQUATE (ADEQ); Red Cell Morphology NORM C+C NORMAL (NORM C&C)
[2023-06-22 07:07] LABS: Anion Gap 9 (5-15); BUN 70 mg/dL (7-18); BUN/Creat Ratio 13.3 RATIO (10-20); Calcium,Total 8.1 mg/dL (8.5-10.1); Chloride 102 mmol/L (98-107); Creatinine, Serum 5.27 mg/dL (0.55-1.02); EST Glomerular Filtration Rate 9 mL/min (>60); Est Glom Filt Rate - Afr Amer 10 mL/min (>60); Estimated Creatinine Clearance 8.81 ml/min; Glucose 147 mg/dL (74-106); Potassium 4.4 mmol/L (3.5-5.1); Sodium Level 135 mmol/L (136-145)
[2023-06-22] MEDS: amLODIPine 5 MG Tablet PO (09:00)
[2023-06-22] MEDS: Nystatin Powder 15gm Bottle 1 APPLIC TOPICAL ×2 (09:01→21:15)
[2023-06-22] MEDS: Menthol/Lanolin/Calamine/Znox 113 GM Tube 1 APPLIC TOPICAL ×2 (09:01→21:15)
[2023-06-22 11:58] LABS: Bedside Glucose 166 mg/dL (74-106)
[2023-06-22 12:57] LABS: Bedside Glucose 148 mg/dL (74-106)
[2023-06-22 17:41] LABS: Bedside Glucose 138 mg/dL (74-106)
--- NOTE | 2023-06-22 18:40 | PN.HOSP_ITS ---
Reason for Visit Reason for Visit: Diagnoses Unspecified convulsions (06/21/23) Subjective Subjective Replete withPatient was seen and examined today, she has had no more seizure activity since yesterday. Patient was not dialyzed today. Vascular surgery requested we obtain a CT of the abdomen and pelvis prior to the patient being discharged, I anticipate she may be discharged tomorrow back to her longterm facility so I will order the CT for tomorrow morning. I talked briefly with patient's who was in the room at the time my examination Objective Data Objective Data Vital Signs: Vital Signs Temp Pulse Resp BP Pulse Ox O2 Del Method O2 Flow Rate 98.6 F 85 18 162/64 H 100 Nasal Cannula 2 06/22/23 17:16 06/22/23 17:16 06/22/23 17:16 06/22/23 17:16 06/22/23 17:16 06/22/23 17:16 06/22/23 17:16 FiO2 25 06/21/23 14:45 Oxygen Flow Rate (L/min) 2 Oxygen Delivery Method Nasal Cannula Weight: 58.5 kg Body Mass Index (BMI) 21.4 Intake & Output: Intake and Output for Last 24 Hours 06/20/23 06/21/23 06/22/23 23:59 23:59 23:59 Intake Total 720 / 720 1277.5 / 1277.5 Output Total 200 / 200 Balance 520 / 520 1277.5 / 1277.5 Lab / Micro Data 06/22/23 06:00 06/22/23 06:00 Labs: Laboratory Results - last 24 hr 06/21/23 21:46: POC Glucose 158 H 06/22/23 06:00: WBC 16.6 H, RBC 2.37 L, Hgb 7.3 L, Hct 23.3 L, MCV 98.3, MCH 30.8, MCHC 31.3 L D, RDW Std Deviation 47.1 H, RDW Coeff of Maddison 13.4, Plt Count 306, MPV 10.5, Neut % (Auto) Not Reportable, Absolute Neuts (auto) 11.3 H, Absolute Lymphs (auto) 1.66, Total Counted 100, Neutrophils % (Manual) 66, Band Neutrophils % 2, Lymphocytes % (Manual) 10 L, Monocytes % (Manual) 12 H, Eosinophils % (Manual) 5, Basophils % (Manual) 1, Metamyelocytes % 2 H, Myelocy penny % 2 H, Diff Path Review May foll, Platelet Estimate ADEQUATE, RBC Morphology NORM C+C, Sodium 135 L, Potassium 4.4, Chloride 102, Carbon Dioxide 24.0, Anion Gap 9, BUN 70 H, Creatinine 5.27 H, Estim Creat Clear Calc 8.81, Est GFR (MDRD) Af Amer 10 L, Est GFR (MDRD) Non-Af 9 L, BUN/Creatinine Ratio 13.3, Glucose 147 H, Calcium 8.1 L 06/22/23 06:27: POC Glucose 166 H 06/22/23 12:14: POC Glucose 148 H 06/22/23 17:13: POC Glucose 138 H Rhythm Strip Rhythm Strip: Sinus Rhythm Rate: 80 Ectopy: None Physical Exam Const alert, oriented x3 and no apparent distress Constitutional Narrative: Patient appears older than her stated age General Appearance: cooperative, well kempt and well developed Orientation / Consciousness: awake, oriented to person and oriented to place HEENT normocephalic, head/scalp atraumatic and moist oral mucous membranes Eyes PERRL, EOMs intact bilaterally and conjunctivae normal Neck supple, no JVD, thyroid normal and no carotid bruits General: trachea midline Resp normal respiratory effort, no retractions, no use of accessory muscles and clear to auscultation bilaterally Auscultation: Negative for rales, rhonchi or wheezes Cardio regular rate, regular rhythm, S1 normal heart sound, S2 normal heart sound, no murmurs, no rub and no gallops GI normal to inspection, nondistended, normoactive bowel sounds, soft to palpation, non-tender and non-distended Extremity Extremity Narrative: Patient's left foot was wrapped with surgical dressing, this was not removed for examination of the area Skin no rashes or lesions noted General Skin Exam: no breakdown Neuro CN's II-XII intact bilaterally, no focal motor deficits and no sensory deficits noted Sensorium / Orientation: awake, alert, oriented to person and oriented to place Speech: speech normal Psych affect normal Assessment & Plan Assessment/Plan (1) Type 2 diabetes mellitus with foot ulcer: (2) Seizure: PLAN: Plan 1. New onset seizure disorder-patient remains on IV Keppra at this time, she will be observed for further seizure activity #2 left foot osteomyelitis-patient will remain on vancomycin and Augmentin #3 end-stage renal disease requiring dialysis-nephrology will see the patient in consultation, patient will not have dialysis today #4 large hematoma in the anterior abdominal wall over the right lower quadrant-s upportive care at this time, recheck labs tomorrow, she will have a CT of the abdomen and pelvis performed tomorrow #5 blood loss anemia secondary to abdominal wall hematoma-CBC will be rechecked tomorrow, patient's hemoglobin today was 7.3 #6 type 2 diabetes-blood sugars will be monitored, sliding scale insulin will use as needed #7 hypoxia-exact etiology unclear at this time, pulse ox will be monitored #8 generalized debility-PT and OT will see the patient Total clinical time spent by myself addressing the patient's medical issues, reviewing all of her data, and collaborating with patient's care team: 35 minutes Charges/Coding Visit Charges Inpatient E&M: 37341 Subs Hosp L2
[2023-06-23 00:57] LABS: Bedside Glucose 183 mg/dL (74-106)
[2023-06-23 02:55] VITALS: O2SAT 74
[2023-06-23 03:00] VITALS: BP 144/54; PULSE 81; RESP 18; TEMP 36.5; O2SAT 100
[2023-06-23] MEDS: 0.9% Saline Lock 10 ML Syringe IV (05:48)
[2023-06-23] MEDS: Amox/Clav 250mg/5ml Suspension 500 MG PO ×2 (05:48→13:02)
--- NOTE | 2023-06-23 05:55 | CT_ITS ---
EXAM: CT ABDOMEN AND PELVIS WITHOUT INTRAVENOUS CONTRAST CLINICAL INDICATION: abdominal wall hematoma TECHNIQUE: Helically acquired images were obtained of the abdomen and pelvis without intravenous contrast. This CT exam was performed using one or more of the following dose reduction techniques: automated exposure control, adjustment of the mA and/or kV according to patient size, and/or use of iterative reconstruction technique. COMPARISON: CTA abdomen pelvis from 06/17/2023 FINDINGS: LOWER THORAX: Small pleural effusions and patchy bibasilar airspace disease. Moderate cardiomegaly. ABDOMEN: LIVER: Multiple benign calcified granulomas in the liver. GALLBLADDER AND BILE DUCTS: Unremarkable. No calcified gallstones. No gallbladder distention or wall edema. No intra- or extrahepatic biliary ductal dilation. PANCREAS: Unremarkable. No focal cystic mass. SPLEEN: Multiple benign calcified granulomas in the spleen. ADRENALS: Unremarkable. No nodules. KIDNEYS AND URETERS: Unremarkable. Normal renal size and position. No hydronephrosis. STOMACH AND BOWEL: Unremarkable. No stomach or bowel distention. No focal inflammatory change. PELVIS: APPENDIX: No evidence of acute appendicitis. BLADDER: Unremarkable. REPRODUCTIVE: Calcified fibroids in the uterus. ABDOMEN and PELVIS: INTRAPERITONEAL SPACE: Unremarkable. No free air. No hemoperitoneum. RETROPERITONEAL SPACE: Unremarkable. No blood in the retroperitoneum. BONES/JOINTS: Degenerative changes of the spine. No suspicious lytic or blastic abnormality. SOFT TISSUES: Subcutaneous hematoma in the right mid to lower abdominal wall consistent with clinical history, measuring up to 10.8 x 10.0 x 4.2 cm. No discrete abdominal or pelvic wall hernia. No hematoma within the abdominal wall musculature. VASCULATURE: Severe atherosclerotic changes of the abdominal aorta without aneurysm. LYMPH NODES: Unremarkable. No enlarged lymph nodes. CT/Abdomen/Pelvis without Cont IMPRESSION: 1. Subcutaneous hematoma in the right mid to lower abdominal wall consistent with clinical history, measuring up to 10.8 x 10.0 x 4.2 cm. No intramuscular hematoma. No hemoperitoneum or blood in the retroperitoneum. 2. Small pleural effusions and patchy bibasilar airspace disease. Findings may indicate pneumonia. Electronically Signed: Charan Barreto MD at 5:39 EDT ,
[2023-06-23 06:17] LABS: Hematocrit 23.3 % (37-47); Hemoglobin 7.4 g/dL (12.0-15.0); Mean Corp Hgb Conc 31.8 g/dL (32-36); Mean Corpuscular Hgb 31.6 pg (27.0-32.0); Mean Corpuscular Volume 99.6 fL (81-99); Mean Platelet Vol. 10.2 fl (6.2-12.0); POSITIVE COUNT YES; POSITIVE DIFFERENTIAL YES; POSITIVE MORPHOLOGY YES; Platelet Count 360 K/mm3 (150-450); RBC Distribution Width CV 13.5 % (11.6-14.6); RBC Distribution Width SD 47.1 fl (35.1-43.9); Red Blood Count 2.34 M/mm3 (4.2-5.4); White Blood Count 18.7 K/mm3 (4.4-11.0)
[2023-06-23 06:20] LABS: Differential Indicated MANUAL DIFF
[2023-06-23 06:54] LABS: Bedside Glucose 91 mg/dL (74-106)
[2023-06-23 07:06] LABS: Platelet Estimate ADEQUATE (ADEQ); Red Cell Morphology NORM C+C NORMAL (NORM C&C)
[2023-06-23 07:09] LABS: Absolute Lymphocyte Count 1.49 X10^3/uL (0.83-4.51); Absolute Neutrophil Count 13.3 X10^3/uL (2.0-7.7); Eosinophil 4 % (0-5); Lymphocyte 8 % (19-41); Monocyte 10 % (0-10); Myelocyte 6 % (0-0); Neutrophil-Segmented 71 % (47-70); Promyelocyte 1 % (0-0); Total Cells Counted 100 (MANUAL DIFF)
[2023-06-23 08:38] VITALS: BP 145/57; PULSE 83; RESP 17; TEMP 36.4; O2SAT 95
[2023-06-23 08:48] VITALS: O2SAT 95
[2023-06-23] MEDS: Menthol/Lanolin/Calamine/Znox 113 GM Tube 1 APPLIC TOPICAL (08:52)
[2023-06-23] MEDS: Nystatin Powder 15gm Bottle 1 APPLIC TOPICAL (08:52)
[2023-06-23] MEDS: amLODIPine 5 MG Tablet PO (08:53)
--- NOTE | 2023-06-23 09:39 | PCM.TXEXTCAR ---
Diet Diet Order/Speech Therapy: 06/21/23 12:10 Diet: Cardiac: Calorie-Controlled Food consistency:: Regular Liquid Consistency:: Regular/Thin How many daily calories?: 2000 calorie Routine Orders/Code Status O2 Liters per Minute: 2 O2 Frequency: Continuous Keep PO Greater than or Equal to (%): 90 Routine Lab Work: CBC (on 06/24/23) and - (Fingerstick blood sugars AC nightly, Humalog subcu per sliding scale: 200-250: 5 units, 251-300: 8 units, 301-350: 12 units) Code Status: Full Code Wound(s) Rt pubic area: Wound Type: enlarged pore RLQ: Wound Type: Hematoma Lft Heel: Wound Type: Neuropathic/Diabetic Foot Ulcer Therapies Weight Bearing: Non weight bearing (left foot) Physical Therapy: Eval and Treat Occupational Therapy: Eval and Treat Problem/Diagnosis (1) Type 2 diabetes mellitus with foot ulcer: Status: Acute Code(s): E11.621 - Type 2 diabetes mellitus with foot ulcer; L97.509 - Non-pressure chronic ulcer of other part of unspecified foot with unspecified severity (2) Seizure: Status: Acute Code(s): R56.9 - Unspecified convulsions Plan 1. New onset seizure disorder-patient is now on Keppra, she will need 500 mg of Keppra after each dialysis session #2 left foot osteomyelitis-patient will remain on vancomycin and Augmentin #3 end-stage renal disease requiring dialysis-nephrology is following patient #4 large hematoma in the anterior abdominal wall over the right lower quadrant-supportive care at this time, CT scan today shows this area is approximately 10 cm in diameter. #5 blood loss anemia secondary to abdominal wall hematoma-hemoglobin is stable at this time #6 type 2 diabetes-blood sugars will be monitored, sliding scale insulin will use as needed #7 hypoxia-exact etiology unclear at this time, pulse ox will be monitored, patient is on low-flow oxygen #8 generalized debility-PT and OT will see the patient Total clinical time spent by myself addressing the patient's medical issues, reviewing all of her data, and collaborating with patient's care team: 35 minutes Allergies/Procedures Done in Hospital Allergies doxycycline Allergy (Verified 06/21/23 06:12) Rash levofloxacin [From Levaquin] Allergy (Verified 06/21/23 06:12) patient states mother had allergy and is afraid she is. Procedures: Dialysis and Electroencephalogram Type of Care/Length of Stay Estimated LOS: Convalescent Care Less Than 30 days Type of Care Needed: Skilled Rehab Potential: Good Prognosis: Good Additional Orders/Day of Discharge H&P will serve as current which was dated: 06/21/23 Day of Discharge: 06/23/23 Discharge Plan Admission Admit Date/Time: 06/21/23 15:26 Primary Reason for Your Visit: seizure Attending Provider: Wiley Gonzalez Primary Care Provider: Care Physician,No Primary Consulting Providers: Mihir Burnett Discharge Orders/Prescriptions Prescriptions: New levetiracetam [Keppra] 500 mg tablet 500 mg PO BID Qty: 1 0RF Rx Instructions: Give extra 500 mg p.o. after each dialysis Continued ascorbic acid (vitamin C) [C-500] 500 mg tablet 500 mg PO DAILY cholecalciferol (vitamin D3) [Vitamin D3] 25 mcg (1,000 unit) tablet 25 mcg PO DAILY Patient Comments: PT STATES THAT THEY TAKE AN OTC VITAMIN D THREE DAYS A WEEK. PT STATES THAT THEY DO NOT TAKE THIS ON ANY SPECIFIC DAY. lidocaine-prilocaine 2.5-2.5 % cream 1 applic topical .HubertWedFri Patient Comments: APPLY SMALL AMOUNT TO ACCESS SITE (AVF) 1 HOUR BEFORE DIALYSIS. COVER WITH OCCLUSIVE DRESSING (SARAN WRAP) amoxicillin-pot clavulanate [Augmentin] 250-62.5 mg/5 mL suspension for reconstitution 10 ml PO TID 40 Days Qty: 1200 0RF amlodipine 5 mg Tablet 5 mg PO DAILY Qty: 0 0RF Hold Instructions: Order Completed nystatin [Nyamyc] 100,000 unit/gram Powder 1 applic topical BID Qty: 0 0RF Protocol: *Topical Application Instructions APPLICATION INSTRUCTIONS: darien groin HySept 0.25 % Solution 1 applic topical DAILY Qty: 0 0RF Protocol: *Topical Application Instructions APPLICATION INSTRUCTIONS: Use for wet to dry gauze dressing changes topically to left heel ulcer. menthol-zinc oxide [Calmoseptine] 0.44-20.6 % Ointment 1 applic topical BID Qty: 0 0RF Protocol: *Topical Application Instructions APPLICATION INSTRUCTIONS: to coccyx Roberto (with collagen) 7-7-1.5 gram Powder In Packet 1 packet PO BIDCM Qty: 0 0RF Changed vancomycin in 0.9 % sodium chl 500 mg/100 mL piggyback 500 mg IV UD Rx Instructions: After each dialysis, stop date July 31, 2023 Referrals / Follow Up: Jakob Theodore MD [Med Staff - Active Staff] - See Referral Note (Angiogram is scheduled for 06/25/2023) Care Physician,No Primary [Primary Care Provider] - Disposition Disposition (needs filled in before D/C Order can be placed): Group Home Facility
[2023-06-23 10:00] VITALS: BP 151/64; PULSE 85; RESP 17; TEMP 37; O2SAT 100
--- NOTE | 2023-06-23 10:00 | PCM.DC.SUM ---
Providers Date of Admission: 06/21/23 Date of Discharge: 06/23/23 Primary Care Physician: Arely Primary Care Phys Consultations 06/21/23 12:10 Consult: Nephrology Routine Consulting Provider: Mihir Burnett Reason for Consult: need for dialysis EMERGENT Consult: No MD Notified: Yes Date Notified: 06/21/23 Time Notified: 11:17 Method of Notification: Verbal Reason For Visit: SEIZURE Diagnosis Discharge Diagnosis (1) Type 2 diabetes mellitus with foot ulcer: Status: Acute Code(s): E11.621 - Type 2 diabetes mellitus with foot ulcer; L97.509 - Non-pressure chronic ulcer of other part of unspecified foot with unspecified severity (2) Seizure: Status: Acute Code(s): R56.9 - Unspecified convulsions Plan 1. New onset seizure disorder-patient is now on Keppra, she will need 500 mg of Keppra after each dialysis session #2 left foot osteomyelitis-patient will remain on vancomycin and Augmentin #3 end-stage renal disease requiring dialysis-nephrology is following patient #4 large hematoma in the anterior abdominal wall over the right lower quadrant-supportive care at this time, CT scan today shows this area is approximately 10 cm in diameter. #5 blood loss anemia secondary to abdominal wall hematoma-hemoglobin is stable at this time #6 type 2 diabetes-blood sugars will be monitored, sliding scale insulin will use as needed #7 hypoxia-exact etiology unclear at this time, pulse ox will be monitored, patient is on low-flow oxygen #8 generalized debility-PT and OT will see the patient Total clinical time spent by myself addressing the patient's medical issues, reviewing all of her data, and collaborating with patient's care team: 35 minutes Medications at Discharge Home Medications ascorbic acid (vitamin C) 500 mg tablet (C-500) 500 mg PO DAILY 06/14/23 cholecalciferol (vitamin D3) 25 mcg (1,000 unit) tablet (Vitamin D3) 25 mcg PO DAILY 06/14/23 lidocaine-prilocaine 2.5 %-2.5 % topical cream 1 applic topical .MonWedFri for dialysis when use AVF 06/14/23 amlodipine 5 mg tablet 5 mg PO DAILY #0 tabs 06/20/23 amoxicillin 250 mg-potassium clavulanate 62.5 mg/5 mL oral suspension (Augmentin) 10 ml PO TID 40 days #1,200 mL 06/20/23 arginine 7 gram-glutam 7 gram-CaHMB 1.5 [id number]-nx-min oral pwd pkt (Roberto (with collagen)) 1 packet PO BIDCM #0 ea 06/20/23 menthol 0.44 %-zinc oxide 20.6 % topical ointment (Calmoseptine) 1 applic topical BID #0 grams 06/20/23 nystatin 100,000 unit/gram topical powder (Nyamyc) 1 applic topical BID #0 grams 06/20/23 sodium hypochlorite 0.25 % solution (HySept) 1 applic topical DAILY #0 mL 06/20/23 levetiracetam 500 mg tablet (Keppra) 500 mg PO BID #1 TAB 06/23/23 vancomycin 500 mg/100 mL in 0.9% sodium chloride intravenous piggyback 500 mg (100 mL) IV UD #0 mL 06/23/23 Hospital Course Operations None Procedures Electroencephalogram Summary of Care Provided Minutes Spent on Discharge: 31 Hospital Course: This 72-year-old white female was seen in the emergency room at [facility] after being transferred from an extended care facility where she was undergoing rehab services due to a period of unresponsiveness witnessed by her and the staff at the halfway. Prior to this episode, patient had some abnormal tongue movements that was noticed by the patient's . Work-up in the emergency room included labs which revealed elevated white blood cell count, hemoglobin was low but near her baseline hemoglobin when she was discharged from the hospital recently. Creatinine and BUN were elevated in keeping with her history of end-stage renal disease on dialysis. There was concern that the patient had a vascular coil inserted in her abdomen in the past, due to this concern she was unable to undergo an MRI of the brain, CT of the brain was performed which showed evidence of a possible subdural hematoma versus meningioma, due to this concern, I requested the ER physician obtain a teleneurology consult, teleneurology consult was performed and they did not feel the patient had an intracranial problem which required intervention. It was recommended however that the patient be placed on seizure medications for possible seizure. Patient was admitted to PCU, she had an EEG performed and during the time the EEG was initially started, she was also undergoing dialysis. She had a episode of unresponsiveness at approximately 2:15 in the afternoon of admission, rapid response was called and a blood gas was drawn which showed her to be acidotic indicating lactic acid from seizure activity. The dialysis was stopped and the patient was given extra Keppra, patient's mental status returned to baseline after an hour. Patient was admitted to the hospital at that point and observed for further episodes of unresponsiveness, there were no major episodes noted-however there was one episode that was brief which was noted the day that she was transferred back to the extended care facility, this episode only lasted for 1 to 2 minutes, blood gas obtained showed a mild acidosis but otherwise was normal. On 06/23/2023, patient was seen and examined: On examination she does not appear to be in any distress. Vital signs as documented. Skin warm and dry and without overt rashes. Neck without JVD, thyroid appears normal, trachea is midline, neck is supple. Lungs clear, normal air movement was noted. Heart exam notable for regular rhythm, normal sounds and absence of murmurs, rubs or gallops. Abdomen unremarkable and without evidence of organomegaly, masses, or abdominal aortic enlargement, bowel sounds are present in all 4 quadrants, no abdominal tenderness was noted. Extremities nonedematous, no cyanosis was noted, no clubbing was noted. There was surgical dressing covering the patient's left foot, this was not removed for examination. Neuro: Cranial nerves II through XII are grossly intact, no focal motor deficits were noted, sensation to light touch and pinprick is intact, motor exam 5/5 throughout. Psych: Patient is alert and oriented x2 On 06/23/2023, patient was seen and examined and felt to be in stable condition for discharge to her extended care facility for further rehab services. Weight / BMI Weight Weight: 58.5 kg Body Mass Index (BMI) 21.4 ABG / Lab / Microbiology Data 06/23/23 06:00 06/22/23 06:00 Laboratory: Laboratory Results - last 24 hr 06/22/23 06:27: POC Glucose 166 H 06/22/23 12:14: POC Glucose 148 H 06/22/23 17:13: POC Glucose 138 H 06/22/23 21:18: POC Glucose 183 H 06/23/23 06:00: WBC 18.7 H, RBC 2.34 L, Hgb 7.4 L, Hct 23.3 L, MCV 99.6 H, MCH 31.6, MCHC 31.8 L, RDW Std Deviation 47.1 H, RDW Coeff of Maddison 13.5, Plt Count 360, MPV 10.2, Neut % (Auto) Not Reportable, Absolute Neuts (auto) 13.3 H, Absolute Lymphs (auto) 1.49, Total Counted 100, Neutrophils % (Manual) 71 H, Lymphocytes % (Manual) 8 L, Monocytes % (Manual) 10, Eosinophils % (Manual) 4, Myelocytes % 6 H, Promyelocytes % 1 H, Diff Path Review May foll, Platelet Estimate ADEQUATE, RBC Morphology NORM C+C 06/23/23 06:34: POC Glucose 91 Radiography Diagnostic Testing: Radiology Impression Abdomen/Pelvis CT 06/23/23 05:55 IMPRESSION: 1. Subcutaneous hematoma in the right mid to lower abdominal wall consistent with clinical history, measuring up to 10.8 x 10.0 x 4.2 cm. No intramuscular hematoma. No hemoperitoneum or blood in the retroperitoneum. 2. Small pleural effusions and patchy bibasilar airspace disease. Findings may indicate pneumonia. Electronically Signed: Charan Barreto MD at 5:39 EDT , Meaningful Use Info Meaningful Use Diagnoses (Choose all that apply): None applicable Discharge Plan Admission Admit Date/Time: 06/21/23 15:26 Primary Reason for Your Visit: seizure Attending Provider: Wiley Gonzalez Primary Care Provider: Care Physician,No Primary Consulting Providers: Mihir Burnett Discharge Orders/Prescriptions Prescriptions: New levetiracetam [Keppra] 500 mg tablet 500 mg PO BID Qty: 1 0RF Rx Instructions: Give extra 500 mg p.o. after each dialysis Continued ascorbic acid (vitamin C) [C-500] 500 mg tablet 500 mg PO DAILY cholecalciferol (vitamin D3) [Vitamin D3] 25 mcg (1,000 unit) tablet 25 mcg PO DAILY Patient Comments: PT STATES THAT THEY TAKE AN OTC VITAMIN D THREE DAYS A WEEK. PT STATES THAT THEY DO NOT TAKE THIS ON ANY SPECIFIC DAY. lidocaine-prilocaine 2.5-2.5 % cream 1 applic topical .SatWedFri Patient Comments: APPLY SMALL AMOUNT TO ACCESS SITE (AVF) 1 HOUR BEFORE DIALYSIS. COVER WITH OCCLUSIVE DRESSING (SARAN WRAP) amoxicillin-pot clavulanate [Augmentin] 250-62.5 mg/5 mL suspension for reconstitution 10 ml PO TID 40 Days Qty: 1200 0RF amlodipine 5 mg Tablet 5 mg PO DAILY Qty: 0 0RF Hold Instructions: Order Completed nystatin [Nyamyc] 100,000 unit/gram Powder 1 applic topical BID Qty: 0 0RF Protocol: *Topical Application Instructions APPLICATION INSTRUCTIONS: darien groin HySept 0.25 % Solution 1 applic topical DAILY Qty: 0 0RF Protocol: *Topical Application Instructions APPLICATION INSTRUCTIONS: Use for wet to dry gauze dressing changes topically to left heel ulcer. menthol-zinc oxide [Calmoseptine] 0.44-20.6 % Ointment 1 applic topical BID Qty: 0 0RF Protocol: *Topical Application Instructions APPLICATION INSTRUCTIONS: to coccyx Roberto (with collagen) 7-7-1.5 gram Powder In Packet 1 packet PO BIDCM Qty: 0 0RF Changed vancomycin in 0.9 % sodium chl 500 mg/100 mL piggyback 500 mg IV UD Rx Instructions: After each dialysis, stop date July 31, 2023 Referrals / Follow Up: Jakob Theodore MD [Med Staff - Active Staff] - See Referral Note (Angiogram is scheduled for 06/25/2023) Care Physician,No Primary [Primary Care Provider] - Disposition Disposition (needs filled in before D/C Order can be placed): Longterm Facility Charges/Coding Visit Charges Inpatient E&M: 70053 Disch Hosp >30min
[2023-06-23 10:56] VITALS: BP 102/48; PULSE 88; RESP 24; O2SAT 100
[2023-06-23 11:15] LABS: Bedside Glucose 149 mg/dL (74-106)
[2023-06-23 11:17] LABS: Allen Test Positive; Base Excess -5 mmol/L (-2 to +2); Bicarbonate 21.5 mmol/L (22-26); Blood Gas Specimen Type ART; O2 Delivery Device Cannula; PO2 114 mmHG (75-100); SITE R Radial; SO2 98 % (95-99); Total Carbon Dioxide 23 mmol/L; pCO2 43.5 mmHg (35-45)
[2023-06-24 13:57] LABS: Pathologist Review Reviewed
[2023-06-25 09:29] LABS: Pathologist Review Reviewed
[2023-06-25 09:49] LABS: Pathologist Review Reviewed
== END 2023-06-23 14:05 | disposition skilled nursing facility (03) | DRG 100 ==
LOC: ED 07:23 → PCU 11:35
PROVIDERS: Admitting Provider Internal Medicine; Emergency Provider Emergency Medicine; Visit Provider Internal Medicine
DX: G40.909 Epilepsy, unspecified, not intractable, without status epilepticus (principal); N18.6 End stage renal disease; M86.9 Osteomyelitis, unspecified; L97.529 Non-pressure chronic ulcer of other part of left foot with unspecified severity; E11.22 Type 2 diabetes mellitus with diabetic chronic kidney disease; D50.0 Iron deficiency anemia secondary to blood loss (chronic); I50.9 Heart failure, unspecified; E11.51 Type 2 diabetes mellitus with diabetic peripheral angiopathy without gangrene; E11.621 Type 2 diabetes mellitus with foot ulcer; D32.9 Benign neoplasm of meninges, unspecified; E11.42 Type 2 diabetes mellitus with diabetic polyneuropathy; E11.69 Type 2 diabetes mellitus with other specified complication; S30.1XXA Contusion of abdominal wall, initial encounter; R09.02 Hypoxemia; R53.81 Other malaise
CPT/HCPCS: 36415; 36600; 70450; 71046; 74176; 80048; 81001; 82803; 82962; 83605; 84484; 85025; 90937; 94002; 94762; 95819; 99285; J7030; J7050; A4216; G0257; J2916; Q5106

== ENCOUNTER 2023-06-24 04:32 | Observation (INO) | payer MEDICARE, OTHER, SELFPAY ==
[2023-06-24] VITALS (22 sets, daily range): BP systolic 65–282; BP diastolic 37–82; PULSE 69–93; RESP 12–23; TEMP 35.9–36.7; O2SAT 94–100; BMI 24.7; BMI 23.8; BMI 23.3
--- NOTE | 2023-06-24 04:38 | EKG12_ITS ---
Test Reason : SYNCOPE Blood Pressure : / mmHG Vent. Rate : 078 BPM Atrial Rate : 078 BPM P-R Int : 198 ms QRS Dur : 098 ms QT Int : 418 ms P-R-T Axes : 040 -18 121 degrees QTc Int : 476 ms Normal sinus rhythm Possible Left atrial enlargement Minimal voltage criteria for LVH, may be normal variant ( Canelo product ) ST & T wave abnormality, consider lateral ischemia Abnormal ECG Confirmed by KASSI ASTORGA, YULIET ([id number]), food editor GENE ESPOSITO ([id number]) on 06/26/2023 9:13:33 AM Referred By: NILES Confirmed By:YULIET SOLITARIO MD
--- NOTE | 2023-06-24 04:40 | CT_ITS ---
STUDY: CT BRAIN WITHOUT CONTRAST REASON FOR EXAM: Female, 72 years old patient with mental status change. RADIATION DOSAGE (If Supplied By Facility): CTDIvol = ( 44.99 ) mGy, DLP = ( 796.11 ) mGycm TECHNIQUE: Transaxial CT imaging of the brain was performed without administration of intravenous contrast material. Multiplanar reformations are submitted for interpretation. Individualized dose optimization techniques were used for this CT. COMPARISON: CT of the head dated June 21, 2023. FINDINGS: Normal soft tissue structures. Normal calvarium. There is mild cerebral atrophy with widening of the extra-axial spaces and ventricular dilatation. There are areas of decreased attenuation within the white matter tracts of the supratentorial brain, consistent with microvascular disease changes. Normal basal ganglia and thalami. Normal brainstem. Normal cerebellum. There is no intracranial hemorrhage. There is atherosclerotic calcification of the intracranial arteries. Normal visualized paranasal sinuses. CT/Brain/Head without Contrast IMPRESSION: 1. There has been interim resolution of the left parafalcine subdural hematoma since previous CT. 2. Involutional changes of the brain, as described. Electronically Signed: Luda Radford MD at 5:52 EDT ,
--- NOTE | 2023-06-24 04:40 | CT_ITS ---
STUDY: CT ABDOMEN AND PELVIS WITHOUT CONTRAST REASON FOR EXAM: Female, 72 years old patient with abdominal wall hematoma. RADIATION DOSAGE (If Supplied By Facility): CTDIvol = ( 10.45 ) mGy, DLP = ( 579.56 ) mGycm TECHNIQUE: Transaxial images were obtained from the dome of the diaphragm to the symphysis pubis without oral contrast, and without intravenous contrast. Sagittal and coronal images were reconstructed. Individualized dose optimization techniques were used for this CT. COMPARISON: CT the abdomen and pelvis dated June 14, 2023. FINDINGS: There is bilateral basilar dependent atelectasis as well as airspace consolidation. There appear to be bilateral pleural effusions. The visualized heart is enlarged. There are coronary vascular calcifications. There is hepatomegaly with diffuse hepatic enlargement. Liver measures up to 22 cm in greatest dimension. There are multiple calcified hepatic granulomas. There are multiple gallstones. There are multiple benign calcified granulomata of the spleen. Normal pancreas. Normal bilateral adrenal glands. There is mild cortical atrophy of the right kidney, consistent with chronic medical renal disease. There is mild cortical atrophy of the left kidney, consistent with chronic medical renal disease. Normal visualized stomach. There is no obvious dilated bowel, ascites or pneumoperitoneum. The small bowel has a grossly normal appearance. There are numerous sigmoid colon diverticula. The appendix is visualized and appears normal. There is diffuse atherosclerotic calcification of the abdominal aorta and iliac arteries, without a demonstrated aneurysm. Normal inferior vena cava. Normal retroperitoneum. Normal urinary bladder. The uterus appears to have multiple myometrial calcifications right secondary to leiomyomata. There is a large hematoma within the right paramedian abdominal wall measuring 9.1 x 4.3 x 10.7 cm. There is heterogeneous increased attenuation adjacent to the right hematoma within the right flank area that may represent additional hemorrhage. The bones appear osteopenic. There is degenerative disc disease at L3-4 with disc space narrowing and vacuum disc phenomenon. CT/Abdomen/Pelvis without Cont IMPRESSION: 1. A large right lower quadrant abdominal wall hematoma in addition to some associated soft tissue hemorrhage within the abdominal wall. 2. Bilateral lower lobe airspace disease, atelectasis and pleural effusions suggests multifocal pneumonia. 3. Hepatomegaly. 4. Cholelithiasis. Electronically Signed: Luda Radford MD at 6:02 EDT ,
--- NOTE | 2023-06-24 04:41 | EX.ED.DYSGE1 ---
HPI History of Present Illness Chief Complaint: Unresponsive Narrative Narrative: Patient presents after a likely seizure. She was recently diagnosed with seizures, she is on Keppra, she was with her who stayed the night with her in the snf. She has a complicated medical history, she has osteomyelitis she is receiving Vanco and Zosyn at dialysis, she is receiving Keppra at dialysis for her seizures. She also has end-stage renal disease. She was recently admitted and discharged. was with her tonight he had just fallen asleep he thinks she may have had a seizure because when he woke up she was postictal. She is brought in via EMS [facility] Medical History Anemia Congestive heart failure (CHF) Diabetes Dialysis patient GI bleed Kidney dialysis as the cause of abnormal reaction of the patient, or of later complication, without mention of misadventure at the time of the procedure Kidney disease Peripheral arterial disease TIA (transient ischemic attack) Vision loss of left eye Vision loss of right eye Home Medications ascorbic acid (vitamin C) 500 mg tablet (C-500) 500 mg PO DAILY 06/14/23 [History Last Taken 06/13/23] cholecalciferol (vitamin D3) 25 mcg (1,000 unit) tablet (Vitamin D3) 25 mcg PO DAILY 06/14/23 [History Last Taken 06/13/23] lidocaine-prilocaine 2.5 %-2.5 % topical cream 1 applic topical .MonWedFri for dialysis when use AVF 06/14/23 [History Last Taken 06/14/23] amlodipine 5 mg tablet 5 mg PO DAILY #0 tabs 06/20/23 [Rx Last Taken Unknown] arginine 7 gram-glutam 7 gram-CaHMB 1.5 [id number]-[id number]-min oral pwd pkt (Roberto (with collagen)) 1 packet PO BIDCM #0 ea 06/20/23 [Rx Last Taken Unknown] menthol 0.44 %-zinc oxide 20.6 % topical ointment (Calmoseptine) 1 applic topical BID #0 grams 06/20/23 [Rx Last Taken Unknown] nystatin 100,000 unit/gram topical powder (Nyamyc) 1 applic topical BID #0 grams 06/20/23 [Rx Last Taken Unknown] levetiracetam 500 mg tablet (Keppra) 500 mg PO BID #1 TAB 06/23/23 [Rx Last Taken Unknown] vancomycin 500 mg/100 mL in 0.9% sodium chloride intravenous piggyback 500 mg (100 mL) IV UD #0 mL 06/23/23 [Rx Last Taken Unknown] insulin lispro 100 unit/mL subcutaneous pen (Humalog KwikPen (U-100) Insulin) 3 unit subcut QHS 06/24/23 [History Last Taken Unknown] Allergy/AdvReac Type Severity Reaction Status Date / Time doxycycline Allergy Rash Verified 06/21/23 06:12 iodine Allergy Other Verified 06/24/23 05:37 levofloxacin [From Levaquin] Allergy patient Verified 06/21/23 06:12 states mother had allergy and is afraid she is. shellfish derived Allergy PT UNSURE Verified 06/24/23 05:37 OF REACTION Family History Other CVA (cerebral vascular accident) Diabetes Surgical History S/P dialysis catheter insertion S/P tonsillectomy Social History Smoking Status: Never smoker ROS ROS ED Review of Systems ROS Unobtainable: due to mental status EXAM Physical Exam Narrative Exam Narrative: Physical exam General: Patient appears chronically ill. She is responding to painful stimuli and she is protecting her airway. Head: Normocephalic, Atraumatic Eyes: Conjunctiva slightly pale ENT: Slightly dry mucous membranes Neck: Supple, Nontender, No lymphadenopathy Cardiovascular: Regular rate, Regular rhythm Respiratory: Coarse bilateral breath sounds she does not appear in any respiratory distress Abdomen: She has no abdominal wall hematoma on the right which is tender to palpation however the rest of the abdomen has no tenderness. Back: Nontender, Normal Inspection. Negative for: CVA tenderness Extremities: Wound on her left leg. I do not appreciate any cellulitis currently. Otherwise left arm fistula with a thrill. Neurological: She responds to pain but is nonverbal currently. There is no focal deficit. Const Vital Signs: 06/24/23 04:33 06/24/23 05:32 06/24/23 06:03 Temperature 97.4 F L 97.6 F L Temperature Source Temporal Temporal Pulse Rate 83 69 70 Respiratory Rate 23 H 16 17 Blood Pressure 83/63 L 84/37 L 94/41 L Blood Pressure Mean 69 52 58 Pulse Ox 94 99 99 Oxygen Delivery Method Nasal Cannula Nasal Cannula Nasal Cannula Oxygen Flow Rate (L/min) 2 2 2 MDM MDM MDM Narrative Medical decision making narrative: Patient has an abdominal wall hematoma, this has been noted in the past and it has not increased in size based on my CT. She also had a CT of the head that showed possible bleed however I repeated the CT scan and it was negative. Patient was transiently hypotensive in the emergency department. She did appear dehydrated and I gave her IV fluids. She slowly improved but she is still somnolent. When I wake her up she will be more lucid but still not back to baseline after a few hours. I discussed with the , patient will be admitted for observation. She is receiving antibiotics in the IV and she does not have lactic acidosis, I do not believe she is septic. I believe her hypotension was due to dehydration, it has improved with IV fluids however I am worried that it could again decrease. The chest x-ray read by radiologist shows possible pneumonia, however again the patient is receiving Zosyn and vancomycin during dialysis. She last received dialysis Saturday. History & Record Review Discussion w/independent historian: EMS personnel and Significant other Additional record(s) reviewed:: Prior inpatient record and Prior outpatient record Lab Data Labs: Laboratory Results - last 24 hr 06/24/23 06/24/23 04:35 05:00 WBC 14.0 H RBC 2.46 L Hgb 7.7 L Hct 24.8 L MCV 100.8 H MCH 31.3 MCHC 31.0 L RDW Std Deviation 49.2 H RDW Coeff of Maddison 13.5 Plt Count 402 MPV 10.0 Immature Gran % (Auto) [employer]ICER Neut % (Auto) [employer]S AND [employer]RATION OFFICER Lymph % (Auto) [employer]S AND I[employer]RATION OFFICER [place] % (Auto) C[employer]S AND IMM[employer]RATION OFFICER Eos % (Auto) C[employer]S AND [employer]RATION OFFICER Baso % (Auto) C[employer]S AND [employer]MM[employer]RATION OFFICER Absolute Neuts (auto) 10.5 H Absolute Lymphs (auto) 1.40 Total Counted 100 Neutrophils % (Manual) 75 H Lymphocytes % (Manual) 10 L Monocytes % (Manual) 8 Eosinophils % (Manual) 2 Myelocytes % 5 H Nucleated RBC % [employer] AND [employer]RATION OFFICER Diff Path Review May foll Platelet Estimate ADEQUATE RBC Morphology NORM C+C PT 13.8 INR 1.1 Sodium 134 L Potassium 4.6 Chloride 102 Carbon Dioxide 23.0 Anion Gap 9 BUN 80 H Creatinine 6.76 H Estim Creat Clear Calc 6.87 Est GFR (MDRD) Af Amer 8 L Est GFR (MDRD) Non-Af 6 L BUN/Creatinine Ratio 11.8 Glucose 171 H Lactic Acid 1.6 Calcium 8.5 Total Bilirubin 0.40 AST 16 ALT 18 Alkaline Phosphatase 160 H Troponin I High Sens 37 Total Protein 6.4 Albumin 2.1 L Globulin 4.3 H Albumin/Globulin Ratio 0.5 L Urine Color Yellow Urine Clarity Clear Urine pH 6.5 Ur Specific [place] 1.010 Urine Protein 500 H Urine Glucose (UA) 100 H Urine Ketones Negative Urine Occult Blood 10 H Urine Nitrite Negative Urine Bilirubin Negative Urine Urobilinogen Normal Ur Leukocyte Esterase Negative Urine RBC 0 SEEN Urine WBC 0-5 SEEN Ur Squamous Epith Cells 0 SEEN Urine Bacteria 2+ Urine Mucus 0 SEEN Radiography Diagnostic Testing: Clinical Impression(s) from Imaging Studies Abdomen/Pelvis CT 06/24/23 04:40 IMPRESSION: 1. A large right lower quadrant abdominal wall hematoma in addition to some associated soft tissue hemorrhage within the abdominal wall. 2. Bilateral lower lobe airspace disease, atelectasis and pleural effusions suggests multifocal pneumonia. 3. Hepatomegaly. 4. Cholelithiasis. Electronically Signed: Luda Radford MD at 6:02 EDT Reading Location ID and State: [facility] / [place] , Service support , Brain CT 06/24/23 04:40 IMPRESSION: 1. There has been interim resolution of the left parafalcine subdural hematoma since previous CT. 2. Involutional changes of the brain, as described. Electronically Signed: Luda Radford MD at 5:52 EDT , Chest X-Ray 06/24/23 05:25 IMPRESSION: 1. Cardiomegaly and mild pulmonary congestion. 2. Left basilar and left upper lobe airspace disease and possible pleural thickening. 3. Bilateral pleural effusions. Electronically Signed: Luda Radford MD at 5:47 EDT , Chest x-ray interpreted by me shows chronic changes and effusions. Rhythm Strip Rhythm Strip: Sinus Rhythm Rate: 78 Ectopy: None EKG Initial EKG: Comments: Sinus rhythm with a rate of 78. Normal IA interval. QTc slightly prolonged at 476. Nonspecific ST and T changes laterally. Interpreted by emergency doctor. Critical Care Time Critical care time (excluding procedures): 30-74 minutes, Discussing w/Patient &/or Family/Carton Wrapper, Discussing w/Consultants, Arranging Admission or Transfer, Performing Direct Patient Care at Bedside and - (32 minutes) Discharge Plan Triage Chief Complaint: Unresponsive ED Provider: Jeremiah Mak Dx/Rx/DC Orders Clinical Impression: Pneumonia, Abdominal wall hematoma, Seizure, Acute hypotension, Dehydration, Anemia Prescriptions: No Action levetiracetam [Keppra] 500 mg tablet 500 mg PO BID Qty: 1 0RF Rx Instructions: Give extra 500 mg p.o. after each dialysis vancomycin in 0.9 % sodium chl 500 mg/100 mL piggyback 500 mg IV UD Rx Instructions: After each dialysis, stop date July 31, 2023 insulin lispro [Humalog KwikPen Insulin] 100 unit/mL insulin pen 3 unit subcut QHS Rx Instructions: 200-250: 5 units 251-300: 8 units 301-250: 12 units ascorbic acid (vitamin C) [C-500] 500 mg tablet 500 mg PO DAILY cholecalciferol (vitamin D3) [Vitamin D3] 25 mcg (1,000 unit) tablet 25 mcg PO DAILY Patient Comments: PT STATES THAT THEY TAKE AN OTC VITAMIN D THREE DAYS A WEEK. PT STATES THAT THEY DO NOT TAKE THIS ON ANY SPECIFIC DAY. lidocaine-prilocaine 2.5-2.5 % cream 1 applic topical .MonWedFri Patient Comments: APPLY SMALL AMOUNT TO ACCESS SITE (AVF) 1 HOUR BEFORE DIALYSIS. COVER WITH OCCLUSIVE DRESSING (SARAN WRAP) amlodipine 5 mg Tablet 5 mg PO DAILY Qty: 0 0RF Hold Instructions: Order Completed nystatin [Nyamyc] 100,000 unit/gram Powder 1 applic topical BID Qty: 0 0RF Protocol: *Topical Application Instructions APPLICATION INSTRUCTIONS: darien groin menthol-zinc oxide [Calmoseptine] 0.44-20.6 % Ointment 1 applic topical BID Qty: 0 0RF Protocol: *Topical Application Instructions APPLICATION INSTRUCTIONS: to coccyx Roberto (with collagen) 7-7-1.5 gram Powder In Packet 1 packet PO BIDCM Qty: 0 0RF Primary Care Provider: Jeremiah Holly Referrals: Care Physician,No Primary [Non-Staff] - Disposition Disposition: Acute Care Hospital [facility]
[2023-06-24 04:52] LABS: Hematocrit 24.8 % (37-47); Hemoglobin 7.7 g/dL (12.0-15.0); Mean Corpuscular Hgb 31.3 pg (27.0-32.0); Mean Corpuscular Volume 100.8 fL (81-99); POSITIVE COUNT YES; POSITIVE MORPHOLOGY YES; Platelet Count 402 K/mm3 (150-450); RBC Distribution Width CV 13.5 % (11.6-14.6); RBC Distribution Width SD 49.2 fl (35.1-43.9); Red Blood Count 2.46 M/mm3 (4.2-5.4)
[2023-06-24] MEDS: levETIRAcetam IV 1,000 MG/100 ML BAG 400 MG IV (05:02)
[2023-06-24 05:06] LABS: Differential Indicated MANUAL DIFF
[2023-06-24 05:07] LABS: Mucous, Urine 0 SEEN /hpf (<or=2+); Red Blood Cells-Urine 0 SEEN /hpf (0-5); Squamous Epithelial Cells - UA 0 SEEN /hpf (5-10)
[2023-06-24 05:07] LABS: International Normalized Ratio 1.1; Prothrombin Time (Protime)PT. 13.8 SECONDS (11.7-14.9)
[2023-06-24 05:20] LABS: ALB/GLOB Ratio 0.5 RATIO (0.9-2.4); AST(SGOT) 16 U/L (15-37); Alanine Aminotransfer ALT/SGPT 18 U/L (13-56); Albumin, Serum 2.1 g/dL (3.2-5.0); Alkaline Phosphatase 160 U/L (45-117); Anion Gap 9 (5-15); BUN 80 mg/dL (7-18); BUN/Creat Ratio 11.8 RATIO (10-20); Calcium,Total 8.5 mg/dL (8.5-10.1); Chloride 102 mmol/L (98-107); Creatinine, Serum 6.76 mg/dL (0.55-1.02); EST Glomerular Filtration Rate 6 mL/min (>60); Est Glom Filt Rate - Afr Amer 8 mL/min (>60); Estimated Creatinine Clearance 6.87 ml/min; Globulin 4.3 g/dL (2.2-4.2); Glucose 171 mg/dL (74-106); Lactic Acid 1.6 mmol/L (0.4-1.9); Potassium 4.6 mmol/L (3.5-5.1); Protein, Total 6.4 g/dL (6.4-8.2); Sodium Level 134 mmol/L (136-145); Troponin-I HS 37 pg/mL (3.0-54.0)
[2023-06-24 05:23] LABS: Color, Urine Yellow (Yellow); Glucose, Dipstick 100 mg/dl (Normal); Ketone-Dipstick Negative (Negative); Leukocyte Esterase-Dipstick Negative /ul (Negative); Nitrite-Dipstick Negative (Negative); Occult Blood-Urine 10 /ul (Negative); Protein-Dipstick 500 mg/dl (Negative); Urine Bilirubin Dipstick Negative (Negative); Urine Clarity Clear (Clear); Urine Urobilinogen Normal (Normal); Urine pH 6.5 (5.0 - 8.0)
--- NOTE | 2023-06-24 05:25 | RAD_ITS ---
STUDY: X-RAY CHEST REASON FOR EXAM: Female, 72 years old patient with weakness. TECHNIQUE: Single AP portable view of the chest. COMPARISON: June 21, 2023. FINDINGS: Cardiac monitoring leads are present. The lungs are expanded. There is a peripheral opacity left upper lobe that may be pleural based. It this measures approximately 2 cm in thickness. There may be additional left upper lobe airspace disease. There appears to be left basilar airspace consolidation and/or atelectasis. There are small bilateral pleural effusions. There is mild cardiac enlargement. Normal mediastinum and nitin. Normal visualized pulmonary arteries. There is atherosclerotic tortuosity of the aortic arch and descending thoracic aorta. There is demineralization of the osseous structures. Normal visualized ribs, clavicles, and shoulders. There is no demonstrated abnormality of the visualized soft tissue structures of the upper abdomen. RAD/Chest 1 View (Portable) IMPRESSION: 1. Cardiomegaly and mild pulmonary congestion. 2. Left basilar and left upper lobe airspace disease and possible pleural thickening. 3. Bilateral pleural effusions. Electronically Signed: Luda Radford MD at 5:47 EDT ,
[2023-06-24 05:36] LABS: Platelet Estimate ADEQUATE (ADEQ); Red Cell Morphology NORM C+C NORMAL (NORM C&C)
[2023-06-24 05:38] LABS: Absolute Neutrophil Count 10.5 X10^3/uL (2.0-7.7)
[2023-06-24 05:39] LABS: Eosinophil 2 % (0-5); Lymphocyte 10 % (19-41); Monocyte 8 % (0-10); Myelocyte 5 % (0-0); Neutrophil-Segmented 75 % (47-70); Total Cells Counted 100 (MANUAL DIFF)
[2023-06-24 05:41] LABS: Bacteria 2+ /hpf (None Seen); White Blood Cells 0-5 SEEN /hpf (0-5)
--- NOTE | 2023-06-24 06:27 | PCM.HP.STD ---
HPI - General General Date of Admission: 06/24/23 Date of Service: 06/24/23 Chief Complaint: Unresponsiveness HPI Narrative TRISH PERKINS, is a 72 F with a significant history of recent osteomyelitis on antibiotics; seizure disorder and abdominal hematoma who presents to the emergency department with unresponsiveness. Patient was recently discharged to the correction. Patient's spent the night with patient at the correction. While at the bedside with patient; patient dozed off, woke up and realized that patient may have had a seizure. Patient 's reason that patient might of had a seizure was that her tongue was sticking out and she was confused. Patient's called nursing staff who realized that patient was hypotensive. Subsequently patient was sent to the emergency department for further evaluation. [facility] Medical History Anemia Congestive heart failure (CHF) Diabetes Dialysis patient GI bleed Kidney dialysis as the cause of abnormal reaction of the patient, or of later complication, without mention of misadventure at the time of the procedure Kidney disease Peripheral arterial disease TIA (transient ischemic attack) Vision loss of left eye Vision loss of right eye Home Medications ascorbic acid (vitamin C) 500 mg tablet (C-500) 500 mg PO DAILY 06/14/23 [History Last Taken 06/13/23] cholecalciferol (vitamin D3) 25 mcg (1,000 unit) tablet (Vitamin D3) 25 mcg PO DAILY 06/14/23 [History Last Taken 06/13/23] lidocaine-prilocaine 2.5 %-2.5 % topical cream 1 applic topical .MonWedFri for dialysis when use AVF 06/14/23 [History Last Taken 06/14/23] amlodipine 5 mg tablet 5 mg PO DAILY #0 tabs 06/20/23 [Rx Last Taken Unknown] arginine 7 gram-glutam 7 gram-CaHMB 1.5 [id number]-ttskf-ez-min oral pwd pkt (Roberto (with collagen)) 1 packet PO BIDCM #0 ea 06/20/23 [Rx Last Taken Unknown] menthol 0.44 %-zinc oxide 20.6 % topical ointment (Calmoseptine) 1 applic topical BID #0 grams 06/20/23 [Rx Last Taken Unknown] nystatin 100,000 unit/gram topical powder (Nyamyc) 1 applic topical BID #0 grams 06/20/23 [Rx Last Taken Unknown] levetiracetam 500 mg tablet (Keppra) 500 mg PO BID #1 TAB 06/23/23 [Rx Last Taken Unknown] vancomycin 500 mg/100 mL in 0.9% sodium chloride intravenous piggyback 500 mg (100 mL) IV UD #0 mL 06/23/23 [Rx Last Taken Unknown] insulin lispro 100 unit/mL subcutaneous pen (Humalog KwikPen (U-100) Insulin) 3 unit subcut QHS 06/24/23 [History Last Taken Unknown] Allergy/AdvReac Type Severity Reaction Status Date / Time doxycycline Allergy Rash Verified 06/21/23 06:12 iodine Allergy Other Verified 06/24/23 05:37 levofloxacin [From Levaquin] Allergy patient Verified 06/21/23 06:12 states mother had allergy and is afraid she is. shellfish derived Allergy PT UNSURE Verified 06/24/23 05:37 OF REACTION Family History Other CVA (cerebral vascular accident) Diabetes Surgical History S/P dialysis catheter insertion S/P tonsillectomy Social History Smoking Status: Never smoker ROS ROS Narrative Pertinent positives and pertinent negatives as noted in HPI. All other systems were reviewed and are negative Vital Signs Vital Signs Vital Signs: 06/24/23 04:33 06/24/23 05:32 06/24/23 06:03 Temperature 97.4 F L 97.6 F L Temperature Source Temporal Temporal Pulse Rate 83 69 70 Respiratory Rate 23 H 16 17 Blood Pressure 83/63 L 84/37 L 94/41 L Blood Pressure Mean 69 52 58 Pulse Ox 94 99 99 Oxygen Delivery Method Nasal Cannula Nasal Cannula Nasal Cannula Oxygen Flow Rate (L/min) 2 2 2 06/24/23 06:19 Temperature Temperature Source Pulse Rate 84 Respiratory Rate 22 H Blood Pressure 119/52 L Blood Pressure Mean 74 Pulse Ox 96 Oxygen Delivery Method Nasal Cannula Oxygen Flow Rate (L/min) 2 Weight Weight: 67.5 kg Body Mass Index (BMI) 24.7 Physical Exam Narrative Physical exam: General: Well-nourished, well-developed. Head: Normocephalic, atraumatic, no tenderness Eyes: Vision is grossly intact. EOMI. Mildly icterus. ENT, no trauma, moist mucous membranes, no rhinorrhea Neck: Nontender, No thyromegaly. CVS: Regular rate and rhythm. S1-S2 present. No murmur, gallop or rub. Respiratory : clear to auscultation bilaterally, chest wall nontender Abdomen: Soft, tender right lower quadrant, nondistended, normal bowel sounds, no masses : Deferred Back: Nontender, no CVA tenderness, no midline spinal tenderness, deformities, step-offs Extremities: Strength 5 out of 5 in bilateral lower extremity. Left heel with dressing and Matthew wrap. Skin: Normal color, no trauma, abrasions Neuro: Alert, oriented, cranial nerves II through XII grossly intact. Psychiatry: Normal mood. Normal affect. Not depressed. Not anxious. Results Lab / Micro Data 06/24/23 04:35 06/24/23 04:35 Labs: Laboratory Results - last 24 hr 06/24/23 04:35: WBC 14.0 H, RBC 2.46 L, Hgb 7.7 L, Hct 24.8 L, MCV 100.8 H, MCH 31.3, MCHC 31.0 L, RDW Std Deviation 49.2 H, RDW Coeff of Maddison 13.5, Plt Count 402, MPV 10.0, Immature Gran % (Auto) [employer] PAINTER HELPER, Neut % (Auto) AUT[employer] PAINTER HELPER, Lymph % (Auto) AUT[employer] PAINTER HELPER, [place] % (Auto) AUTO PAINTER HELPER, Eos % (Auto) AUTO PAINTER HELPER, Baso % (Auto) AUT[employer] PAINTER HELPER, Absolute Neuts (auto) 10.5 H, Absolute Lymphs (auto) 1.40, Total Counted 100, Neutrophils % (Manual) 75 H, Lymphocytes % (Manual) 10 L, Monocytes % (Manual) 8, Eosinophils % (Manual) 2, Myelocytes % 5 H, Nucleated RBC % [employer] PAINTER HELPER, Diff Path Review April, Platelet Estimate ADEQUATE, RBC Morphology NORM C+C, PT 13.8, INR 1.1, Sodium 134 L, Potassium 4.6, Chloride 102, Carbon Dioxide 23.0, Anion Gap 9, BUN 80 H, Creatinine 6.76 H, Estim Creat Clear Calc 6.87, Est GFR (MDRD) Af Amer 8 L, Est GFR (MDRD) Non-Af 6 L, BUN/Creatinine Ratio 11.8, Glucose 171 H, Lactic Acid 1.6, Calcium 8.5, Total Bilirubin 0.40, AST 16, ALT 18, Alkaline Phosphatase 160 H, Troponin I High Sens 37, Total Protein 6.4, Albumin 2.1 L, Globulin 4.3 H, Albumin/Globulin Ratio 0.5 L 06/24/23 05:00: Urine Color Yellow, Urine Clarity Clear, Urine pH 6.5, Ur Specific [place] 1.010, Urine Protein 500 H, Urine Glucose (UA) 100 H, Urine Ketones Negative, Urine Occult Blood 10 H, Urine Nitrite Negative, Urine Bilirubin Negative, Urine Urobilinogen Normal, Ur Leukocyte Esterase Negative, Urine RBC 0 SEEN, Urine WBC 0-5 SEEN, Ur Squamous Epith Cells 0 SEEN, Urine Bacteria 2+, Urine Mucus 0 SEEN Rhythm Strip Rhythm Strip: Sinus Rhythm Rate: 78 Ectopy: None Radiology Impression Abdomen/Pelvis CT 06/24/23 04:40 IMPRESSION: 1. A large right lower quadrant abdominal wall hematoma in addition to some associated soft tissue hemorrhage within the abdominal wall. 2. Bilateral lower lobe airspace disease, atelectasis and pleural effusions suggests multifocal pneumonia. 3. Hepatomegaly. 4. Cholelithiasis. Electronically Signed: Luda Radford MD at 6:02 EDT Reading Location ID and State: [address] [place] [address] , Service support , Brain CT 06/24/23 04:40 IMPRESSION: 1. There has been interim resolution of the left parafalcine subdural hematoma since previous CT. 2. Involutional changes of the brain, as described. Electronically Signed: Luda Radford MD at 5:52 EDT , Chest X-Ray 06/24/23 05:25 IMPRESSION: 1. Cardiomegaly and mild pulmonary congestion. 2. Left basilar and left upper lobe airspace disease and possible pleural thickening. 3. Bilateral pleural effusions. Electronically Signed: Luda Radford MD at 5:47 EDT Reading Location ID and State: [facility] / [place] , Service support , Assessment & Plan Assessment/Plan (1) Seizure: (2) Abdominal wall hematoma: QUALIFIERS: Encounter type: subsequent encounter Qualified Code(s): S30.1XXD - Contusion of abdominal wall, subsequent encounter (3) Diabetes mellitus with diabetic polyneuropathy: QUALIFIERS: Diabetes mellitus long term care pharmacist insulin use: with long-term use (4) Foot osteomyelitis, left: QUALIFIERS: Osteomyelitis type: other chronic Qualified Code(s): M86.672 - Other chronic osteomyelitis, left ankle and foot PLAN: Plan Seizure disorder Seizure precautions Ativan as needed Received loading dose of Keppra 1000 mg emergency department. We will continue same dose of Keppra 500 mg p.o. twice daily and patient 500 mg on day of dialysis. EEG ordered MRI ordered Recent osteomyelitis Vancomycin and amoxicillin continued. Diabetes mellitus Blood glucose is stable Accu-Chek correction scale insulin ordered. Abdominal wall hematoma Developed after receiving Lovenox shots. No chemoprophylaxis for anticoagulation. Abnormal imaging Impression of chest x-ray by radiology: 1. Cardiomegaly and mild pulmonary congestion. 2. Left basilar and left upper lobe airspace disease and possible pleural thickening. 3. Bilateral pleural effusions. Chest x-ray image was independently interpreted I agree with the interpretation. Abdomen/pelvis CT with radiology interpretation as below 1. A large right lower quadrant abdominal wall hematoma in addition to some associated soft tissue hemorrhage within the abdominal wall. 2. Bilateral lower lobe airspace disease, atelectasis and pleural effusions suggests multifocal pneumonia. 3. Hepatomegaly. 4. Cholelithiasis. No clinical sign of pneumonia. On vancomycin and amoxicillin which we will continue. Incentive spirometer ordered End-stage renal disease on dialysis (Saturday Nephrology consult Diabetic and renal diet ordered. Hypotension Hold home amlodipine. Trend blood pressures. DVT prophylaxis SCD Time spent in the patient's overall evaluation,decision-making process, review of diagnostic data, adjustment of management, discussion with other providers, nursing nursing and ancillary staff involved in patient's care documentation, 60 minutes. Charges/Coding Visit Charges Inpatient E&M: 29192 Init Hosp L3
[2023-06-24] MEDS: Menthol/Lanolin/Calamine/Znox 113 GM Tube 1 APPLIC TOPICAL ×2 (09:58→22:48)
[2023-06-24] MEDS: Juven (unflavored) Packet 1 PACKET PO ×2 (09:58→16:36)
[2023-06-24] MEDS: Nystatin Powder 15gm Bottle 1 APPLIC TOPICAL ×2 (09:58→22:49)
[2023-06-24] MEDS: Cholecalciferol (VIT D3) 25 MCG TABLET (1,000 UNITS) PO (09:59)
[2023-06-24] MEDS: Ascorbic Acid 500 MG Tablet PO (09:59)
[2023-06-24] MEDS: levETIRAcetam 500 MG Tablet PO (10:00)
[2023-06-24 11:27] LABS: Vancomycin, Random Level 18.7 ug/mL (0.0-15.0)
--- NOTE | 2023-06-24 11:43 | PCM.RX.CS ---
Consult Antibiotic Management Pharmacy has been consulted to manage selected antiobiotic: Vancomycin Type of Intervention Type of Consult: New start Suspected Infection Suspected Infection: Osteomyelitis Prior Doses of Antibiotics Prior Doses of Antibiotics Received/Current Regimen: Has been on Vancomycin 500 mg after HD, from previous admission, received last dose from last admission on 06/21/23 @ 2027 Labs Labs: Sodium 134 mmol/L (136-145) L 06/24/23 04:35 Potassium 4.6 mmol/L (3.5-5.1) 06/24/23 04:35 Chloride 102 mmol/L (98-107) 06/24/23 04:35 Carbon Dioxide 23.0 mmol/L (21.0-32.0) 06/24/23 04:35 Anion Gap 9 (5-15) 06/24/23 04:35 BUN 80 mg/dL (7-18) H 06/24/23 04:35 Creatinine 6.76 mg/dL (0.55-1.02) H 06/24/23 04:35 Est GFR (MDRD) Af Amer 8 mL/min (>60) L 06/24/23 04:35 Est GFR (MDRD) Non-Af 6 mL/min (>60) L 06/24/23 04:35 BUN/Creatinine Ratio 11.8 RATIO (10-20) 06/24/23 04:35 Glucose 171 mg/dL (74-106) H 06/24/23 04:35 Random Vancomycin 18.7 ug/mL (0.0-15.0) H 06/24/23 10:40 Dosing Weight Weight used for dosin.5 kg Estimated Creatinine Clearance Estimated Creatinine Clearance: HD Goal Trough Goal Trough: 15-20 mcg/mL Pharmacy Plan for Drug Dosing Pharmacy Plan for Drug Dosing: Vancomycin random before HD today was 18.7, continue vancomycin 500 mg after HD, plan is for HD today per RN, 500 mg dose after, then random on before next regulary HD session. Pharmacy Service will continue to monitor and adjust dosing as required. Follow-Up Labs Follow-Up Labs: Trough: Vancomycin (Random) Date/Time Labs Ordered Labs to be done on [date and time ordered]: Random on 06/26/23 @ 0600 with Am labs
[2023-06-24 12:36] LABS: Bedside Glucose 118 mg/dL (74-106)
[2023-06-24 13:08] LABS: Bedside Glucose 130 mg/dL (74-106)
[2023-06-24] MEDS: 0.9% Normal Saline 1,000 ML IV.SOLN. 1000 ML OPERA.SITE (14:58)
[2023-06-24] MEDS: PureFlow B 2K Dialysis Soln 1 BAG 6 BAG PF (14:58)
[2023-06-24] MEDS: Epoetin Alfa-EPBX 20,000 unit/ml 20000 UNIT IV (14:59)
--- NOTE | 2023-06-24 16:10 | PN.HOSP_ITS ---
Hospitalist Note 71-year-old female was admitted for concern of seizures. Earlier patient was just admitted for recent osteomyelitis and discharged on antibiotics. As per the this was her fourth seizure episode. In the morning in senior care about 3:30 AM. Patient was unresponsive/altered mental status. stated that he does drop work-up and realized patient had seizure. Her tongue was twisted on left side, confused, disoriented, blank look and was unaware of the surroundings. Patient was also hypotensive. Patient cannot have MRI because she has a call in the left pelvis/iliac arterial system. As the factory maintenance technician was related to EEG, patient had another episode of altered mental status. It was for few seconds to minute and patient was back to normal being. No postictal confusion staring look and felt like it was not real seizure event. Patient on Keppra 500 mg p.o. twice daily and additional dose after dialysis. Keppra dose increased and 50 mg IV twice daily. I also discussed with ID as patient is on amox-clav and vancomycin for osteomyelitis. Patient dose of amoxicillin is not high enough to cause seizure. Plan: EEG and then SOC neuro consult. Amlodipine on hold as patient has not hypotension. BP on higher side 179/71. Laboratory Results 06/24/23 04:35: WBC 14.0 H, RBC 2.46 L, Hgb 7.7 L, Hct 24.8 L, MCV 100.8 H, MCH 31.3, MCHC 31.0 L, RDW Std Deviation 49.2 H, RDW Coeff of Maddison 13.5, Plt Count 402, MPV 10.0, Immature Gran % (Auto) RISK AND COMPLIANCE ANALYTICS DIRECTOR, Neut % (Auto) RISK AND COMPLIANCE ANALYTICS DIRECTOR, Lymph % (Auto) RISK AND COMPLIANCE ANALYTICS DIRECTOR, [place] % (Auto) RISK AND COMPLIANCE ANALYTICS DIRECTOR, Eos % (Auto) RISK AND COMPLIANCE ANALYTICS DIRECTOR, Baso % (Auto) RISK AND COMPLIANCE ANALYTICS DIRECTOR, Absolute Neuts (auto) 10.5 H, Absolute Lymphs (auto) 1.40, Total Counted 100, Neutrophils % (Manual) 75 H, Lymphocytes % (Manual) 10 L, Monocytes % (Manual) 8, Eosinophils % (Manual) 2, Myelocytes % 5 H, Nucleated RBC % RISK AND COMPLIANCE ANALYTICS DIRECTOR, Diff Path Review April, Platelet Estimate ADEQUATE, RBC Morphology NORM C+C, PT 13.8, INR 1.1, Sodium 134 L, Potassium 4.6, Chloride 102, Carbon Dioxide 23.0, Anion Gap 9, BUN 80 H, Creatinine 6.76 H, Estim Creat Clear Calc 6.87, Est GFR (MDRD) Af Amer 8 L, Est GFR (MDRD) Non-Af 6 L, BUN/Creatinine Ratio 11.8, Glucose 171 H, Lactic Acid 1.6, Calcium 8.5, Total Bilirubin 0.40, AST 16, ALT 18, Alkaline Phosphatase 160 H, Troponin I High Sens 37, Total Protein 6.4, Albumin 2.1 L, Globulin 4.3 H, Albumin/Globulin Ratio 0.5 L 06/24/23 05:00: Urine Color Yellow, Urine Clarity Clear, Urine pH 6.5, Ur Specific [place] 1.010, Urine Protein 500 H, Urine Glucose (UA) 100 H, Urine Ketones Negative, Urine Occult Blood 10 H, Urine Nitrite Negative, Urine Bilirubin Negative, Urine Urobilinogen Normal, Ur Leukocyte Esterase Negative, Urine RBC 0 SEEN, Urine WBC 0-5 SEEN, Ur Squamous Epith Cells 0 SEEN, Urine Bacteria 2+, Urine Mucus 0 SEEN 06/24/23 10:40: Random Vancomycin 18.7 H 06/24/23 12:01: POC Glucose 118 H 06/24/23 12:51: POC Glucose 130 H
[2023-06-24] MEDS: Vancomycin IV 500 MG/100 ML BAG 100 MG IV (16:16)
[2023-06-24 17:03] LABS: Bedside Glucose 152 mg/dL (74-106)
[2023-06-24] MEDS: 0.9% Saline Lock 10 ML Syringe IV (20:18)
[2023-06-24] MEDS: 0.9% Normal Saline 1,000 ML 15 ML IV (20:29)
[2023-06-24] MEDS: Amox/Clav 250mg/5ml Suspension 500 MG PO (22:48)
--- NOTE | 2023-06-24 22:53 | CON.PCM.RE_ITS ---
Assessment & Plan Assessment/Plan (1) End stage chronic kidney disease: PLAN: usually gets dialysis 3 times a week. no recent change in schedules. admitted with seizures, which is new. was discharged on vancomycin which is typically not associated with seizures. management as per primary anemia. Hb is low. NAHUN with HD osteomyelitis. continue vancomycin HPI Consult Data Date of Consult: 06/24/23 HPI Narrative Reason for Consultation: ESRD HPI Narrative: TRISH PERKINS, is a 72 F who presents to the hospital with seizures. she was recently admitted here for osteomyelitis. was discharged on vancomycin to be given with HD. came back with seizures. currently denies any complaints. breathing is acceptable. minimal LE edema. [facility] Medical History Anemia Congestive heart failure (CHF) Diabetes Dialysis patient GI bleed Kidney dialysis as the cause of abnormal reaction of the patient, or of later complication, without mention of misadventure at the time of the procedure Kidney disease Peripheral arterial disease TIA (transient ischemic attack) Vision loss of left eye Vision loss of right eye Home Medications ascorbic acid (vitamin C) 500 mg tablet (C-500) 500 mg PO DAILY 06/14/23 [History Last Taken 06/13/23] cholecalciferol (vitamin D3) 25 mcg (1,000 unit) tablet (Vitamin D3) 25 mcg PO DAILY 06/14/23 [History Last Taken 06/13/23] lidocaine-prilocaine 2.5 %-2.5 % topical cream 1 applic topical .MonWedFri for dialysis when use AVF 06/14/23 [History Last Taken 06/14/23] amlodipine 5 mg tablet 5 mg PO DAILY #0 tabs 06/20/23 [Rx Last Taken Unknown] arginine 7 gram-glutam 7 gram-CaHMB 1.5 dbsx-ksueu-go-min oral pwd pkt (Roberto (with collagen)) 1 packet PO BIDCM #0 ea 06/20/23 [Rx Last Taken Unknown] menthol 0.44 %-zinc oxide 20.6 % topical ointment (Calmoseptine) 1 applic topical BID #0 grams 06/20/23 [Rx Last Taken Unknown] nystatin 100,000 unit/gram topical powder (Nyamyc) 1 applic topical BID #0 grams 06/20/23 [Rx Last Taken Unknown] levetiracetam 500 mg tablet (Keppra) 500 mg PO BID #1 TAB 06/23/23 [Rx Last Taken Unknown] vancomycin 500 mg/100 mL in 0.9% sodium chloride intravenous piggyback 500 mg (100 mL) IV UD #0 mL 06/23/23 [Rx Last Taken Unknown] insulin lispro 100 unit/mL subcutaneous pen (Humalog KwikPen (U-100) Insulin) 3 unit subcut QHS 06/24/23 [History Last Taken Unknown] Allergy/AdvReac Type Severity Reaction Status Date / Time doxycycline Allergy Rash Verified 06/21/23 06:12 iodine Allergy Other Verified 06/24/23 05:37 levofloxacin [From Levaquin] Allergy patient Verified 06/21/23 06:12 states mother had allergy and is afraid she is. shellfish derived Allergy PT UNSURE Verified 06/24/23 05:37 OF REACTION Family History Other CVA (cerebral vascular accident) Diabetes Surgical History S/P dialysis catheter insertion S/P tonsillectomy Social History Smoking Status: Never smoker ROS ROS Narrative negative except above Physical Exam Narrative AAO3 no pallor no JVD s1s2 b/l air entry soft no edema no cyanosis Lab / Micro Data 06/24/23 04:35 06/24/23 04:35 Labs: Laboratory Results - last 24 hr 06/24/23 04:35: WBC 14.0 H, RBC 2.46 L, Hgb 7.7 L, Hct 24.8 L, MCV 100.8 H, MCH 31.3, MCHC 31.0 L, RDW Std Deviation 49.2 H, RDW Coeff of Maddison 13.5, Plt Count 402, MPV 10.0, Immature Gran % (Auto) PRODUCE SPECIALIST, Neut % (Auto) PRODUCE SPECIALIST, Lymph % (Auto) PRODUCE SPECIALIST, [place] % (Auto) PRODUCE SPECIALIST, Eos % (Auto) PRODUCE SPECIALIST, Baso % (Auto) PRODUCE SPECIALIST, Absolute Neuts (auto) 10.5 H, Absolute Lymphs (auto) 1.40, Total Counted 100, Neutrophils % (Manual) 75 H, Lymphocytes % (Manual) 10 L, Monocytes % (Manual) 8, Eosinophils % (Manual) 2, Myelocytes % 5 H, Nucleated RBC % PRODUCE SPECIALIST, Diff Path Review April, Platelet Estimate ADEQUATE, RBC Morphology NORM C+C, PT 13.8, INR 1.1, Sodium 134 L, Potassium 4.6, Chloride 102, Carbon Dioxide 23.0, Anion Gap 9, BUN 80 H, Creatinine 6.76 H, Estim Creat Clear Calc 6.87, Est GFR (MDRD) Af Amer 8 L, Est GFR (MDRD) Non-Af 6 L, BUN/Creatinine Ratio 11.8, Glucose 171 H, Lactic Acid 1.6, Calcium 8.5, Total Bilirubin 0.40, AST 16, ALT 18, Alkaline Phosphatase 160 H, Troponin I High Sens 37, Total Protein 6.4, Albumin 2.1 L, Globulin 4.3 H, Albumin/Globulin Ratio 0.5 L 06/24/23 05:00: Urine Color Yellow, Urine Clarity Clear, Urine pH 6.5, Ur Specific [place] 1.010, Urine Protein 500 H, Urine Glucose (UA) 100 H, Urine Ketones Negative, Urine Occult Blood 10 H, Urine Nitrite Negative, Urine Bilirubin Negative, Urine Urobilinogen Normal, Ur Leukocyte Esterase Negative, Urine RBC 0 SEEN, Urine WBC 0-5 SEEN, Ur Squamous Epith Cells 0 SEEN, Urine Bacteria 2+, Urine Mucus 0 SEEN 06/24/23 10:40: Random Vancomycin 18.7 H 06/24/23 12:01: POC Glucose 118 H 06/24/23 12:51: POC Glucose 130 H 06/24/23 16:34: POC Glucose 152 H Rhythm Strip Rhythm Strip: Sinus Rhythm Rate: 78 Ectopy: None Radiology Impression Abdomen/Pelvis CT 06/24/23 04:40 IMPRESSION: 1. A large right lower quadrant abdominal wall hematoma in addition to some associated soft tissue hemorrhage within the abdominal wall. 2. Bilateral lower lobe airspace disease, atelectasis and pleural effusions suggests multifocal pneumonia. 3. Hepatomegaly. 4. Cholelithiasis. Electronically Signed: Luda Radford MD at 6:02 EDT , Brain CT 06/24/23 04:40 IMPRESSION: 1. There has been interim resolution of the left parafalcine subdural hematoma since previous CT. 2. Involutional changes of the brain, as described. Electronically Signed: Luda Radford MD at 5:52 EDT Reading Location ID and State: [facility] / [place] , Service support , Chest X-Ray 06/24/23 05:25 IMPRESSION: 1. Cardiomegaly and mild pulmonary congestion. 2. Left basilar and left upper lobe airspace disease and possible pleural thickening. 3. Bilateral pleural effusions. Electronically Signed: Luda Radford MD at 5:47 EDT ,
[2023-06-24] MEDS: Insulin Lispro 100 UNIT/ML INSULN.PEN SC (22:54)
[2023-06-24 23:23] LABS: Bedside Glucose 141 mg/dL (74-106)
[2023-06-25] VITALS (13 sets, daily range): BP systolic 124–163; BP diastolic 54–72; PULSE 74–98; RESP 12–20; TEMP 36.1–36.8; O2SAT 94–99
[2023-06-25 06:42] LABS: Bedside Glucose 140 mg/dL (74-106)
--- NOTE | 2023-06-25 08:07 | PCM.PN.HOSP ---
Reason for Visit Reason for Visit: Diagnoses Type 2 diabetes mellitus with diabetic polyneuropathy (06/24/23) Other chronic osteomyelitis, left ankle and foot (06/24/23) End stage renal disease (06/24/23) Unspecified convulsions (06/24/23) Contusion of abdominal wall, subsequent encounter (06/24/23) Objective Data Objective Data Vital Signs: Vital Signs Temp Pulse Resp BP Pulse Ox O2 Del Method O2 Flow Rate 98.1 F 74 18 143/72 H 94 Nasal Cannula 3 06/25/23 05:01 06/25/23 05:01 06/25/23 05:01 06/25/23 05:01 06/25/23 05:01 06/25/23 05:01 06/25/23 05:01 Oxygen Flow Rate (L/min) 3 Oxygen Delivery Method Nasal Cannula Weight: 139 lb 12.369 oz Body Mass Index (BMI) 23.3 Intake & Output: Intake and Output for Last 24 Hours 06/23/23 06/24/23 06/25/23 23:59 23:59 23:59 Intake Total 2300 / 2350 50 / 50 Output Total 3000 / 3000 Balance -700 / -650 50 / 50 Lab / Micro Data 06/25/23 08:28 06/25/23 08:28 Labs: Laboratory Results - last 24 hr 06/24/23 10:40: Random Vancomycin 18.7 H 06/24/23 12:01: POC Glucose 118 H 06/24/23 12:51: POC Glucose 130 H 06/24/23 16:34: POC Glucose 152 H 06/24/23 22:52: POC Glucose 141 H 06/25/23 06:22: POC Glucose 140 H Rhythm Strip Rhythm Strip: Sinus Rhythm Rate: 78 Ectopy: None Physical Exam Narrative Seen and examined. Patient had an uneventful night. No acute seizure-like episode. Physical exam General: Alert, Oriented x3, Cooperative. BMI 23.3 kg/m?. HEENT: Atraumatic, PERRLA, EOMI, Normocephalic Oral: Oral mucosa moist. No Gingival or Mucosal Lesions/ Ulcerations Neck: Supple, No JVD, Negative Carotid Bruits Lungs: Air entry diminished in bilateral lung bases. No crepitation/rhonchi Cardiovascular: Regular rate, Regular Rhythm, Normal S1, Normal S2, No murmurs Abdomen: Bowel Sounds Present, Soft, mild tenderness over right lower quadrant mainly abdominal parietal wall, Non-Distended : No renal angle tenderness. No suprapubic tenderness. Extremities: No edema, Capillary Refill Less than 3 Seconds Skin: Bruise over right lower quadrant abdominal wall. Wound in the left foot. Covered with a dressing and Matthew wrap. Musculoskeletal: Weakness in both lower extremity left more than right. Mild tenderness in the left foot. Neurological: Cranial nerves II-XII grossly intact, DTR 2+/4. Sensory impairment in left foot. Psych/Mental Status: Flat affect. Assessment & Plan Assessment/Plan (1) Seizure: (2) Abdominal wall hematoma: QUALIFIERS: Encounter type: subsequent encounter Qualified Code(s): S30.1XXD - Contusion of abdominal wall, subsequent encounter (3) Diabetes mellitus with diabetic polyneuropathy: QUALIFIERS: Diabetes mellitus [facility] insulin use: with intermodal truck driver use (4) Foot osteomyelitis, left: QUALIFIERS: Osteomyelitis type: other chronic Qualified Code(s): M86.672 - Other chronic osteomyelitis, left ankle and foot PLAN: Plan This is 72-year-old female was being admitted after episode of altered mental status concerning for seizure from group home. 1. Seizure disorder new diagnosis during previous admission: Patient is admitted in PCU. As per the this is her fourth episode. She cannot have MRI because she has required left pelvis/probably iliac artery. EEG does not show acute epileptiform discharges but mild diffuse encephalopathy. No lateralizing signs or seizure patterns. Keppra dose increased to 750 mg IV twice daily with additional dose 500 mg after dialysis session. SOC neurology consult ordered 2. Left foot osteomyelitis from previous admission. Atherosclerosis of left lower extremity for left heel wound complicated with osteomyelitis: Patient had aortogram with left lower extremity runoff. IVUS of left peroneal artery TP trunk SFA/peroneal. Atherectomy/stent left femoropopliteal artery. Continue on vancomycin and Augmentin 3 end-stage renal disease requiring dialysis-on dialysis session as per engineering director. Broadcast Meteorologist consulted. 4 Large hematoma in the anterior abdominal wall over the right lower quadrant colon on conservative management. Recent CT scan on 06/24/2023 reported large right lower quadrant abdominal wall hematoma in addition to some associated soft tissue hemorrhage within abdominal wall. Bilateral lower lobe atelectasis. Hepatomegaly 22 cm. During previous admission showed hematoma about 9.1 x 4.3 x 10.7 cm. 5 Recent blood loss anemia secondary to abdominal wall hematoma-hemoglobin is stable at this time. Daily monitoring of CBC. Hemoglobin 7.2. Platelet count 378,000. 6 type 2 [id number]-Sown before meals and its coverage below sliding scale. 7 Chronic bilateral lower lobe atelectasis and a small effusion: Hypoxia on 2 L of oxygen. Incentive spirometry. 8 generalized debility-PT and OT consulted. 9. DVT prophylaxis bilateral SCDs. Laboratory Results 06/24/23 04:35: Diff Path Review Reviewed 06/24/23 10:41: Vitamin B12 1172 H, Vitamin D 25-Hydroxy 33.1 06/24/23 16:34: POC Glucose 152 H 06/24/23 22:52: POC Glucose 141 H 06/25/23 06:22: POC Glucose 140 H 06/25/23 08:28: WBC 16.9 H, RBC 2.33 L, Hgb 7.2 L, Hct 23.7 L, MCV 101.7 H, MCH 30.9, MCHC 30.4 L, RDW Std Deviation 49.6 H, RDW Coeff of [place] 13.9, Plt Count 378, MPV 9.9, Neut % (Auto) Not Reportable, Absolute Neuts (auto) 14.0 H, Absolute Lymphs (auto) 0.80 L, Total Counted 100, Neutrophils % (Manual) 83 H, Lymphocytes % (Manual) 5 L, Monocytes % (Manual) 5, Eosinophils % (Manual) 2, Metamyelocytes % 3 H, Myelocytes % 2 H, Diff Path Review April, Platelet Estimate ADEQUATE, RBC Morphology NORM C+C Sodium 134 L, Potassium 4.3, Chloride 105, Carbon Dioxide 22.0, Anion Gap 7, BUN 63 H, Creatinine 5.54 H, Estim Creat Clear Calc 8.38, Est GFR (MDRD) Af Amer 10 L, Est GFR (MDRD) Non-Af 8 L, BUN/Creatinine Ratio 11.4, Glucose 104, Calcium 8.4 L, Folate 5.80, TSH 5.90 H 06/25/23 11:30: Activated Clotting Time 233 H 06/25/23 13:02: POC Glucose 108 H Charges/Coding Visit Charges Inpatient E&M: 09434 Subs Hosp L2
[2023-06-25 08:39] LABS: Hematocrit 23.7 % (37-47); Hemoglobin 7.2 g/dL (12.0-15.0); Mean Corp Hgb Conc 30.4 g/dL (32-36); Mean Corpuscular Hgb 30.9 pg (27.0-32.0); Mean Corpuscular Volume 101.7 fL (81-99); Mean Platelet Vol. 9.9 fl (6.2-12.0); POSITIVE COUNT YES; POSITIVE MORPHOLOGY YES; Platelet Count 378 K/mm3 (150-450); RBC Distribution Width CV 13.9 % (11.6-14.6); RBC Distribution Width SD 49.6 fl (35.1-43.9); Red Blood Count 2.33 M/mm3 (4.2-5.4); White Blood Count 16.9 K/mm3 (4.4-11.0)
[2023-06-25 08:42] LABS: Differential Indicated MANUAL DIFF
--- NOTE | 2023-06-25 08:52 | CASEMGMT ---
Discharge Planning Updates sent to [facility] via [employer]. Eliza Lozano, Discharge Planning Asst.
[2023-06-25 08:53] LABS: Vitamin B12 1172 pg/mL (211-911); Vitamin D,25 Hydroxy 33.1 ng/mL
[2023-06-25] MEDS: DAKIN'S SOL HALF STRENGTH (=0.25%) 1 APPLIC TOPICAL (09:00)
[2023-06-25 09:03] LABS: Anion Gap 7 (5-15); BUN 63 mg/dL (7-18); BUN/Creat Ratio 11.4 RATIO (10-20); Calcium,Total 8.4 mg/dL (8.5-10.1); Chloride 105 mmol/L (98-107); Creatinine, Serum 5.54 mg/dL (0.55-1.02); EST Glomerular Filtration Rate 8 mL/min (>60); Est Glom Filt Rate - Afr Amer 10 mL/min (>60); Estimated Creatinine Clearance 8.38 ml/min; Glucose 104 mg/dL (74-106); Potassium 4.3 mmol/L (3.5-5.1); Sodium Level 134 mmol/L (136-145)
[2023-06-25] MEDS: Cholecalciferol (VIT D3) 25 MCG TABLET (1,000 UNITS) PO (09:04)
[2023-06-25] MEDS: Ascorbic Acid 500 MG Tablet PO (09:04)
[2023-06-25] MEDS: amLODIPine 5 MG Tablet PO (09:04)
[2023-06-25 09:29] LABS: Pathologist Review Reviewed
[2023-06-25 09:52] LABS: Eosinophil 2 % (0-5); Lymphocyte 5 % (19-41); Metamyelocyte 3 % (0-1); Monocyte 5 % (0-10); Myelocyte 2 % (0-0); Neutrophil-Segmented 83 % (47-70); Platelet Estimate ADEQUATE (ADEQ); Red Cell Morphology NORM C+C NORMAL (NORM C&C); Total Cells Counted 100 (MANUAL DIFF)
--- NOTE | 2023-06-25 10:14 | WOUNDNOTE ---
wound photo: left medial heel
[2023-06-25 13:04] LABS: ACT Activated Clotting Time 233 sec (74-137)
[2023-06-25 13:25] LABS: Bedside Glucose 108 mg/dL (74-106)
--- NOTE | 2023-06-25 16:36 | CASEMGMT ---
YVON ONEILL in to discuss DANG form with patient and pt's spouse. Pt with eyes closed and resting quietly. PT's spouse at bedside. YVON ONEILL explained DANG form, patient's spouse voiced understanding and signed form which was filed in chart. Pt's spouse provided with a copy of signed DANG form. Patient's spouse had no further questions or concerns at this time. Deshawn Turner RN CM
[2023-06-25] MEDS: Aspirin 325 MG Tablet PO (18:27)
[2023-06-25] MEDS: Clopidogrel Bisulfate 300 MG Tablet PO (18:27)
[2023-06-25] MEDS: Juven (unflavored) Packet 1 PACKET PO (18:28)
[2023-06-25] MEDS: Insulin Lispro 100 UNIT/ML INSULN.PEN SC ×2 (18:46→23:19)
--- NOTE | 2023-06-25 19:45 | PCM.PN.REN ---
Subjective Subjective no new complaints Objective Data Objective Data Vital Signs: Vital Signs Temp Pulse Resp BP Pulse Ox O2 Del Method O2 Flow Rate 97.0 F L 90 16 138/59 H 96 Nasal Cannula 2 06/25/23 12:50 06/25/23 12:50 06/25/23 12:50 06/25/23 12:50 06/25/23 12:50 06/25/23 13:40 06/25/23 13:40 Oxygen Flow Rate (L/min) 2 Oxygen Delivery Method Nasal Cannula Weight: 63.4 kg Body Mass Index (BMI) 23.3 Intake & Output: Intake and Output for Last 24 Hours 06/23/23 06/24/23 06/25/23 23:59 23:59 23:59 Intake Total 2300 / 2350 365.0 / 365.0 Output Total 3000 / 3000 300 / 300 Balance -700 / -650 65.0 / 65.0 Lab / Micro Data 06/25/23 08:28 06/25/23 08:28 Labs: Laboratory Results - last 24 hr 06/24/23 04:35: Diff Path Review Reviewed 06/24/23 10:41: Vitamin B12 1172 H, Vitamin D 25-Hydroxy 33.1 06/24/23 22:52: POC Glucose 141 H 06/25/23 06:22: POC Glucose 140 H 06/25/23 08:28: WBC 16.9 H, RBC 2.33 L, Hgb 7.2 L, Hct 23.7 L, MCV 101.7 H, MCH 30.9, MCHC 30.4 L, RDW Std Deviation 49.6 H, RDW Coeff of Maddison 13.9, Plt Count 378, MPV 9.9, Neut % (Auto) Not Reportable, Absolute Neuts (auto) 14.0 H, Absolute Lymphs (auto) 0.80 L, Total Counted 100, Neutrophils % (Manual) 83 H, Lymphocytes % (Manual) 5 L, Monocytes % (Manual) 5, Eosinophils % (Manual) 2, Metamyelocytes % 3 H, Myelocytes % 2 H, Diff Path Review May foll, Platelet Estimate ADEQUATE, RBC Morphology NORM C+C, Sodium 134 L, Potassium 4.3, Chloride 105, Carbon Dioxide 22.0, Anion Gap 7, BUN 63 H, Creatinine 5.54 H, Estim Creat Clear Calc 8.38, Est GFR (MDRD) Af Amer 10 L, Est GFR (MDRD) Non-Af 8 L, BUN/Creatinine Ratio 11.4, Glucose 104, Calcium 8.4 L, Folate 5.80, TSH 5.90 H 06/25/23 11:30: Activated Clotting Time 233 H 06/25/23 13:02: POC Glucose 108 H Rhythm Strip Rhythm Strip: Sinus Rhythm Rate: 78 Ectopy: None Physical Exam Narrative AAO3 no pallor no JVD s1s2 b/l air entry soft no edema no cyanosis Assessment & Plan Assessment/Plan (1) End stage chronic kidney disease: PLAN: usually gets dialysis 3 times a week. no recent change in schedules. admitted with seizures, which is new. was discharged on vancomycin which is typically not associated with seizures. management as per primary anemia. Hb is low. NAHUN with HD osteomyelitis. continue vancomycin could not have MRI due to hardware EEG as per primary
[2023-06-25 20:11] LABS: Bedside Glucose 163 mg/dL (74-106)
[2023-06-25] MEDS: Menthol/Lanolin/Calamine/Znox 113 GM Tube 1 APPLIC TOPICAL (20:49)
[2023-06-25] MEDS: Nystatin Powder 15gm Bottle 1 APPLIC TOPICAL (20:49)
[2023-06-25] MEDS: Ferrous Sulfate 300 MG/5 ML UDC PO (20:50)
--- NOTE | 2023-06-25 21:16 | PCM.HOSP.N ---
Hospitalist Note Neurology consult call back with recommendation for transition onto zonisamide with 50 mg daily to start and titrate up per her note recommendations while still on the keppra and titrate off after 48 hours. Discussed with pharmacy and fortunately have a supply with first dose tonight and daily except of note on days she has HD it must be dosed following her HD. Neurology also recommending outpatient follow-up with Neurology and outpatient prolonged EEG.
--- NOTE | 2023-06-25 21:25 | NURSING ---
attempted to wean pt 02 to RA. Unsuccessful, 87% on RA, placed back to 2L NC 02 sats 95%.
[2023-06-25] MEDS: Amox/Clav 250mg/5ml Suspension 500 MG PO (21:32)
[2023-06-25] MEDS: Zonisamide 50 MG Capsule PO (23:15)
[2023-06-26 03:12] LABS: Bedside Glucose 309 mg/dL (74-106)
[2023-06-26 03:12] LABS: Bedside Glucose 284 mg/dL (74-106)
[2023-06-26 03:25] VITALS: BP 134/64; PULSE 89; RESP 16; TEMP 36.6; O2SAT 99
[2023-06-26 06:35] LABS: Hematocrit 23.9 % (37-47); Hemoglobin 7.6 g/dL (12.0-15.0); Mean Corp Hgb Conc 31.8 g/dL (32-36); Mean Corpuscular Hgb 31.8 pg (27.0-32.0); Mean Platelet Vol. 9.6 fl (6.2-12.0); POSITIVE COUNT YES; POSITIVE MORPHOLOGY YES; Platelet Count 387 K/mm3 (150-450); RBC Distribution Width CV 14.4 % (11.6-14.6); RBC Distribution Width SD 49.5 fl (35.1-43.9); Red Blood Count 2.39 M/mm3 (4.2-5.4); White Blood Count 20.3 K/mm3 (4.4-11.0)
[2023-06-26 06:38] LABS: Differential Indicated MANUAL DIFF
[2023-06-26 06:52] LABS: Platelet Estimate ADEQUATE (ADEQ); Red Cell Morphology NORM C+C NORMAL (NORM C&C)
[2023-06-26 06:55] LABS: Absolute Neutrophil Count 17.5 X10^3/uL (2.0-7.7)
[2023-06-26 06:56] LABS: Absolute Lymphocyte Count 0.81 X10^3/uL (0.83-4.51); Lymphocyte 4 % (19-41); Metamyelocyte 2 % (0-1); Monocyte 4 % (0-10); Myelocyte 4 % (0-0); Neutrophil-Band 6 % (0-5); Neutrophil-Segmented 80 % (47-70); Total Cells Counted 100 (MANUAL DIFF)
[2023-06-26 07:16] LABS: Bedside Glucose 169 mg/dL (74-106)
[2023-06-26 07:21] LABS: Vancomycin, Random Level 21.4 ug/mL (0.0-15.0)
[2023-06-26 07:25] LABS: Anion Gap 10 (5-15); BUN 76 mg/dL (7-18); BUN/Creat Ratio 12.3 RATIO (10-20); Calcium,Total 8.3 mg/dL (8.5-10.1); Chloride 104 mmol/L (98-107); Creatinine, Serum 6.18 mg/dL (0.55-1.02); EST Glomerular Filtration Rate 7 mL/min (>60); Est Glom Filt Rate - Afr Amer 9 mL/min (>60); Estimated Creatinine Clearance 7.51 ml/min; Glucose 163 mg/dL (74-106); Potassium 4.9 mmol/L (3.5-5.1); Sodium Level 134 mmol/L (136-145)
[2023-06-26 08:00] VITALS: O2SAT 94
--- NOTE | 2023-06-26 08:15 | PCM.PN.HOSP ---
Reason for Visit Reason for Visit: Diagnoses Type 2 diabetes mellitus with diabetic polyneuropathy (06/24/23) Other chronic osteomyelitis, left ankle and foot (06/24/23) End stage renal disease (06/24/23) Unspecified convulsions (06/24/23) Contusion of abdominal wall, subsequent encounter (06/24/23) Objective Data Objective Data Vital Signs: Vital Signs Temp Pulse Resp BP Pulse Ox O2 Del Method O2 Flow Rate 97.8 F 89 16 134/64 H 99 Nasal Cannula 2 06/26/23 03:25 06/26/23 03:25 06/26/23 03:25 06/26/23 03:25 06/26/23 03:25 06/26/23 03:30 06/26/23 03:30 Oxygen Flow Rate (L/min) 2 Oxygen Delivery Method Nasal Cannula Weight: 139 lb 12.369 oz Body Mass Index (BMI) 23.3 Intake & Output: Intake and Output for Last 24 Hours 06/24/23 06/25/23 06/26/23 23:59 23:59 23:59 Intake Total 2300 / 2350 612.5 / 612.5 465.25 / 465.25 Output Total 3000 / 3000 300 / 300 Balance -700 / -650 312.5 / 312.5 465.25 / 465.25 Lab / Micro Data 06/26/23 06:28 06/26/23 06:28 Labs: Laboratory Results - last 24 hr 06/24/23 04:35: Diff Path Review Reviewed 06/24/23 10:41: Vitamin B12 1172 H, Vitamin D 25-Hydroxy 33.1 06/25/23 08:28: WBC 16.9 H, RBC 2.33 L, Hgb 7.2 L, Hct 23.7 L, MCV 101.7 H, MCH 30.9, MCHC 30.4 L, RDW Std Deviation 49.6 H, RDW Coeff of Maddison 13.9, Plt Count 378, MPV 9.9, Neut % (Auto) Not Reportable, Absolute Neuts (auto) 14.0 H, Absolute Lymphs (auto) 0.80 L, Total Counted 100, Neutrophils % (Manual) 83 H, Lymphocytes % (Manual) 5 L, Monocytes % (Manual) 5, Eosinophils % (Manual) 2, Metamyelocytes % 3 H, Myelocytes % 2 H, Diff Path Review May foll, Platelet Estimate ADEQUATE, RBC Morphology NORM C+C, Sodium 134 L, Potassium 4.3, Chloride 105, Carbon Dioxide 22.0, Anion Gap 7, BUN 63 H, Creatinine 5.54 H, Estim Creat Clear Calc 8.38, Est GFR (MDRD) Af Amer 10 L, Est GFR (MDRD) Non-Af 8 L, BUN/Creatinine Ratio 11.4, Glucose 104, Calcium 8.4 L, Folate 5.80, TSH 5.90 H 06/25/23 11:30: Activated Clotting Time 233 H 06/25/23 13:02: POC Glucose 108 H 06/25/23 18:45: POC Glucose 163 H 06/25/23 21:28: POC Glucose 309 H 06/25/23 23:15: POC Glucose 284 H 06/26/23 06:19: POC Glucose 169 H 06/26/23 06:28: WBC 20.3 H, RBC 2.39 L, Hgb 7.6 L, Hct 23.9 L, MCV 100.0 H, MCH 31.8, MCHC 31.8 L, RDW Std Deviation 49.5 H, RDW Coeff of Maddison 14.4, Plt Count 387, MPV 9.6, Neut % (Auto) Not Reportable, Absolute Neuts (auto) 17.5 H, Absolute Lymphs (auto) 0.81 L, Total Counted 100, Neutrophils % (Manual) 80 H, Band Neutrophils % 6 H, Lymphocytes % (Manual) 4 L, Monocytes % (Manual) 4, Metamyelocytes % 2 H, Myelocytes % 4 H, Diff Path Review May gunner, Platelet Estimate ADEQUATE, RBC Morphology NORM C+C, Sodium 134 L, Potassium 4.9, Chloride 104, Carbon Dioxide 20.0 L, Anion Gap 10, BUN 76 H, Creatinine 6.18 H, Estim Creat Clear Calc 7.51, Est GFR (MDRD) Af Amer 9 L, Est GFR (MDRD) Non-Af 7 L, BUN/Creatinine Ratio 12.3, Glucose 163 H, Calcium 8.3 L, Random Vancomycin 21.4 H Rhythm Strip Rhythm Strip: Sinus Rhythm Rate: 78 Ectopy: None Physical Exam Narrative Seen and examined. Patient had an uneventful night. No acute seizure-like episode. Physical exam General: Alert, Oriented x3, Cooperative. BMI 23.3 kg/m?. HEENT: Atraumatic, PERRLA, EOMI, Normocephalic Oral: Oral mucosa moist. No Gingival or Mucosal Lesions/ Ulcerations Neck: Supple, No JVD, Negative Carotid Bruits Lungs: Air entry diminished in bilateral lung bases. No crepitation/rhonchi Cardiovascular: Regular rate, Regular Rhythm, Normal S1, Normal S2, No murmurs Abdomen: Bowel Sounds Present, Soft, mild tenderness over right lower quadrant mainly abdominal parietal wall, Non-Distended : No renal angle tenderness. No suprapubic tenderness. Extremities: No edema, Capillary Refill Less than 3 Seconds Skin: Bruise over right lower quadrant abdominal wall. Wound in the left foot. Covered with a dressing and Matthew wrap. Musculoskeletal: Weakness in both lower extremity left more than right. Mild tenderness in the left foot. Neurological: Cranial nerves II-XII grossly intact, DTR 2+/4. Sensory impairment in left foot. Psych/Mental Status: Flat affect. Assessment & Plan Assessment/Plan (1) Seizure: (2) Abdominal wall hematoma: QUALIFIERS: Encounter type: subsequent encounter Qualified Code(s): S30.1XXD - Contusion of abdominal wall, subsequent encounter (3) Diabetes mellitus with diabetic polyneuropathy: QUALIFIERS: Diabetes mellitus director long term care insulin use: with director long term care use (4) Foot osteomyelitis, left: QUALIFIERS: Osteomyelitis type: other chronic Qualified Code(s): M86.672 - Other chronic osteomyelitis, left ankle and foot PLAN: Plan This is 72-year-old female was being admitted after episode of altered mental status concerning for seizure from longterm. 1. Seizure disorder new diagnosis during previous admission: Patient is admitted in PCU. As per the this is her fourth episode. She cannot have MRI because she has required left pelvis/probably iliac artery. EEG does not show acute epileptiform discharges but mild diffuse encephalopathy. No lateralizing signs or seizure patterns. Keppra dose increased to 750 mg IV twice daily with additional dose 500 mg after dialysis session. SOC neurology consult ordered 2. Left foot osteomyelitis from previous admission. Atherosclerosis of left lower extremity for left heel wound complicated with osteomyelitis: Patient had aortogram with left lower extremity runoff. IVUS of left peroneal artery TP trunk SFA/peroneal. Atherectomy/stent left femoropopliteal artery. Continue on vancomycin and Augmentin 3 end-stage renal disease requiring dialysis-on dialysis session as per engineering psychologist. Rider Ticket Worker consulted. 4 Large hematoma in the anterior abdominal wall over the right lower quadrant colon on conservative management. Recent CT scan on 06/24/2023 reported large right lower quadrant abdominal wall hematoma in addition to some associated soft tissue hemorrhage within abdominal wall. Bilateral lower lobe atelectasis. Hepatomegaly 22 cm. During previous admission showed hematoma about 9.1 x 4.3 x 10.7 cm. 5 Recent blood loss anemia secondary to abdominal wall hematoma-hemoglobin is stable at this time. Daily monitoring of CBC. Hemoglobin 7.2. Platelet count 378,000. 6 type 2 [id number] before meals and its coverage below sliding scale. 7 Chronic bilateral lower lobe atelectasis and a small effusion: Hypoxia on 2 L of oxygen. Incentive spirometry. 8 generalized debility-PT and OT consulted. 9. DVT prophylaxis bilateral SCDs. Laboratory Results 06/24/23 04:35: Diff Path Review Reviewed 06/24/23 10:41: Vitamin B12 1172 H, Vitamin D 25-Hydroxy 33.1 06/24/23 16:34: POC Glucose 152 H 06/24/23 22:52: POC Glucose 141 H 06/25/23 06:22: POC Glucose 140 H 06/25/23 08:28: WBC 16.9 H, RBC 2.33 L, Hgb 7.2 L, Hct 23.7 L, MCV 101.7 H, MCH 30.9, MCHC 30.4 L, RDW Std Deviation 49.6 H, RDW Coeff of Maddison 13.9, Plt Count 378, MPV 9.9, Neut % (Auto) Not Reportable, Absolute Neuts (auto) 14.0 H, Absolute Lymphs (auto) 0.80 L, Total Counted 100, Neutrophils % (Manual) 83 H, Lymphocytes % (Manual) 5 L, Monocytes % (Manual) 5, Eosinophils % (Manual) 2, Metamyelocytes % 3 H, Myelocytes % 2 H, Diff Path Review May foll, Platelet Estimate ADEQUATE, RBC Morphology NORM C+C Sodium 134 L, Potassium 4.3, Chloride 105, Carbon Dioxide 22.0, Anion Gap 7, BUN 63 H, Creatinine 5.54 H, Estim Creat Clear Calc 8.38, Est GFR (MDRD) Af Amer 10 L, Est GFR (MDRD) Non-Af 8 L, BUN/Creatinine Ratio 11.4, Glucose 104, Calcium 8.4 L, Folate 5.80, TSH 5.90 H 06/25/23 11:30: Activated Clotting Time 233 H 06/25/23 13:02: POC Glucose 108 H
--- NOTE | 2023-06-26 08:20 | PCM.TXEXTCAR ---
Diet Diet Order/Speech Therapy: 06/25/23 17:23 Diet: Consistent Carb - Calorie Controlled Is pt able to select menu?: Yes How many daily calories?: 1600 calorie Routine Orders/Code Status Suppository Type: Dulcolax 10mg Suppository Frequency: Daily PRN Code Status: DNRCC-A (No intubation) Wound(s) left heel: Wound Type: Neuropathic/Diabetic Foot Ulcer Dressing Change: Dakins moistened gauze right femoral: Wound Type: angio site Therapies Weight Bearing: Weight bearing as tolerated Extremity Affected:: Bilateral Lower Physical Therapy: Eval and Treat Occupational Therapy: Eval and Treat Speech Therapy: Eval and Treat Problem/Diagnosis (1) Seizure: Status: Acute Code(s): R56.9 - Unspecified convulsions (2) Abdominal wall hematoma: Status: Acute Code(s): S30.1XXA - Contusion of abdominal wall, initial encounter (3) Diabetes mellitus with diabetic polyneuropathy: Status: Acute Code(s): E11.42 - Type 2 diabetes mellitus with diabetic polyneuropathy (4) Foot osteomyelitis, left: Status: Acute Code(s): M86.9 - Osteomyelitis, unspecified Plan This is 72-year-old female was being admitted after episode of altered mental status concerning for seizure from assisted. 1. Seizure disorder new diagnosis during previous admission: Patient is admitted in PCU. As per the this is her fourth episode. She cannot have MRI because she has required left pelvis/probably iliac artery. EEG does not show acute epileptiform discharges but mild diffuse encephalopathy. No lateralizing signs or seizure patterns. Keppra dose increased to 750 mg IV twice daily with additional dose 500 mg after dialysis session. SOC neurology consult done 2. Left foot osteomyelitis from previous admission. Atherosclerosis of left lower extremity for left heel wound complicated with osteomyelitis: Patient had aortogram with left lower extremity runoff. IVUS of left peroneal artery TP trunk SFA/peroneal. Atherectomy/stent left femoropopliteal artery. Continue on vancomycin and Augmentin 3 end-stage renal disease requiring dialysis-on dialysis session as per staff development coordinator rn. Celebrity Chef Entrepreneur Media Personality consulted. 4 Large hematoma in the anterior abdominal wall over the right lower quadrant colon on conservative management. Recent CT scan on 06/24/2023 reported large right lower quadrant abdominal wall hematoma in addition to some associated soft tissue hemorrhage within abdominal wall. Bilateral lower lobe atelectasis. Hepatomegaly 22 cm. During previous admission showed hematoma about 9.1 x 4.3 x 10.7 cm. 5 Recent blood loss anemia secondary to abdominal wall hematoma-hemoglobin is stable at this time. Daily monitoring of CBC. Hemoglobin 7.2. Platelet count 378,000. 6 type 2 [id number] before meals and its coverage below sliding scale. 7 Chronic bilateral lower lobe atelectasis and a small effusion: Hypoxia on 2 L of oxygen. Incentive spirometry. 8 generalized debility-PT and OT consulted. 9. DVT prophylaxis bilateral SCDs. Laboratory Results 06/24/23 04:35: Diff Path Review Reviewed 06/24/23 10:41: Vitamin B12 1172 H, Vitamin D 25-Hydroxy 33.1 06/24/23 16:34: POC Glucose 152 H 06/24/23 22:52: POC Glucose 141 H 06/25/23 06:22: POC Glucose 140 H 06/25/23 08:28: WBC 16.9 H, RBC 2.33 L, Hgb 7.2 L, Hct 23.7 L, MCV 101.7 H, MCH 30.9, MCHC 30.4 L, RDW Std Deviation 49.6 H, RDW Coeff of Maddison 13.9, Plt Count 378, MPV 9.9, Neut % (Auto) Not Reportable, Absolute Neuts (auto) 14.0 H, Absolute Lymphs (auto) 0.80 L, Total Counted 100, Neutrophils % (Manual) 83 H, Lymphocytes % (Manual) 5 L, Monocytes % (Manual) 5, Eosinophils % (Manual) 2, Metamyelocytes % 3 H, Myelocytes % 2 H, Diff Path Review May foll, Platelet Estimate ADEQUATE, RBC Morphology NORM C+C Sodium 134 L, Potassium 4.3, Chloride 105, Carbon Dioxide 22.0, Anion Gap 7, BUN 63 H, Creatinine 5.54 H, Estim Creat Clear Calc 8.38, Est GFR (MDRD) Af Amer 10 L, Est GFR (MDRD) Non-Af 8 L, BUN/Creatinine Ratio 11.4, Glucose 104, Calcium 8.4 L, Folate 5.80, TSH 5.90 H 06/25/23 11:30: Activated Clotting Time 233 H 06/25/23 13:02: POC Glucose 108 H Allergies/Procedures Done in Hospital Allergies doxycycline Allergy (Verified 06/21/23 06:12) Rash iodine Allergy (Verified 06/24/23 05:37) Other unknown levofloxacin [From Levaquin] Allergy (Verified 06/21/23 06:12) patient states mother had allergy and is afraid she is. shellfish derived Allergy (Verified 06/24/23 05:37) PT UNSURE OF REACTION Type of Care/Length of Stay Estimated LOS: Convalescent Care Less Than 30 days Type of Care Needed: Skilled Rehab Potential: Good Prognosis: Good Additional Orders/Day of Discharge Day of Discharge: 06/26/23 Dietary and Speech Recommendations Dietitian Recommendations/Changes: Will adjust diet to 1600 calorie/consistent carbohydrate; renal. Will continue Roberto BID as ordered. Will offer PO nepro carb steady as needed once PO established with meals. Discharge Plan Admission Admit Date/Time: 06/24/23 07:00 Primary Reason for Your Visit: Seizure episode/altered mental status Attending Provider: José Luis Haynes Primary Care Provider: Jeremiah Holly Consulting Providers: Matt Santos; Mihir Burnett Instructions Additional Instructions / Restrictions: Patient can follow Dr. Shanti Nelson neurologist if does not get early appointment with Dr. Nicole Discharge Orders/Prescriptions Prescriptions: New HySept 0.25 % Solution 1 applic topical DAILY Qty: 0 0RF Protocol: *Topical Application Instructions APPLICATION INSTRUCTIONS: left heel wound Zonisamide [Zonegran] 50 mg PO DAILY 30 Days Qty: 30 2RF ferrous sulfate 300 mg (60 mg iron)/5 mL Liquid 300 mg PO LUNCH Qty: 0 0RF Continued vancomycin in 0.9 % sodium chl 500 mg/100 mL piggyback 500 mg IV UD Rx Instructions: After each dialysis, stop date July 31, 2023 insulin lispro [Humalog KwikPen Insulin] 100 unit/mL insulin pen 3 unit subcut QHS Rx Instructions: 200-250: 5 units 251-300: 8 units 301-250: 12 units ascorbic acid (vitamin C) [C-500] 500 mg tablet 500 mg PO DAILY cholecalciferol (vitamin D3) [Vitamin D3] 25 mcg (1,000 unit) tablet 25 mcg PO DAILY Patient Comments: PT STATES THAT THEY TAKE AN OTC VITAMIN D THREE DAYS A WEEK. PT STATES THAT THEY DO NOT TAKE THIS ON ANY SPECIFIC DAY. lidocaine-prilocaine 2.5-2.5 % cream 1 applic topical .MonWedFri Patient Comments: APPLY SMALL AMOUNT TO ACCESS SITE (AVF) 1 HOUR BEFORE DIALYSIS. COVER WITH OCCLUSIVE DRESSING (SARAN WRAP) amlodipine 5 mg Tablet 5 mg PO DAILY Qty: 0 0RF Hold Instructions: Order Completed nystatin [Nyamyc] 100,000 unit/gram Powder 1 applic topical BID Qty: 0 0RF Protocol: *Topical Application Instructions APPLICATION INSTRUCTIONS: darien groin menthol-zinc oxide [Calmoseptine] 0.44-20.6 % Ointment 1 applic topical BID Qty: 0 0RF Protocol: *Topical Application Instructions APPLICATION INSTRUCTIONS: to coccyx Roberto (with collagen) 7-7-1.5 gram Powder In Packet 1 packet PO BIDCM Qty: 0 0RF Changed levetiracetam [Keppra] 500 mg tablet See Rx Instructions .ROUTE .COMPLEX Qty: 1 0RF Rx Instructions: 750 mg twice daily last dose 8 PM 06/26/23, 750 mg a.m. and 500 mg p.m. for 1 week, 500 mg twice daily for 1 week, 500 mg a.m. and 250 mg p.m. for 1 week and then to 50 mg twice daily to continue Referrals / Follow Up: Jeremiah Holly MD [Primary Care Provider] - Jerel Nicole MD [Non-Staff -Ordering Privileges] - Within 1 Week (for recurrent seizure) Care Physician,No Primary [Non-Staff] - Disposition Disposition (needs filled in before D/C Order can be placed): [facility] (2) Abdominal wall hematoma Qualifiers: Encounter type: subsequent encounter Qualified Code(s): S30.1XXD - Contusion of abdominal wall, subsequent encounter (3) Diabetes mellitus with diabetic polyneuropathy Qualifiers: Diabetes mellitus intermediate designer insulin use: with intermediate designer use (4) Foot osteomyelitis, left Qualifiers: Osteomyelitis type: other chronic Qualified Code(s): M86.672 - Other chronic osteomyelitis, left ankle and foot
--- NOTE | 2023-06-26 08:34 | PCM.RX.CS ---
Consult Antibiotic Management Pharmacy has been consulted to manage selected antiobiotic: Vancomycin Type of Intervention Type of Consult: Follow-up Suspected Infection Suspected Infection: Osteomyelitis Prior Doses of Antibiotics Prior Doses of Antibiotics Received/Current Regimen: Pt. received x 1 dose 500 mg after HD on 06/24 @ 1616, and previously has been on long-term 500mg on MWF after HD Labs Labs: Sodium 134 mmol/L (136-145) L 06/26/23 06:28 Potassium 4.9 mmol/L (3.5-5.1) 06/26/23 06:28 Chloride 104 mmol/L (98-107) 06/26/23 06:28 Carbon Dioxide 20.0 mmol/L (21.0-32.0) L 06/26/23 06:28 Anion Gap 10 (5-15) 06/26/23 06:28 BUN 76 mg/dL (7-18) H 06/26/23 06:28 Creatinine 6.18 mg/dL (0.55-1.02) H 06/26/23 06:28 Est GFR (MDRD) Af Amer 9 mL/min (>60) L 06/26/23 06:28 Est GFR (MDRD) Non-Af 7 mL/min (>60) L 06/26/23 06:28 BUN/Creatinine Ratio 12.3 RATIO (10-20) 06/26/23 06:28 Glucose 163 mg/dL (74-106) H 06/26/23 06:28 Random Vancomycin 21.4 ug/mL (0.0-15.0) H 06/26/23 06:28 Dosing Weight Weight used for dosin lb 12.992 oz Goal Trough Goal Trough: 15-20 mcg/mL Pharmacy Plan for Drug Dosing Pharmacy Plan for Drug Dosing: Vancomycin random level this AM was 21.4, per RN on the floor pt Will be receiving HD today this afternoon. Will plan for no dose today d/t elevated level and will get another random level Saturday morni before HD. Pharmacy Service will continue to monitor and adjust dosing as required. Follow-Up Labs Follow-Up Labs: Trough: Vancomycin (Random) Date/Time Labs Ordered Labs to be done on [date and time ordered]: Vancomycin Random on 06/28/23 @ 0600 prior to HD
[2023-06-26] MEDS: Juven (unflavored) Packet 1 PACKET PO (08:49)
--- NOTE | 2023-06-26 09:15 | CASEMGMT ---
DIGNA called [facility] and spoke with Karen. They would not be able to dialysis today as they do not do dialysis on Sat. DIGNA notified RN NINO. Stephanie Khan RETORT ENGINEER CAMILA
[2023-06-26] MEDS: Menthol/Lanolin/Calamine/Znox 113 GM Tube 1 APPLIC TOPICAL (10:54)
[2023-06-26] MEDS: 0.9% Saline Lock 10 ML Syringe IV (10:55)
[2023-06-26] MEDS: Nystatin Powder 15gm Bottle 1 APPLIC TOPICAL (10:55)
[2023-06-26] MEDS: Cholecalciferol (VIT D3) 25 MCG TABLET (1,000 UNITS) PO (10:56)
[2023-06-26] MEDS: Zonisamide 50 MG Capsule PO (10:56)
[2023-06-26] MEDS: amLODIPine 5 MG Tablet PO (10:56)
[2023-06-26] MEDS: Ascorbic Acid 500 MG Tablet PO (10:56)
--- NOTE | 2023-06-26 11:11 | PCM.PN.REN ---
Subjective Subjective No new complaints today. No new episodes of seizures. No significant edema. Potassium is normal. Objective Data Objective Data Vital Signs: Vital Signs Temp Pulse Resp BP Pulse Ox O2 Del Method O2 Flow Rate 97.8 F 89 16 134/64 H 99 Nasal Cannula 2 06/26/23 03:25 06/26/23 03:25 06/26/23 03:25 06/26/23 03:25 06/26/23 03:25 06/26/23 08:00 06/26/23 08:00 Oxygen Flow Rate (L/min) 2 Oxygen Delivery Method Nasal Cannula Weight: 63.4 kg Body Mass Index (BMI) 23.3 Intake & Output: Intake and Output for Last 24 Hours 06/24/23 06/25/23 06/26/23 23:59 23:59 23:59 Intake Total 2300 / 2350 612.5 / 612.5 465.25 / 465.25 Output Total 3000 / 3000 300 / 300 Balance -700 / -650 312.5 / 312.5 465.25 / 465.25 Lab / Micro Data 06/26/23 06:28 06/26/23 06:28 Labs: Laboratory Results - last 24 hr 06/25/23 08:28: Folate 5.80, TSH 5.90 H 06/25/23 11:30: Activated Clotting Time 233 H 06/25/23 13:02: POC Glucose 108 H 06/25/23 18:45: POC Glucose 163 H 06/25/23 21:28: POC Glucose 309 H 06/25/23 23:15: POC Glucose 284 H 06/26/23 06:19: POC Glucose 169 H 06/26/23 06:28: WBC 20.3 H, RBC 2.39 L, Hgb 7.6 L, Hct 23.9 L, MCV 100.0 H, MCH 31.8, MCHC 31.8 L, RDW Std Deviation 49.5 H, RDW Coeff of Maddison 14.4, Plt Count 387, MPV 9.6, Neut % (Auto) Not Reportable, Absolute Neuts (auto) 17.5 H, Absolute Lymphs (auto) 0.81 L, Total Counted 100, Neutrophils % (Manual) 80 H, Band Neutrophils % 6 H, Lymphocytes % (Manual) 4 L, Monocytes % (Manual) 4, Metamyelocytes % 2 H, Myelocytes % 4 H, Diff Path Review May foll, Platelet Estimate ADEQUATE, RBC Morphology NORM C+C, Sodium 134 L, Potassium 4.9, Chloride 104, Carbon Dioxide 20.0 L, Anion Gap 10, BUN 76 H, Creatinine 6.18 H, Estim Creat Clear Calc 7.51, Est GFR (MDRD) Af Amer 9 L, Est GFR (MDRD) Non-Af 7 L, BUN/Creatinine Ratio 12.3, Glucose 163 H, Calcium 8.3 L, Random Vancomycin 21.4 H Rhythm Strip Rhythm Strip: Sinus Rhythm Rate: 78 Ectopy: None Physical Exam Narrative AAO3 no pallor no JVD s1s2 b/l air entry soft no edema no cyanosis Assessment & Plan Assessment/Plan (1) End stage chronic kidney disease: PLAN: ESRD, on hemodialysis. Last dialysis was Saturday. Discussed with primary service, she is being [facility] tomorrow. She is going to [facility]. We will arrange for dialysis over there tomorrow and Saturday. This should finish her 3 treatments. Somewhat hesitant to over dialyze her since she had seizures from Keppra washout before. Seizures. New onset. This is her second admission with the same thing. Neurology has been consulted. They recommended zonisamide due to reduced clearance from dialysis. This has been started. Keppra will be weaned off slowly. Subdural hematoma. Seen on the CAT scan. ? Etiology. Repeat CT scan with improving hematoma Abdominal wall hematoma. Not sure if she had a fall. CT scan results noted. Lower extremity osteomyelitis. Original reason for admission initially. She remains on antibiotics as per ID. S/p angiogram by vascular surgery Discussed with hospitalist
[2023-06-26] MEDS: Insulin Lispro 100 UNIT/ML INSULN.PEN SC (11:54)
[2023-06-26] MEDS: Ferrous Sulfate 300 MG/5 ML UDC PO (11:55)
[2023-06-26 12:16] LABS: Bedside Glucose 168 mg/dL (74-106)
[2023-06-26] MEDS: DAKIN'S SOL HALF STRENGTH (=0.25%) 1 APPLIC TOPICAL (12:59)
[2023-06-26 13:37] VITALS: BP 133/63; PULSE 89; RESP 18; TEMP 36.6; O2SAT 100
--- NOTE | 2023-06-26 13:38 | PCM.DC.SUM ---
Providers Date of Admission: 06/24/23 Date of Discharge: 06/26/23 Primary Care Physician: Dr. Jeremiah Holly MD Consultations 06/24/23 08:32 Consult: Nephrology Routine Consulting Provider: Mihir Burnett Reason for Consult: ESRD on dialysis (M,W,F) EMERGENT Consult: No MD Notified: Yes Date Notified: 06/24/23 Time Notified: 08:47 Method of Notification: Answering Service 06/24/23 18:43 Consult: Onc/Wound/electrical engineer mep Routine Comment: Reason For Visit: SEIZURES Diagnosis Discharge Diagnosis (1) Seizure: Status: Acute Code(s): R56.9 - Unspecified convulsions (2) Abdominal wall hematoma: Status: Acute Code(s): S30.1XXA - Contusion of abdominal wall, initial encounter Qualifiers: Encounter type: subsequent encounter Qualified Code(s): S30.1XXD - Contusion of abdominal wall, subsequent encounter (3) Diabetes mellitus with diabetic polyneuropathy: Status: Acute Code(s): E11.42 - Type 2 diabetes mellitus with diabetic polyneuropathy Qualifiers: Diabetes mellitus termite control 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 1. Seizure disorder new diagnosis during previous admission: Patient is admitted in PCU. As per the this is her fourth episode. She cannot have MRI because she has required left pelvis/probably iliac artery. EEG does not show acute epileptiform discharges but mild diffuse encephalopathy. No lateralizing signs or seizure patterns. Keppra dose increased to 750 mg IV twice daily with additional dose 500 mg after dialysis session. 06/26: SOC neurology consult done mother called at 9:30 PM and spoke to nighttime hospitalist. They advised tapering down Keppra but tapering regimen is not clear from the SOC note. I called and informed SOC to give me a tapering regimen but is still awaiting since morning 8 AM. In short and was told to decrease the Keppra dose 250 mg every week to a baseline probably 250 twice daily. Continue Keppra 500 mg after dialysis regimen until cleared by the neurologist. Follow-up outpatient neurologist, Dr. Blanco in 1 week. I discussed with the that if patient gets another seizure then we do not have 24-hour EEG monitoring/epilepsy monitoring unit or inpatient neurology therefore [facility] to [facility] with that facility. 2. Left foot osteomyelitis from previous admission. Atherosclerosis of left lower extremity for left heel wound complicated with osteomyelitis: Patient had aortogram with left lower extremity runoff. IVUS of left peroneal artery TP trunk SFA/peroneal. Atherectomy/stent left femoropopliteal artery. Continue on vancomycin and Augmentin as recommended by Dr. Olsen 3 end-stage renal disease requiring dialysis-on dialysis session as per delivery man. [employer] consulted. Patient is on dialysis as per delivery man regimen 4 Large hematoma in the anterior abdominal wall over the right lower quadrant colon on conservative management. Recent CT scan on 06/24/2023 reported large right lower quadrant abdominal wall hematoma in addition to some associated soft tissue hemorrhage within abdominal wall. Bilateral lower lobe atelectasis. Hepatomegaly 22 cm. During previous admission showed hematoma about 9.1 x 4.3 x 10.7 cm. 5 Recent blood loss anemia secondary to abdominal wall hematoma-hemoglobin is stable at this time. Daily monitoring of CBC. Hemoglobin 7.2. Platelet count 378,000. 06/26: Hemoglobin slightly improved 7.6 6 type 2 [id number] before meals and its coverage below sliding scale. 7 Chronic bilateral lower lobe atelectasis and a small effusion: Hypoxia on 2 L of oxygen. Incentive spirometry. 8 generalized debility-PT and OT consulted. 9. DVT prophylaxis bilateral SCDs. Discharge medication reconciliation done. Discharge follow-up instructions completed. Discharge process discussed with the patient and all questions were answered to patient's satisfaction. Total time spent, exact 35 minutes on discharge meds reconciliation, examination, coordination of care with nurses and ancillary staff, review of imaging and blood test and discussion with the patient on follow-up instructions. Laboratory Results Medications at Discharge Home Medications ascorbic acid (vitamin C) 500 mg tablet (C-500) 500 mg PO DAILY 06/14/23 cholecalciferol (vitamin D3) 25 mcg (1,000 unit) tablet (Vitamin D3) 25 mcg PO DAILY 07/14/23 lidocaine-prilocaine 2.5 %-2.5 % topical cream 1 applic topical .MonWedFri for dialysis when use AVF 06/14/23 amlodipine 5 mg tablet 5 mg PO DAILY #0 tabs 06/20/23 arginine 7 gram-glutam 7 gram-CaHMB 1.5 vypf-fzcum-si-min oral pwd pkt (Roberto (with collagen)) 1 packet PO BIDCM #0 ea 06/20/23 menthol 0.44 %-zinc oxide 20.6 % topical ointment (Calmoseptine) 1 applic topical BID #0 grams 06/20/23 nystatin 100,000 unit/gram topical powder (Nyamyc) 1 applic topical BID #0 grams 06/20/23 vancomycin 500 mg/100 mL in 0.9% sodium chloride intravenous piggyback 500 mg (100 mL) IV UD #0 mL 06/23/23 insulin lispro 100 unit/mL subcutaneous pen (Humalog KwikPen (U-100) Insulin) 3 unit subcut QHS 06/24/23 Zonisamide [Zonegran] 50 mg PO DAILY 30 days #30 tabs 06/26/23 ferrous sulfate 300 mg (60 mg iron)/5 mL oral liquid 300 mg (5 mL) PO LUNCH #0 mL 06/26/23 levetiracetam 500 mg tablet (Keppra) See Rx Instructions .Route .COMPLEX #1 TAB 06/26/23 sodium hypochlorite 0.25 % solution (HySept) 1 applic topical DAILY #0 mL 06/26/23 Physical Exam Narrative Seen and examined. Patient had an uneventful night. No acute seizure-like episode. Patient had right groin angiogram by Dr. Theodore. Physical exam General: Alert, Oriented x3, Cooperative. BMI 23.3 kg/m?. HEENT: Atraumatic, PERRLA, EOMI, Normocephalic Oral: Oral mucosa moist. No Gingival or Mucosal Lesions/ Ulcerations Neck: Supple, No JVD, Negative Carotid Bruits Lungs: Air entry diminished in bilateral lung bases. No crepitation/rhonchi Cardiovascular: Regular rate, Regular Rhythm, Normal S1, Normal S2, No murmurs Abdomen: Bowel Sounds Present, Soft, mild tenderness over right lower quadrant mainly abdominal parietal wall, Non-Distended : No renal angle tenderness. No suprapubic tenderness. Extremities: No edema, Capillary Refill Less than 3 Seconds Skin:Right groin No bruise. Bruise over right lower quadrant abdominal wall. Wound in the left foot. Covered with a dressing and Matthew wrap. Musculoskeletal: Weakness in both lower extremity left more than right. Mild tenderness in the left foot. Neurological: Cranial nerves II-XII grossly intact, DTR 2+/4. Sensory impairment in left foot. Psych/Mental Status: Flat affect. Weight / BMI Weight Weight: 139 lb 12.369 oz Body Mass Index (BMI) 23.3 ABG / Lab / Microbiology Data 06/26/23 06:28 06/26/23 06:28 Laboratory: Laboratory Results - last 24 hr 06/25/23 18:45: POC Glucose 163 H 06/25/23 21:28: POC Glucose 309 H 06/25/23 23:15: POC Glucose 284 H 06/26/23 06:19: POC Glucose 169 H 06/26/23 06:28: WBC 20.3 H, RBC 2.39 L, Hgb 7.6 L, Hct 23.9 L, MCV 100.0 H, MCH 31.8, MCHC 31.8 L, RDW Std Deviation 49.5 H, RDW Coeff of Maddison 14.4, Plt Count 387, MPV 9.6, Neut % (Auto) Not Reportable, Absolute Neuts (auto) 17.5 H, Absolute Lymphs (auto) 0.81 L, Total Counted 100, Neutrophils % (Manual) 80 H, Band Neutrophils % 6 H, Lymphocytes % (Manual) 4 L, Monocytes % (Manual) 4, Metamyelocytes % 2 H, Myelocytes % 4 H, Diff Path Review May foll, Platelet Estimate ADEQUATE, RBC Morphology NORM C+C, Sodium 134 L, Potassium 4.9, Chloride 104, Carbon Dioxide 20.0 L, Anion Gap 10, BUN 76 H, Creatinine 6.18 H, Estim Creat Clear Calc 7.51, Est GFR (MDRD) Af Amer 9 L, Est GFR (MDRD) Non-Af 7 L, BUN/Creatinine Ratio 12.3, Glucose 163 H, Calcium 8.3 L, Random Vancomycin 21.4 H 06/26/23 11:52: POC Glucose 168 H Meaningful Use Info Meaningful Use Diagnoses (Choose all that apply): None applicable Discharge Plan Admission Admit Date/Time: 06/24/23 07:00 Primary Reason for Your Visit: Seizure episode/altered mental status Attending Provider: José Luis Haynes Primary Care Provider: Jeremiah Holly Consulting Providers: Matt Santos; Mihir Burnett Instructions Additional Instructions / Restrictions: Patient can follow Dr. Shanti Nelson neurologist if does not get early appointment with Dr. Nicole Discharge Orders/Prescriptions Prescriptions: New HySept 0.25 % Solution 1 applic topical DAILY Qty: 0 0RF Protocol: *Topical Application Instructions APPLICATION INSTRUCTIONS: left heel wound Zonisamide [Zonegran] 50 mg PO DAILY 30 Days Qty: 30 2RF ferrous sulfate 300 mg (60 mg iron)/5 mL Liquid 300 mg PO LUNCH Qty: 0 0RF Continued vancomycin in 0.9 % sodium chl 500 mg/100 mL piggyback 500 mg IV UD Rx Instructions: After each dialysis, stop date July 31, 2023 insulin lispro [Humalog KwikPen Insulin] 100 unit/mL insulin pen 3 unit subcut QHS Rx Instructions: 200-250: 5 units 251-300: 8 units 301-250: 12 units ascorbic acid (vitamin C) [C-500] 500 mg tablet 500 mg PO DAILY cholecalciferol (vitamin D3) [Vitamin D3] 25 mcg (1,000 unit) tablet 25 mcg PO DAILY Patient Comments: PT STATES THAT THEY TAKE AN OTC VITAMIN D THREE DAYS A WEEK. PT STATES THAT THEY DO NOT TAKE THIS ON ANY SPECIFIC DAY. lidocaine-prilocaine 2.5-2.5 % cream 1 applic topical .Daeri Patient Comments: APPLY SMALL AMOUNT TO ACCESS SITE (AVF) 1 HOUR BEFORE DIALYSIS. COVER WITH OCCLUSIVE DRESSING (SARAN WRAP) amlodipine 5 mg Tablet 5 mg PO DAILY Qty: 0 0RF Hold Instructions: Order Completed nystatin [Nyamyc] 100,000 unit/gram Powder 1 applic topical BID Qty: 0 0RF Protocol: *Topical Application Instructions APPLICATION INSTRUCTIONS: darien groin menthol-zinc oxide [Calmoseptine] 0.44-20.6 % Ointment 1 applic topical BID Qty: 0 0RF Protocol: *Topical Application Instructions APPLICATION INSTRUCTIONS: to coccyx Roberto (with collagen) 7-7-1.5 gram Powder In Packet 1 packet PO BIDCM Qty: 0 0RF Changed levetiracetam [Keppra] 500 mg tablet See Rx Instructions .ROUTE .COMPLEX Qty: 1 0RF Rx Instructions: 750 mg twice daily last dose 8 PM 06/26/23, 750 mg a.m. and 500 mg p.m. for 1 week, 500 mg twice daily for 1 week, 500 mg a.m. and 250 mg p.m. for 1 week and then to 250 mg twice daily to continue 500 mg after each session of dialysis on dialysis days Referrals / Follow Up: Jeremiah Holly MD [Primary Care Provider] - Jerel Nicole MD [Non-Staff -Ordering Privileges] - Within 1 Week (for recurrent seizure) Care Physician,No Primary [Non-Staff] - Disposition Disposition (needs filled in before D/C Order can be placed): [facility] Charges/Coding Visit Charges Inpatient E&M: 15197 Disch Hosp >30min
--- NOTE | 2023-06-26 13:52 | PHA.DC.MR.R ---
Pharmacy MS Med Reconciliation Pharmacy Service has performed discharge medication reconciliation for this patient. The patient's discharge medication list was reviewed for discrepancies and discrepancies were resolved. Medications at Discharge Home Medications ascorbic acid (vitamin C) 500 mg tablet (C-500) 500 mg PO DAILY 06/14/23 cholecalciferol (vitamin D3) 25 mcg (1,000 unit) tablet (Vitamin D3) 25 mcg PO DAILY 06/14/23 lidocaine-prilocaine 2.5 %-2.5 % topical cream 1 applic topical .MonWedFri for dialysis when use AVF 06/14/23 amlodipine 5 mg tablet 5 mg PO DAILY #0 tabs 06/20/23 arginine 7 gram-glutam 7 gram-CaHMB 1.5 ghla-jqapq-nm-min oral pwd pkt (Roberto (with collagen)) 1 packet PO BIDCM #0 ea 06/20/23 menthol 0.44 %-zinc oxide 20.6 % topical ointment (Calmoseptine) 1 applic topical BID #0 grams 06/20/23 nystatin 100,000 unit/gram topical powder (Nyamyc) 1 applic topical BID #0 grams 06/20/23 vancomycin 500 mg/100 mL in 0.9% sodium chloride intravenous piggyback 500 mg (100 mL) IV UD #0 mL 06/23/23 insulin lispro 100 unit/mL subcutaneous pen (Humalog KwikPen (U-100) Insulin) 3 unit subcut QHS 06/24/23 Zonisamide [Zonegran] 50 mg PO DAILY 30 days #30 tabs 06/26/23 ferrous sulfate 300 mg (60 mg iron)/5 mL oral liquid 300 mg (5 mL) PO LUNCH #0 mL 06/26/23 levetiracetam 500 mg tablet (Keppra) See Rx Instructions .Route .COMPLEX #1 TAB 06/26/23 sodium hypochlorite 0.25 % solution (HySept) 1 applic topical DAILY #0 mL 06/26/23
--- NOTE | 2023-06-26 13:54 | CASEMGMT ---
Patient is ready for discharge back to [facility]. Plan: d/c back to [facility] under skilled level of care. Physicians will transport patient via cot. Stephanie JENSEN
--- NOTE | 2023-06-26 15:32 | PN.SURG_ITS ---
Subjective Subjective Patient doing well following angiogram. Minimal soreness at the access site, no swelling, redness, drainage. No new or worsening pain in the LLE. Objective Data Objective Data Vital Signs: Vital Signs Temp Pulse Resp BP Pulse Ox O2 Del Method O2 Flow Rate 97.9 F 89 18 133/63 H 100 Nasal Cannula 2 06/26/23 13:37 06/26/23 13:37 06/26/23 13:37 06/26/23 13:37 06/26/23 13:37 06/26/23 13:37 06/26/23 13:37 Oxygen Flow Rate (L/min) 2 Oxygen Delivery Method Nasal Cannula Weight: 139 lb 12.369 oz Body Mass Index (BMI) 23.3 Intake & Output: Intake and Output for Last 24 Hours 06/24/23 06/25/23 06/26/23 23:59 23:59 23:59 Intake Total 2300 / 2350 612.5 / 612.5 572.75 / 572.75 Output Total 3000 / 3000 300 / 300 Balance -700 / -650 312.5 / 312.5 572.75 / 572.75 Lab / Micro Data 06/26/23 06:28 06/26/23 06:28 Labs: Laboratory Results - last 24 hr 06/25/23 18:45: POC Glucose 163 H 06/25/23 21:28: POC Glucose 309 H 06/25/23 23:15: POC Glucose 284 H 06/26/23 06:19: POC Glucose 169 H 06/26/23 06:28: WBC 20.3 H, RBC 2.39 L, Hgb 7.6 L, Hct 23.9 L, MCV 100.0 H, MCH 31.8, MCHC 31.8 L, RDW Std Deviation 49.5 H, RDW Coeff of Maddison 14.4, Plt Count 387, MPV 9.6, Neut % (Auto) Not Reportable, Absolute Neuts (auto) 17.5 H, Absolute Lymphs (auto) 0.81 L, Total Counted 100, Neutrophils % (Manual) 80 H, Band Neutrophils % 6 H, Lymphocytes % (Manual) 4 L, Monocytes % (Manual) 4, Metamyelocytes % 2 H, Myelocytes % 4 H, Diff Path Review May , Platelet Estimate ADEQUATE, RBC Morphology NORM C+C, Sodium 134 L, Potassium 4.9, Chloride 104, Carbon Dioxide 20.0 L, Anion Gap 10, BUN 76 H, Creatinine 6.18 H, Estim Creat Clear Calc 7.51, Est GFR (MDRD) Af Amer 9 L, Est GFR (MDRD) Non-Af 7 L, BUN/Creatinine Ratio 12.3, Glucose 163 H, Calcium 8.3 L, Random Vancomycin 21.4 H 06/26/23 11:52: POC Glucose 168 H Rhythm Strip Rhythm Strip: Sinus Rhythm Rate: 78 Ectopy: None Physical Exam Const alert, oriented x3 and no apparent distress General Appearance: cooperative and comfortable HEENT hearing grossly normal bilaterally Head and Scalp: normocephalic and atraumatic Nose: external nose normal External Ear: external ears normal Eyes EOMs intact bilaterally General Eye: normal appearance of both eyes Neck General: normal visual inspection and trachea midline Resp normal respiratory effort, no retractions and no use of accessory muscles Effort and Inspection: able to speak in complete sentences Cardio Rate: regular rate Rhythm: regular rhythm Extremity Extremity Narrative: LLE with dressings in place. R groin access site with mild bruising but no significant swelling, redness. 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 No issues at access site. Start Plavix 75mg and ASA 81mg daily. Will order initial post-intervention imaging at her office visit. Will have patient follow-up as an outpatient in 2-3 weeks, sooner as needed. Of george will call her to schedule. Charges/Coding Visit Charges Inpatient E&M: 13627 Subs Hosp L2
--- NOTE | 2023-06-26 15:50 | CASEMGMT ---
Discharge Planning Discharge orders and transport time sent to [facility] via [facility]. Discharge orders, signed med list, and transport time also faxed to [facility] per request. [facility] will transport patient by cot at 4:15. Patient, her , nursing and SW notified. Eliza Lozano, Discharge Planning Asst.
[2023-06-27 09:46] LABS: Pathologist Review Reviewed
[2023-06-27 09:46] LABS: Pathologist Review Reviewed
== END 2023-06-26 13:37 | disposition skilled nursing facility (03) ==
LOC: ED 06:22 → PCU 07:35
PROVIDERS: Admitting Provider Hospitalist; Emergency Provider Emergency Medicine; PCP Family Medicine; Visit Provider Internal Medicine
DX: R56.9 Unspecified convulsions (principal); E11.621 Type 2 diabetes mellitus with foot ulcer; E11.51 Type 2 diabetes mellitus with diabetic peripheral angiopathy without gangrene; L97.524 Non-pressure chronic ulcer of other part of left foot with necrosis of bone; Z99.2 Dependence on renal dialysis; M86.672 Other chronic osteomyelitis, left ankle and foot; I50.9 Heart failure, unspecified; E11.22 Type 2 diabetes mellitus with diabetic chronic kidney disease; E11.42 Type 2 diabetes mellitus with diabetic polyneuropathy; N18.6 End stage renal disease; Z79.4 Long term (current) use of insulin; D64.9 Anemia, unspecified; I95.9 Hypotension, unspecified; S30.1XXD Contusion of abdominal wall, subsequent encounter; R53.81 Other malaise; Z79.899 Other long term (current) drug therapy; X58.XXXD Exposure to other specified factors, subsequent encounter
CPT/HCPCS: 36200; 36245; 36415; 37227; 37252; 37253; 70450; 71045; 74176; 75625; 75710; 76937; 80048; 80053; 80202; 81001; 82306; 82607; 82746; 82962; 83605; 84443; 84484; 85025; 85347; 85610; 90937; 93005; 94668; 95819; 96361; 96365; 96366; 96367; 97802; 99152; 99153; 99221; 99285; C1724; C1725; C1753; C1760; C1769; C2623; J7030; J7040; J7050; P9612; Q9967; A4216; C1876; C1887; C1894; G0257; G0378; Q5106